=== PATIENT | male | born 1940 | race Caucasian/White ===

== ENCOUNTER → 2016-11-18 | Outpatient (CLI) | payer MEDICARE, BC ==
[2016-11-18 11:46] LABS: ALT 29 U/L (21-72); AST 25 U/L (17-59); Alkaline Phosphatase 108 U/L (38-126); Anion Gap 9 mmol/L; Blood Urea Nitrogen 23 mg/dL (9-20); Calcium 9.5 mg/dL (8.4-10.2); Carbon Dioxide 29 mmol/L (22-30); Chloride 101 mmol/L (98-107); Glucose 107 mg/dL (74-99); Magnesium 2.1 mg/dL (1.6-2.3); Non-African American GFR(MDRD) >60 (>60 ml/min/1.73 sqM); Potassium 4.2 mmol/L (3.5-5.1); Sodium 139 mmol/L (137-145); Total Bilirubin 1.1 mg/dL (0.2-1.3); Total Protein 7.1 g/dL (6.3-8.2)
== END | disposition home or self-care (01) ==
LOC: LABWHC1 11:00
PROVIDERS: ATTEND Internal Medicine Interventional Cardiology
DX: I48.0 Paroxysmal atrial fibrillation (principal)
CPT/HCPCS: 36415; 80053; 83735

== ENCOUNTER 2017-02-17 12:45 | Emergency (ER) | payer MEDICARE, BC ==
[2017-02-17 12:57] VITALS: RESP 18
[2017-02-17] MEDS ORDERED: MAGNESIUM CITRATE 296 ML BOTTLE PO ONE (13:28)
[2017-02-17] MEDS ORDERED: SENNOSIDES-DOCUSATE SODIUM 1 EACH TAB PO STA (13:30)
--- NOTE | 2017-02-17 14:08 | ED ---
General Adult HPI - General Chief complaint: Abdominal Pain Stated complaint: Bowel Problems Time Seen by Provider: 02/17/17 13:12 Source: family, RN notes reviewed, old records reviewed Mode of arrival: ambulatory Limitations: no limitations - History of Present Illness Initial comments: This is a 77-year-old mildly F Torres Toradol pain. History of constipation chronic constipation takes multiple medical complications at home for help with constipation bowel movements. Patient multiple medications that do injury to his constipation were unable to adjust unable to this time. Patient is taking MiraLAX with no help. - Related Data Allergies Allergy/AdvReac Type Severity Reaction Status Date / Time No Known Allergies Allergy Verified 02/17/17 12:57 Review of Systems ROS Statement: Those systems with pertinent positive or pertinent negative responses have been documented in the HPI. ROS Other: All systems not noted in ROS Statement are negative. Past Medical History Past Medical History: Atrial Fibrillation, CVA/TIA History of Any Multi-Drug Resistant Organisms: None Reported Past Surgical History: Ablation, Heart Catheterization, Hernia Repair, Pacemaker , Tonsillectomy Additional Past Surgical History / Comment(s): hydrocele Past Psychological History: Anxiety, Depression Smoking Status: Never smoker Past Alcohol Use History: None Reported Past Drug Use History: None Reported General Exam Limitations: no limitations General appearance: alert, in no apparent distress Head exam: Present: atraumatic, normocephalic, normal inspection Eye exam: Present: normal appearance, PERRL, EOMI. Absent: scleral icterus, conjunctival injection, periorbital swelling ENT exam: Present: normal exam, mucous membranes moist Neck exam: Present: normal inspection. Absent: tenderness, meningismus, lymphadenopathy Respiratory exam: Present: normal lung sounds bilaterally. Absent: respiratory distress, wheezes, rales, rhonchi, stridor Cardiovascular Exam: Present: regular rate, normal rhythm, normal heart sounds. Absent: systolic murmur, diastolic murmur, rubs, gallop, clicks GI/Abdominal exam: Present: soft, normal bowel sounds. Absent: distended, tenderness, guarding, rebound, rigid Extremities exam: Present: normal inspection, full ROM, normal capillary refill. Absent: tenderness, pedal edema, joint swelling, calf tenderness Back exam: Present: normal inspection Neurological exam: Present: alert, oriented X3, CN II-XII intact Psychiatric exam: Present: normal affect, normal mood Skin exam: Present: warm, dry, intact, normal color. Absent: rash Course Vital Signs 02/17/17 12:51 Temperature 96.9 F L Pulse Rate 103 H Respiratory 18 Rate Blood Pressure 130/85 O2 Sat by Pulse 98 Oximetry - Reevaluation(s) Reevaluation #1: 02/17/17 14:48 At this point patient has had a positive successful bowel output Procedures - Rectal Disimpaction Consent Obtained: verbal consent Indication: fecal impaction Procedural Sedation: Yes Sedation/Analgesia: none Technique: manual disimpaction with gloved finger Result: significant stool output Complications: none Patient Tolerated Procedure: well Medical Decision Making - Medical Decision Making 77 now the ER for constipation, patient with positive bowel movement, patient can be discharged home Disposition Clinical Impression: Abdominal pain, Constipation Disposition: HOME SELF-CARE Instructions: Constipation (ED) Referrals: Gaudencio Spangler MD [Primary Care Provider] - 1-2 days
[2017-02-17 16:02] VITALS: BP 138/69; PULSE 98; TEMP 98.3
== END 2017-02-17 16:02 | disposition home or self-care (01) ==
LOC: EC 12:45
DX: K59.00 Constipation, unspecified (principal); R10.9 Unspecified abdominal pain; Z86.73 Personal history of transient ischemic attack (TIA), and cerebral infarction without residual deficits
CPT/HCPCS: 99284

== ENCOUNTER → 2017-05-17 | Outpatient (CLI) | payer MEDICARE, BC ==
[2017-05-17 10:30] LABS: ALT 36 U/L (21-72); AST 34 U/L (17-59); Alkaline Phosphatase 99 U/L (38-126); Anion Gap 9 mmol/L; Blood Urea Nitrogen 19 mg/dL (9-20); Calcium 9.5 mg/dL (8.4-10.2); Carbon Dioxide 26 mmol/L (22-30); Chloride 103 mmol/L (98-107); Glucose 100 mg/dL (74-99); Magnesium 2.1 mg/dL (1.6-2.3); Non-African American GFR(MDRD) >60 (>60 ml/min/1.73 sqM); Potassium 4.6 mmol/L (3.5-5.1); Sodium 138 mmol/L (137-145); Total Bilirubin 1.1 mg/dL (0.2-1.3); Total Protein 7.2 g/dL (6.3-8.2)
== END | disposition home or self-care (01) ==
LOC: LABWHC1 09:18
PROVIDERS: ATTEND Internal Medicine Interventional Cardiology
DX: I48.0 Paroxysmal atrial fibrillation (principal)
CPT/HCPCS: 36415; 80053; 83735

== ENCOUNTER → 2017-11-08 | Outpatient (CLI) | payer MEDICARE, BC ==
[2017-11-08 09:38] LABS: ALT 33 U/L (21-72); AST 26 U/L (17-59); Alkaline Phosphatase 93 U/L (38-126); Anion Gap 10 mmol/L; Blood Urea Nitrogen 20 mg/dL (9-20); Calcium 9.5 mg/dL (8.4-10.2); Carbon Dioxide 30 mmol/L (22-30); Chloride 100 mmol/L (98-107); Glucose 102 mg/dL (74-99); Magnesium 2.1 mg/dL (1.6-2.3); Potassium 4.4 mmol/L (3.5-5.1); Sodium 140 mmol/L (137-145); Total Bilirubin 1.2 mg/dL (0.2-1.3); Total Protein 7.1 g/dL (6.3-8.2)
== END ==
LOC: LABWHC1 08:52
PROVIDERS: ATTEND Internal Medicine Interventional Cardiology
DX: D48.1 Neoplasm of uncertain behavior of connective and other soft tissue (principal)
CPT/HCPCS: 36415; 80053; 83735

== ENCOUNTER → 2018-06-09 | Outpatient (CLI) | payer MEDICARE, BC ==
[2018-06-09 11:15] LABS: HCT 44.9 % (39.0-53.0); HGB 15.3 gm/dL (13.0-17.5); MCH 33.5 pg (25.0-35.0); MCHC 34.2 g/dL (31.0-37.0); Mean Platelet Volume 7.2; Platelet Count 172 k/uL (150-450); RBC 4.58 m/uL (4.30-5.90); RDW 12.4 % (11.5-15.5); WBC 6.5 k/uL (3.8-10.6)
[2018-06-09 11:22] LABS: Anion Gap 9 mmol/L; Blood Urea Nitrogen 18 mg/dL (9-20); Carbon Dioxide 29 mmol/L (22-30); Chloride 103 mmol/L (98-107); Potassium 4.2 mmol/L (3.5-5.1); Sodium 141 mmol/L (137-145)
== END ==
LOC: LABPAT 10:02
PROVIDERS: ATTEND Internal Medicine Interventional Cardiology
DX: Z01.812 Encounter for preprocedural laboratory examination (principal); I10 Essential (primary) hypertension; I48.1 Persistent atrial fibrillation; R94.39 Abnormal result of other cardiovascular function study; R07.9 Chest pain, unspecified
CPT/HCPCS: 36415; 80051; 82565; 84520; 85027

== ENCOUNTER → 2018-06-13 | Day surgery (SDC) | payer MEDICARE, BC ==
[2018-06-09 14:32] VITALS: BMI 33.1
[~2018-06-13] MED LIST: ALPRAZolam 0.25 MG TAB PO PRN; ALPRAZolam 0.5 MG TAB PO PRN; ASPIRIN 325 MG TAB PO STA; ATORVASTATIN 80 MG TAB PO STA; FLUDROCORTISONE 0.1 MG TAB PO SCH; HEPARIN SODIUM 1,000 UN/ML (10ML VL) ONE; IOPAMIDOL-370 125ML BTL INJ ONE; IV FLUID CONTINUATION 950 ML IV ONE; LIDOCAINE 1% INJ 10MG/ML (20 ML MDV) ONE; LIDOCAINE 1% INJ 10MG/ML (20 ML MDV) SQ ONE; METHIMAZOLE 5 MG TAB PO SCH; METOPROLOL SUCCINATE (ER) 25 MG TAB.ER.24H PO SCH; MULTIVITAMINS, THERA 1 EACH TAB PO SCH; NITROGLYCERIN SL TABS 0.4 MG TAB SUBLINGUAL PRN; RX INFO: IV CONTRAST WAS GIVEN 1 EACH MISC MISCELLANE PRN; SODIUM CHLORIDE 0.9% 1,000 ML IV SCH; SODIUM CHLORIDE 0.9% 1,000 ML in EMPTY BAG 1 BAG IV ONE; TAMSULOSIN 0.4 MG CAP.ER.24H PO SCH; VERAPAMIL 2.5 MG/ML 2 ML AMP ONE; VERAPAMIL SYRINGE (5 MG/10 ML) INTRAARTER ONE; fentaNYL (PF) 50 MCG/ML 2 ML AMP IV ONE; fentaNYL (PF) 50 MCG/ML 2 ML AMP ONE
[2018-06-13 06:53] VITALS: PULSE 84; TEMP 98.1
--- NOTE | 2018-06-13 08:36 | CC ---
CARDIAC CATHETERIZATION REPORT Mr. Shree Jacobsen is a 78-year-old male with known history of hyperlipidemia, persistent atrial fibrillation, who has been complaining of progressive symptoms of fatigue and shortness of breath. He underwent myocardial perfusion imaging that was consistent with stress-induced ischemia. In view of that, recommendation was made regarding cardiac catheterization. The procedure as well as the risks and complications were discussed with the patient who is in full understanding and agreement. PROCEDURE: Patient was brought to the shop laborer in a fasting semi-sedated state after receiving fentanyl and Benadryl and achieving moderate conscious sedated state. Using Xylocaine anesthesia in the Seldinger technique a 6-Urdu sheath was introduced in the left radial artery. Selective right and left angiography performed using 5-Urdu 4 bend right and left Cherie catheter. Multiple views of the coronary artery including hemiaxial views obtained. Following that 5-Urdu tight pigtail catheter was introduced in the left ventricle and a 30-degree DELVALLE view of the left ventricle was obtained. Following that, the catheter and sheaths were removed. Hemostasis was obtained with deployment of a TR band. There was no immediate complication. Patient was returned to his room in stable condition. Of note, the patient received 5000 units of intravenous heparin as well as intra-arterial verapamil. FINDINGS: LEFT MAIN: This is a short large size vessel bifurcating left circumflex, left anterior descending artery. Left main coronary artery has no evidence of high-grade stenosis. LEFT ANTERIOR DESCENDING ARTERY: This is a large-sized vessel giving rise to 3 obtuse marginal branches. The first one is the largest in caliber. After the takeoff of the first obtuse marginal branch, there is a 20% plaque. The distal LAD tapers down at the apex. There was no evidence of high-grade stenosis. LEFT CIRCUMFLEX: This is a nondominant vessel small in caliber giving rise to one obtuse marginal branch. The left circumflex as well as branches have no evidence of obstructive coronary artery disease. RIGHT CORONARY ARTERY: This is a large dominant vessel bifurcating PDA and posterolateral segment and branches. The right coronary artery has mild intimal disease in the proximal and mid segment without any evidence of high-grade stenosis. LEFT VENTRICULOGRAM: Left ventriculogram was performed in 30-degree DELVALLE view and revealed normal left ventricular size and systolic function. The ejection fraction is 60% with no significant mitral regurgitation. HEMODYNAMICS: There was no gradient across the aortic valve. The left ventricular end- diastolic pressure was 8 to 10 mmHg. CONCLUSION: 1. 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 2. Normal left ventricular size and systolic function. RECOMMENDATION: In view of finding anatomy, I recommend continue medical therapy with aggressive coronary risk modifications that have been initiated. Those findings and recommendation were discussed with the patient and his family who are in full understanding and agreement. DURATION OF PROCEDURE: 24 minutes. MMODL / IJN: [id number] /
[2018-06-13 10:44] VITALS: RESP 18
[2018-06-13 13:08] VITALS: BP 141/81
== END | disposition home or self-care (01) ==
LOC: CATHCVL 06:28
PROVIDERS: ATTEND Internal Medicine Interventional Cardiology
DX: I25.10 Atherosclerotic heart disease of native coronary artery without angina pectoris (principal); I48.1 Persistent atrial fibrillation; I42.9 Cardiomyopathy, unspecified; Z87.891 Personal history of nicotine dependence; E78.00 Pure hypercholesterolemia, unspecified; E78.2 Mixed hyperlipidemia; Z95.0 Presence of cardiac pacemaker; Z79.01 Long term (current) use of anticoagulants; Z79.52 Long term (current) use of systemic steroids; Z79.899 Other long term (current) drug therapy
CPT/HCPCS: 93458; C1894; C1769; J2001; J3010; J1644; Q9967

== ENCOUNTER → 2020-07-10 | Outpatient (CLI) | payer MEDICARE, BC ==
--- NOTE | 2020-07-10 19:49 | CT ---
EXAMINATION TYPE: CT lumbar spine wo con DATE OF EXAM: 07/10/2020 6:46 PM COMPARISON: CT abdomen November 21, 2015 HISTORY: Lower back pain CT DLP: 2227.1 mGycm Automated exposure control for dose reduction was used. Unenhanced CT of the lumbar spine was performed. Bone and soft tissue window settings are submitted as well as coronal and sagittal reconstructions. There are 6 lumbar type vertebra redemonstrated. There is persistent dextroconvex scoliosis centered at the labeled L4 level. Spine shows straightening alignment on sagittal images similar to prior. Per sistent multilevel disc desiccation. Vertebral body heights are maintained. There is fairly moderate multilevel disc space narrowing and moderate multilevel anterior and lateral spurring. More severe sp urring left mid aspect noted. Slight grade 1 retrolisthesis L4 on L5 and L5 on L6 and anterolisthesis L2 on L3 all are redemonstrated. Axial images at the T12-L1 levels show mild/moderate facet arthropathy bilaterally. Spinal canal is p reserved. Similar findings at L1-L2 level. Axial images at L2-L3 level show mild/moderate facet arthropathy. There is mild broad disc bulge with vacuum disc phenomenon. There is moderate right and mild left-sided anterior inferior neural foramin al narrowing. Axial images at L3-L4 level shows moderate broad-based disc bulge effacing anterior thecal sac. There is mild to moderate facet arthropathy and ligament flavum hypertrophy causing posterior lateral thec al sac on axial image 47. There is mild/moderate bilateral anterior inferior neural foraminal narrowi ng. Axial images at the L4-L5 level shows mild facet arthropathy bilaterally. There is spondylolisthesis. There is mild broad disc bulge. There is mild effacement of the anterior and posterior lateral theca l sac. There is moderate to severe left and mild right-sided neural foraminal narrowing. Axial images at L5-L6 level show moderate facet arthropathy bilaterally. There is spondylolisthesis w ith broad-based right paracentral disc protrusion. There is effacement of the anterior and posterior lateral thecal sac. There is moderate right greater than left bilateral neural foraminal narrowing. Axial images at the L6-S1 levels and moderate to advanced facet arthropathy bilaterally. There is foc al central disc protrusion mildly facing anterior thecal sac. There is patent bilateral neural forami na. Mild calcified plaque of the aorta extends into branch vessels. There R suspected tiny nonobstructing left renal calculi, for reference 2 mm calculus mid to lower pole level left kidney axial image 47. IMPRESSION: Loss of normal lumbar lordosis. Scoliotic curvature. Multilevel degenerative changes as d etailed above..
== END | disposition home or self-care (01) ==
LOC: RADCTMAIN 18:24
PROVIDERS: ATTEND Physical Medicine & Rehabilitation
DX: M47.816 Spondylosis without myelopathy or radiculopathy, lumbar region (principal); M43.8X6 Other specified deforming dorsopathies, lumbar region; M41.86 Other forms of scoliosis, lumbar region
CPT/HCPCS: 72131

== ENCOUNTER → 2020-07-24 | Outpatient (CLI) | payer MEDICARE, BC ==
[2020-07-24 10:16] VITALS: BP 117/71; PULSE 79; RESP 18; TEMP 98.3
--- NOTE | 2020-07-24 17:11 | P.PAINCN ---
History of Present Illness - Reason for Consult Consult date: 07/24/20 - History of Present Illness This 80 years old male with a chronic history of severe low back pain, started several years ago he denies any initiating event, he was treated [facility] the [facility], he had lumbar epidural steroid injection, and also patient had diagnostic medial branch block done last year , patient had a positive result after the diagnostic medial branch block done on 2 different occasions, and he was scheduled to have RFA of the medial branch lumbar area, the radiofrequency was not done because patient had shingles in his chest , under radiofrequency was canceled, Dr. Payne, was planning to perform the radiofrequency for him, then the Dr. Payne left the practice, and patient referred to [facility] pain clinic to have radiofrequency of the medial branch lumbar area, according to the patient and his daughter patient had more than 70% improvement of his low back pain after each diagnostic block, the first procedure was done in the beginning of November 2018 and he had 70% improvement of his pain and the second diagnostic block done at 12/26/2018 and again patient did more than 70% improvement of his low back pain, patient reported that the pain in the low back area radiated to to the hip area bilaterally the posterior lateral aspect of his lower extremity, the intensity of the pain interfering with the quality of life, and interference with activities of daily livings, the pain is constant and severe aggravated with any movement, he denies any fever or night sweats, he feels some weakness in his lower extremity secondary to the pain Past Medical History Past Medical History: Atrial Fibrillation, Chest Pain / Angina, CVA/TIA, Hyperlipidemia, Hypertension, Osteoarthritis (OA), Prostate Disorder, Sleep Apnea/CPAP/BIPAP, Thyroid Disorder Additional Past Medical History / Comment(s): CVA-no residual effects, hx kidney stones History of Any Multi-Drug Resistant Organisms: None Reported Past Surgical History: Cardiac Ablation, Heart Catheterization, Hernia Repair, Pacemaker, Tonsillectomy Additional Past Surgical History / Comment(s): hydrocele, lithotripsy, paola cataracts, eye lid surgery, repair torn retina left eye, Past Anesthesia/Blood Transfusion Reactions: Motion Sickness Type of Cardiac Device: Permanent Pacemaker Device Placement Date:: 10/21/2011 Past Psychological History: Anxiety, Depression Past Alcohol Use History: None Reported Past Drug Use History: None Reported - Past Family History Mother Family Medical History: Cancer, Pulmonary Embolus Medications and Allergies Home Medications Medication Instructions Recorded Confirmed Type Fludrocortisone [Florinef] 0.1 mg PO QAM 02/17/17 07/24/20 History Multivitamins, Thera [Multivitamin 1 tab PO DAILY 02/17/17 07/24/20 History (formulary)] Rivaroxaban [Xarelto] 20 mg PO HS 02/17/17 07/24/20 History Simvastatin [Zocor] 20 mg PO HS 02/17/17 07/24/20 History Tamsulosin HCl [Flomax] 0.4 mg PO HS 02/17/17 07/24/20 History methIMAzole [Tapazole] 2.5 mg PO Q48H 02/17/17 07/24/20 History Metoprolol Succinate [Toprol XL] 25 mg PO BID 06/09/18 07/24/20 History Allergies Allergy/AdvReac Type Severity Reaction Status Date / Time No Known Allergies Allergy Verified 06/09/18 14:17 Physical Exam Vitals: Vital Signs Temp Pulse Resp BP Pulse Ox 07/24/20 10:04 98.3 F 79 18 117/71 97 Intake and Output 07/24/20 07/24/20 07/24/20 06:59 14:59 22:59 Other: Weight 111.13 kg Physical Examinations : -Constitutiona : Cooperative , not in acute distress . -HEENT : nech : supple , no Lymphadenopathy , normal thyroid size . : eyes : no ptosis , no icterus, no photophobia . - neurologic : Cranial nerve II to XII intact , no focal neurological deffecit . -psychatric : alert , oriented X 3 , appropriate affect , intact judgment and insight . -Lymphatic : no Lymphadenopathy . - musculoskeltal : Lumber spine moter stegnth lower extremities ,thigh and legs 4/5 Right side , 4/5 Left side deep tendon reflexes : normal Knee Jerk , normal ankle Jerk lumber facet Loading Test =positive Right , positive Left Range of motion of the lumbar spine Flexion 30 degrees, extension 10 degrees strait leg raising test = positive at 45 degree Fabere test= positive Right , and positive LT . Sever tenderness over the Sacroiliac joint on the Right , and Left sides . Results Comments: Computed tomography scan of the lumbar spine L2 3 L3 4 L4 5 L5-S1 lumbar degenerative disc disease and lumbar facet arthropathy Assessment and Plan Plan: Assessment and plan=1-lumbar spondylosis with lumbar facet arthropathy. 2-level degenerative disc disease. Patient had anoxic medial branch block lumbar area Bilaterally at L2 ,L3,L4 ,L5 done at [facility] he got more than 70% improvement of his pain for short-term, it would be good candidate to have RFA of the medial branch lumbar area, patient had to hold Xarelto before the procedure, and approval from the acid extractor was requested Time with Patient: Greater than 30 PQRS Measure Charge Sheet Measure #130: Documentation of Current Meds in Medical Chart: Patient's medications documented in chart Measure #226: Tobacco Use: Screen & Cessation Intervention: Pt not a tobacco user Measure #111: Pneumonia Vaccination: Pneumococcal vaccine administered or previously received Measure #47: Advance Care Plan: Advance care planning discussed & documented, pt chose/unable to give Measure #412: Opioid Treatment Agreement: No documentation of signed opioid treatment agreement Measure #408: Opioid Therapy Follow-up Evaluation: Patient had NO f/u eval minimum every 3 months during opioid therapy Measure #317: Preventitive Care & Scrn High Bld Press & F/U: Normal blood pressure, f/u not required Measure #128: Body Mass Index (BMI) Screening & Follow-up: BMI documented ABOVE normal parameters - f/u documented Measure #131: Pain Assessment & Follow-up: Follow-up scheduled Measure #431: Unhealthy Alcohol Use Preventative Care & Scrn: Patient not identified as an unhealthy alcohol user PQRS Narrative: Smoking Status Never smoker Blood Pressure 117/71 Pain Intensity [Lower Back] 3 Scale Used Numeric (1 - 10) Hx Alcohol Use (MH) No Home Medications: Ambulatory Orders Fludrocortisone [Florinef] 0.1 mg PO QAM 02/17/17 Multivitamins, Thera [Multivitamin (formulary)] 1 tab PO DAILY 02/17/17 Rivaroxaban [Xarelto] 20 mg PO HS 02/17/17 Simvastatin [Zocor] 20 mg PO HS 02/17/17 Tamsulosin HCl [Flomax] 0.4 mg PO HS 02/17/17 methIMAzole [Tapazole] 2.5 mg PO Q48H 02/17/17 Metoprolol Succinate [Toprol XL] 25 mg PO BID 06/09/18
== END | disposition home or self-care (01) ==
LOC: PNWHC3 09:50
PROVIDERS: ATTEND Specialist
DX: M47.816 Spondylosis without myelopathy or radiculopathy, lumbar region (principal); M51.36 Other intervertebral disc degeneration, lumbar region; Z79.891 Long term (current) use of opiate analgesic; Z79.899 Other long term (current) drug therapy
CPT/HCPCS: 99211

== ENCOUNTER 2020-08-16 11:16 | Day surgery (SDC) | payer MEDICARE, BC ==
[2020-08-14 11:38] VITALS: BMI 30.6
[~2020-08-16 11:16] MED LIST changes: -ALPRAZolam 0.25 MG TAB PO PRN; -ALPRAZolam 0.5 MG TAB PO PRN; -ASPIRIN 325 MG TAB PO STA; -ATORVASTATIN 80 MG TAB PO STA; -FLUDROCORTISONE 0.1 MG TAB PO SCH; -HEPARIN SODIUM 1,000 UN/ML (10ML VL) ONE; -IOPAMIDOL-370 125ML BTL INJ ONE; -IV FLUID CONTINUATION 950 ML IV ONE; +LACTATED RINGERS 1,000 ML IV SCH; -LIDOCAINE 1% INJ 10MG/ML (20 ML MDV) ONE; -LIDOCAINE 1% INJ 10MG/ML (20 ML MDV) SQ ONE; -METHIMAZOLE 5 MG TAB PO SCH; -METOPROLOL SUCCINATE (ER) 25 MG TAB.ER.24H PO SCH; -MULTIVITAMINS, THERA 1 EACH TAB PO SCH; -NITROGLYCERIN SL TABS 0.4 MG TAB SUBLINGUAL PRN; -RX INFO: IV CONTRAST WAS GIVEN 1 EACH MISC MISCELLANE PRN; -SODIUM CHLORIDE 0.9% 1,000 ML IV SCH; -SODIUM CHLORIDE 0.9% 1,000 ML in EMPTY BAG 1 BAG IV ONE; -TAMSULOSIN 0.4 MG CAP.ER.24H PO SCH; -VERAPAMIL 2.5 MG/ML 2 ML AMP ONE; -VERAPAMIL SYRINGE (5 MG/10 ML) INTRAARTER ONE; -fentaNYL (PF) 50 MCG/ML 2 ML AMP IV ONE; -fentaNYL (PF) 50 MCG/ML 2 ML AMP ONE
[2020-08-16 11:46] VITALS: RESP 16; TEMP 97.5
[2020-08-16] MEDS ORDERED: LIDOCAINE 1% (10MG/ML) FOR IV START INTRADERMA ONE (11:50)
[2020-08-16] MEDS ORDERED: LIDOCAINE 1% INJ 10MG/ML (20 ML MDV) ONE (11:54)
[2020-08-16] MEDS ORDERED: TRIAMCINOLONE ACETONIDE 40 MG/ML 1 ML VIAL ONE (11:54)
[2020-08-16] MEDS ORDERED: ROPIVACAINE 5MG/ML 20ML VIAL ONE (11:54)
[2020-08-16] MEDS ORDERED: PROPOFOL 10 MG/ML 20 ML VIAL IV ONE (11:55)
[2020-08-16] MEDS ORDERED: fentaNYL (PF) 50 MCG/ML 2 ML AMP ONE (11:55)
[2020-08-16] MEDS ORDERED: MIDAZOLAM 2 MG/2 ML VIAL ONE (11:55)
--- NOTE | 2020-08-16 12:32 | P.PCN ---
Date of Procedure: 08/16/20 Surgeon: Beth Linda Pathology: none sent Condition: stable Disposition: PACU Description of Procedure: PREOPERATIVE DIAGNOSIS: Lumbar spondylosis without myelopathy POSTOPERATIVE DIAGNOSIS: Lumbar spondylosis without myelopathy PROCEDURES : Bilateral Radiofrequency thermocoagulation L4-L5, and L5-S1 medial branch, with fluoroscopic guidance ANESTHESIA: IV moderate conscious sedation with versed and fentanyl and local infiltration with lidocaine 1% 5 ml Physician:Beth Linda MD EBL: Minimal PROCEDURE INDICATION: The patient with low back pain secondary to lumbar facet arthropathy who had more than 50% relief of her pain with previous diagnostic lumbar medial branch block with bupivacaine. The patient's symptoms today are more consistent with pathology at the L4 5 and L5-S1 facets and that's why I'm going to target these joints today with the RFA. PROCEDURE DESCRIPTION / TECHNIQUE: The patient was seen and identified in the preoperative area. Risks, benefits, complications, including but not limited to risk of infection ,bleeding , allergic reactions to the medications and no complete pain relief , and alternatives were discussed with the patient, the patient agreed to proceed with the procedure and signed the consent. IV was started. Vital signs remained stable throughout the procedure. Patient was taken to the OR and time out was completed. The patient was placed in the prone position on the procedure table. The lumber area was prepped and draped in the usual sterile fashion. . Vital signs were closely monitored during the procedure .IV sedation was used during the procedure to decrease patients anxiety. The target points were identified as follows: For the L5-S1 level which corresponds to the dorsal ramus of L5 the target point was at the superior med ial aspect of the sacral ala right of the spine on the AP view of fluoroscopy and for the L3, and L4 medial branches the target points were at the connection between the transverse process and the superior articular process of L4, and L5 vertebra respectively on the Rt oblique view of fluoroscopy. skin was marked, and localized with 1% lidocaineat these points. Subsequently, an 18 axouu383- mm radiofrequency needles with a 10-mm curved active tips were advanced guided by fluoroscopy to each of the target points mentioned above in a superior medial direction to get the active tips as parallel as possible to the medial branches tracks. AP, oblique, and lateral views of fluoroscopy were used to verify needl e tips position. Each level then underwent motor testing at 2.5 Hz and 0 to 3 volt with local stimulation, but no radicular symptoms down the legs. I then injected 1 mL of lidocaine 1% in each needle before starting radiofrequency thermocoagulation at 80 degrees celsius for 90 seconds. After that I injected 1 ml of PF Ropivacaine 0.5%(5 mls) with 20 mg of Kenalog, 1 mL of this mixture was given in each needle before taking the needles out intact. The procedure was repeated in the same manner on the left side with a total dose of Kenalog of 40 mg for the procedure. At the end of the procedure, the skin was cleansed and bandages were applied. A copy of needle placement fluoroscopy was saved on the C-arm machine. COMPLICATIONS: No acute complications. DISPOSITION / PLANS: The patient was placed in a supine position and transferred to the recovery area in a stable condition for observation and was discharged from the recovery room after meeting discharge criteria. Home discharge instructions given to the patient by the staff. The patient was reexamined prior to discharge. The patient will schedule a follow up in the clinic in 2-4 weeks.
[2020-08-16 12:56] VITALS: BP 169/90; PULSE 91
--- NOTE | 2020-08-16 12:56 | FL ---
EXAMINATION TYPE: FL guided pain mgmt statistic DATE OF EXAM: 08/16/2020 HISTORY: Fluoroscopy time 24 seconds of fluoroscopy provided. IMPRESSION: 1. Fluoroscopy time.
[2020-08-16] MEDS ORDERED: IV FLUID CONTINUATION 1,000 ML IV ONE (13:05)
== END 2020-08-16 13:21 | disposition home or self-care (01) ==
LOC: ORPAIN 11:16
PROVIDERS: ATTEND Anesthesiology
DX: M47.816 Spondylosis without myelopathy or radiculopathy, lumbar region (principal); I25.2 Old myocardial infarction; I25.10 Atherosclerotic heart disease of native coronary artery without angina pectoris; I10 Essential (primary) hypertension; E78.5 Hyperlipidemia, unspecified; E07.9 Disorder of thyroid, unspecified; M19.90 Unspecified osteoarthritis, unspecified site; N40.0 Benign prostatic hyperplasia without lower urinary tract symptoms; Z95.0 Presence of cardiac pacemaker; Z79.01 Long term (current) use of anticoagulants; Z79.899 Other long term (current) drug therapy
CPT/HCPCS: 64635; 64636; J2250; J3301; J2001; J3010; J2704; J2795

== ENCOUNTER → 2020-09-18 | Outpatient (CLI) | payer MEDICARE, BC ==
[2020-09-18 14:06] VITALS: BP 121/72; PULSE 95; RESP 18; TEMP 97.3
--- NOTE | 2020-09-18 14:45 | P.PN ---
Subjective Progress Note Date: 09/18/20 This is a follow-up visit for this 80 years old male with a chronic history of severe low back pain, patient diagnosed with lumbar degenerative disc disease lumbar spondylosis with lumbar facet arthropathy and lumbar foraminal stenosis, recently we have done RFA of the medial branch lumbar area patient currently complaining of low back pain with radiation to the left lower extremity, it is constant and increases with activity, interfere with the quality of life Objective - Vital Signs Vital signs: Vital Signs Temp 97.3 F L 09/18/20 14:03 Pulse 95 09/18/20 14:03 Resp 18 09/18/20 14:03 BP 121/72 09/18/20 14:03 Pulse Ox 99 09/18/20 14:03 - Exam Physical Examinations : -Constitutiona : Cooperative , not in acute distress . -HEENT : nech : supple , no Lymphadenopathy , normal thyroid size . : eyes : no ptosis , no icterus, no photophobia . - neurologic : Cranial nerve II to XII intact , no focal neurological deffecit . -psychatric : alert , oriented X 3 , appropriate affect , intact judgment and insight . -Lymphatic : no Lymphadenopathy . - musculoskeltal : Lumber spine moter stegnth lower extremities ,thigh and legs 5/5 Right side , 5/5 Left side deep tendon reflexes : normal Knee Jerk , normal ankle Jerk lumber facet Loading Test = negative bilaterally Range of motion of the lumbar spine Flexion 30 degrees, extension 10 degrees strait leg raising test = positive at 30 degree on the left side, and is negative on the right side Fabere test= negative right , and positive LT . Sever tenderness over the Sacroiliac joint on the Left sides . Gaenslen test= negative right ,and positive left . Seated flexion test= negative right ,and positive Left . Computed tomography scan of the lumbar spine= multilevel lumbar degenerative disc disease multilevel foraminal stenosis multilevel lumbar facet arthropathy Assessment and Plan Plan: Assessment and plan=1-lumbar radiculopathy. 2-lumbar degenerative disc disease 3-lumbar spondylosis with lumbar facet arthropathy. 4-left sacroiliitis. Status post RFA of the medial branch lumbar area. Patient could benefit from lumbar epidural steroid injection at L5-S1( left paramedian approach ) Patient has to hold Xarelto for 3 days before the procedure - PQRS measures = - Patient's medications are documented in the chart. -Tobacco use is negative and counseling.Given. -Patient's has not received pneumococcal vaccine. -Advanced care planning discussed, patient not eligible. -Opiate contract not signed. -Pain positive and follow-up visit/procedure is scheduled. -Patient's blood pressure measured [ 121/72 ] , and documented in the record ,and patient will follow up with the primary care. -Patient's weight was measured and body mass index [ ] above the normal limits and counseling was done. and patient instructed to follow-up with the primary care physician. -Patient was not identified as an unhealthy alcohol user Time with Patient: Less than 30
== END | disposition home or self-care (01) ==
LOC: PNWHC3 13:50
PROVIDERS: ATTEND Specialist
DX: M51.16 Intervertebral disc disorders with radiculopathy, lumbar region (principal); M47.26 Other spondylosis with radiculopathy, lumbar region; M46.1 Sacroiliitis, not elsewhere classified
CPT/HCPCS: 99211

== ENCOUNTER 2020-10-23 10:59 | Emergency (ER) | payer MEDICARE, BC ==
[2020-10-23 11:06] VITALS: RESP 18
[2020-10-23 12:09] LABS: Basophils % (A) 0 %; Eosinophils # (A) 0.1 k/uL (0-0.7); Eosinophils % (A) 1 %; HCT 45.9 % (39.0-53.0); HGB 15.8 gm/dL (13.0-17.5); Lymphocytes # (A) 0.4 k/uL (1.0-4.8); Lymphocytes % (A) 5 %; MCH 34.7 pg (25.0-35.0); MCHC 34.4 g/dL (31.0-37.0); MCV 100.7 fL (80.0-100.0); Mean Platelet Volume 7.6; Monocytes # (A) 0.4 k/uL (0-1.0); Monocytes % (A) 6 %; Neutrophils # (A) 6.6 k/uL (1.3-7.7); Neutrophils % (A) 87 %; Platelet Count 168 k/uL (150-450); RBC 4.56 m/uL (4.30-5.90); RDW 12.4 % (11.5-15.5); WBC 7.7 k/uL (3.8-10.6)
[2020-10-23 12:23] LABS: ALT 18 U/L (4-49); AST 25 U/L (17-59); African American GFR (CKD) >90 (>60 ml/min/1.73 sqM); Albumin 3.9 g/dL (3.5-5.0); Alkaline Phosphatase 87 U/L (38-126); Anion Gap 7 mmol/L; Blood Urea Nitrogen 21 mg/dL (9-20); Calcium 9.5 mg/dL (8.4-10.2); Carbon Dioxide 30 mmol/L (22-30); Chloride 102 mmol/L (98-107); Glucose 127 mg/dL (74-99); Non-African American GFR(CKD) 87 (>60 ml/min/1.73 sqM); Potassium 3.8 mmol/L (3.5-5.1); Sodium 139 mmol/L (137-145); Total Bilirubin 1.4 mg/dL (0.2-1.3); Total Protein 6.7 g/dL (6.3-8.2)
[2020-10-23 12:25] LABS: Appearance,Urine Clear (Clear); Bilirubin,Urine Negative (Negative); Blood,Urine Trace (Negative); Color,Urine Yellow; Glucose,Urine (UA) Negative (Negative); Ketones,Urine 1+ (Negative); Leukocyte Esterase,Urine Negative (Negative); Nitrite,Urine Negative (Negative); PH, Urine 6.5 (5.0-8.0); Protein,Urine Trace (Negative); RBC,Urine 21 /hpf (0-5); Specific Gravity,Urine 1.024 (1.001-1.035); WBC,Urine 1 /hpf (0-5)
[2020-10-23 12:26] LABS: Hyaline Casts,Urine 1 /lpf (0-2); Mucus,Urine Occasional /hpf
--- NOTE | 2020-10-23 12:35 | XR ---
KUB HISTORY: Constipation, urine retention Frontal KUB submitted on 2 images No comparisons There is a scoliotic curvature to the lumbar spine, there is degenerative disc changes. Multiple calc ifications in the pelvis are felt likely to represent phleboliths. Osteoarthritic changes are present in the hips. Bone mineralization is maintained. Some retained fecal debris is present throughout the distribution of the colon. Rectum shows mottled density consistent with retained stool. IMPRESSION: Correlate for fecal stasis, possible fecal impaction. Additional findings above.
[2020-10-23] MEDS ORDERED: SODIUM CHLORIDE 0.9% 500 ML 500 ML IV ONE (13:05)
--- NOTE | 2020-10-23 13:09 | ED ---
Male Urogenital HPI - General Chief complaint: Urogenital Stated complaint: Urinary retention Time Seen by Provider: 10/23/20 11:09 Source: patient, family Mode of arrival: ambulatory Limitations: no limitations - History of Present Illness Initial comments: 80-year-old male presented for urinary retention constipation. Patient states he struggles with constipation has to take a bowel regimen daily including MiraLAX. Patient states he has not had a bowel movement for 3-4 days. Patient states that since the past 2-3 days he has not been able to urinate. Patient states he has midline lower abdominal pressure/discomfort. Denies severe abdominal pain, nausea, vomiting, fevers. Denies additional complaints. Denies back pain, falls, leg weakness, sensation deficits, incontinence. Upon arrival patient appears well nontoxic in no acute distress. - Related Data Home Medications Medication Instructions Recorded Confirmed Fludrocortisone [Florinef] 0.1 mg PO QAM 02/17/17 10/21/20 Multivitamins, Thera [Multivitamin 1 tab PO DAILY 02/17/17 10/21/20 (formulary)] Rivaroxaban [Xarelto] 20 mg PO HS 02/17/17 10/21/20 Simvastatin [Zocor] 20 mg PO HS 02/17/17 10/21/20 Tamsulosin HCl [Flomax] 0.4 mg PO HS 02/17/17 10/21/20 methIMAzole [Tapazole] 2.5 mg PO Q48H 02/17/17 10/21/20 Metoprolol Succinate [Toprol XL] 25 mg PO BID 06/09/18 10/21/20 Acetaminophen [Tylenol] 1,000 mg PO HS 08/14/20 10/21/20 Miralax(Dose Unknown) 1 applicate PO DAILY 08/14/20 10/21/20 Allergies Allergy/AdvReac Type Severity Reaction Status Date / Time No Known Allergies Allergy Verified 10/21/20 12:51 Review of Systems ROS Statement: Those systems with pertinent positive or pertinent negative responses have been documented in the HPI. ROS Other: All systems not noted in ROS Statement are negative. Past Medical History Past Medical History: Atrial Fibrillation, Chest Pain / Angina, CVA/TIA, Hyperlipidemia, Hypertension, Osteoarthritis (OA), Prostate Disorder, Sleep A pnea/CPAP/BIPAP, Thyroid Disorder Additional Past Medical History / Comment(s): CVA-no residual effects, hx kidney stones, no cpap used, back pain History of Any Multi-Drug Resistant Organisms: None Reported Past Surgical History: Cardiac Ablation, Heart Catheterization, Hernia Repair, Pacemaker, Tonsillectomy Additional Past Surgical History / Comment(s): hydrocele, lithotripsy, paola cataracts, eye lid surgery, repair torn retina left eye, Past Anesthesia/Blood Transfusion Reactions: Motion Sickness Type of Cardiac Device: Permanent Pacemaker Device Placement Date:: 10/21/2011 Past Psychological History: Anxiety, Depression Smoking Status: Never smoker Past Alcohol Use History: None Reported Past Drug Use History: None Reported - Past Family History Mother Family Medical History: Cancer, Pulmonary Embolus General Exam - General Exam Comments Initial Comments: General: The patient is awake and alert, in no distress Eye: +3 mm pupils are equal, round and reactive to light, extra-ocular movements are intact. No nystagmus. There is normal conjunctiva bilaterally. No signs of icterus. Ears, nose, mouth and throat: There are moist mucous membranes and no oral lesions. Neck: The neck is supple, there is no tenderness or JVD. Cardiovascular: There is a regular rate and rhythm. No murmur, rub or gallop is appreciated. Respiratory: Lungs are clear to auscultation, respirations are non-labored, breath sounds are equal. No wheezes, stridor, rales, or rhonchi. Gastrointestinal: [Soft, non-distended, non-tender abdomen without masses or organomegaly noted. There is no rebound or guarding present. Musculoskeletal: Normal ROM, no tenderness. Strength 5/5. Sensation intact. Radial and DP pulses equal bilaterally 2+. Neurological: A&O x 3. CN II-XII intact grossly, There are no obvious motor or sensory deficits. Coordination appears grossly intact. Speech is normal. Skin: Skin is warm and dry and no rashes or lesions are noted. Psychiatric: Cooperative, appropriate mood & affect, normal judgment. Limitations: no limitations Course Vital Signs 10/23/20 10/23/20 10/23/20 11:03 12:27 14:14 Temperature 98.1 F 98.0 F Pulse Rate 106 H 94 100 Respiratory 18 18 18 Rate Blood Pressure 101/70 134/79 132/86 O2 Sat by Pulse 100 99 100 Oximetry Medical Decision Making - Medical Decision Making pt presenting for constipation, with known history and urinary retention. significant retnetion upon watts placement. patient UA blood, however no obvious signs of infection. Patient does not appear toxic nor distressed abdomen soft nontender no significant distention. There was evidence on KUB of possible fecal impaction. Rectal no large stool ball, soft stools. Patient had successful enema. Patient stated significant relief at this time feel is stable for discharge with outpatient urology follow-up as we will keep in the indwelling Watts catheter. patient agreeable to this care plan and discharge as is patient son in law who helps patient get to appointments/ect. - Lab Data Result diagrams: 10/23/20 11:58 10/23/20 11:58 Lab Results 10/23/20 10/23/20 10/23/20 Range/Units 11:58 11:58 11:58 WBC 7.7 (3.8-10.6) k/uL RBC 4.56 (4.30-5.90) m/uL Hgb 15.8 (13.0-17.5) gm/dL Hct 45.9 (39.0-53.0) % MCV 100.7 H (80.0-100.0) fL MCH 34.7 (25.0-35.0) pg MCHC 34.4 (31.0-37.0) g/dL RDW 12.4 (11.5-15.5) % Plt Count 168 (150-450) k/uL MPV 7.6 Neutrophils % 87 % Lymphocytes % 5 % Monocytes % 6 % Eosinophils % 1 % Basophils % 0 % Neutrophils # 6.6 (1.3-7.7) k/uL Lymphocytes # 0.4 L (1.0-4.8) k/uL Monocytes # 0.4 (0-1.0) k/uL Eosinophils # 0.1 (0-0.7) k/uL Basophils # 0.0 (0-0.2) k/uL Sodium 139 (137-145) mmol/L Potassium 3.8 (3.5-5.1) mmol/L Chloride 102 (98-107) mmol/L Carbon Dioxide 30 (22-30) mmol/L Anion Gap 7 mmol/L BUN 21 H (9-20) mg/dL Creatinine 0.76 (0.66-1.25) mg/dL Est GFR (CKD-EPI)AfAm >90 (>60 ml/min/1.73 sqM) Est GFR (CKD-EPI)NonAf 87 (>60 ml/min/1.73 sqM) Glucose 127 H (74-99) mg/dL Calcium 9.5 (8.4-10.2) mg/dL Total Bilirubin 1.4 H (0.2-1.3) mg/dL AST 25 (17-59) U/L ALT 18 (4-49) U/L Alkaline Phosphatase 87 (38-126) U/L Total Protein 6.7 (6.3-8.2) g/dL Albumin 3.9 (3.5-5.0) g/dL Urine Color Yellow Urine Appearance Clear (Clear) Urine pH 6.5 (5.0-8.0) Ur Specific [place] 1.024 (1.001-1.035) Urine Protein Trace H (Negative) Urine Glucose (UA) Negative (Negative) Urine Ketones 1+ H (Negative) Urine Blood Trace H (Negative) Urine Nitrite Negative (Negative) Urine Bilirubin Negative (Negative) Urine Urobilinogen 4.0 (<2.0) mg/dL Ur Leukocyte Esterase Negative (Negative) Urine RBC 21 H (0-5) /hpf Urine WBC 1 (0-5) /hpf Hyaline Casts 1 (0-2) /lpf Urine Mucus Occasional H (None) /hpf Disposition Clinical Impression: Urinary retention, Constipation Disposition: HOME SELF-CARE Condition: Good Instructions (If sedation given, give patient instructions): Constipation (ED), Urinary Retention in Men (ED) Additional Instructions: Please use medication as discussed. Please follow-up with urology in the next 1-2 day, call TODAY for your appointment, Please return to emergency room if the symptoms increase or worsen or for any other concerns. Is patient prescribed a controlled substance at d/c from ED?: No Referrals: Gaudencio Spangler MD [Primary Care Provider] - 1-2 days Ravinder Patel MD [STAFF PHYSICIAN] - 1-2 days Time of Disposition: 13:18
[2020-10-23] MEDS ORDERED: SODIUM CHLORIDE 0.9% 1,000 ML IV SCH (13:15)
[2020-10-23 14:15] VITALS: BP 132/86; PULSE 100; TEMP 98
== END 2020-10-23 14:40 | disposition home or self-care (01) ==
LOC: EC 10:59
DX: K59.00 Constipation, unspecified (principal); R33.9 Retention of urine, unspecified; I48.91 Unspecified atrial fibrillation; I10 Essential (primary) hypertension; E78.5 Hyperlipidemia, unspecified; G47.30 Sleep apnea, unspecified; Z79.01 Long term (current) use of anticoagulants; Z79.899 Other long term (current) drug therapy; Z95.0 Presence of cardiac pacemaker; Z86.73 Personal history of transient ischemic attack (TIA), and cerebral infarction without residual deficits
CPT/HCPCS: 36415; 74018; 80053; 81001; 85025; 96360; 99283

== ENCOUNTER 2020-11-02 11:15 | Inpatient (IN) | payer MEDICARE, BC ==
[2020-11-02] MEDS ORDERED: SODIUM CHLORIDE 0.9% 500 ML 500 ML IV STA (11:46)
--- NOTE | 2020-11-02 11:59 | ED ---
Weakness HPI - General Chief complaint: Weakness Stated complaint: sudden weakness Time Seen by Provider: 11/02/20 11:29 Source: patient, family Mode of arrival: wheelchair Limitations: physical limitation - History of Present Illness Initial comments: 80-year-old male with history of A. fib presents to emergency department with a chief complaint of A. fib. Patient is present with his daughter who states the patient was seen in the hospital on 10/22/20 for urinary retention and constipation. Patient was discharged with a Mustafa catheter and ever since the patient continues to decline. He has decreased oral intake. Patient has also been getting progressively weaker. Daughter states the patient has also been having increased fluid retention in his legs but he has been sleeping in a mostly. patient takes xeralto. Patient is also complaining of obstructive urinary symptoms and urgency but denies any dysuria. Patient denies any chest pain or shortness of breath. - Related Data Home Medications Medication Instructions Recorded Confirmed Fludrocortisone [Florinef] 0.1 mg PO QAM 02/17/17 10/21/20 Multivitamins, Thera [Multivitamin 1 tab PO DAILY 02/17/17 10/21/20 (formulary)] Rivaroxaban [Xarelto] 20 mg PO HS 02/17/17 10/21/20 Simvastatin [Zocor] 20 mg PO HS 02/17/17 10/21/20 Tamsulosin HCl [Flomax] 0.4 mg PO HS 02/17/17 10/21/20 methIMAzole [Tapazole] 2.5 mg PO Q48H 02/17/17 10/21/20 Metoprolol Succinate [Toprol XL] 25 mg PO BID 06/09/18 10/21/20 Acetaminophen [Tylenol] 1,000 mg PO HS 08/14/20 10/21/20 Miralax(Dose Unknown) 1 applicate PO DAILY 08/14/20 10/21/20 Allergies Allergy/AdvReac Type Severity Reaction Status Date / Time No Known Allergies Allergy Verified 11/02/20 11:21 Review of Systems ROS Statement: Those systems with pertinent positive or pertinent negative responses have been documented in the HPI. ROS Other: All systems not noted in ROS Statement are negative. Past Medical History Past Medical History: Atrial Fibrillation, Chest Pain / Angina, CVA/TIA, Hyperlipidemia, Hypertension, Osteoarthritis (OA), Prostate Disorder, Sleep Apnea/CPAP/BIPAP, Thyroid Disorder Additional Past Medical History / Comment(s): CVA-no residual effects, hx kidney stones, no cpap used, back pain, History of Any Multi-Drug Resistant Organisms: None Reported Past Surgical History: Cardiac Ablation, Heart Catheterization, Hernia Repair, Pacemaker, Tonsillectomy Additional Past Surgical History / Comment(s): hydrocele, lithotripsy, paola cataracts, eye lid surgery, repair torn retina left eye, Past Anesthesia/Blood Transfusion Reactions: Motion Sickness Type of Cardiac Device: Permanent Pacemaker Device Placement Date:: 10/21/2011 Past Psychological History: Anxiety, Depression Smoking Status: Never smoker Past Alcohol Use History: None Reported Past Drug Use History: None Reported - Past Family History Mother Family Medical History: Cancer, Pulmonary Embolus General Exam Limitations: physical limitation General appearance: alert, in no apparent distress, obese Head exam: Present: atraumatic, normocephalic, normal inspection Eye exam: Present: normal appearance, PERRL, EOMI Pupils: Present: normal accommodation ENT exam: Present: normal exam, normal oropharynx, mucous membranes dry, TM's normal bilaterally, normal external ear exam Neck exam: Present: normal inspection, full ROM. Absent: tenderness Respiratory exam: Present: normal lung sounds bilaterally. Absent: respiratory distress, wheezes, rales, rhonchi, stridor, chest wall tenderness, accessory muscle use Cardiovascular Exam: Present: regular rate, normal rhythm, normal heart sounds GI/Abdominal exam: Present: soft. Absent: distended, tenderness, guarding, rebound Extremities exam: Present: normal inspection, full ROM, normal capillary refill, pedal edema (+3 pitting edema bilaterally), other (Palpable DP and PT bilatera lly). Absent: tenderness, calf tenderness Back exam: Present: normal inspection, full ROM. Absent: tenderness, CVA tenderness (R), CVA tenderness (L) Neurological exam: Present: alert, oriented X3 Psychiatric exam: Present: normal affect, normal mood Skin exam: Present: warm, dry, intact, normal color Course Vital Signs 11/02/20 11/02/20 11/02/20 11:16 11:33 12:51 Temperature 99.4 F Pulse Rate 124 H 91 Respiratory 18 18 Rate Blood Pressure 131/72 128/85 O2 Sat by Pulse 99 Oximetry EKG Findings - EKG Comments: EKG Findings:: A. fib with RVR. Ventricular rate 122, QRS 90, QTc 427. Medical Decision Making - Medical Decision Making 80-year-old male presents to the emergency department with chief complaint of weakness. On physical examination, +3 pitting edema bilateral lower extremities. Patient does appear to be slightly dehydrated and the mucous members. Patient currently on Xarelto for A. fib. EKG showed A. fib with RVR but his heart rate seems to be arranging between the low 90s and 110. Patient will not be started on rate control medication. Leukocytosis of 13.6 K. Lactic acid within normal limits. Elevated coags. CMP reveals elevation of BUN at 29 lip secondary to decreased oral intake at home. UA reveals elevated leukocyte esterase, white blood cells and red blood cells. Patient will be treated for a urinary tract infection. Rocephin started. Urine cultures pending. Blood cultures pending. Chest x-ray showed no signs of effusion. Initial troponin negative. BNP 3020. Patient will be kept on 50cc per hour IV saline. Patient will be admitted for further medical management. Case discussed with Dr. Montgomery. Admitting physician is Dr. Stovall - Lab Data Result diagrams: 11/02/20 11:53 11/02/20 11:53 Lab Results 11/02/20 11/02/20 11/02/20 Range/Units 11:53 11:53 11:53 WBC 13.6 H (3.8-10.6) k/uL RBC 4.38 (4.30-5.90) m/uL Hgb 15.3 (13.0-17.5) gm/dL Hct 44.5 (39.0-53.0) % MCV 101.4 H (80.0-100.0) fL MCH 34.9 (25.0-35.0) pg MCHC 34.4 (31.0-37.0) g/dL RDW 12.4 (11.5-15.5) % Plt Count 180 (150-450) k/uL MPV 7.7 Neutrophils % 93 % Lymphocytes % 3 % Monocytes % 3 % Eosinophils % 1 % Basophils % 0 % Neutrophils # 12.6 H (1.3-7.7) k/uL Lymphocytes # 0.4 L (1.0-4.8) k/uL Monocytes # 0.4 (0-1.0) k/uL Eosinophils # 0.1 (0-0.7) k/uL Basophils # 0.0 (0-0.2) k/uL PT 15.4 H (9.0-12.0) sec INR 1.5 H (<1.2) APTT 35.0 H (22.0-30.0) sec Sodium 136 L (137-145) mmol/L Potassium 3.9 (3.5-5.1) mmol/L Chloride 97 L (98-107) mmol/L Carbon Dioxide 27 (22-30) mmol/L Anion Gap 12 mmol/L BUN 29 H (9-20) mg/dL Creatinine 0.78 (0.66-1.25) mg/dL Est GFR (CKD-EPI)AfAm >90 (>60 ml/min/1.73 sqM) Est GFR (CKD-EPI)NonAf 86 (>60 ml/min/1.73 sqM) Glucose 144 H (74-99) mg/dL Plasma Lactic Acid Tera (0.7-2.0) mmol/L Calcium 9.1 (8.4-10.2) mg/dL Magnesium 1.8 (1.6-2.3) mg/dL Total Bilirubin 1.5 H (0.2-1.3) mg/dL AST 26 (17-59) U/L ALT 19 (4-49) U/L Alkaline Phosphatase 85 (38-126) U/L Troponin I (0.000-0.034) ng/mL NT-Pro-B Natriuret Pep pg/mL Total Protein 6.7 (6.3-8.2) g/dL Albumin 3.7 (3.5-5.0) g/dL Urine Color Urine Appearance (Clear) Urine pH (5.0-8.0) Ur Specific [place] (1.001-1.035) Urine Protein (Negative) Urine Glucose (UA) (Negative) Urine Ketones (Negative) Urine Blood (Negative) Urine Nitrite (Negative) Urine Bilirubin (Negative) Urine Urobilinogen (<2.0) mg/dL Ur Leukocyte Esterase (Negative) Urine RBC (0-5) /hpf Urine WBC (0-5) /hpf Amorphous Sediment (None) /hpf Urine Bacteria (None) /hpf Hyaline Casts (0-2) /lpf Urine Mucus (None) /hpf 11/02/20 11/02/20 11/02/20 Range/Units 11:53 11:53 11:53 WBC (3.8-10.6) k/uL RBC (4.30-5.90) m/uL Hgb (13.0-17.5) gm/dL Hct (39.0-53.0) % MCV (80.0-100.0) fL MCH (25.0-35.0) pg MCHC (31.0-37.0) g/dL RDW (11.5-15.5) % Plt Count (150-450) k/uL MPV Neutrophils % % Lymphocytes % % Monocytes % % Eosinophils % % Basophils % % Neutrophils # (1.3-7.7) k/uL Lymphocytes # (1.0-4.8) k/uL Monocytes # (0-1.0) k/uL Eosinophils # (0-0.7) k/uL Basophils # (0-0.2) k/uL PT (9.0-12.0) sec INR (<1.2) APTT (22.0-30.0) sec Sodium (137-145) mmol/L Potassium (3.5-5.1) mmol/L Chloride (98-107) mmol/L Carbon Dioxide (22-30) mmol/L Anion Gap mmol/L BUN (9-20) mg/dL Creatinine (0.66-1.25) mg/dL Est GFR (CKD-EPI)AfAm (>60 ml/min/1.73 sqM) Est GFR (CKD-EPI)NonAf (>60 ml/min/1.73 sqM) Glucose (74-99) mg/dL Plasma Lactic Acid Tera 2.7 H* (0.7-2.0) mmol/L Calcium (8.4-10.2) mg/dL Magnesium (1.6-2.3) mg/dL Total Bilirubin (0.2-1.3) mg/dL AST (17-59) U/L ALT (4-49) U/L Alkaline Phosphatase (38-126) U/L Troponin I <0.012 (0.000-0.034) ng/mL NT-Pro-B Natriuret Pep 3030 pg/mL Total Protein (6.3-8.2) g/dL Albumin (3.5-5.0) g/dL Urine Color Urine Appearance (Clear) Urine pH (5.0-8.0) Ur Specific [place] (1.001-1.035) Urine Protein (Negative) Urine Glucose (UA) (Negative) Urine Ketones (Negative) Urine Blood (Negative) Urine Nitrite (Negative) Urine Bilirubin (Negative) Urine Urobilinogen (<2.0) mg/dL Ur Leukocyte Esterase (Negative) Urine RBC (0-5) /hpf Urine WBC (0-5) /hpf Amorphous Sediment (None) /hpf Urine Bacteria (None) /hpf Hyaline Casts (0-2) /lpf Urine Mucus (None) /hpf 11/02/20 Range/Units 12:25 WBC (3.8-10.6) k/uL RBC (4.30-5.90) m/uL Hgb (13.0-17.5) gm/dL Hct (39.0-53.0) % MCV (80.0-100.0) fL MCH (25.0-35.0) pg MCHC (31.0-37.0) g/dL RDW (11.5-15.5) % Plt Count (150-450) k/uL MPV Neutrophils % % Lymphocytes % % Monocytes % % Eosinophils % % Basophils % % Neutrophils # (1.3-7.7) k/uL Lymphocytes # (1.0-4.8) k/uL Monocytes # (0-1.0) k/uL Eosinophils # (0-0.7) k/uL Basophils # (0-0.2) k/uL PT (9.0-12.0) sec INR (<1.2) APTT (22.0-30.0) sec Sodium (137-145) mmol/L Potassium (3.5-5.1) mmol/L Chloride (98-107) mmol/L Carbon Dioxide (22-30) mmol/L Anion Gap mmol/L BUN (9-20) mg/dL Creatinine (0.66-1.25) mg/dL Est GFR (CKD-EPI)AfAm (>60 ml/min/1.73 sqM) Est GFR (CKD-EPI)NonAf (>60 ml/min/1.73 sqM) Glucose (74-99) mg/dL Plasma Lactic Acid Tera (0.7-2.0) mmol/L Calcium (8.4-10.2) mg/dL Magnesium (1.6-2.3) mg/dL Total Bilirubin (0.2-1.3) mg/dL AST (17-59) U/L ALT (4-49) U/L Alkaline Phosphatase (38-126) U/L Troponin I (0.000-0.034) ng/mL NT-Pro-B Natriuret Pep pg/mL Total Protein (6.3-8.2) g/dL Albumin (3.5-5.0) g/dL Urine Color Dark Yellow Urine Appearance Cloudy (Clear) Urine pH 6.0 (5.0-8.0) Ur Specific [place] 1.030 (1.001-1.035) Urine Protein 2+ H (Negative) Urine Glucose (UA) Negative (Negative) Urine Ketones Negative (Negative) Urine Blood Large H (Negative) Urine Nitrite Negative (Negative) Urine Bilirubin Negative (Negative) Urine Urobilinogen 6.0 (<2.0) mg/dL Ur Leukocyte Esterase Large H (Negative) Urine RBC >182 H (0-5) /hpf Urine WBC 123 H (0-5) /hpf Amorphous Sediment Few H (None) /hpf Urine Bacteria Few H (None) /hpf Hyaline Casts 8 H (0-2) /lpf Urine Mucus Many H (None) /hpf Disposition Clinical Impression: Urinary tract infection, Lower extremity edema, Weakness Disposition: ADMITTED IP TO THIS HOSP Condition: Fair Is patient prescribed a controlled substance at d/c from ED?: No Referrals: Gaudencio Spangler MD [Primary Care Provider] - 1-2 days Time of Disposition: 13:51
[2020-11-02 12:04] LABS: Basophils % (A) 0 %; Eosinophils # (A) 0.1 k/uL (0-0.7); Eosinophils % (A) 1 %; HCT 44.5 % (39.0-53.0); HGB 15.3 gm/dL (13.0-17.5); Lymphocytes # (A) 0.4 k/uL (1.0-4.8); Lymphocytes % (A) 3 %; MCH 34.9 pg (25.0-35.0); MCHC 34.4 g/dL (31.0-37.0); MCV 101.4 fL (80.0-100.0); Mean Platelet Volume 7.7; Monocytes # (A) 0.4 k/uL (0-1.0); Monocytes % (A) 3 %; Neutrophils # (A) 12.6 k/uL (1.3-7.7); Neutrophils % (A) 93 %; Platelet Count 180 k/uL (150-450); RBC 4.38 m/uL (4.30-5.90); RDW 12.4 % (11.5-15.5); WBC 13.6 k/uL (3.8-10.6)
[2020-11-02 12:09] LABS: INR 1.5 (<1.2); Prothrombin Time 15.4 sec (9.0-12.0)
--- NOTE | 2020-11-02 12:13 | XR ---
EXAMINATION TYPE: XR chest 2V DATE OF EXAM: 11/02/2020 COMPARISON: Chest x-ray 01/02/2010 HISTORY: Weakness, trauma yesterday TECHNIQUE: Frontal and lateral views of the chest are obtained. FINDINGS: There is a generator in left pectoral region, there are leads in the right atrium and vent ricle, leads in the atrium is upturned, it shows a transverse orientation. There is no evident pneumo thorax or pleural effusion. Heart is enlarged. Aorta is dense and ectatic. IMPRESSION: No acute cardiopulmonary process. Atrial lead of the pacemaker as described. Aortic ecta bobbi and cardiomegaly.
[2020-11-02 12:19] LABS: ALT 19 U/L (4-49); AST 26 U/L (17-59); African American GFR (CKD) >90 (>60 ml/min/1.73 sqM); Albumin 3.7 g/dL (3.5-5.0); Alkaline Phosphatase 85 U/L (38-126); Anion Gap 12 mmol/L; Blood Urea Nitrogen 29 mg/dL (9-20); Calcium 9.1 mg/dL (8.4-10.2); Carbon Dioxide 27 mmol/L (22-30); Chloride 97 mmol/L (98-107); Glucose 144 mg/dL (74-99); Magnesium 1.8 mg/dL (1.6-2.3); Non-African American GFR(CKD) 86 (>60 ml/min/1.73 sqM); Potassium 3.9 mmol/L (3.5-5.1); Sodium 136 mmol/L (137-145); Total Bilirubin 1.5 mg/dL (0.2-1.3); Total Protein 6.7 g/dL (6.3-8.2)
[2020-11-02 13:11] LABS: Amorphous Sediment,Urine Few /hpf; Appearance,Urine Cloudy (Clear); Bacteria,Urine Few /hpf; Bilirubin,Urine Negative (Negative); Blood,Urine Large (Negative); Color,Urine Dark Yellow; Glucose,Urine (UA) Negative (Negative); Hyaline Casts,Urine 8 /lpf (0-2); Ketones,Urine Negative (Negative); Leukocyte Esterase,Urine Large (Negative); Mucus,Urine Many /hpf; Nitrite,Urine Negative (Negative); Protein,Urine 2+ (Negative); RBC,Urine >182 /hpf (0-5); WBC,Urine 123 /hpf (0-5)
[2020-11-02] MEDS ORDERED: cefTRIAXone IN SWFI 1,000 MG/10 ML SYRINGE IVP STA (13:33)
[2020-11-02] MEDS ORDERED: SODIUM CHLORIDE 0.9% 1,000 ML IV SCH (13:45)
[2020-11-02] MEDS ORDERED: ONDANSETRON 4 MG/2 ML VIAL IVP PRN (13:45)
[2020-11-02] MEDS ORDERED: MORPHINE SULFATE 4 MG/ML SYRINGE IV PRN (13:45)
[2020-11-02] MEDS ORDERED: traMADol 50 MG TAB PO PRN (13:45)
[2020-11-02] MEDS ORDERED: HYDROcodone/APAP 5-325MG 1 EACH TAB PO PRN (13:45)
[2020-11-02] MEDS ORDERED: HYDROmorphone 0.5 MG/0.5 ML SYRINGE IVP PRN (13:45)
[2020-11-02] MEDS ORDERED: NALOXONE 0.4 MG/ML 1 ML VIAL IV PRN (13:45)
--- NOTE | 2020-11-02 21:07 | HP ---
HISTORY AND PHYSICAL DATE OF SERVICE: 11/02/2020 I am covering for Dr. Spangler. CHIEF COMPLAINTS: Weakness and UTI. HISTORY OF PRESENT ILLNESS: This 80-year-old gentleman with a past medical history of multiple medical problems including atrial fibrillation, CVA, TIA, hypertension, hyperlipidemia, history of DJD, sleep apnea, history of cardiac ablation, history of cardiac catheterization, being followed by Dr. Spangler in the outpatient setting, had urinary difficulties. The patient came to the ER on 10/23/2020, with features of urinary retention. The patient also had some constipation. The patient had a Mustafa catheter and urology followup is also being recommended, the Mustafa catheter was removed, but despite that, the patient has some difficulty in urination. The patient has significant weakness and the patient was taken to [facility] and admitted for further evaluation and treatment. The patient also had bilateral leg swelling also. The urine shows some hematuria as well. There is no history any fever, rigors or chills. No history of headache, loss of consciousness or seizures. The patient is extremely hard of hearing. PAST MEDICAL HISTORY: History of atrial fibrillation, CVA, TIA, hypertension, hyperlipidemia, history of DJD. HOME MEDICATIONS: Tapazole, Flomax, Zocor, Xarelto, MiraLAX, multivitamins, Toprol-XL, Florinef, Tylenol. Doses are reviewed. ALLERGIES: None. FAMILY HISTORY: Pulmonary embolism in the family. SOCIAL HISTORY: No history of smoking. No history of alcohol intake. REVIEW OF SYSTEMS: ENT diminished hearing. Diminished vision. CARDIOVASCULAR system as mentioned earlier. RESPIRATORY: As mentioned earlier. : As mentioned earlier. GI: Constipation. NERVOUS SYSTEM: No numbness, weakness. ALLERGY/IMMUNOLOGY: No asthma or hayfever. MUSCULOSKELETAL: As mentioned earlier. HEMATOLOGY/ONCOLOGY: No history of anemia. ENDOCRINE: No history of diabetes. Hypothyroidism present. CONSTITUTIONAL: As mentioned earlier. DERMATOLOGY: Negative. RHEUMATOLOGY negative. PSYCHIATRY as mentioned earlier. PHYSICAL EXAMINATION: Alert and oriented x3. Pulse 94, blood pressure 118/59, respiration 18, temperature 98.9, pulse ox 98% on 2 L. HEENT: Conjunctivae normal. Oral mucosa moist. NECK is no jugular venous distention. No carotid bruit. No lymph node enlargement. CARDIOVASCULAR system: S1, S2 muffled. No S3, no S4. RESPIRATORY: Breath sounds diminished in the bases. No rhonchi. No crackles. ABDOMEN: Soft, nontender. No mass palpable. LEGS: No edema. No swelling. NERVOUS SYSTEM: Higher functions as mentioned earlier. Moves all 4 limbs. No focal motor or sensory deficits. LYMPHATICS: No lymph nodes palpable in the neck, axillae or groin. SKIN: No ulcer, no rash and no bleeding. JOINTS: No active deforming arthropathy. LABS: WBC 13.7, hemoglobin 15.3, and INR is 1.5. Sodium 132, potassium 3.9 and lactic acid is 2.7. Total bilirubin is 1.5. UA noted. ASSESSMENT: 1. Acute urinary tract infection with sepsis with failure of outpatient treatment. 2. Generalized weakness and gait dysfunction. 3. Elevated plasma lactic acid. 4. Hyponatremia. 5. Bilateral leg edema, rule out congestive heart failure. 6. Increased WBC. 7. Increased MCV. 8. Possible benign prostatic hypertrophy. 9. History atrial fibrillation. 10.History of cerebrovascular accident, transient ischemic attack. 11.Hypertension. 12.Hyperlipidemia. 13.History of degenerative joint disease. 14.History of sleep apnea. 15.Gait dysfunction. 16.Bilateral leg swelling. 17.History of nephrolithiasis. 18.History of cardiac ablation. 19.Cardiac cath. 20.History of hydrocele. 21.History of lithotripsy. 22.History of anxiety. 23.History of depression. 24.Obesity with body mass index 30.7. 25.FULL CODE. RECOMMENDATIONS AND DISCUSSION: In this 80-year-old gentleman who presented with multiple complex medical issues, we will monitor the patient closely. Continue the current medications, management and symptomatic treatment. We will initiate broad-spectrum IV antibiotics. Obtain cultures. Otherwise, resume the home medications. NT proBNP is 3030. I would also recommend a 2D echo with Doppler. Empiric Lasix will be given and the chest x-ray which I reviewed personally showed no evidence of any CHF, but the EKG showed atrial fibrillation with rapid ventricular rate. I would also recommend Cardiology evaluation. The prognosis guarded because of multiple complex medical issues. Further recommendations to follow. A copy of dictation being forwarded to Dr. Spangler who is the primary physician. MMODL / IJN: [id number] /
[2020-11-02] MEDS: FUROSEMIDE 10 MG/ML 4 ML VIAL IV SCH (21:38)
[2020-11-02] MEDS: methIMAzole 5 MG TAB PO SCH (21:38)
[2020-11-02] MEDS: RIVAROXABAN 20 MG TAB PO SCH (21:39)
[2020-11-02] MEDS: METOPROLOL SUCCINATE (ER) 25 MG TAB.ER.24H PO SCH (21:39)
[2020-11-02] MEDS: ATORVASTATIN 10 MG TAB PO SCH (21:39)
[2020-11-02] MEDS: TAMSULOSIN 0.4 MG CAP.ER.24H PO SCH (21:39)
[2020-11-03] MEDS: PANTOPRAZOLE 40 MG/10 ML VIAL IV SCH (08:05)
[2020-11-03] MEDS: METOPROLOL SUCCINATE (ER) 25 MG TAB.ER.24H PO SCH ×2 (08:06→21:34)
[2020-11-03] MEDS: FLUDROCORTISONE 0.1 MG TAB PO SCH (08:06)
[2020-11-03] MEDS: MULTIVITAMINS, THERA 1 EACH TAB PO SCH (08:06)
[2020-11-03] MEDS: FUROSEMIDE 10 MG/ML 4 ML VIAL IV SCH ×2 (08:06→21:33)
[2020-11-03 09:06] LABS: Basophils # (A) 0.01 X 10*3/uL (0.00-0.10); Basophils % (A) 0.1 %; Eosinophils # (A) 0.02 X 10*3/uL (0.04-0.35); Eosinophils % (A) 0.2 %; HCT 36.7 % (39.6-50.0); HGB 12.7 g/dL (13.0-17.0); Lymphocytes # (A) 0.42 X 10*3/uL (0.90-5.00); Lymphocytes % (A) 4.5 %; MCH 34.6 pg (27.0-32.0); MCHC 34.6 g/dL (32.0-37.0); Monocytes # (A) 0.79 X 10*3/uL (0.20-1.00); Monocytes % (A) 8.5 %; Neutrophils # (A) 8.07 X 10*3/uL (1.80-7.70); Neutrophils % (A) 86.4 %; Platelet Count 156 X 10*3/uL (140-440); RBC 3.67 X 10*6/uL (4.40-5.60); RDW 12.8 % (11.5-14.5); WBC 9.34 X 10*3/uL (4.50-10.00)
[2020-11-03 10:20] LABS: Anion Gap 8.4 mmol/L (4.00-12.00); BUN/Creat Ratio 38.57 Ratio (12.00-20.00); Calcium 8.6 mg/dL (8.7-10.3); Carbon Dioxide 29.6 mmol/L (21.6-31.8); Non-African American GFR(CKD) 89.8 (60.0-200.0); Potassium 3.3 mmol/L (3.5-5.5)
[2020-11-03] MEDS ORDERED: VANCOMYCIN IV PER PHARMACY 1 EACH MISC MISCELLANE PRN (12:02)
[2020-11-03] MEDS ORDERED: VANCOMYCIN 2,000 MG in SODIUM CHLORIDE 0.9% 500 ML 500 ML IVPB ONE (13:00)
[2020-11-03] MEDS: AMPICILLIN-SULBACTAM 3 GM in SODIUM CHLORIDE 0.9% 100 ML IVPB SCH (16:33)
--- NOTE | 2020-11-03 16:59 | PN ---
PROGRESS NOTE DATE OF SERVICE: 11/03/2020 I am covering for Dr. Spangler. DATE OF SERVICE: This 80-year-old gentleman was admitted with acute UTI with sepsis is being closely monitored. Patient is still complaining of weakness. The patient has multiple lab abnormalities. Hemoglobin is 12.7 today. Lactic acid improved. Potassium 3.3. The cultures are showing group D Enterococcus. PAST MEDICAL HISTORY: Reviewed. REVIEW OF SYSTEMS: CARDIOVASCULAR: No angina. RESPIRATORY: As mentioned earlier. GI: As mentioned earlier. : No dysuria. NERVOUS SYSTEM: No numbness or weakness. CURRENT MEDICATIONS: Reviewed and include [place] 5 mg, Lipitor, Rocephin, Lasix, Tapazole, Toprol-XL. Doses reviewed. PHYSICAL EXAMINATION: GENERAL: Patient is alert and oriented times three. VITAL SIGNS: Pulse 90, blood pressure 103/64, respirations 18, temperature 98.4, pulse ox 98% on room air. HEENT: Conjunctivae normal. Oral mucosa moist. NECK: No jugular venous distention. No carotid bruits. No lymph node enlargement. RESPIRATORY: Breath sounds diminished at the bases. A few scattered rhonchi, no crackles. HEART: S1 and S2, muffled. ABDOMEN: Soft, no tenderness. EXTREMITIES: No edema. NERVOUS: Mild diffuse weakness. LAB STUDIES: WBC 9.3, hemoglobin 12.7, MCV 100, potassium 3.3. ASSESSMENT: 1. Acute urinary tract infection with sepsis with failure of outpatient treatment with group D enterococci. 2. Generalized weakness and gait dysfunction. 3. Anemia, probably of chronic disease. 4. Elevated plasma lactic acid secondary to sepsis. 5. Hyponatremia. 6. Bilateral leg edema, rule out congestive heart failure. 7. Increased WBC. 8. Increased MCV. 9. Possible benign prostatic hypertrophy. 10.History atrial fibrillation. 11.History of cerebrovascular accident and transient ischemic attack .. 12.Hypertension. 13.Hyperlipidemia. 14.History of degenerative joint disease. 15.History of sleep apnea. 16.Gait dysfunction. 17.Bilateral leg swelling. 18.History of nephrolithiasis. 19.History of cardiac ablation. 20.Cardiac cath. 21.History of hydrocele. 22.History of lithotripsy. 23.History of anxiety. 24.History of depression. 25.Obesity with body mass index of 30.7. 26.FULL CODE. RECOMMENDATIONS AND DISCUSSION: Recommend to continue with current management, continue symptomatic treatment. Change antibiotics to Unasyn. The patient does not have any allergies. Await final ID of the organism. Otherwise, repeat labs. Supplement potassium. PT, OT and possible ECF rehab. Guarded prognosis because of multiple complex medical issues. Further recommendations to follow. Repeat labs. MMODL / IJN: [id number] /
[2020-11-03] MEDS: POTASSIUM CHLORIDE ER 20 MEQ TAB.ER PO SCH ×2 (19:39→21:33)
--- NOTE | 2020-11-03 20:04 | P.CRDCN ---
History of Present Illness History of present illness: HISTORY OF PRESENTING ILLNESS This is a pleasant 80 year old male with history of persistent Afib, mild cardiomyopathy with EF 45%, mild CAD by heart catheterization, hyperthryoidism, SSS s/p PPM, HTN, HLD. He follows in the office with Dr Mauro. He was recently admitted for urinary retention with a Mustafa placed and then discharged home 2 weeks ago however apparently has been having decline with generalzied fatigue, SOB, decreased PO intake. Daughter believes patient has been having increased LE edema. Patient denies any chest pain or pressure. Cardiology was consulted for CHF. On presentation, EKG showed Afib with mild RVR, HR 122. Patient has been recieving Lasix 40mg IV bid. Has had borderline low BP's and was started on Florinef. Remains on Toprol 25mg bid, Xarelto, Lipitor. Also being treated with antibiotics. WBC 13.6 on presentation, Lactic acis 2.7, Troponin normal, proBNP 3030. UA Large leuk esterase, 123 WBC's. REVIEW OF SYSTEMS At the time of my exam: CONSTITUTIONAL: Denies fever or chills. +fatigue CARDIOVASCULAR: No chest pain, +shortness of breath, no orthopnea, PND or palpitations. RESPIRATORY: +No cough. GASTROINTESTINAL: Denies abdominal pain, diarrhea, constipation, nausea or vomiting. MUSCULOSKELETAL: Denies myalgias. NEUROLOGIC: Denies numbness, tingling or weakness. ENDOCRINE: Denies fatigue, weight change, polydipsia or polyurina. GENITOURINARY: + urinary retention with recent Mustafa HEMATOLOGIC: Denies history of anemia or bleeding. PHYSICAL EXAMINATION Vitals reviewed CONSTITUTIONAL: Patient in no acute distress. HEENT: Head is normocephalic. Pupils are equal, round. Sclerae anicteric. Mucous membranes of the mouth are moist. No JVD. No carotid bruit. CHEST EXAMINATION:CTAB no rales HEART EXAMINATION: Irregular rate and rhythm. S1, S2 heard. No murmurs, gallops or rub. ABDOMEN: Soft, nontender. Positive bowel sounds. EXTREMITIES: 2+ peripheral pulses, no lower extremity edema and no calf tenderness. NEUROLOGIC EXAMINATION: Patient is awake, alert and oriented x3. ASSESSMENT 1. Generalized fatigue, suspect related to sepsis, UTI 2. Persistent Afib, mild RVR on presentation, improved on home Toprol 3. Acute on chronic systolic heart failure, last echo 05/2020 with EF 45%, mild MR 4. SSS s/p PPM 5. HTN, borderline hypotensive, placed on Florinef 6. UTI 7. Urinary retention with recent Mustafa PLAN Patient with complex presentation mainly of weakness. It appears he has a UTI with recent Mustafa placement which may be responsible for some of his symptoms. Patient does have some mild volume overload, decompensated heart failure. Continue with diuresis and monitor I's and O's. Further recs to follow. Past Medical History Past Medical History: Atrial Fibrillation, Chest Pain / Angina, CVA/TIA, Hyperlipidemia, Hypertension, Osteoarthritis (OA), Prostate Disorder, Sleep Apnea/CPAP/BIPAP, Thyroid Disorder Additional Past Medical History / Comment(s): CVA-no residual effects, hx kidney stones, no cpap used, back pain, History of Any Multi-Drug Resistant Organisms: None Reported Past Surgical History: Cardiac Ablation, Heart Catheterization, Hernia Repair, Pacemaker, Tonsillectomy Additional Past Surgical History / Comment(s): hydrocele, lithotripsy, [place] cataracts, eye lid surgery, repair torn retina left eye, Past Anesthesia/Blood Transfusion Reactions: Motion Sickness Type of Cardiac Device: Permanent Pacemaker Device Placement Date:: 10/21/2011 Past Psychological History: Anxiety, Depression Smoking Status: Never smoker Past Alcohol Use History: None Reported Past Drug Use History: None Reported - Past Family History Mother Family Medical History: Cancer, Pulmonary Embolus Medications and Allergies Home Medications Medication Instructions Recorded Confirmed Type Fludrocortisone [Florinef] 0.1 mg PO DAILY 02/17/17 11/02/20 History Multivitamins, Thera [Multivitamin 1 tab PO DAILY 02/17/17 11/02/20 History (formulary)] Rivaroxaban [Xarelto] 20 mg PO HS 02/17/17 11/02/20 History Simvastatin [Zocor] 20 mg PO HS 02/17/17 11/02/20 History Tamsulosin HCl [Flomax] 0.8 mg PO HS 02/17/17 11/02/20 History methIMAzole [Tapazole] 2.5 mg PO Q48H 02/17/17 11/02/20 History Metoprolol Succinate [Toprol XL] 25 mg PO BID 06/09/18 11/02/20 History Acetaminophen [Tylenol] 1,000 mg PO HS 08/14/20 11/02/20 History Polyethylene Glycol 3350 [Miralax] 17 gm PO DAILY PRN 11/02/20 11/02/20 History Allergies Allergy/AdvReac Type Severity Reaction Status Date / Time No Known Allergies Allergy Verified 11/02/20 13:51 Physical Exam Vitals: Vital Signs Temp Pulse Resp BP Pulse Ox 11/03/20 11:00 98.2 F 90 18 103/62 95 11/03/20 05:15 98.8 F 92 18 109/70 97 11/02/20 22:00 16 Intake and Output 11/03/20 11/03/20 11/03/20 06:59 14:59 22:59 Intake Total 480 Output Total 1997 902 0505 Balance -520 118 -3001 Intake: Oral 480 Output: Urine 1000 1300 Post Void Residual 118 135 Results 11/03/20 05:26 11/03/20 05:26 CBC 11/03/20 Range/Units 05:26 WBC 9.34 (4.50-10.00) X 10*3/uL RBC 3.67 L (4.40-5.60) X 10*6/uL Hgb 12.7 L (13.0-17.0) g/dL Hct 36.7 L (39.6-50.0) % Plt Count 156 (140-440) X 10*3/uL Comprehensive Metabolic Panel 11/03/20 Range/Units 05:26 Sodium 139 (135-145) mmol/L Potassium 3.3 L (3.5-5.5) mmol/L Chloride 101 (96-109) mmol/L Carbon Dioxide 29.6 (21.6-31.8) mmol/L BUN 27.0 (9.0-27.0) mg/dL Creatinine 0.7 (0.6-1.5) mg/dL Glucose 111 H (70-110) mg/dL Calcium 8.6 L (8.7-10.3) mg/dL Current Medications Generic Name Dose Route Start Last Admin Trade Name Freq PRN Reason Stop Dose Admin Acetaminophen 650 mg 11/02/20 13:45 Acetaminophen Tab 325 Mg Tab PO Q6HR PRN Mild Pain or Fever > 100.5 Hydrocodone Bitart/Acetaminophen 1 each 11/02/20 13:45 Hydrocodone/Apap 5-325mg 1 Each Tab PO Q4HR PRN Moderate Pain Atorvastatin Calcium 10 mg 11/02/20 21:00 11/02/20 21:39 Atorvastatin 10 Mg Tab PO 10 mg HS [facility] Administration Fludrocortisone Acetate 0.1 mg 11/03/20 09:00 11/03/20 08:06 Fludrocortisone 0.1 Mg Tab PO 0.1 mg DAILY [facility] Administration Furosemide 40 mg 11/02/20 20:00 11/03/20 08:06 Furosemide 10 Mg/Ml 4 Ml Vial IV 40 mg Q12H [facility] Administration Hydromorphone HCl 0.5 mg 11/02/20 13:45 Hydromorphone 0.5 Mg/0.5 Ml Syringe IVP Q3HR PRN Moderate Pain Vancomycin HCl 2,000 mg/ 500 mls @ 167 mls/hr 11/04/20 01:00 Sodium Chloride IVPB Q12H [facility] Ampicillin Sodium/Sulbactam 100 mls @ 200 mls/hr 11/03/20 16:30 11/03/20 16:33 Sodium 3 gm/ Sodium Chloride IVPB 200 mls/hr Q8HR [facility]IA Administration Methimazole 2.5 mg 11/02/20 20:00 11/02/20 21:38 Methimazole 5 Mg Tab PO 2.5 mg Q48H [facility]IA Administration Metoprolol Succinate 25 mg 11/02/20 21:00 11/03/20 08:06 Metoprolol Succinate (Er) 25 Mg Tab.Er.24h PO 25 mg BID MILVIA Administration Morphine Sulfate 4 mg 11/02/20 13:45 Morphine Sulfate 4 Mg/Ml Syringe IV Q4HR PRN Severe Pain Multivitamins 1 each 11/03/20 09:00 11/03/20 08:06 Multivitamins, Thera 1 Each Tab PO 1 each DAILY [facility] Administration Naloxone HCl 0.2 mg 11/02/20 13:45 Naloxone 0.4 Mg/Ml 1 Ml Vial IV Q2M PRN Opioid Reversal Ondansetron HCl 4 mg 11/02/20 13:45 Ondansetron 4 Mg/2 Ml Vial IVP Q8HR PRN Nausea And Vomiting Pantoprazole Sodium 40 mg 11/03/20 09:00 11/03/20 08:05 Pantoprazole 40 Mg/10 Ml Vial IV 40 mg DAILY [facility] Administration Polyethylene Glycol 17 gm 11/02/20 19:25 Polyethylene Glycol 3350 17 Gm Powd.Pack PO DAILY PRN Constipation Potassium Chloride 40 meq 11/04/20 09:00 Potassium Chloride Er 20 Meq Tab.Er PO DAILY [facility] Potassium Chloride 20 meq 11/03/20 19:00 11/03/20 19:39 Potassium Chloride Er 20 Meq Tab.Er PO 11/03/20 20:01 20 meq Q1HR [facility]IA Administration Protocol Rivaroxaban 20 mg 11/02/20 21:00 11/02/20 21:39 Rivaroxaban 20 Mg Tab PO 20 mg HS [facility] Administration Tamsulosin HCl 0.8 mg 11/02/20 21:00 11/02/20 21:39 Tamsulosin 0.4 Mg Cap.Er.24h PO 0.8 mg HS [facility]IA Administration Tramadol HCl 50 mg 11/02/20 13:45 Tramadol 50 Mg Tab PO Q6H PRN Moderate Pain Intake and Output 11/03/20 11/03/20 11/03/20 06:59 14:59 22:59 Intake Total 480 Output Total [phone] [facility] [place] [phone] Intake: Oral 480 Output: Urine 1000 1300 Post Void Residual 118 135 11/03/20 05:26 11/03/20 05:26
[2020-11-03] MEDS: ATORVASTATIN 10 MG TAB PO SCH (21:34)
[2020-11-03] MEDS: RIVAROXABAN 20 MG TAB PO SCH (21:34)
[2020-11-03] MEDS: TAMSULOSIN 0.4 MG CAP.ER.24H PO SCH (21:34)
[2020-11-04] MEDS: AMPICILLIN-SULBACTAM 3 GM in SODIUM CHLORIDE 0.9% 100 ML IVPB SCH ×4 (00:54→23:49)
[2020-11-04] MEDS: VANCOMYCIN 2,000 MG in SODIUM CHLORIDE 0.9% 500 ML 500 ML IVPB SCH ×2 (01:31→12:36)
--- NOTE | 2020-11-04 08:20 | P.PN ---
Subjective Progress Note Date: 11/04/20 Principal diagnosis: This is a continue progress on a 80-year-old white male with admission of UTI with sepsis. Group D enterococcus was noted the patient is nonfocal vancomycin. No significant fever or chills. No nausea, vomiting or diarrhea she feels weak today. The patient states no overt diarrhea. However there is incontinence Objective - Vital Signs Vital signs: Vital Signs Temp 98.3 F 11/04/20 04:15 Pulse 87 11/04/20 04:15 Resp 16 11/04/20 04:15 BP 136/86 11/04/20 04:15 Pulse Ox 95 11/04/20 08:13 Intake & Output 11/03/20 11/04/20 11/04/20 18:59 06:59 18:59 Output Total 1553 200 Balance -1553 -200 Weight 105 kg Output: Urine 1300 200 Post Void Residual 253 Other: # Voids 2 - Constitutional General appearance: Present: no acute distress - EENT Eyes: Absent: abnormal pupil - Neck Neck: Absent: lymphadenopathy - Respiratory Respiratory: bilateral: CTA - Cardiovascular Rhythm: irregularly irregular Heart sounds: normal: S1, S2 Abnormal Heart Sounds: Absent: S3 Gallop, S4 Gallop - Gastrointestinal General gastrointestinal: Present: soft. Absent: tenderness - Integumentary Integumentary: Absent: cellulitis - Neurologic Neurologic: Present: CNII-XII intact - Labs CBC & Chem 7: 11/03/20 05:26 11/03/20 05:26 Labs: Abnormal Lab Results - Last 24 Hours (Table) 11/03/20 11/03/20 Range/Units 05:26 05:26 RBC 3.67 L (4.40-5.60) X 10*6/uL Hgb 12.7 L (13.0-17.0) g/dL Hct 36.7 L (39.6-50.0) % MCV 100.0 H (80.0-97.0) fL MCH 34.6 H (27.0-32.0) pg Neutrophils # 8.07 H (1.80-7.70) X 10*3/uL Lymphocytes # 0.42 L (0.90-5.00) X 10*3/uL Eosinophils # 0.02 L (0.04-0.35) X 10*3/uL Potassium 3.3 L (3.5-5.5) mmol/L BUN/Creatinine Ratio 38.57 H (12.00-20.00) Ratio Glucose 111 H (70-110) mg/dL Calcium 8.6 L (8.7-10.3) mg/dL Microbiology - Last 24 Hours (Table) 11/02/20 12:25 Urine Culture - Preliminary Urine,Clean Catch Group D Enterococcus 11/02/20 13:52 Blood Culture Gram Stain - Preliminary Blood 11/02/20 13:49 Blood Culture Gram Stain - Preliminary Blood Blood Culture - Preliminary Group D Enterococcus 11/02/20 13:52 Blood Culture - Final Blood 11/02/20 13:49 Blood Culture - Final Blood Assessment and Plan (1) Urinary tract infection Current Visit: Yes Status: Acute Code(s): N39.0 - URINARY TRACT INFECTION, SITE NOT SPECIFIED SNOMED Code(s): 95835501 (2) Weakness Current Visit: Yes Status: Acute Code(s): R53.1 - WEAKNESS SNOMED Code(s): 78245287 Plan: Continue IV antibiotic treatment pending culture. Check CBC and CMP in a.m. per Increase ambulation
[2020-11-04] MEDS: FLUDROCORTISONE 0.1 MG TAB PO SCH (08:24)
[2020-11-04] MEDS: MULTIVITAMINS, THERA 1 EACH TAB PO SCH (08:24)
[2020-11-04] MEDS: PANTOPRAZOLE 40 MG/10 ML VIAL IV SCH (08:24)
[2020-11-04] MEDS: POTASSIUM CHLORIDE ER 20 MEQ TAB.ER PO SCH (08:24)
[2020-11-04] MEDS: METOPROLOL SUCCINATE (ER) 25 MG TAB.ER.24H PO SCH ×2 (08:24→20:48)
[2020-11-04] MEDS: FUROSEMIDE 10 MG/ML 4 ML VIAL IV SCH (08:25)
[2020-11-04 09:07] LABS: Basophils # (A) 0.01 X 10*3/uL (0.00-0.10); Basophils % (A) 0.1 %; Eosinophils % (A) 1.5 %; HCT 37.2 % (39.6-50.0); HGB 12.8 g/dL (13.0-17.0); Lymphocytes % (A) 4.5 %; MCHC 34.4 g/dL (32.0-37.0); MCV 98.9 fL (80.0-97.0); Mean Platelet Volume 10.5 fL (9.5-12.2); Monocytes # (A) 0.75 X 10*3/uL (0.20-1.00); Monocytes % (A) 11.1 %; Neutrophils # (A) 5.56 X 10*3/uL (1.80-7.70); Neutrophils % (A) 82.5 %; Platelet Count 173 X 10*3/uL (140-440); RBC 3.76 X 10*6/uL (4.40-5.60); RDW 12.9 % (11.5-14.5); WBC 6.74 X 10*3/uL (4.50-10.00)
[2020-11-04 09:32] LABS: Anion Gap 7.2 mmol/L (4.00-12.00); BUN/Creat Ratio 35.71 Ratio (12.00-20.00); Calcium 8.3 mg/dL (8.7-10.3); Carbon Dioxide 30.8 mmol/L (21.6-31.8); Non-African American GFR(CKD) 89.8 (60.0-200.0); Potassium 3.3 mmol/L (3.5-5.5)
--- NOTE | 2020-11-04 10:44 | ECHOF ---
Referral Reason:chf MEASUREMENTS -------- HEIGHT: 185.4 cm WEIGHT: 104.8 kg BP: RVIDd: 3.2 cm (< 3.3) IVSd: 1.7 cm (0.6 - 1.1) LVIDd: 4.5 cm (3.9 - 5.3) LVPWd: 1.5 cm (0.6 - 1.1) IVSs: 2.0 cm LVIDs: 3.7 cm LVPWs: 1.8 cm LAESV Index (A-L): 46.52 ml/m Ao Diam: 2.8 cm (2.0 - 3.7) AV Cusp: 2.3 cm (1.5 - 2.6) LA Diam: 4.7 cm (2.7 - 3.8) MV EXCURSION: 17.354 mm (> 18.000) MV EF SLOPE: 100 mm/s (70 - 150) EPSS: 1.0 cm AR PHT: 516 ms RAP: 5.00 mmHg RVSP: 32.02 mmHg FINDINGS -------- Atrial fibrillation. This was a technically difficult study with suboptimal views. The left ventricular size is normal. There is moderate concentric left ventricular hypertrophy. O verall left ventricular systolic function is moderately impaired with, an EF between 35 - 40 %. The right ventricle is normal in size. LA is severely dilated >40 ml/m2 The right atrium is mildly enlarged. Electronic pacemaker lead seen in the right atrial cavity. Lumason used Interatrial and interventricular septum intact. The aortic valve is trileaflet and appears structurally normal. There is ujbz-pe-misnvvjc aortic re gurgitation. There is no evidence of aortic stenosis. The mitral valve is normal. Vagf-aj-cccraioq mitral regurgitation is present. Mild tricuspid regurgitation present. Right ventricular systolic pressure is normal at < 35 mmHg. The right ventricular systolic pressure, as measured by Doppler, is 32.02mmHg. There is no pulmonic regurgitation present. The aortic root size is normal. Normal inferior vena cava with normal inspiratory collapse consistent with estimated right atrial pre ssure of 5 mmHg. There is a small, generalized pericardial effusion present. CONCLUSIONS -------- 1. This was a technically difficult study with suboptimal views. 2. There is moderate concentric left ventricular hypertrophy. 3. Overall left ventricular systolic function is moderately impaired with, an EF between 35 - 40 %. 4. The right ventricle is normal in size. 5. LA is severely dilated >40 ml/m2 6. The right atrium is mildly enlarged. 7. There is xloz-kd-gcclqmrj aortic regurgitation. 8. Wdux-ls-fqpjjbnh mitral regurgitation is present. 9. Mild tricuspid regurgitation present. 10. There is a small, generalized pericardial effusion present. [employer]BLE CLE[employer]ER: Jovanna Arzola RDCS
[2020-11-04] MEDS: polyethylene glycoL 3350 17 GM POWD.PACK PO PRN (11:00)
--- NOTE | 2020-11-04 15:12 | P.PN ---
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 He follows in the office with Dr. Mauro. He is seen and examined sitting up in the chair in no acute distress. He states he was up all night going to the bathroom. He has no symptoms of worsening shortness of breath. His lower ex tremity edema has improved. He denies chest pain, dizziness or palpitations. Blood pressure 87/53 heart rate 74 afebrile maintaining oxygen saturation on room air. Laboratory data reviewed, WBC 6.7, hemoglobin 12.8, platelets 173, sodium 141, potassium 3.3, creatinine 0.7. Currently maintained on Lasix 40 mg IV twice a day, Florinef 0.1 mg daily, atorvastatin 10 mg daily, Toprol 25 mg twice a day and xarelto 20 mg daily. He is maintaining a negative fluid balance. Echocardiogram obtained reveals impaired LV systolic function with ejection fraction 35-40%, severely dilated left atrium, mild to moderate aortic regurgitation, mild to moderate mitral regurgitation and mild tricuspid regurg itation. GENERAL: Well-appearing, well-nourished and in no acute distress. NECK: Supple without JVD or thyromegaly. LUNGS: Breath sounds clear to auscultation bilaterally. Respiration equal and unlabored. No wheezes, rales or rhonchi. HEART: Irregular rate and rhythm with systolic ejection murmur at the left lower sternal border, no rubs or gallops. S1 and S2 heard. EXTREMITIES: Normal range of motion, 1+ bilateral lower extremity edema. No clubbing or cyanosis. Peripheral pulses intact. ASSESSMENT Acute on chronic heart failure with reduced ejection fraction UTI Bacteremia Sepsis SSS s/p permanent pacemaker implantation History of hypertension Chronic persistent atrial fibrillation on senior care anticoagulation. PLAN Transition to oral diuretics. Continue toprol as previously ordered. Ongoing medical management and treatment of UTI with sepsis. Nurse Practitioner note has been reviewed, I agree with a documented findings and plan of care. Patient was seen and examined. Objective - Vital Signs Vital signs: Vital Signs Temp 97.8 F 11/04/20 12:56 Pulse 74 11/04/20 12:56 Resp 16 11/04/20 04:15 BP 87/53 11/04/20 12:56 Pulse Ox 97 11/04/20 12:56 Intake & Output 11/03/20 11/04/20 11/04/20 18:59 06:59 18:59 Output Total 1553 200 Balance -1553 -200 Weight 105 kg Output: Urine 1300 200 Post Void Residual 253 Other: # Voids 2 - Labs CBC & Chem 7: 11/04/20 05:42 11/04/20 05:42 Labs: Abnormal Lab Results - Last 24 Hours (Table) 11/04/20 11/04/20 Range/Units 05:42 05:42 RBC 3.76 L (4.40-5.60) X 10*6/uL Hgb 12.8 L (13.0-17.0) g/dL Hct 37.2 L (39.6-50.0) % MCV 98.9 H (80.0-97.0) fL MCH 34.0 H (27.0-32.0) pg Lymphocytes # 0.30 L (0.90-5.00) X 10*3/uL Potassium 3.3 L (3.5-5.5) mmol/L BUN/Creatinine Ratio 35.71 H (12.00-20.00) Ratio Calcium 8.3 L (8.7-10.3) mg/dL Microbiology - Last 24 Hours (Table) 11/02/20 13:52 Blood Culture Gram Stain - Final Blood Blood Culture - Final Enterococcus avium 11/02/20 13:49 Blood Culture Gram Stain - Final Blood Blood Culture - Final Enterococcus avium 11/02/20 12:25 Urine Culture - Preliminary Urine,Clean Catch Group D Enterococcus 11/02/20 13:52 Blood Culture - Final Blood
[2020-11-04] MEDS: methIMAzole 5 MG TAB PO SCH (20:47)
[2020-11-04] MEDS: ATORVASTATIN 10 MG TAB PO SCH (20:48)
[2020-11-04] MEDS: RIVAROXABAN 20 MG TAB PO SCH (20:48)
[2020-11-04] MEDS: TAMSULOSIN 0.4 MG CAP.ER.24H PO SCH (20:48)
[2020-11-05] MEDS: VANCOMYCIN 2,000 MG in SODIUM CHLORIDE 0.9% 500 ML 500 ML IVPB SCH ×2 (01:40→12:47)
[2020-11-05 06:58] LABS: Basophils % (A) 1 %; Eosinophils # (A) 0.2 k/uL (0-0.7); Eosinophils % (A) 2 %; HCT 41.4 % (39.0-53.0); HGB 13.5 gm/dL (13.0-17.5); Lymphocytes # (A) 0.6 k/uL (1.0-4.8); Lymphocytes % (A) 8 %; MCH 33.5 pg (25.0-35.0); MCHC 32.7 g/dL (31.0-37.0); MCV 102.6 fL (80.0-100.0); Macrocytosis Slight; Mean Platelet Volume 7.5; Monocytes # (A) 0.5 k/uL (0-1.0); Monocytes % (A) 7 %; Neutrophils # (A) 6.4 k/uL (1.3-7.7); Neutrophils % (A) 80 %; Platelet Count 166 k/uL (150-450); RBC 4.04 m/uL (4.30-5.90); RDW 12.4 % (11.5-15.5)
[2020-11-05 07:11] LABS: ALT 56 U/L (4-49); African American GFR (CKD) >90 (>60 ml/min/1.73 sqM); Anion Gap 5 mmol/L; Blood Urea Nitrogen 29 mg/dL (9-20); Calcium 8.4 mg/dL (8.4-10.2); Carbon Dioxide 29 mmol/L (22-30); Chloride 104 mmol/L (98-107); Globulin 2.9 g/dL; Glucose 99 mg/dL (74-99); Non-African American GFR(CKD) >90 (>60 ml/min/1.73 sqM); Sodium 138 mmol/L (137-145); Total Bilirubin 1.3 mg/dL (0.2-1.3)
[2020-11-05 07:47] LABS: AST 74 U/L (17-59); Albumin 2.8 g/dL (3.5-5.0); Alkaline Phosphatase 66 U/L (38-126); Potassium 4.1 mmol/L (3.5-5.1); Total Protein 5.7 g/dL (6.3-8.2)
--- NOTE | 2020-11-05 08:39 | P.PN ---
Subjective Principal diagnosis: This is a continue progress on a 80-year-old white male with admission of UTI with sepsis. Group D enterococcus was noted the patient is nonfocal vancomycin. No significant fever or chills. No nausea, vomiting or diarrhea she feels weak today. The patient states no overt diarrhea. However there is incontinence Cultures do show enterococcus avium. Antibiotic treatment that he is currently on is sensitive. I suspect we can DC vancomycin and continue Unasyn for one more day. Objective - Vital Signs Vital signs: Vital Signs Temp 97.6 F 11/05/20 04:23 Pulse 109 H 11/05/20 04:23 Resp 18 11/05/20 04:23 BP 122/77 11/05/20 04:23 Pulse Ox 97 11/05/20 04:23 Intake & Output 11/04/20 11/05/20 11/05/20 18:59 06:59 18:59 Intake Total 700 600 Balance 700 600 Intake: Intake, IV Titration 700 Amount Ampicillin-Sulbactam 3 gm 200 In Sodium Chloride 0.9% 100 ml @ 200 mls/hr IVPB Q8HR [facility]IA Rx#:[id number] Vancomycin 2,000 mg In 500 Sodium Chloride 0.9% 500 ml 500 ml @ 167 mls/hr IVPB Q12H MILVIA Rx#: [id number] Oral 600 Other: Voiding Method Urinal # Voids 3 - Constitutional General appearance: Present: average body habitus - EENT Eyes: Absent: abnormal pupil - Neck Neck: Absent: lymphadenopathy - Respiratory Respiratory: bilateral: CTA - Cardiovascular Rhythm: irregularly irregular Heart sounds: normal: S1 Abnormal Heart Sounds: Absent: S3 Gallop - Gastrointestinal General gastrointestinal: Present: soft. Absent: tenderness - Labs CBC & Chem 7: 11/05/20 05:56 11/05/20 05:56 Labs: Abnormal Lab Results - Last 24 Hours (Table) 11/04/20 11/04/20 11/05/20 Range/Units 05:42 05:42 05:56 RBC 3.76 L 4.04 L (4.40-5.60) X 10*6/uL Hgb 12.8 L (13.0-17.0) g/dL Hct 37.2 L (39.6-50.0) % MCV 98.9 H 102.6 H (80.0-97.0) fL MCH 34.0 H (27.0-32.0) pg Lymphocytes # 0.30 L 0.6 L (0.90-5.00) X 10*3/uL Potassium 3.3 L (3.5-5.5) mmol/L BUN (9-20) mg/dL Creatinine (0.66-1.25) mg/dL BUN/Creatinine Ratio 35.71 H (12.00-20.00) Ratio Calcium 8.3 L (8.7-10.3) mg/dL AST (17-59) U/L ALT (4-49) U/L Total Protein (6.3-8.2) g/dL Albumin (3.5-5.0) g/dL 11/05/20 Range/Units 05:56 RBC (4.40-5.60) X 10*6/uL Hgb (13.0-17.0) g/dL Hct (39.6-50.0) % MCV (80.0-97.0) fL MCH (27.0-32.0) pg Lymphocytes # (0.90-5.00) X 10*3/uL Potassium (3.5-5.5) mmol/L BUN 29 H (9-20) mg/dL Creatinine 0.61 L (0.66-1.25) mg/dL BUN/Creatinine Ratio (12.00-20.00) Ratio Calcium (8.7-10.3) mg/dL AST 74 H (17-59) U/L ALT 56 H (4-49) U/L Total Protein 5.7 L (6.3-8.2) g/dL Albumin 2.8 L (3.5-5.0) g/dL Microbiology - Last 24 Hours (Table) 11/02/20 12:25 Urine Culture - Final Urine,Clean Catch Enterococcus avium 11/02/20 13:52 Blood Culture Gram Stain - Final Blood Blood Culture - Final Enterococcus avium 11/02/20 13:49 Blood Culture Gram Stain - Final Blood Blood Culture - Final Enterococcus avium Assessment and Plan (1) Urinary tract infection Current Visit: Yes Status: Acute Code(s): N39.0 - URINARY TRACT INFECTION, SITE NOT SPECIFIED SNOMED Code(s): 70560120 (2) Weakness Current Visit: Yes Status: Acute Code(s): R53.1 - WEAKNESS SNOMED Code(s): 60037853 Plan: Continue IV antibiotic treatment pending culture. Check CBC and CMP in a.m. per Increase ambulation Motor magnesia with Colace for constipation.
[2020-11-05] MEDS: FLUDROCORTISONE 0.1 MG TAB PO SCH (08:40)
[2020-11-05] MEDS: METOPROLOL SUCCINATE (ER) 25 MG TAB.ER.24H PO SCH ×2 (08:40→20:24)
[2020-11-05] MEDS: FUROSEMIDE 40 MG TAB PO SCH (08:40)
[2020-11-05] MEDS: polyethylene glycoL 3350 17 GM POWD.PACK PO PRN (08:41)
[2020-11-05] MEDS: POTASSIUM CHLORIDE ER 20 MEQ TAB.ER PO SCH (08:41)
[2020-11-05] MEDS: PANTOPRAZOLE 40 MG TABLET PO SCH (08:41)
[2020-11-05] MEDS: AMPICILLIN-SULBACTAM 3 GM in SODIUM CHLORIDE 0.9% 100 ML IVPB SCH ×3 (08:41→23:36)
[2020-11-05] MEDS: MULTIVITAMINS, THERA 1 EACH TAB PO SCH (08:41)
[2020-11-05] MEDS: DOCUSATE 100 MG CAP PO SCH (08:51)
--- NOTE | 2020-11-05 11:18 | P.PN ---
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 He follows in the office with Dr. Mauro. He is seen and examined sitting up in the chair in no acute distress. He states he was up all night going to the bathroom. He has no symptoms of worsening shortness of breath. His lower ex tremity edema has improved. He denies chest pain, dizziness or palpitations. Blood pressure 87/53 heart rate 74 afebrile maintaining oxygen saturation on room air. Laboratory data reviewed, WBC 6.7, hemoglobin 12.8, platelets 173, sodium 141, potassium 3.3, creatinine 0.7. Currently maintained on Lasix 40 mg IV twice a day, Florinef 0.1 mg daily, atorvastatin 10 mg daily, Toprol 25 mg twice a day and xarelto 20 mg daily. He is maintaining a negative fluid balance. Echocardiogram obtained reveals impaired LV systolic function with ejection fraction 35-40%, severely dilated left atrium, mild to moderate aortic regurgitation, mild to moderate mitral regurgitation and mild tricuspid regurg itation. 11/05/2020 Patient seen and examined sitting up in bed in no acute distress. He denies symptoms of chest pain, shortness of breath, dizziness or palpitations. He currently feels constipated. Laboratory data reviewed, EDC unremarkable, sodium 138, potassium 4.1 and creatinine 0.61. Blood pressure 122/77 heart rate 109 afebrile maintaining oxygen saturation on room air. GENERAL: Well-appearing, well-nourished and in no acute distress. NECK: Supple without JVD or thyromegaly. LUNGS: Breath sounds clear to auscultation bilaterally. Respiration equal and unlabored. No wheezes, rales or rhonchi. HEART: Irregular rate and rhythm with systolic ejection murmur at the left lower sternal border, no rubs or gallops. S1 and S2 heard. EXTREMITIES: Normal range of motion, 1+ bilateral lower extremity edema. No clubbing or cyanosis. Peripheral pulses intact. ASSESSMENT Acute on chronic heart failure with reduced ejection fraction UTI Bacteremia Sepsis SSS s/p permanent pacemaker implantation History of hypertension Chronic persistent atrial fibrillation on chcf anticoagulation. PLAN Stable from a cardiac perspective on current medical regimen. He is not on an OLEG/ARB due to hypotension. Follow up upon discharge with Dr. Mauro. Nurse Practitioner note has been reviewed, I agree with a documented findings and plan of care. Patient was seen and examined. Objective - Vital Signs Vital signs: Vital Signs Temp 97.6 F 11/05/20 04:23 Pulse 109 H 11/05/20 04:23 Resp 18 11/05/20 04:23 BP 122/77 11/05/20 04:23 Pulse Ox 97 11/05/20 08:42 Intake & Output 11/04/20 11/05/20 11/05/20 18:59 06:59 18:59 Intake Total 700 600 Balance 700 600 Intake: Intake, IV Titration 700 Amount Ampicillin-Sulbactam 3 gm 200 In Sodium Chloride 0.9% 100 ml @ 200 mls/hr IVPB Q8HR [facility] Rx#:[id number] Vancomycin 2,000 mg In 500 Sodium Chloride 0.9% 500 ml 500 ml @ 167 mls/hr IVPB Q12H [facility] Rx#: [id number] Oral 600 Other: Voiding Method Urinal Urinal # Voids 3 - Labs CBC & Chem 7: 11/05/20 05:56 11/05/20 05:56 Labs: Abnormal Lab Results - Last 24 Hours (Table) 11/05/20 11/05/20 Range/Units 05:56 05:56 RBC 4.04 L (4.30-5.90) m/uL MCV 102.6 H (80.0-100.0) fL Lymphocytes # 0.6 L (1.0-4.8) k/uL BUN 29 H (9-20) mg/dL Creatinine 0.61 L (0.66-1.25) mg/dL AST 74 H (17-59) U/L ALT 56 H (4-49) U/L Total Protein 5.7 L (6.3-8.2) g/dL Albumin 2.8 L (3.5-5.0) g/dL Microbiology - Last 24 Hours (Table) 11/02/20 12:25 Urine Culture - Final Urine,Clean Catch Enterococcus avium 11/02/20 13:52 Blood Culture Gram Stain - Final Blood Blood Culture - Final Enterococcus avium 11/02/20 13:49 Blood Culture Gram Stain - Final Blood Blood Culture - Final Enterococcus avium
[2020-11-05] MEDS ORDERED: VANCOMYCIN TROUGH DUE 1 EACH MISC MISCELLANE ONE (12:00)
[2020-11-05] MEDS ORDERED: NA PHOS,M-B/NA PHOS,DI-BA 133 ML ENEMA RECTAL PRN (18:52)
[2020-11-05] MEDS: bisacodyL 10 MG SUPP RECTAL STA (19:13)
[2020-11-05] MEDS: ATORVASTATIN 10 MG TAB PO SCH (20:24)
[2020-11-05] MEDS: RIVAROXABAN 20 MG TAB PO SCH (20:24)
[2020-11-05] MEDS: TAMSULOSIN 0.4 MG CAP.ER.24H PO SCH (20:24)
[2020-11-06] MEDS: VANCOMYCIN 2,000 MG in SODIUM CHLORIDE 0.9% 500 ML 500 ML IVPB SCH ×2 (00:57→13:42)
[2020-11-06] MEDS: bisacodyL 10 MG SUPP RECTAL STA (02:28)
[2020-11-06 07:49] LABS: Appearance,Urine Turbid (Clear); Bilirubin,Urine Negative (Negative); Blood,Urine Large (Negative); Color,Urine Dark Red; Glucose,Urine (UA) Negative (Negative); Ketones,Urine Negative (Negative); Leukocyte Esterase,Urine Moderate (Negative); Mucus,Urine Few /hpf; Nitrite,Urine Negative (Negative); PH, Urine 6.5 (5.0-8.0); Protein,Urine 2+ (Negative); RBC,Urine >182 /hpf (0-5); WBC,Urine 83 /hpf (0-5)
[2020-11-06 07:50] LABS: Specific Gravity,Urine 1.025 (1.001-1.035)
[2020-11-06] MEDS: AMPICILLIN-SULBACTAM 3 GM in SODIUM CHLORIDE 0.9% 100 ML IVPB SCH ×3 (08:24→23:55)
[2020-11-06] MEDS: POTASSIUM CHLORIDE ER 20 MEQ TAB.ER PO SCH (08:24)
[2020-11-06] MEDS: METOPROLOL SUCCINATE (ER) 25 MG TAB.ER.24H PO SCH ×2 (08:27→20:33)
[2020-11-06] MEDS: FUROSEMIDE 40 MG TAB PO SCH (08:27)
[2020-11-06] MEDS: MULTIVITAMINS, THERA 1 EACH TAB PO SCH (08:27)
[2020-11-06] MEDS: FLUDROCORTISONE 0.1 MG TAB PO SCH (08:27)
[2020-11-06] MEDS: DOCUSATE 100 MG CAP PO SCH (08:27)
[2020-11-06] MEDS: PANTOPRAZOLE 40 MG TABLET PO SCH (08:27)
[2020-11-06 10:22] LABS: HCT 36.8 % (39.6-50.0); HGB 11.9 g/dL (13.0-17.0); MCH 33.5 pg (27.0-32.0); MCHC 32.3 g/dL (32.0-37.0); MCV 103.7 fL (80.0-97.0); Mean Platelet Volume 10.4 fL (9.5-12.2); Platelet Count 191 X 10*3/uL (140-440); RBC 3.55 X 10*6/uL (4.40-5.60); RDW 12.6 % (11.5-14.5); WBC 8.93 X 10*3/uL (4.50-10.00)
[2020-11-06 11:07] LABS: African American GFR (CKD) 98.5 (60.0-200.0); Albumin 3.1 g/dL (3.80-4.90); Albumin/Globulin Ratio 1.72 (1.60-3.17); Anion Gap 5.3 mmol/L (4.00-12.00); BUN/Creat Ratio 32.5 Ratio (12.00-20.00); Calcium 8.5 mg/dL (8.7-10.3); Carbon Dioxide 31.7 mmol/L (21.6-31.8); Globulin 1.8 g/dL (1.6-3.3); Potassium 3.6 mmol/L (3.5-5.5); Total Bilirubin 0.9 mg/dL (0.3-1.2); Total Protein 4.9 g/dL (6.2-8.2)
--- NOTE | 2020-11-06 14:37 | P.PN ---
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 He follows in the office with Dr. Mauro. He is seen and examined sitting up in the chair in no acute distress. He states he was up all night going to the bathroom. He has no symptoms of worsening shortness of breath. His lower ex tremity edema has improved. He denies chest pain, dizziness or palpitations. Blood pressure 87/53 heart rate 74 afebrile maintaining oxygen saturation on room air. Laboratory data reviewed, WBC 6.7, hemoglobin 12.8, platelets 173, sodium 141, potassium 3.3, creatinine 0.7. Currently maintained on Lasix 40 mg IV twice a day, Florinef 0.1 mg daily, atorvastatin 10 mg daily, Toprol 25 mg twice a day and xarelto 20 mg daily. He is maintaining a negative fluid balance. Echocardiogram obtained reveals impaired LV systolic function with ejection fraction 35-40%, severely dilated left atrium, mild to moderate aortic regurgitation, mild to moderate mitral regurgitation and mild tricuspid regurg itation. 11/05/2020 Patient seen and examined sitting up in bed in no acute distress. He started having hematuria last night prompting his discharge to be held. He had already received his evening dose of xarelto. Laboratory data reviewed, hemoglobin 11.9 down from 13.5 yesterday, platelets 191, sodium 143, potassium 3.6 and creatinine 0.8. Blood pressure 128/78 heart rate 95 afebrile maintaining oxygen saturation on room air. Denies symptoms of chest pain, shortness of breath, dizziness or palpitations. GENERAL: Well-appearing, well-nourished and in no acute distress. NECK: Supple without JVD or thyromegaly. LUNGS: Breath sounds clear to auscultation bilaterally. Respiration equal and u nlabored. No wheezes, rales or rhonchi. HEART: Irregular rate and rhythm with systolic ejection murmur at the left lower sternal border, no rubs or gallops. S1 and S2 heard. EXTREMITIES: Normal range of motion, 1+ bilateral lower extremity edema. No clubbing or cyanosis. Peripheral pulses intact. ASSESSMENT Acute on chronic heart failure with reduced ejection fraction UTI Bacteremia Sepsis SSS s/p permanent pacemaker implantation History of hypertension Chronic persistent atrial fibrillation on watermaster anticoagulation. PLAN Hold Xarelto pending further urology evaluation. Follow hemoglobin in the morning. Further recommendations to follow based upon clinical course. Nurse Practitioner note has been reviewed, I agree with a documented findings and plan of care. Patient was seen and examined. Objective - Vital Signs Vital signs: Vital Signs Temp 97.8 F 11/06/20 13:00 Pulse 95 11/06/20 13:00 Resp 20 11/06/20 13:00 BP 128/78 11/06/20 13:00 Pulse Ox 98 11/06/20 13:00 Intake & Output 11/05/20 11/06/20 11/06/20 18:59 06:59 18:59 Output Total 50 400 Balance -50 -400 Weight 103.6 kg Output: Urine 50 400 Other: Voiding Method Urinal Urinal Urinal # Voids 4 1 # Bowel Movements 1 - Labs CBC & Chem 7: 11/06/20 05:18 11/06/20 05:18 Labs: Abnormal Lab Results - Last 24 Hours (Table) 11/06/20 11/06/20 11/06/20 Range/Units 05:18 05:18 05:35 RBC 3.55 L (4.40-5.60) X 10*6/uL Hgb 11.9 L (13.0-17.0) g/dL Hct 36.8 L (39.6-50.0) % MCV 103.7 H (80.0-97.0) fL MCH 33.5 H (27.0-32.0) pg BUN/Creatinine Ratio 32.50 H (12.00-20.00) Ratio Calcium 8.5 L (8.7-10.3) mg/dL AST 53 H (14-35) U/L ALT 56 H (10-49) U/L Total Protein 4.9 L (6.2-8.2) g/dL Albumin 3.10 L (3.80-4.90) g/dL Urine Protein 2+ H (Negative) Urine Blood Large H (Negative) Ur Leukocyte Esterase Moderate H (Negative) Urine RBC >182 H (0-5) /hpf Urine WBC 83 H (0-5) /hpf Urine Mucus Few H (None) /hpf
[2020-11-06] MEDS: SODIUM CHLORIDE 0.9% 1,000 ML IV SCH (17:51)
[2020-11-06] MEDS: ATORVASTATIN 10 MG TAB PO SCH (20:33)
[2020-11-06] MEDS: TAMSULOSIN 0.4 MG CAP.ER.24H PO SCH (20:33)
[2020-11-06] MEDS: methIMAzole 5 MG TAB PO SCH (20:33)
[2020-11-07] MEDS: VANCOMYCIN 2,000 MG in SODIUM CHLORIDE 0.9% 500 ML 500 ML IVPB SCH (01:17)
[2020-11-07] MEDS: SODIUM CHLORIDE 0.9% 1,000 ML IV SCH ×2 (06:00→15:38)
[2020-11-07 06:11] LABS: HCT 36.7 % (39.0-53.0); HGB 12.8 gm/dL (13.0-17.5); MCH 35.4 pg (25.0-35.0); MCHC 34.9 g/dL (31.0-37.0); MCV 101.3 fL (80.0-100.0); Mean Platelet Volume 7.5; Platelet Count 194 k/uL (150-450); RBC 3.63 m/uL (4.30-5.90); RDW 12.6 % (11.5-15.5); WBC 7.8 k/uL (3.8-10.6)
--- NOTE | 2020-11-07 08:07 | P.PN ---
Subjective Principal diagnosis: This is a continue progress on a 80-year-old white male with admission of UTI with sepsis. Group D enterococcus was noted the patient is nonfocal vancomycin. No significant fever or chills. No nausea, vomiting or diarrhea she feels weak today. The patient states no overt diarrhea. However there is incontinence Cultures do show enterococcus avium. Antibiotic treatment that he is currently on is sensitive. I suspect we can DC vancomycin and continue Unasyn for one more day. Objective - Vital Signs Vital signs: Vital Signs Temp 97.9 F 11/07/20 04:19 Pulse 97 11/07/20 04:19 Resp 18 11/07/20 04:19 BP 132/92 11/07/20 04:19 Pulse Ox 95 11/07/20 04:19 Intake & Output 11/06/20 11/07/20 11/07/20 18:59 06:59 18:59 Output Total 400 Balance -400 Weight 107.5 kg Output: Urine 400 Other: Voiding Method Urinal Urinal # Voids 1 # Bowel Movements 1 - Constitutional General appearance: Present: no acute distress - EENT Eyes: Absent: abnormal pupil - Neck Neck: Absent: lymphadenopathy - Respiratory Respiratory: bilateral: CTA - Cardiovascular Rhythm: irregularly irregular Heart sounds: normal: S1, S2 - Gastrointestinal General gastrointestinal: Present: soft. Absent: tenderness - Integumentary Integumentary: Absent: cellulitis - Labs CBC & Chem 7: 11/07/20 05:38 11/06/20 05:18 Labs: Abnormal Lab Results - Last 24 Hours (Table) 11/06/20 11/06/20 11/07/20 Range/Units 05:18 05:18 05:38 RBC 3.55 L 3.63 L (4.40-5.60) X 10*6/uL Hgb 11.9 L 12.8 L (13.0-17.0) g/dL Hct 36.8 L 36.7 L (39.6-50.0) % MCV 103.7 H 101.3 H (80.0-97.0) fL MCH 33.5 H 35.4 H (27.0-32.0) pg BUN/Creatinine Ratio 32.50 H (12.00-20.00) Ratio Calcium 8.5 L (8.7-10.3) mg/dL AST 53 H (14-35) U/L ALT 56 H (10-49) U/L Total Protein 4.9 L (6.2-8.2) g/dL Albumin 3.10 L (3.80-4.90) g/dL Assessment and Plan (1) Urinary tract infection Current Visit: Yes Status: Acute Code(s): N39.0 - URINARY TRACT INFECTION, SITE NOT SPECIFIED SNOMED Code(s): 38401351 (2) Weakness Current Visit: Yes Status: Acute Code(s): R53.1 - WEAKNESS SNOMED Code(s): 15147332 Plan: Continue IV antibiotic treatment pending culture. Check CBC and CMP in a.m. per Increase ambulation Transfer to rehab soon Time with Patient: Less than 30
--- NOTE | 2020-11-07 08:09 | P.PN ---
Subjective Principal diagnosis: This is a continue progress on a 80-year-old white male with admission of UTI with sepsis. Group D enterococcus was noted the patient is nonfocal vancomycin. No significant fever or chills. No nausea, vomiting or diarrhea she feels weak today. The patient states no overt diarrhea. However there is incontinence Cultures do show enterococcus avium. Antibiotic treatment that he is currently on is sensitive. I suspect we can DC vancomycin and continue Unasyn for one more day. Xarelto has been held. Appreciate cardiology input. Objective - Vital Signs Vital signs: Vital Signs Temp 97.9 F 11/07/20 04:19 Pulse 97 11/07/20 04:19 Resp 18 11/07/20 04:19 BP 132/92 11/07/20 04:19 Pulse Ox 95 11/07/20 04:19 Intake & Output 11/06/20 11/07/20 11/07/20 18:59 06:59 18:59 Output Total 400 Balance -400 Weight 107.5 kg Output: Urine 400 Other: Voiding Method Urinal Urinal # Voids 1 # Bowel Movements 1 - Constitutional General appearance: Present: no acute distress - EENT Eyes: Absent: abnormal pupil - Neck Neck: Absent: lymphadenopathy - Respiratory Respiratory: bilateral: CTA - Cardiovascular Rhythm: irregularly irregular Heart sounds: abnormal: S1, S2 Abnormal Heart Sounds: Absent: S3 Gallop - Gastrointestinal General gastrointestinal: Present: soft. Absent: tenderness - Integumentary Integumentary: Absent: cellulitis - Labs CBC & Chem 7: 11/07/20 05:38 11/06/20 05:18 Labs: Abnormal Lab Results - Last 24 Hours (Table) 11/06/20 11/06/20 11/07/20 Range/Units 05:18 05:18 05:38 RBC 3.55 L 3.63 L (4.40-5.60) X 10*6/uL Hgb 11.9 L 12.8 L (13.0-17.0) g/dL Hct 36.8 L 36.7 L (39.6-50.0) % MCV 103.7 H 101.3 H (80.0-97.0) fL MCH 33.5 H 35.4 H (27.0-32.0) pg BUN/Creatinine Ratio 32.50 H (12.00-20.00) Ratio Calcium 8.5 L (8.7-10.3) mg/dL AST 53 H (14-35) U/L ALT 56 H (10-49) U/L Total Protein 4.9 L (6.2-8.2) g/dL Albumin 3.10 L (3.80-4.90) g/dL Assessment and Plan (1) Urinary tract infection Current Visit: Yes Status: Acute Code(s): N39.0 - URINARY TRACT INFECTION, SITE NOT SPECIFIED SNOMED Code(s): 91763963 (2) Weakness Current Visit: Yes Status: Acute Code(s): R53.1 - WEAKNESS SNOMED Code(s): 52858907 (3) Chronic atrial fibrillation Current Visit: Yes Status: Acute Code(s): I48.20 - CHRONIC ATRIAL FIBRI LLATION, UNSPECIFIED SNOMED Code(s): 393005892 (4) Constipation Current Visit: No Status: Acute Code(s): K59.00 - CONSTIPATION, UNSPECIFIED SNOMED Code(s): 12522103 (5) Sepsis Current Visit: Yes Status: Acute Code(s): A41.9 - SEPSIS, UNSPECIFIED ORGANI SM SNOMED Code(s): 22608261 Plan: Restart his Xarelto per cardiology. cbc is nominal. Anticipate discharge in next 24 hours. He has been accepted to [facility]. Increase ambulation per PT.
[2020-11-07] MEDS: AMPICILLIN-SULBACTAM 3 GM in SODIUM CHLORIDE 0.9% 100 ML IVPB SCH ×2 (08:18→15:36)
[2020-11-07] MEDS: MULTIVITAMINS, THERA 1 EACH TAB PO SCH (08:19)
[2020-11-07] MEDS: POTASSIUM CHLORIDE ER 20 MEQ TAB.ER PO SCH (08:19)
[2020-11-07] MEDS: FLUDROCORTISONE 0.1 MG TAB PO SCH (08:19)
[2020-11-07] MEDS: PANTOPRAZOLE 40 MG TABLET PO SCH (08:19)
[2020-11-07] MEDS: DOCUSATE 100 MG CAP PO SCH (08:19)
[2020-11-07] MEDS: METOPROLOL SUCCINATE (ER) 25 MG TAB.ER.24H PO SCH ×2 (08:20→20:33)
[2020-11-07] MEDS: FUROSEMIDE 40 MG TAB PO SCH (08:20)
--- NOTE | 2020-11-07 09:45 | P.PN ---
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 He follows in the office with Dr. Mauro. He is seen and examined sitting up in the chair in no acute distress. He states he was up all night going to the bathroom. He has no symptoms of worsening shortness of breath. His lower ex tremity edema has improved. He denies chest pain, dizziness or palpitations. Blood pressure 87/53 heart rate 74 afebrile maintaining oxygen saturation on room air. Laboratory data reviewed, WBC 6.7, hemoglobin 12.8, platelets 173, sodium 141, potassium 3.3, creatinine 0.7. Currently maintained on Lasix 40 mg IV twice a day, Florinef 0.1 mg daily, atorvastatin 10 mg daily, Toprol 25 mg twice a day and xarelto 20 mg daily. He is maintaining a negative fluid balance. Echocardiogram obtained reveals impaired LV systolic function with ejection fraction 35-40%, severely dilated left atrium, mild to moderate aortic regurgitation, mild to moderate mitral regurgitation and mild tricuspid regurg itation. 11/05/2020 Patient seen and examined sitting up in bed eating breakfast. He denies chest pain, shortness of breath, dizziness or palpitations. According to the nurse he has had no further hematuria. Blood pressure 132/92 heart rate 97 afebrile and maintaining oxygen saturation on room air. Laboratory data reviewed, WBC 7.8, hgb 12.8, plt 194. Xarelto was held last night. GENERAL: Well-appearing, well-nourished and in no acute distress. NECK: Supple without JVD or thyromegaly. LUNGS: Breath sounds clear to auscultation bilaterally. Respiration equal and unlabored. No wheezes, rales or rhonchi. HEART: Irregular rate and rhythm with systolic ejection murmur at the left lower sternal border, no rubs or gallops. S1 and S2 heard. EXTREMITIES: Normal range of motion, 1+ bilateral lower extremity edema. No clubbing or cyanosis. Peripheral pulses intact. ASSESSMENT Acute on chronic heart failure with reduced ejection fraction UTI Bacteremia Sepsis SSS s/p permanent pacemaker implantation History of hypertension Chronic persistent atrial fibrillation on fpc anticoagulation. PLAN Resume xarelto. Stable for discharge to [facility]. Repeat CBC in 3 days. Nurse Practitioner note has been reviewed, I agree with a documented findings and plan of care. Patient was seen and examined. Objective - Vital Signs Vital signs: Vital Signs Temp 97.9 F 11/07/20 04:19 Pulse 97 11/07/20 04:19 Resp 18 11/07/20 04:19 BP 132/92 11/07/20 04:19 Pulse Ox 95 11/07/20 04:19 Intake & Output 11/06/20 11/07/20 11/07/20 18:59 06:59 18:59 Output Total 400 Balance -400 Weight 107.5 kg Output: Urine 400 Other: Voiding Method Urinal Urinal Urinal # Voids 1 # Bowel Movements 1 - Labs CBC & Chem 7: 11/07/20 05:38 11/06/20 05:18 Labs: Abnormal Lab Results - Last 24 Hours (Table) 11/06/20 11/06/20 11/07/20 Range/Units 05:18 05:18 05:38 RBC 3.55 L 3.63 L (4.40-5.60) X 10*6/uL Hgb 11.9 L 12.8 L (13.0-17.0) g/dL Hct 36.8 L 36.7 L (39.6-50.0) % MCV 103.7 H 101.3 H (80.0-97.0) fL MCH 33.5 H 35.4 H (27.0-32.0) pg BUN/Creatinine Ratio 32.50 H (12.00-20.00) Ratio Calcium 8.5 L (8.7-10.3) mg/dL AST 53 H (14-35) U/L ALT 56 H (10-49) U/L Total Protein 4.9 L (6.2-8.2) g/dL Albumin 3.10 L (3.80-4.90) g/dL
[2020-11-07] MEDS ORDERED: VANCOMYCIN TROUGH DUE 1 EACH MISC MISCELLANE ONE (12:00)
[2020-11-07 12:25] LABS: African American GFR (CKD) >90 (>60 ml/min/1.73 sqM); Non-African American GFR(CKD) >90 (>60 ml/min/1.73 sqM)
[2020-11-07 13:04] VITALS: BMI 31.2
[2020-11-07] MEDS: RIVAROXABAN 20 MG TAB PO SCH (17:42)
[2020-11-07] MEDS: TAMSULOSIN 0.4 MG CAP.ER.24H PO SCH (20:33)
[2020-11-07] MEDS: ATORVASTATIN 10 MG TAB PO SCH (20:33)
[2020-11-07] MEDS: VANCOMYCIN 1,750 MG in SODIUM CHLORIDE 0.9% 500 ML 500 ML IVPB SCH (20:35)
[2020-11-08] MEDS: AMPICILLIN-SULBACTAM 3 GM in SODIUM CHLORIDE 0.9% 100 ML IVPB SCH ×3 (00:10→14:59)
[2020-11-08] MEDS: SODIUM CHLORIDE 0.9% 1,000 ML IV SCH ×2 (03:23→18:03)
[2020-11-08 06:38] LABS: African American GFR (CKD) >90 (>60 ml/min/1.73 sqM); Non-African American GFR(CKD) 87 (>60 ml/min/1.73 sqM)
[2020-11-08] MEDS: MULTIVITAMINS, THERA 1 EACH TAB PO SCH (07:34)
[2020-11-08] MEDS: POTASSIUM CHLORIDE ER 20 MEQ TAB.ER PO SCH (07:34)
[2020-11-08] MEDS: DOCUSATE 100 MG CAP PO SCH (07:34)
[2020-11-08] MEDS: METOPROLOL SUCCINATE (ER) 25 MG TAB.ER.24H PO SCH ×2 (07:34→20:42)
[2020-11-08] MEDS: FUROSEMIDE 40 MG TAB PO SCH (07:34)
[2020-11-08] MEDS: PANTOPRAZOLE 40 MG TABLET PO SCH (07:34)
[2020-11-08] MEDS: FLUDROCORTISONE 0.1 MG TAB PO SCH (07:35)
[2020-11-08] MEDS: VANCOMYCIN 1,750 MG in SODIUM CHLORIDE 0.9% 500 ML 500 ML IVPB SCH ×2 (08:47→20:44)
[2020-11-08] MEDS: ACETAMINOPHEN TAB 325 MG TAB PO PRN (14:58)
[2020-11-08] MEDS: RIVAROXABAN 20 MG TAB PO SCH (16:49)
[2020-11-08] MEDS: methIMAzole 5 MG TAB PO SCH (20:41)
[2020-11-08] MEDS: TAMSULOSIN 0.4 MG CAP.ER.24H PO SCH (20:41)
[2020-11-08] MEDS: ATORVASTATIN 10 MG TAB PO SCH (20:42)
[2020-11-09] MEDS: AMPICILLIN-SULBACTAM 3 GM in SODIUM CHLORIDE 0.9% 100 ML IVPB SCH ×2 (00:26→08:53)
[2020-11-09 04:24] VITALS: PULSE 72
[2020-11-09] MEDS: SODIUM CHLORIDE 0.9% 1,000 ML IV SCH (06:11)
[2020-11-09 07:15] LABS: African American GFR (CKD) >90 (>60 ml/min/1.73 sqM); Anion Gap 5 mmol/L; Blood Urea Nitrogen 21 mg/dL (9-20); Calcium 8.7 mg/dL (8.4-10.2); Carbon Dioxide 27 mmol/L (22-30); Chloride 106 mmol/L (98-107); Glucose 100 mg/dL (74-99); Non-African American GFR(CKD) >90 (>60 ml/min/1.73 sqM); Potassium 3.8 mmol/L (3.5-5.1); Sodium 138 mmol/L (137-145)
[2020-11-09] MEDS: PANTOPRAZOLE 40 MG TABLET PO SCH (08:52)
[2020-11-09] MEDS: POTASSIUM CHLORIDE ER 20 MEQ TAB.ER PO SCH (08:52)
[2020-11-09] MEDS: FLUDROCORTISONE 0.1 MG TAB PO SCH (08:53)
[2020-11-09] MEDS: MULTIVITAMINS, THERA 1 EACH TAB PO SCH (08:53)
[2020-11-09] MEDS: FUROSEMIDE 40 MG TAB PO SCH (08:53)
[2020-11-09] MEDS: ACETAMINOPHEN TAB 325 MG TAB PO PRN (08:53)
[2020-11-09] MEDS: DOCUSATE 100 MG CAP PO SCH (08:53)
[2020-11-09] MEDS: METOPROLOL SUCCINATE (ER) 25 MG TAB.ER.24H PO SCH (08:53)
[2020-11-09 08:59] LABS: Basophils # (A) 0.04 X 10*3/uL (0.00-0.10); Basophils % (A) 0.6 %; Eosinophils % (A) 2.9 %; HCT 37.9 % (39.6-50.0); HGB 12.7 g/dL (13.0-17.0); Lymphocytes % (A) 10.3 %; MCHC 33.5 g/dL (32.0-37.0); MCV 101.6 fL (80.0-97.0); Mean Platelet Volume 9.8 fL (9.5-12.2); Monocytes # (A) 0.44 X 10*3/uL (0.20-1.00); Monocytes % (A) 6.5 %; Neutrophils # (A) 5.31 X 10*3/uL (1.80-7.70); Neutrophils % (A) 78.4 %; Platelet Count 261 X 10*3/uL (140-440); RBC 3.73 X 10*6/uL (4.40-5.60); RDW 12.9 % (11.5-14.5); WBC 6.78 X 10*3/uL (4.50-10.00)
--- NOTE | 2020-11-09 10:37 | P.PN ---
Subjective Progress Note Date: 11/08/20 Principal diagnosis: Enterococcus AVM urinary tract infection and bacteremia Patient is a 80-year-old white male with admission of UTI with sepsis. 11/08/2020 A mera is currently sitting in the chair awake alert but seems weak. Participating in physical therapy. Denied any complaints of nausea vomiting. No diarrhea. Patient does have incontinence otherwise. Urine culture is growing enterococcus avium and last blood culture was on 11/02/2020 showing enterococcus avium as well. Patient is being continued on Unasyn and vancomycin. Patient has been afebrile. Patient was started back on xarelto. Patient does have chronic persistent atrial fibrillation. Also being continued on Lasix due to acute CHF. Cardiology has seen the patient. Patient has been afebrile. No chest pain or shortness of breath. Anticipate discharged to rehab once repeat blood cultures are negative. Consider ID evaluation. Next and Current medications reviewed. Objective - Vital Signs Vital signs: Vital Signs Temp 97.7 F 11/08/20 04:23 Pulse 71 11/08/20 08:00 Resp 20 11/08/20 08:00 BP 123/70 11/08/20 04:23 Pulse Ox 94 L 11/08/20 04:23 Intake & Output 11/07/20 11/08/20 11/08/20 18:59 06:59 18:59 Intake Total 1520 1800 Output Total 300 Balance 1220 1800 Weight 107.5 kg 106.9 kg Intake: Intake, IV Titration 700 1200 Amount Ampicillin-Sulbactam 3 gm 100 100 In Sodium Chloride 0.9% 100 ml @ 200 mls/hr IVPB Q8HR [facility] Rx#:[id number] Sodium Chloride 0.9% 1, 600 600 000 ml @ 75 mls/hr IV . [id number] [facility] Rx#:[id number] Vancomycin 1,750 mg In 500 Sodium Chloride 0.9% 500 ml 500 ml @ 167 mls/hr IVPB Q12HR [facility] Rx#: [id number] Oral 820 600 Output: Urine 300 Other: Voiding Method Urinal Urinal # Voids 200 2 - Exam PHYSICAL EXAMINATION: Patient is lying in the bed comfortably, no acute distress, awake alert and oriented. Mild cognitive impairment. Generalized weakness.. HEENT: Normocephalic. Neck is supple. Pupils reactive. Nostrils clear. Oral cavity is moist. Ears reveal no drainage. Neck reveals no JVD, carotid bruits, or thyromegaly. CHEST EXAMINATION: Trachea is central. Symmetrical expansion. Lung rai clear to auscultation and percussion. CARDIAC: Normal S1, S2 with no gallops. No murmurs ABDOMEN: Soft. Bowel sounds normal. No organomegaly. No abdominal bruits. Extremities: reveal no edema. No clubbing or cyanosis Neurologically awake, alert, oriented x2-3 with well-coordinated movements. No focal deficits noted Skin: No rash or skin lesions. Psychiatric: Coperative. Nonsuicidal Musculoskeletal: No joint swelling or deformity. Normal range of motion. - Labs CBC & Chem 7: 11/09/20 06:43 11/09/20 06:43 Labs: Abnormal Lab Results - Last 24 Hours (Table) 11/07/20 Range/Units 11:51 Creatinine 0.61 L (0.66-1.25) mg/dL Assessment and Plan Assessment: Acute on chronic heart failure with reduced ejection fraction Enterococcus UTI enterococcus avium Bacteremia Sepsis secondary to above SSS s/p permanent pacemaker implantation History of hypertension Chronic persistent atrial fibrillation on usp anticoagulation. PLAN patient is being continued on Unasyn. Vancomycin will be discontinued. Patient was started back on xarelto. Monitor H&H. And with Lasix. Monitor renal function and anticipate discharged to rehab. Follow-up repeat blood cultures.continue with PTOT.further recommendations based on the clinical course. Time with Patient: Greater than 30
--- NOTE | 2020-11-09 12:07 | P.DS ---
Providers Date of admission: 11/02/20 13:46 Expected date of discharge: 11/09/20 Attending physician: Gaudencio Spangler Consults: 11/02/20 19:26 Consult Physician Routine Consulting Provider: Pako Hooper Consult Reason/Comments: chf Do you want consulting provider notified?: Yes Primary care physician: Gaudencio Spangler Hospital Course: Discharge diagnosis Acute on chronic heart failure with reduced ejection fraction Enterococcus UTI enterococcus avium Bacteremia Sepsis secondary to above SSS s/p permanent pacemaker implantation History of hypertension Chronic persistent atrial fibrillation on chcf anticoagulation. 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 admitted due to UTI with sepsis. 11/08/2020 Patient is currently sitting in the chair awake alert but seems weak. Participating in physical therapy. Denied any complaints of nausea vomiting. No diarrhea. Patient does have incontinence otherwise. Urine culture is growing enterococcus avium and last blood culture was on 11/02/2020 showing enterococcus avium as well. Patient is being continued on Unasyn and vancomycin. Patient has been afebrile. Patient was started back on xarelto. Patient does have chronic persistent atrial fibrillation. Also being continued on Lasix due to acute CHF. Cardiology has seen the patient. Patient has been afebrile. No chest pain or shortness of breath. Anticipate discharged to rehab once repeat blood cultures are negative. Consider ID evaluation. 11/09/2020 Patient is currently lying in the bed comfortably. Denied any complaints of chest pain or shortness of breath. No nausea vomiting or abdominal pain. Tolerating oral diet. Does have generalized weakness and able to participate in physical therapy. Repeat blood cultures were sent due to bacteremia. Patient will be continued on antibiotics for one more week due to enterococcus avium bacteremia and UTI. Patient will be continued on Lasix along with potassium supplementation due to acute on chronic CHF with mildly reduced ejection fraction 45%. Patient is already on anticoagulation with xarelto. Hemoglobin is stable. Patient is being discharged to rehab today. Patient was recommended to follow with primary care physician and cardiology as outpatient. PHYSICAL EXAMINATION: Patient is lying in the bed comfortably, no acute distress, awake alert and oriented. Mild cognitive impairment. Generalized weakness.. HEENT: Normocephalic. Neck is supple. Pupils reactive. Nostrils clear. Oral cavity is moist. Ears reveal no drainage. Neck reveals no JVD, carotid bruits, or thyromegaly. CHEST EXAMINATION: Trachea is central. Symmetrical expansion. Lung rai clear to auscultation and percussion. CARDIAC: Normal S1, S2 with no gallops. No murmurs ABDOMEN: Soft. Bowel sounds normal. No organomegaly. No abdominal bruits. Extremities: reveal no edema. No clubbing or cyanosis Neurologically awake, alert, oriented x2-3 with well-coordinated movements. No focal deficits noted Skin: No rash or skin lesions. Psychiatric: Coperative. Nonsuicidal Musculoskeletal: No joint swelling or deformity. Normal range of motion. Vital Signs 11/09/20 04:23 Temperature 97.5 F L Pulse Rate [ 72 Pulse Oximetery ] Respiratory 18 Rate Blood Pressure 147/92 [Left Arm Supine] O2 Sat by Pulse 97 Oximetry Total time taken greater than 35 minutes including 18 minutes for counseling and coordination of care. Patient Condition at Discharge: Fair Plan - Discharge Summary Discharge Rx Participant: No New Discharge Prescriptions: New Ampicillin Trihydrate 500 mg PO TID 7 Days #21 cap Docusate [Colace] 100 mg PO DAILY PRN #30 cap PRN Reason: Constipation Potassium Chloride ER [K-Dur 20] 40 meq PO DAILY #30 tab.er.prt Furosemide [Lasix] 40 mg PO DAILY #30 tab Continue Multivitamins, Thera [Multivitamin (formulary)] 1 tab PO DAILY Tamsulosin HCl [Flomax] 0.8 mg PO HS Simvastatin [Zocor] 20 mg PO HS Rivaroxaban [Xarelto] 20 mg PO HS methIMAzole [Tapazole] 2.5 mg PO Q48H Fludrocortisone [Florinef] 0.1 mg PO DAILY Metoprolol Succinate [Toprol XL] 25 mg PO BID Acetaminophen [Tylenol] 1,000 mg PO HS Polyethylene Glycol 3350 [Miralax] 17 gm PO DAILY PRN PRN Reason: Constipation Discharge Medication List Fludrocortisone [Florinef] 0.1 mg PO DAILY 02/17/17 [History] Multivitamins, Thera [Multivitamin (formulary)] 1 tab PO DAILY 02/17/17 [History] Rivaroxaban [Xarelto] 20 mg PO HS 02/17/17 [History] Simvastatin [Zocor] 20 mg PO HS 02/17/17 [History] Tamsulosin HCl [Flomax] 0.8 mg PO HS 02/17/17 [History] methIMAzole [Tapazole] 2.5 mg PO Q48H 02/17/17 [History] Metoprolol Succinate [Toprol XL] 25 mg PO BID 06/09/18 [History] Acetaminophen [Tylenol] 1,000 mg PO HS 08/14/20 [History] Polyethylene Glycol 3350 [Miralax] 17 gm PO DAILY PRN 11/02/20 [History] Ampicillin Trihydrate 500 mg PO TID 7 Days #21 cap 11/09/20 [Rx] Docusate [Colace] 100 mg PO DAILY PRN #30 cap 11/09/20 [Rx] Furosemide [Lasix] 40 mg PO DAILY #30 tab 11/09/20 [Rx] Potassium Chloride ER [K-Dur 20] 40 meq PO DAILY #30 tab.er.prt 11/09/20 [Rx] Follow up Appointment(s)/Referral(s): Sadia Mauro MD [STAFF PHYSICIAN] - 2 Weeks Gaudencio Spangler MD [Primary Care Provider] - 1-2 days Marylou Downs [NON-STAFF] - As Needed Discharge Disposition: TRANSFER TO SNF/ECF
[2020-11-09 12:43] VITALS: BP 137/80; RESP 16; TEMP 97.3
--- NOTE | 2020-11-11 13:14 | CDI ---
Documentation Clarification Form Date: 11/11/20 From: Norma Sidhu Phone: Admit Date: 11/02/2020 01:46:00 PM Patient Name: Shree Jacobsen Visit Number: [id number] Discharge Date: 11/09/2020 02:40:00 PM ATTENTION: The Clinical Documentation Specialists (CDI) and [facility] Coding Staff appreciate your assistance in clarifying documentation. Please respond to the clarification below the line at the bottom and electronically sign. The CDI & [facility] Coding staff will review the response and follow-up if needed. Please note: Queries are made part of the Legal Health Record. If you have any questions, please contact the author of this message via ITS. Dr. Chela Crespo, A diagnosis of UTI has been documented in the ED note, H&P and numerous PNs. History/Risk Factors: BPH w incontinence & retention, UTI, hematuria Per documentation in the patient was admitted with an indwelling Mustafa catheter. Patient is present with his daughter who states the patient was seen in the hospital on 10/22/20 for urinary retention and constipation. Patient was discharged with a Mustafa catheter and ever since the patient continues to decline. Clinical Indicators: Weakness, UTI & sepsis Urinalysis: Protein 2+, blood large, leukocyte esterase large, wbc 123, casts 8 H, Urine culture: Enterococcus avim >100, 000 CFU/ML Lab results: lactic acid 2.7, WBC 13.6, Neutrophils 12.6 Treatment: IV fluids, IV antibiotics In your professional opinion, can you please clarify the etiology of the UTI, if known? Mustafa catheter UTI not related to catheter Other condition, please specify Unable to determine Acute UTI related to Mustafa catheter. MTDD
== END 2020-11-09 14:40 | DRG 698 ==
LOC: EC 11:15 → 5NMEDONC 13:46
PROVIDERS: ADMIT Family Medicine; ATTEND Family Medicine
DX: T83.511A Infection and inflammatory reaction due to indwelling urethral catheter, initial encounter (principal); A41.81 Sepsis due to Enterococcus; I50.23 Acute on chronic systolic (congestive) heart failure; I48.19 Other persistent atrial fibrillation; E87.1 Hypo-osmolality and hyponatremia; I42.9 Cardiomyopathy, unspecified; N39.0 Urinary tract infection, site not specified; I49.5 Sick sinus syndrome; D63.8 Anemia in other chronic diseases classified elsewhere; I95.9 Hypotension, unspecified; I11.0 Hypertensive heart disease with heart failure; Z20.822 Contact with and (suspected) exposure to COVID-19; E86.0 Dehydration; E78.5 Hyperlipidemia, unspecified; I08.3 Combined rheumatic disorders of mitral, aortic and tricuspid valves; I25.10 Atherosclerotic heart disease of native coronary artery without angina pectoris; R31.9 Hematuria, unspecified; N40.1 Benign prostatic hyperplasia with lower urinary tract symptoms; N39.498 Other specified urinary incontinence; E66.9 Obesity, unspecified; M19.90 Unspecified osteoarthritis, unspecified site; K59.00 Constipation, unspecified; R26.9 Unspecified abnormalities of gait and mobility; G47.30 Sleep apnea, unspecified; Z68.31 Body mass index [BMI] 31.0-31.9, adult; H91.90 Unspecified hearing loss, unspecified ear; H54.7 Unspecified visual loss; Z79.01 Long term (current) use of anticoagulants; Z79.52 Long term (current) use of systemic steroids; Z79.899 Other long term (current) drug therapy; Z86.73 Personal history of transient ischemic attack (TIA), and cerebral infarction without residual deficits; Z87.448 Personal history of other diseases of urinary system; Z87.442 Personal history of urinary calculi; Z86.59 Personal history of other mental and behavioral disorders; Z95.0 Presence of cardiac pacemaker; Z90.89 Acquired absence of other organs; Z87.19 Personal history of other diseases of the digestive system; Z98.42 Cataract extraction status, left eye; Z98.41 Cataract extraction status, right eye; Z71.3 Dietary counseling and surveillance; Z86.69 Personal history of other diseases of the nervous system and sense organs; Z98.890 Other specified postprocedural states; Y84.6 Urinary catheterization as the cause of abnormal reaction of the patient, or of later complication, without mention of misadventure at the time of the procedure; Z83.2 Family history of diseases of the blood and blood-forming organs and certain disorders involving the immune mechanism
CPT/HCPCS: 36415; 71046; 80048; 80053; 80202; 81001; 82565; 83605; 83735; 83880; 84443; 84484; 85025; 85027; 85610; 85730; 87040; 87077; 87086; 87186; 87635; 93005; 93306; 94760; 96361; 96374; 99285

== ENCOUNTER 2021-05-21 11:40 | Emergency (ER) | payer MEDICARE, BC ==
[2021-05-21 11:55] VITALS: TEMP 97.6
--- NOTE | 2021-05-21 11:56 | ED ---
General Adult HPI - General Stated complaint: Fall Time Seen by Provider: 05/21/21 11:40 Source: patient, RN notes reviewed, old records reviewed - History of Present Illness Initial comments: This is an 81-year-old male who presents emergency Department with the complaint of altered mental status and they found on the ground. According to EMS he fell yesterday morning however there is some question about that and it is possible the fall occurred this morning. Patient is normally alert and oriented times threes only alert and oriented 2 today. Patient is not a very good historian but he does state that he fall. Patient denies any chest pain or back pain. Patient denies abdominal pain. Patient denies any extremity pain. Patient denies any fever chills according to EMS he was no report of any fever or chills. - Related Data Home Medications Medication Instructions Recorded Confirmed Fludrocortisone [Florinef] 0.1 mg PO DAILY 02/17/17 05/21/21 Multivitamins, Thera [Multivitamin 1 tab PO DAILY 02/17/17 05/21/21 (formulary)] Rivaroxaban [Xarelto] 20 mg PO DAILY@1200 02/17/17 05/21/21 Simvastatin [Zocor] 20 mg PO HS 02/17/17 05/21/21 Tamsulosin HCl [Flomax] 0.8 mg PO HS 02/17/17 05/21/21 methIMAzole [Tapazole] 2.5 mg PO Q48H 02/17/17 05/21/21 Metoprolol Succinate [Toprol XL] 25 mg PO BID 06/09/18 05/21/21 Acetaminophen [Tylenol] 1,000 mg PO BID PRN 08/14/20 05/21/21 Polyethylene Glycol 3350 [Miralax] 17 gm PO DAILY 11/02/20 05/21/21 Cholecalciferol [Vitamin D3 (25 50 mcg PO DAILY 05/21/21 05/21/21 Mcg = 1000 Iu)] Docusate [Colace] 100 mg PO Q3D PRN 05/21/21 05/21/21 Previous Rx's Medication Instructions Recorded Furosemide [Lasix] 40 mg PO DAILY #30 tab 11/09/20 Potassium Chloride ER [K-Dur 20] 40 meq PO DAILY #30 tab.er.prt 11/09/20 Meclizine [Antivert] 25 mg PO TID #20 tab 05/21/21 Allergies Allergy/AdvReac Type Severity Reaction Status Date / Time No Known Allergies Allergy Verified 05/21/21 12:33 Review of Systems ROS Statement: Those systems with pertinent positive or pertinent negative responses have been documented in the HPI. ROS Other: All systems not noted in ROS Statement are negative. Past Medical History Past Medical History: Atrial Fibrillation, Chest Pain / Angina, CVA/TIA, Hyperlipidemia, Hypertension, Osteoarthritis (OA), Prostate Disorder, Sleep Apnea/CPAP/BIPAP, Thyroid Disorder Additional Past Medical History / Comment(s): CVA-no residual effects, hx kidney stones, no cpap used, back pain, History of Any Multi-Drug Resistant Organisms: None Reported Past Surgical History: Cardiac Ablation, Heart Catheterization, Hernia Repair, Pacemaker, Tonsillectomy Additional Past Surgical History / Comment(s): hydrocele, lithotripsy, paola cataracts, eye lid surgery, repair torn retina left eye, Past Anesthesia/Blood Transfusion Reactions: Motion Sickness Type of Cardiac Device: Permanent Pacemaker Device Placement Date:: 10/21/2011 Past Psychological History: Anxiety, Depression Smoking Status: Never smoker Past Alcohol Use History: None Reported Past Drug Use History: None Reported - Past Family History Mother Family Medical History: Cancer, Pulmonary Embolus General Exam - General Exam Comments Initial Comments: GENERAL: Patient is well-developed and well-nourished. ENT: Neck is soft and supple. No significant lymphadenopathy is noted. Oropharynx is clear. Moist mucous membranes. Neck has full range of motion without eliciting any pain. Patient has a hematoma to the forehead EYES: The sclera were anicteric and conjunctiva were pink and moist. Extraocular movements were intact and pupils were equal round and reactive to light. Eyelids were unremarkable. PULMONARY: Unlabored respirations. Good breath sounds bilaterally. No audible rales rhonchi or wheezing was noted. CARDIOVASCULAR: There is a regular rate and rhythm without any murmurs gallops or rubs. ABDOMEN: Soft and nontender with normal bowel sounds. SKIN: Skin is clear with no lesions or rashes and otherwise unremarkable. NEUROLOGIC: Patient is alert and oriented 3. Cranial nerves II through XII are grossly intact. Motor and sensory are also intact. Normal speech, volume and content. Symmetrical smile. MUSCULOSKELETAL: Normal extremities with adequate strength and full range of motion. No lower extremity swelling or edema. No calf tenderness. LYMPHATICS: No significant lymphadenopathy is noted PSYCHIATRIC: Normal psychiatric evaluation. Course Vital Signs 05/21/21 05/21/21 11:49 12:18 Temperature 97.6 F Pulse Rate 104 H 111 H Respiratory 20 18 Rate Blood Pressure 149/79 152/95 O2 Sat by Pulse 98 100 Oximetry Medical Decision Making - Medical Decision Making EKG shows atrial fibrillation with rapid ventricular response at 108 bpm QRS is 96 QT interval 368 QTC is 493 per patient's EKG shows no ST segment elevation or depression. Patient daughter called and spoke with nursing and let them know that he has vertigo chronically. Patient states that's what happened this morning he woke up and the room was spinning and he made an attempt to go to the bathroom when he fell. Patient has been alert and oriented 3 while in the emergency department today and that is his baseline. CT of the brain and C-spine are negative - Lab Data Result diagrams: 05/21/21 12:41 05/21/21 11:55 Lab Results 05/21/21 05/21/21 05/21/21 Range/Units 11:55 11:55 11:55 WBC (3.8-10.6) k/uL RBC (4.30-5.90) m/uL Hgb (13.0-17.5) gm/dL Hct (39.0-53.0) % MCV (80.0-100.0) fL MCH (25.0-35.0) pg MCHC (31.0-37.0) g/dL RDW (11.5-15.5) % Plt Count (150-450) k/uL MPV Neutrophils % % Lymphocytes % % Monocytes % % Eosinophils % % Basophils % % Neutrophils # (1.3-7.7) k/uL Lymphocytes # (1.0-4.8) k/uL Monocytes # (0-1.0) k/uL Eosinophils # (0-0.7) k/uL Basophils # (0-0.2) k/uL Macrocytosis PT 14.3 H (9.0-12.0) sec INR 1.4 H (<1.2) APTT 27.6 (22.0-30.0) sec Sodium 138 (137-145) mmol/L Potassium 4.0 (3.5-5.1) mmol/L Chloride 103 (98-107) mmol/L Carbon Dioxide 25 (22-30) mmol/L Anion Gap 10 mmol/L BUN 23 H (9-20) mg/dL Creatinine 0.69 (0.66-1.25) mg/dL Est GFR (CKD-EPI)AfAm >90 (>60 ml/min/1.73 sqM) Est GFR (CKD-EPI)NonAf 90 (>60 ml/min/1.73 sqM) Glucose 143 H (74-99) mg/dL POC Glucose (mg/dL) (75-99) mg/dL POC Glu Pastry Assistant ID Calcium 9.4 (8.4-10.2) mg/dL Total Bilirubin 1.2 (0.2-1.3) mg/dL AST 32 (17-59) U/L ALT 23 (4-49) U/L Alkaline Phosphatase 89 (38-126) U/L Troponin I <0.012 (0.000-0.034) ng/mL Total Protein 6.7 (6.3-8.2) g/dL Albumin 3.8 (3.5-5.0) g/dL Urine Color Urine Appearance (Clear) Urine pH (5.0-8.0) Ur Specific [place] (1.001-1.035) Urine Protein (Negative) Urine Glucose (UA) (Negative) Urine Ketones (Negative) Urine Blood (Negative) Urine Nitrite (Negative) Urine Bilirubin (Negative) Urine Urobilinogen (<2.0) mg/dL Ur Leukocyte Esterase (Negative) Urine Opiates Screen (NotDetected) Ur Oxycodone Screen (NotDetected) Urine Methadone Screen (NotDetected) Ur Propoxyphene Screen (NotDetected) Ur Barbiturates Screen (NotDetected) U Tricyclic Antidepress (NotDetected) Ur Phencyclidine Scrn (NotDetected) Ur Amphetamines Screen (NotDetected) U Methamphetamines Scrn (NotDetected) U Benzodiazepines Scrn (NotDetected) Urine Cocaine Screen (NotDetected) U Marijuana (THC) Screen (NotDetected) 05/21/21 05/21/21 05/21/21 Range/Units 12:17 12:41 14:00 WBC 9.4 (3.8-10.6) k/uL RBC 4.12 L (4.30-5.90) m/uL Hgb 14.5 (13.0-17.5) gm/dL Hct 42.3 (39.0-53.0) % MCV 102.7 H (80.0-100.0) fL MCH 35.1 H (25.0-35.0) pg MCHC 34.2 (31.0-37.0) g/dL RDW 12.1 (11.5-15.5) % Plt Count 155 (150-450) k/uL MPV 7.9 Neutrophils % 91 % Lymphocytes % 5 % Monocytes % 3 % Eosinophils % 1 % Basophils % 0 % Neutrophils # 8.6 H (1.3-7.7) k/uL Lymphocytes # 0.4 L (1.0-4.8) k/uL Monocytes # 0.3 (0-1.0) k/uL Eosinophils # 0.1 (0-0.7) k/uL Basophils # 0.0 (0-0.2) k/uL Macrocytosis Slight PT (9.0-12.0) sec INR (<1.2) APTT (22.0-30.0) sec Sodium (137-145) mmol/L Potassium (3.5-5.1) mmol/L Chloride (98-107) mmol/L Carbon Dioxide (22-30) mmol/L Anion Gap mmol/L BUN (9-20) mg/dL Creatinine (0.66-1.25) mg/dL Est GFR (CKD-EPI)AfAm (>60 ml/min/1.73 sqM) Est GFR (CKD-EPI)NonAf (>60 ml/min/1.73 sqM) Glucose (74-99) mg/dL POC Glucose (mg/dL) 127 H (75-99) mg/dL POC Glu Pastry Assistant ID Karl Whelan A Calcium (8.4-10.2) mg/dL Total Bilirubin (0.2-1.3) mg/dL AST (17-59) U/L ALT (4-49) U/L Alkaline Phosphatase (38-126) U/L Troponin I (0.000-0.034) ng/mL Total Protein (6.3-8.2) g/dL Albumin (3.5-5.0) g/dL Urine Color Yellow Urine Appearance Clear (Clear) Urine pH 5.5 (5.0-8.0) Ur Specific [place] 1.021 (1.001-1.035) Urine Protein Trace H (Negative) Urine Glucose (UA) Negative (Negative) Urine Ketones 2+ H (Negative) Urine Blood Negative (Negative) Urine Nitrite Negative (Negative) Urine Bilirubin Negative (Negative) Urine Urobilinogen 2.0 (<2.0) mg/dL Ur Leukocyte Esterase Negative (Negative) Urine Opiates Screen Not Detected (NotDetected) Ur Oxycodone Screen Not Detected (NotDetected) Urine Methadone Screen Not Detected (NotDetected) Ur Propoxyphene Screen Not Detected (NotDetected) Ur Barbiturates Screen Not Detected (NotDetected) U Tricyclic Antidepress Not Detected (NotDetected) Ur Phencyclidine Scrn Not Detected (NotDetected) Ur Amphetamines Screen Not Detected (NotDetected) U Methamphetamines Scrn Not Detected (NotDetected) U Benzodiazepines Scrn Not Detected (NotDetected) Urine Cocaine Screen Not Detected (NotDetected) U Marijuana (THC) Screen Not Detected (NotDetected) Disposition Clinical Impression: Fall, Traumatic hematoma of forehead, Vertigo Disposition: HOME SELF-CARE Prescriptions: Meclizine [Antivert] 25 mg PO TID #20 tab Is patient prescribed a controlled substance at d/c from ED?: No Referrals: None,Stated [REFERRING] - 1-2 days Time of Disposition: 15:07
[2021-05-21 12:20] VITALS: RESP 18
[2021-05-21 12:21] LABS: Glucose,Whole Blood 127 mg/dL (75-99)
[2021-05-21] MEDS ORDERED: ONDANSETRON 4 MG/2 ML VIAL IVP STA (12:21)
[2021-05-21 12:26] LABS: ALT 23 U/L (4-49); AST 32 U/L (17-59); African American GFR (CKD) >90 (>60 ml/min/1.73 sqM); Albumin 3.8 g/dL (3.5-5.0); Alkaline Phosphatase 89 U/L (38-126); Anion Gap 10 mmol/L; Blood Urea Nitrogen 23 mg/dL (9-20); Calcium 9.4 mg/dL (8.4-10.2); Carbon Dioxide 25 mmol/L (22-30); Chloride 103 mmol/L (98-107); Glucose 143 mg/dL (74-99); Non-African American GFR(CKD) 90 (>60 ml/min/1.73 sqM); Sodium 138 mmol/L (137-145); Total Bilirubin 1.2 mg/dL (0.2-1.3); Total Protein 6.7 g/dL (6.3-8.2)
[2021-05-21 12:29] LABS: INR 1.4 (<1.2); Partial Thromboplastin Time 27.6 sec (22.0-30.0); Prothrombin Time 14.3 sec (9.0-12.0)
--- NOTE | 2021-05-21 12:30 | CT ---
EXAMINATION TYPE: CT brain cspine wo con DATE OF EXAM: 05/21/2021 COMPARISON: NONE HISTORY: Trauma injury with headache and neck pain. CT DLP: 1599.2 mGycm. Automated Exposure Control for Dose Reduction was Utilized. TECHNIQUE: CT scan of the head and cervical spine are performed without contrast. FINDINGS: There is no acute intracranial hemorrhage or midline shift identified. Mild to moderate v entricular and sulcal prominence. Focal area of low-attenuation posterior right frontal lobe axial i mage 30 favoring chronic encephalomalacia or old infarct. Small to moderate-sized acute right frontal scalp hematoma axial image 26. Mild low attenuation in the periventricular white matter. The calvari um is intact. Opacified left ethmoid sinus posteriorly axial image 11 favors tiny polyp. Remainder of the paranasal sinuses are clear. Globes are intact bilaterally. Cervical spine is visualized in its entirety from C1 through upper thoracic levels and demonstrates dextroconvex scoliosis centered upper thoracic spine without evidence of acute fracture or dislocatio n. Prevertebral soft tissue appears within normal limits. The C1-C2 articulation is within normal l imits on the coronal images. Vertebral body heights are maintained. Moderate disc space narrowing an d spurring C3-C4 and C4-C5 levels and C6-C7 levels. Posterior spur disc complexes efface the anterior thecal sac C3-C4 through C6-C7 levels on sagittal and axial images. Axial images show multilevel unc overtebral facet degenerative changes bilaterally contributing to multilevel bilateral neural foramin al narrowing. Mild calcified plaque bilateral carotid bulb level is present. Thyroid gland is within normal limits. Lung apices show no pneumothorax. Pacemaker-type device is partially imaged. IMPRESSION: 1. There is no acute fracture or dislocation evident in the cervical spine. 2. Small to moderate-sized acute right frontal scalp hematoma. No acute intracranial hemorrhage or mi dline shift.
--- NOTE | 2021-05-21 12:49 | XR ---
EXAMINATION TYPE: XR chest 2V DATE OF EXAM: 05/21/2021 COMPARISON: Chest x-ray November 02, 2020 HISTORY: Altered mental status and weakness. TECHNIQUE: Frontal and lateral views of the chest are obtained. FINDINGS: There is chronic emphysematous and parenchymal changes bilaterally without suspicious new focal air space opacity, pleural effusion, or pneumothorax seen. Stable mild cardiomegaly with dual l ead pacemaker and atherosclerotic aorta. The osseous structures are demineralized. Multilevel spurr ing in the spine is present. IMPRESSION: Mild cardiomegaly and chronic parenchymal changes without acute pulmonary process.
[2021-05-21 12:58] LABS: Basophils % (A) 0 %; Eosinophils # (A) 0.1 k/uL (0-0.7); Eosinophils % (A) 1 %; HCT 42.3 % (39.0-53.0); HGB 14.5 gm/dL (13.0-17.5); Lymphocytes # (A) 0.4 k/uL (1.0-4.8); Lymphocytes % (A) 5 %; MCH 35.1 pg (25.0-35.0); MCHC 34.2 g/dL (31.0-37.0); MCV 102.7 fL (80.0-100.0); Macrocytosis Slight; Mean Platelet Volume 7.9; Monocytes # (A) 0.3 k/uL (0-1.0); Monocytes % (A) 3 %; Neutrophils # (A) 8.6 k/uL (1.3-7.7); Neutrophils % (A) 91 %; Platelet Count 155 k/uL (150-450); RBC 4.12 m/uL (4.30-5.90); RDW 12.1 % (11.5-15.5); WBC 9.4 k/uL (3.8-10.6)
[2021-05-21 14:07] LABS: Appearance,Urine Clear (Clear); Bilirubin,Urine Negative (Negative); Blood,Urine Negative (Negative); Color,Urine Yellow; Glucose,Urine (UA) Negative (Negative); Ketones,Urine 2+ (Negative); Leukocyte Esterase,Urine Negative (Negative); Nitrite,Urine Negative (Negative); PH, Urine 5.5 (5.0-8.0); Protein,Urine Trace (Negative); Specific Gravity,Urine 1.021 (1.001-1.035)
[2021-05-21 14:54] LABS: Amphetamine Screen,Urine Not Detected (NotDetected); Barbiturate Screen,Urine Not Detected (NotDetected); Benzodiazepines Screen,Urine Not Detected (NotDetected); Cocaine Screen,Urine Not Detected (NotDetected); Methadone Screen, Urine Not Detected (NotDetected); Opiate Screen,Urine Not Detected (NotDetected); Oxycodone Screen, Urine Not Detected (NotDetected); Phencyclidine Screen,Urine Not Detected (NotDetected); Tricyclic Antidepressant,Urine Not Detected (NotDetected); Urn Cannabinoid Scrn Not Detected (NotDetected)
[2021-05-21 15:43] VITALS: BP 131/81; PULSE 112
[2021-05-21] MEDS ORDERED: ACETAMINOPHEN TAB 325 MG TAB PO STA (16:16)
== END 2021-05-21 16:44 | disposition home or self-care (01) ==
LOC: EC 11:40
DX: S00.83XA Contusion of other part of head, initial encounter (principal); R42 Dizziness and giddiness; I10 Essential (primary) hypertension; I48.91 Unspecified atrial fibrillation; M19.90 Unspecified osteoarthritis, unspecified site; E78.5 Hyperlipidemia, unspecified; Z79.899 Other long term (current) drug therapy; Z86.73 Personal history of transient ischemic attack (TIA), and cerebral infarction without residual deficits; Z95.0 Presence of cardiac pacemaker; W18.39XA Other fall on same level, initial encounter
CPT/HCPCS: 36415; 93005; 80053; 84484; 85025; 85610; 85730; 81003; 80306; 71046; 72125; 70450; 99285; 96374; J2405

== ENCOUNTER 2023-02-12 10:02 | Inpatient (IN) | payer MEDICARE, BC ==
[2023-02-12] MEDS ORDERED: SODIUM CHLORIDE 0.9% 500 ML 500 ML IV STA (10:07)
[2023-02-12] MEDS ORDERED: DIPH,PERTUS(ACELL)TETVAC-LF 0.5 ML VIAL IM ONE (10:07)
[2023-02-12 10:15] LABS: Glucose,Whole Blood 138 mg/dL (70-110)
[2023-02-12 10:35] LABS: Basophils % (A) 0 %; Eosinophils # (A) 0.2 k/uL (0-0.7); Eosinophils % (A) 1 %; HCT 44.1 % (39.0-53.0); HGB 14.9 gm/dL (13.0-17.5); Lymphocytes # (A) 0.4 k/uL (1.0-4.8); Lymphocytes % (A) 2 %; MCH 34.3 pg (25.0-35.0); MCHC 33.9 g/dL (31.0-37.0); MCV 101.3 fL (80.0-100.0); Monocytes # (A) 0.6 k/uL (0-1.0); Monocytes % (A) 4 %; Neutrophils # (A) 15.2 k/uL (1.3-7.7); Neutrophils % (A) 92 %; Platelet Count 209 k/uL (150-450); RBC 4.35 m/uL (4.30-5.90); RDW 12.4 % (11.5-15.5); WBC 16.5 k/uL (3.8-10.6)
--- NOTE | 2023-02-12 10:43 | XR ---
EXAMINATION TYPE: XR chest 1V portable DATE OF EXAM: 02/12/2023 Comparison: 05/21/2021 Clinical History: 83-year-old male fall, trauma, pain Findings: Patient is rotated towards the left ultrasound and normal cardiac mediastinal contours. Left anterior chest wall pacemaker generator with right atrial and right ventricular leads. Heart upper limits of normal in size. No consolidation or pleural effusion. Bony vasculature are within normal limits. Impression: Rotated exam. No definite acute process.
--- NOTE | 2023-02-12 10:44 | XR ---
EXAMINATION TYPE: XR pelvis AP view DATE OF EXAM: 02/12/2023 Comparison: None Clinical History: 83-year-old male pain after Trauma Findings: Osteopenia. Moderate degenerative change of both hips. Limited assessment of the left femoral neck du e to external rotation of the hip. Multiple pelvic phleboliths. Bowel content moderately obscures the sacrum. No displaced fracture seen. Cortical step-off along the inferior femoral head neck junction on the left probably projectional. Impression: 1. Assessment of the left femoral neck is suboptimal due to external rotation of the hip during imagi ng. A cortical step-off along the inferior femoral head neck junction may be projectional. Recommend follow-up dedicated high quality 2 views of the left hip with appropriate positioning. 2. Moderate bilateral hip OA.
[2023-02-12 10:45] LABS: ALT 44 U/L (4-49); African American GFR (CKD) >90 (>60 ml/min/1.73 sqM); Alcohol <10 mg/dL; Anion Gap 11 mmol/L; Blood Urea Nitrogen 39 mg/dL (9-20); Calcium 9.4 mg/dL (8.4-10.2); Carbon Dioxide 23 mmol/L (22-30); Chloride 103 mmol/L (98-107); Glucose 144 mg/dL (74-99); Non-African American GFR(CKD) >90 (>60 ml/min/1.73 sqM); Sodium 137 mmol/L (137-145); Total Bilirubin 1.2 mg/dL (0.2-1.3)
[2023-02-12 10:47] LABS: Amphetamine Screen,Urine Not Detected (NotDetected); Barbiturate Screen,Urine Not Detected (NotDetected); Benzodiazepines Screen,Urine Not Detected (NotDetected); Cocaine Screen,Urine Not Detected (NotDetected); INR 1.2 (<1.2); Methadone Screen, Urine Not Detected (NotDetected); Opiate Screen,Urine Not Detected (NotDetected); Oxycodone Screen, Urine Not Detected (NotDetected); Partial Thromboplastin Time 22.3 sec (22.0-30.0); Phencyclidine Screen,Urine Not Detected (NotDetected); Prothrombin Time 11.9 sec (9.0-12.0); Tricyclic Antidepressant,Urine Not Detected (NotDetected); Urn Cannabinoid Scrn Not Detected (NotDetected)
[2023-02-12 10:57] LABS: AST 78 U/L (17-59); Albumin 4.5 g/dL (3.5-5.0); Alkaline Phosphatase 80 U/L (38-126); Creatine Kinase 3022 U/L (55-170); Potassium 5.2 mmol/L (3.5-5.1); Total Protein 7.8 g/dL (6.3-8.2)
--- NOTE | 2023-02-12 11:07 | CT ---
EXAMINATION TYPE: CT brain cspine wo con DATE OF EXAM: 02/12/2023 COMPARISON: 05/21/2021 HISTORY: 83-year-old male trauma, fall, right side facial swelling CT DLP: 1304.7 mGycm Automated exposure control for dose reduction was used. Technique: Examination of the head was done in axial plane without intravenous contrast. Coronal and sagittal reconstructions performed. CT of the cervical spine was obtained in axial plane without intravenous injection of contrast mater ial. Coronal and sagittal reformatted images were obtained from the axial views for evaluation of f ractures, spinal alignment and canal. FINDINGS: Head: There is no evidence of acute intracranial hemorrhage, acute ischemic changes, mass, mass-effect, or extra-axial fluid collection. There is no effacement of cerebral sulci or basal subarachnoid cister ns. There is no hydrocephalus. There is no midline shift. Yanez-white matter distinction is preserv ed. Mild mild scalp contusion overlying the right frontal region. No underlying calvarial fracture. Facial bones reported separately. Mastoid air cells well pneumatized. Unchanged encephalomalacia lateral posterior right frontal lobe. Cervical spine: No craniocervical junction abnormality or predental space widening. However, there is generalized anasarca change including prevertebral soft tissue swelling and fluid. Moderate distention plate degenerative change C3-C7 levels. Scattered facet and uncovertebral joint a rthropathy is also present. No acute fracture seen of the cervical spine. Disc osteophyte complexes likely related to multilevel mild spinal canal narrowing. Variable moderate to severe neuroforaminal stenoses. Preserved alignment in the cervical spine. No acute fracture is identified Sagittal and coronal reformatted images confirm above findings. COMBINED IMPRESSION: 1. Right frontal scalp contusion. No underlying calvarial fracture or acute intracranial abnormality seen. Old infarct lateral posterior right frontal lobe. 2. There is prevertebral soft tissue edema. In addition, we note the presence of some generalized sof t tissue swelling throughout the neck more so on the right. While there is degenerative disc space na rrowing throughout, there is either maintained versus widened disc space at C5-C6. Given the soft tis minor swelling and prevertebral edema, correlate for the possibility of a distraction injury of the nec k. There is no malalignment or acute fracture seen of the cervical spine. Correlate as to if MRI is n eeded.
--- NOTE | 2023-02-12 11:11 | CT ---
EXAMINATION TYPE: CT facial bones wo con DATE OF EXAM: 02/12/2023 COMPARISON: None HISTORY: 83-year-old male fall, right side facial swelling TECHNIQUE: Contiguous axial scanning of the facial bones without IV contrast. Coronal and sagittal re constructions performed. CT DLP: 1304.7 mGycm Automated exposure control for dose reduction was used. FINDINGS: The mandible, TMJs, pterygoid plates, zygomatic arches, facial bones, and nasal bones appear intact. Slight leftward nasal septal deviation. Air-fluid level right maxillary sinus. Scattered mild mucosal thickening ethmoid air cells. Soft tissue swelling overlying the bridge of the nose and marked preseptal and periorbital right-side d soft tissue swelling. Orbits and globes appear intact. Extensive dental amalgam. Dental caries involving the right maxillary canine. IMPRESSION: 1. MARKED RIGHT-SIDED PRESEPTAL AND PERIORBITAL SOFT TISSUE CONTUSION. ADDITIONAL SWELLING OVERLYING THE BRIDGE OF THE NOSE. NO UNDERLYING ACUTE ORBITAL, NASAL BONE, OR FACIAL BONE FRACTURE SEEN. 2. SMALL AIR-FLUID LEVEL RIGHT MAXILLARY SINUS.
--- NOTE | 2023-02-12 11:19 | ED ---
General Adult HPI <MarcosWilliam corderosey - Last Filed: 02/12/23 13:44> - General Source: patient, EMS, RN notes reviewed, old records reviewed Mode of arrival: EMS Limitations: no limitations <Harjinder Tran - Last Filed: 02/12/23 14:10> - General Chief complaint: Fall Stated complaint: fall Time Seen by Provider: 02/12/23 10:02 - History of Present Illness Initial comments: This is an 83-year-old male who presents emergency Department after he had fallen last night about 5:30 PM. Patient states she bent over to pick something up and fell and hit his head and he has been on the floor ever since. Caregiver last saw him at 5:00 patient states this occurred about 5:30 and someone came to see him this morning and found him on the floor with a little blood around it. Patient does have blood thinners secondary to atrial fibrillation. Patient complains of some pain in the head but other than that he's not making any complaints. EMS noted that the left arm swollen and there was areas of blistering on the arm elbow and right hip as well as both knees (Harjinder Tran) - Related Data Home Medications Medication Instructions Recorded Confirmed Rivaroxaban [Xarelto] 20 mg PO DAILY@1200 02/17/17 02/12/23 Simvastatin [Zocor] 20 mg PO HS 02/17/17 02/12/23 Tamsulosin HCl [Flomax] 0.8 mg PO HS 02/17/17 02/12/23 methIMAzole [Tapazole] 2.5 mg PO Q48H 02/17/17 02/12/23 Metoprolol Succinate [Toprol XL] 25 mg PO BID 06/09/18 02/12/23 Acetaminophen [Tylenol] 1,000 mg PO BID PRN 08/14/20 02/12/23 polyethylene glycoL 3350 [Miralax] 17 gm PO DAILY 11/02/20 02/12/23 Cholecalciferol [Vitamin D3 (25 50 mcg PO DAILY@1200 05/21/21 02/12/23 Mcg = 1000 Iu)] Docusate [Colace] 100 mg PO Q3D PRN 05/21/21 02/12/23 Furosemide [Lasix] 20 mg PO Q48H 02/12/23 02/12/23 Multivit-Min/FA/Lycopen/Lutein 1 tab PO DAILY 02/12/23 02/12/23 [Centrum Silver Men Tablet] Potassium Chloride ER [K-Dur 10] 20 meq PO Q48H 02/12/23 02/12/23 lisinopriL [Zestril] 2.5 mg PO DAILY 02/12/23 02/12/23 Allergies Allergy/AdvReac Type Severity Reaction Status Date / Time No Known Allergies Allergy Verified 02/12/23 12:14 Review of Systems ROS Other: All systems not noted in ROS Statement are negative. <Brenda Kidd - Last Filed: 02/12/23 13:44> ROS Other: All systems not noted in ROS Statement are negative. <Harjinder Tran - Last Filed: 02/12/23 14:10> ROS Statement: Those systems with pertinent positive or pertinent negative responses have been documented in the HPI. Past Medical History Past Medical History: Atrial Fibrillation, Chest Pain / Angina, CVA/TIA, Hyperlipidemia, Hypertension, Osteoarthritis (OA), Prostate Disorder, Sleep Apnea/CPAP/BIPAP, Thyroid Disorder Additional Past Medical History / Comment(s): CVA-no residual effects, hx kidney stones, no cpap used, back pain, History of Any Multi-Drug Resistant Organisms: None Reported Past Surgical History: Cardiac Ablation, Heart Catheterization, Hernia Repair, Pacemaker, Tonsillectomy Additional Past Surgical History / Comment(s): hydrocele, lithotripsy, paola cataracts, eye lid surgery, repair torn retina left eye, Past Anesthesia/Blood Transfusion Reactions: Motion Sickness Type of Cardiac Device: Permanent Pacemaker Device Placement Date:: 10/21/2011 Past Psychological History: Anxiety, Depression Smoking Status: Never smoker Past Alcohol Use History: None Reported Past Drug Use History: None Reported - Past Family History Mother Family Medical History: Cancer, Pulmonary Embolus <Harjinder Tran - Last Filed: 02/12/23 14:10> General Exam Limitations: no limitations <Harjinder Tran - Last Filed: 02/12/23 14:10> - General Exam Comments Initial Comments: GENERAL: Patient is well-developed and well-nourished. Patient is nontoxic and well- hydrated and is in mild distress. ENT: Neck is soft and supple. No significant lymphadenopathy is noted. Oropharynx is clear. Moist mucous membranes. Neck has full range of motion without eliciting any pain. EYES: The sclera were anicteric and conjunctiva were pink and moist. Extraocular movements were intact and pupils were equal round and reactive to light. Eyelids were unremarkable. PULMONARY: Unlabored respirations. Good breath sounds bilaterally. No audible rales rhonchi or wheezing was noted. CARDIOVASCULAR: There is a regular rate and rhythm without any murmurs gallops or rubs. ABDOMEN: Soft and nontender with normal bowel sounds. SKIN: Patient has excoriations of the right shoulder there is a hematoma on the right elbow there is also excoriations and blisters on the knees more on the right than the left and the right upper leg. Patient has ecchymosis of the right eye and a laceration of the eyebrow NEUROLOGIC: Patient is alert and oriented x3. Cranial nerves II through XII are grossly intact. Motor and sensory are also intact. Normal speech, volume and content. Symmetrical smile. MUSCULOSKELETAL: Patient has excoriations on the right shoulder arm is swollen he is able to move the hand and elbow but is having difficulty moving at the shoulder. Patient can feel touch at the fingertips does have good cap refill. Patient is able to move both legs without eliciting any pain LYMPHATICS: No significant lymphadenopathy is noted PSYCHIATRIC: Normal psychiatric evaluation. (Harjinder Tran) Course Vital Signs 02/12/23 10:07 Temperature 96.7 F L Pulse Rate 93 Respiratory 18 Rate Blood Pressure 120/77 O2 Sat by Pulse 96 Oximetry Procedures - Laceration Laceration #1 Consent Obtained: verbal consent Indication: laceration Site: face Size (cm): 2 Description: linear Depth: simple, single layer Anesthetic Used: lidocaine 1% Anesthesia Technique: local infiltration Pre-repair: wound explored, irrigated extensively Type of Sutures: other (monofilament) Size of Sutures: 5-0 Number of Sutures: 6 Technique: simple, interrupted, other (1 figure 8) Patient Tolerated Procedure: well <Brenda Kidd - Last Filed: 02/12/23 13:44> Medical Decision Making - Lab Data Result diagrams: 02/12/23 10:24 02/12/23 10:24 <Brenda Kidd - Last Filed: 02/12/23 13:44> - Lab Data Result diagrams: 02/12/23 10:24 02/12/23 10:24 <Harjinder Tran - Last Filed: 02/12/23 14:10> - Medical Decision Making EKG was interpreted by myself shows atrial fibrillation with rapid ventricular response at 100 bpm QRS is under 1 QT interval 365 QTC is 422. Patient's EKG shows no ST segment elevation or depression. Was pt. sent in by a medical professional or institution (, PA, SENIOR PRINCIPAL, urgent care, hospital, or shelter...) When possible be specific @ -No Did you speak to anyone other than the patient for history (EMS, parent, family, police, friend...)? What history was obtained from this source @ -EMS gave all of the history since patient was showing a hard of hearing and difficult understanding Did you review nursing and triage notes (agree or disagree)? Why? @ -I reviewed and agree with nursing and triage notes Were old charts reviewed (outside hosp., previous admission, EMS record, old EKG, old radiological studies, urgent care reports/EKG's, shelter records)? Report findings @ -No old charts were reviewed Differential Diagnosis (chest pain, altered mental status, abdominal pain women, abdominal pain men, vaginal bleeding, weakness, fever, dyspnea, syncope, headache, dizziness, GI bleed, back pain, seizure, CVA, palpatations, mental health, musculoskeletal)? @ -Intercranial hemorrhage, subdural, subarachnoid, cervical spine injury, rhabdomyolysis, this is not an all inclusive list EKG interpreted by me (3pts min.). @ -As above X-rays interpreted by me (1pt min.). @ -Chest x-ray showed no acute abnormality. X-ray of the pelvis showed no acute normalities. X-ray of the right shoulder showed no acute abnormality. X- ray of the left hip showed no acute abnormality. CT interpreted by me (1pt min.). @ -CT of the brain and C-spine showed no acute abnormality. CT of the facial bones showed no acute abnormality other than soft tissue swelling. U/S interpreted by me (1pt. min.). @ -None done What testing was considered but not performed or refused? (CT, X-rays, U/S, labs)? Why? @ -None What meds were considered but not given or refused? Why? @ -None Did you discuss the management of the patient with other professionals (perfecto marques i.e. , PA, SENIOR PRINCIPAL, lab, RT, psych nurse, social insurance specialist, manager quality compliance, teacher, chief resource officer, shoe caser)? Give summary @ -I spoke with Dr. Victoria he agreed to admit the patient admitted the patient I consult nephrology whom I also spoke with and the hospitalist Was smoking cessation discussed for >3mins.? @ -No Was critical care preformed (if so, how long)? @ -35 minutes Were there social determinants of health that impacted care today? How? (Homelessness, low income, unemployed, alcoholism, drug addiction, transportation, low edu. Level, literacy, decrease access to med. care, fdc, rehab)? @ -No Was there de-escalation of care discussed even if they declined (Discuss DNR or withdrawal of care, Hospice)? DNR status @ -No What co-morbidities impacted this encounter? (DM, HTN, Smoking, COPD, CAD, Cancer, CVA, ARF, Chemo, Hep., AIDS, mental health diagnosis, sleep apnea, morbid obesity)? @ -None Was patient admitted / discharged? Hospital course, mention meds given and route, prescriptions, significant lab abnormalities, going to OR and other pertinent info. @ -Patient came in as a priority 2 trauma . Patient had obvious facial contusions and hematomas. Patient also had some breakdown of the shoulder hip and both knees secondary to lying in those areas for greater than 12 hours. Patient had CAT scan studies brain and C-spine and x-rays of the chest shoulder pelvis and hip all of which were negative except for soft tissue injuries. Patient laceration above the right eyebrow which was sutured up. Patient was also given a tetanus and Ancef and started on a bicarbonate drip and admitted to Dr. Victoria Undiagnosed new problem with uncertain prognosis? @ -No Drug Therapy requiring intensive monitoring for toxicity (Heparin, Nitro, Insulin, Cardizem)? @ -No Were any procedures done? @ -No Diagnosis/symptom? @ -Forehead laceration Acute, or Chronic, or Acute on Chronic? @ -Acute Uncomplicated (without systemic symptoms) or Complicated (systemic symptoms)? @ -Uncomplicated Side effects of treatment? @ -No Exacerbation, Progression, or Severe Exacerbation? @ -No Poses a threat to life or bodily function? How? (Chest pain, [place], [place], pneumonia, PE, COPD, DKA, ARF, appy, cholecystitis, CVA, Diverticulitis, Homicidal, Suicidal, threat to staff... and all critical care pts) @ -No Diagnosis/symptom? @ -Concussion Acute, or Chronic, or Acute on Chronic? @ -Acute Uncomplicated (without systemic symptoms) or Complicated (systemic symptoms)? @ -Complicated Side effects of treatment? @ -none Exacerbation, Progression, or Severe Exacerbation] @ -no Poses a threat to life or bodily function? @ -no Diagnosis/symptom? @ -Rhabdomyolysis Acute, or Chronic, or Acute on Chronic? @ -Acute Uncomplicated (without systemic symptoms) or Complicated (systemic symptoms)? @ -Complicated Side effects of treatment? @ -none Exacerbation, Progression, or Severe Exacerbation] @ -no Poses a threat to life or bodily function? @ -Yes this could lead to renal failure and end organ dysfunction Diagnosis/symptom? @ -Fall Acute, or Chronic, or Acute on Chronic? @ -Acute Uncomplicated (without systemic symptoms) or Complicated (systemic symptoms)? @ -default Side effects of treatment? @ -none Exacerbation, Progression, or Severe Exacerbation] @ -no Poses a threat to life or bodily function? @ -no (Harjinder Tran) - Lab Data Lab Results 02/12/23 02/12/23 02/12/23 Range/Units 10:13 10:24 10:24 WBC 16.5 H (3.8-10.6) k/uL RBC 4.35 (4.30-5.90) m/uL Hgb 14.9 (13.0-17.5) gm/dL Hct 44.1 (39.0-53.0) % MCV 101.3 H (80.0-100.0) fL MCH 34.3 (25.0-35.0) pg MCHC 33.9 (31.0-37.0) g/dL RDW 12.4 (11.5-15.5) % Plt Count 209 (150-450) k/uL MPV 8.0 Neutrophils % 92 % Lymphocytes % 2 % Monocytes % 4 % Eosinophils % 1 % Basophils % 0 % Neutrophils # 15.2 H (1.3-7.7) k/uL Lymphocytes # 0.4 L (1.0-4.8) k/uL Monocytes # 0.6 (0-1.0) k/uL Eosinophils # 0.2 (0-0.7) k/uL Basophils # 0.0 (0-0.2) k/uL PT 11.9 (9.0-12.0) sec INR 1.2 H (<1.2) APTT 22.3 (22.0-30.0) sec Sodium (137-145) mmol/L Potassium (3.5-5.1) mmol/L Chloride (98-107) mmol/L Carbon Dioxide (22-30) mmol/L Anion Gap mmol/L BUN (9-20) mg/dL Creatinine (0.66-1.25) mg/dL Est GFR (CKD-EPI)AfAm (>60 ml/min/1.73 sqM) Est GFR (CKD-EPI)NonAf (>60 ml/min/1.73 sqM) Glucose (74-99) mg/dL POC Glucose (mg/dL) 138 H (70-110) mg/dL POC Glu [employer]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 Production Worker Lizzie Velasquez Lactic Ac Sepsis Rflx Plasma Lactic Acid Tera (0.7-2.0) mmol/L Calcium (8.4-10.2) mg/dL Total Bilirubin (0.2-1.3) mg/dL AST (17-59) U/L ALT (4-49) U/L Alkaline Phosphatase (38-126) U/L Creatine Kinase (55-170) U/L Troponin I (0.000-0.034) ng/mL Total Protein (6.3-8.2) g/dL Albumin (3.5-5.0) g/dL Urine Opiates Screen (NotDetected) Ur Oxycodone Screen (NotDetected) Urine Methadone Screen (NotDetected) Ur Propoxyphene Screen (NotDetected) Ur Barbiturates Screen (NotDetected) U Tricyclic Antidepress (NotDetected) Ur Phencyclidine Scrn (NotDetected) Ur Amphetamines Screen (NotDetected) U Methamphetamines Scrn (NotDetected) U Benzodiazepines Scrn (NotDetected) Urine Cocaine Screen (NotDetected) U Marijuana (THC) Screen (NotDetected) Serum Alcohol mg/dL Blood Type Blood Type Confirm Blood Type Recheck Bld Type Recheck Status Antibody Screen Spec Expiration Date 02/12/23 02/12/23 02/12/23 Range/Units 10:24 10:24 10:24 WBC (3.8-10.6) k/uL RBC (4.30-5.90) m/uL Hgb (13.0-17.5) gm/dL Hct (39.0-53.0) % MCV (80.0-100.0) fL MCH (25.0-35.0) pg MCHC (31.0-37.0) g/dL RDW (11.5-15.5) % Plt Count (150-450) k/uL MPV Neutrophils % % Lymphocytes % % Monocytes % % Eosinophils % % Basophils % % Neutrophils # (1.3-7.7) k/uL Lymphocytes # (1.0-4.8) k/uL Monocytes # (0-1.0) k/uL Eosinophils # (0-0.7) k/uL Basophils # (0-0.2) k/uL PT (9.0-12.0) sec INR (<1.2) APTT (22.0-30.0) sec Sodium 137 (137-145) mmol/L Potassium 5.2 H (3.5-5.1) mmol/L Chloride 103 (98-107) mmol/L Carbon Dioxide 23 (22-30) mmol/L Anion Gap 11 mmol/L BUN 39 H (9-20) mg/dL Creatinine 0.60 L (0.66-1.25) mg/dL Est GFR (CKD-EPI)AfAm >90 (>60 ml/min/1.73 sqM) Est GFR (CKD-EPI)NonAf >90 (>60 ml/min/1.73 sqM) Glucose 144 H (74-99) mg/dL POC Glucose (mg/dL) (70-110) mg/dL POC Glu [employer]house Production Worker ID Lactic Ac Sepsis Rflx Plasma Lactic Acid Tera (0.7-2.0) mmol/L Calcium 9.4 (8.4-10.2) mg/dL Total Bilirubin 1.2 (0.2-1.3) mg/dL AST 78 H (17-59) U/L ALT 44 (4-49) U/L Alkaline Phosphatase 80 (38-126) U/L Creatine Kinase 3022 H* (55-170) U/L Troponin I 0.031 (0.000-0.034) ng/mL Total Protein 7.8 (6.3-8.2) g/dL Albumin 4.5 (3.5-5.0) g/dL Urine Opiates Screen Not Detected (NotDetected) Ur Oxycodone Screen Not Detected (NotDetected) Urine Methadone Screen Not Detected (NotDetected) Ur Propoxyphene Screen Not Detected (NotDetected) Ur Barbiturates Screen Not Detected (NotDetected) U Tricyclic Antidepress Not Detected (NotDetected) Ur Phencyclidine Scrn Not Detected (NotDetected) Ur Amphetamines Screen Not Detected (NotDetected) U Methamphetamines Scrn Not Detected (NotDetected) U Benzodiazepines Scrn Not Detected (NotDetected) Urine Cocaine Screen Not Detected (NotDetected) U Marijuana (THC) Screen Not Detected (NotDetected) Serum Alcohol <10 mg/dL Blood Type Blood Type Confirm Blood Type Recheck Bld Type Recheck Status Antibody Screen Spec Expiration Date 02/12/23 02/12/23 02/12/23 Range/Units 10:25 10:55 10:55 WBC (3.8-10.6) k/uL RBC (4.30-5.90) m/uL Hgb (13.0-17.5) gm/dL Hct (39.0-53.0) % MCV (80.0-100.0) fL MCH (25.0-35.0) pg MCHC (31.0-37.0) g/dL RDW (11.5-15.5) % Plt Count (150-450) k/uL MPV Neutrophils % % Lymphocytes % % Monocytes % % Eosinophils % % Basophils % % Neutrophils # (1.3-7.7) k/uL Lymphocytes # (1.0-4.8) k/uL Monocytes # (0-1.0) k/uL Eosinophils # (0-0.7) k/uL Basophils # (0-0.2) k/uL PT (9.0-12.0) sec INR (<1.2) APTT (22.0-30.0) sec Sodium (137-145) mmol/L Potassium (3.5-5.1) mmol/L Chloride (98-107) mmol/L Carbon Dioxide (22-30) mmol/L Anion Gap mmol/L BUN (9-20) mg/dL Creatinine (0.66-1.25) mg/dL Est GFR (CKD-EPI)AfAm (>60 ml/min/1.73 sqM) Est GFR (CKD-EPI)NonAf (>60 ml/min/1.73 sqM) Glucose (74-99) mg/dL POC Glucose (mg/dL) (70-110) mg/dL POC Glu Warehouse Production Worker ID Lactic Ac Sepsis Rflx Plasma Lactic Acid Tera 2.9 H* (0.7-2.0) mmol/L Calcium (8.4-10.2) mg/dL Total Bilirubin (0.2-1.3) mg/dL AST (17-59) U/L ALT (4-49) U/L Alkaline Phosphatase (38-126) U/L Creatine Kinase (55-170) U/L Troponin I (0.000-0.034) ng/mL Total Protein (6.3-8.2) g/dL Albumin (3.5-5.0) g/dL Urine Opiates Screen (NotDetected) Ur Oxycodone Screen (NotDetected) Urine Methadone Screen (NotDetected) Ur Propoxyphene Screen (NotDetected) Ur Barbiturates Screen (NotDetected) U Tricyclic Antidepress (NotDetected) Ur Phencyclidine Scrn (NotDetected) Ur Amphetamines Screen (NotDetected) U Methamphetamines Scrn (NotDetected) U Benzodiazepines Scrn (NotDetected) Urine Cocaine Screen (NotDetected) U Marijuana (THC) Screen (NotDetected) Serum Alcohol mg/dL Blood Type Not Reportable Blood Type Confirm Blood Type Recheck No Previous Record Bld Type Recheck Status CABO Indicated Antibody Screen Not Reportable Spec Expiration Date 02/15/2023232302/12/23 02/12/23 02/12/23 Range/Units 10:55 11:00 11:29 WBC (3.8-10.6) k/uL RBC (4.30-5.90) m/uL Hgb (13.0-17.5) gm/dL Hct (39.0-53.0) % MCV (80.0-100.0) fL MCH (25.0-35.0) pg MCHC (31.0-37.0) g/dL RDW (11.5-15.5) % Plt Count (150-450) k/uL MPV Neutrophils % % Lymphocytes % % Monocytes % % Eosinophils % % Basophils % % Neutrophils # (1.3-7.7) k/uL Lymphocytes # (1.0-4.8) k/uL Monocytes # (0-1.0) k/uL Eosinophils # (0-0.7) k/uL Basophils # (0-0.2) k/uL PT (9.0-12.0) sec INR (<1.2) APTT (22.0-30.0) sec Sodium (137-145) mmol/L Potassium (3.5-5.1) mmol/L Chloride (98-107) mmol/L Carbon Dioxide (22-30) mmol/L Anion Gap mmol/L BUN (9-20) mg/dL Creatinine (0.66-1.25) mg/dL Est GFR (CKD-EPI)AfAm (>60 ml/min/1.73 sqM) Est GFR (CKD-EPI)NonAf (>60 ml/min/1.73 sqM) Glucose (74-99) mg/dL POC Glucose (mg/dL) (70-110) mg/dL POC Glu Warehouse Production Worker ID Lactic Ac Sepsis Rflx Y Plasma Lactic Acid Tera (0.7-2.0) mmol/L Calcium (8.4-10.2) mg/dL Total Bilirubin (0.2-1.3) mg/dL AST (17-59) U/L ALT (4-49) U/L Alkaline Phosphatase (38-126) U/L Creatine Kinase (55-170) U/L Troponin I (0.000-0.034) ng/mL Total Protein (6.3-8.2) g/dL Albumin (3.5-5.0) g/dL Urine Opiates Screen (NotDetected) Ur Oxycodone Screen (NotDetected) Urine Methadone Screen (NotDetected) Ur Propoxyphene Screen (NotDetected) Ur Barbiturates Screen (NotDetected) U Tricyclic Antidepress (NotDetected) Ur Phencyclidine Scrn (NotDetected) Ur Amphetamines Screen (NotDetected) U Methamphetamines Scrn (NotDetected) U Benzodiazepines Scrn (NotDetected) Urine Cocaine Screen (NotDetected) U Marijuana (THC) Screen (NotDetected) Serum Alcohol mg/dL Blood Type O Negative Blood Type Confirm O Negative Blood Type Recheck No Previous Record Bld Type Recheck Status CABO Indicated Antibody Screen NEGATIVE Spec Expiration Date 02/15/2023 - 2354 Critical Care Time Critical Care Time: Yes Total Critical Care Time: 35 <Harjinder Tran - Last Filed: 02/12/23 14:10> Disposition <Brenda Kidd - Last Filed: 02/12/23 13:44> Time of Disposition: 14:09 <Harjinder Tran - Last Filed: 02/12/23 14:10> Clinical Impression: Fall, Rhabdomyolysis, Forehead laceration, Concussion, Abrasions of multiple sites Disposition: ADMITTED IP TO THIS HOSP Referrals: Gaudencio Spangler MD [Primary Care Provider] - 1-2 days
[2023-02-12] MEDS ORDERED: HYDROmorphone 0.5 MG/0.5 ML SYRINGE IVP STA (11:36)
[2023-02-12] MEDS ORDERED: ONDANSETRON 4 MG/2 ML VIAL IVP STA (11:37)
[2023-02-12] MEDS ORDERED: SODIUM CHLORIDE 0.9% 1,000 ML IV ONE (12:21)
[2023-02-12] MEDS ORDERED: LIDOCAINE 1% INJ 10MG/ML (30 ML VIAL-PF) SQ ONE (12:26)
[2023-02-12] MEDS ORDERED: LIDOCAINE/EPINEPHR/TETRACAINE 5 ML BOTTLE TOPICAL ONE (12:26)
--- NOTE | 2023-02-12 13:03 | XR ---
EXAMINATION TYPE: XR Hip Complete LT DATE OF EXAM: 02/12/2023 COMPARISON: NONE HISTORY: Pain TECHNIQUE: 2 views submitted FINDINGS: There is no evidence of erosive change or acute fracture. Hypertrophic and degenerative change lower lumbar spine. There are vascular calcifications and there is severe arthropathy of the left hip with spur formation. IMPRESSION: 1. No evidence of acute fracture or dislocation. 2. 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
--- NOTE | 2023-02-12 13:07 | XR ---
EXAMINATION TYPE: XR shoulder complete RT DATE OF EXAM: 02/12/2023 COMPARISON: NONE HISTORY: Pain TECHNIQUE: Three views are submitted. FINDINGS: The osseous structures are intact. There is no acute fracture or dislocation. Diffuse osteopenia wit h moderate AC joint arthropathy. Any ranula in the right upper lobe. This fairly diffuse soft tissue edema. IMPRESSION: 1. AC joint arthropathy correlate for rotator cuff disease. 2. Soft tissue edema.
[2023-02-12] MEDS: DEXTROSE 5% IN WATER 1,000 ML with SODIUM BICARB (1 MEQ/ML) 150 ML IV SCH (15:37)
[2023-02-12] MEDS ORDERED: DOCUSATE 100 MG CAP PO PRN (18:58)
[2023-02-12] MEDS ORDERED: HYDROcodone/APAP 5-325MG 1 EACH TAB PO PRN (19:05)
[2023-02-12] MEDS ORDERED: ONDANSETRON 4 MG/2 ML VIAL IVP PRN (19:06)
[2023-02-12] MEDS: ACETAMINOPHEN TAB 325 MG TAB PO PRN (20:45)
[2023-02-12] MEDS: TAMSULOSIN 0.4 MG CAP.ER.24H PO SCH (20:46)
[2023-02-12] MEDS: METOPROLOL SUCCINATE (ER) 25 MG TAB.ER.24H PO SCH (20:46)
[2023-02-13] MEDS: LACTATED RINGERS 1,000 ML IV SCH ×5 (06:45→12:24)
[2023-02-13 08:04] LABS: Basophils % (A) 0 %; Eosinophils % (A) 0 %; HCT 38.7 % (39.0-53.0); HGB 12.8 gm/dL (13.0-17.5); Lymphocytes # (A) 0.4 k/uL (1.0-4.8); Lymphocytes % (A) 4 %; MCH 33.4 pg (25.0-35.0); MCV 101.1 fL (80.0-100.0); Mean Platelet Volume 8.3; Monocytes # (A) 0.7 k/uL (0-1.0); Monocytes % (A) 7 %; Neutrophils # (A) 9.5 k/uL (1.3-7.7); Neutrophils % (A) 88 %; Platelet Count 163 k/uL (150-450); RBC 3.83 m/uL (4.30-5.90); RDW 12.9 % (11.5-15.5); WBC 10.8 k/uL (3.8-10.6)
[2023-02-13 08:38] LABS: ALT 47 U/L (4-49); AST 123 U/L (17-59); African American GFR (CKD) >90 (>60 ml/min/1.73 sqM); Albumin 2.9 g/dL (3.5-5.0); Alkaline Phosphatase 69 U/L (38-126); Anion Gap 1 mmol/L; Blood Urea Nitrogen 33 mg/dL (9-20); Calcium 8.3 mg/dL (8.4-10.2); Carbon Dioxide 31 mmol/L (22-30); Chloride 102 mmol/L (98-107); Glucose 119 mg/dL (74-99); Non-African American GFR(CKD) >90 (>60 ml/min/1.73 sqM); Sodium 134 mmol/L (137-145); Total Bilirubin 0.8 mg/dL (0.2-1.3); Total Protein 5.3 g/dL (6.3-8.2)
[2023-02-13] MEDS: PANTOPRAZOLE 40 MG/10 ML VIAL IVP SCH (08:40)
[2023-02-13] MEDS: methIMAzole 5 MG TAB PO SCH (08:40)
[2023-02-13] MEDS: METOPROLOL SUCCINATE (ER) 25 MG TAB.ER.24H PO SCH ×2 (08:40→21:04)
[2023-02-13] MEDS: MULTIVITAMINS, THERA 1 EACH TAB PO SCH (08:41)
[2023-02-13] MEDS: polyethylene glycoL 3350 17 GM POWD.PACK PO SCH (08:41)
[2023-02-13 08:55] LABS: Creatine Kinase 3171 U/L (55-170)
[2023-02-13] MEDS ORDERED: SODIUM CHLORIDE 0.9% 1,000 ML IV SCH (10:15)
[2023-02-13] MEDS ORDERED: LACTATED RINGERS 1,000 ML IV ONE (12:00)
[2023-02-13] MEDS ORDERED: LACTATED RINGERS 1,000 ML IV SCH (12:00)
--- NOTE | 2023-02-13 12:00 | P.NPCON ---
History of Present Illness - History of Present Illness Patient is an 83-year-old male with history of chronic A. fib, CVA/TIA, hyper tension admitted to the hospital with history of fall. It appears that patient had been on the floor for about 12-15 hours. Patient is maintained on xarelto and he is noted to have significant bruising on his face and right eye. CK was elevated at 3022. Serum creatinine is 0.6 and potassium was 5.2. CO2 was 23. Patient was started on IV bicarb in the ER. Blood pressure has been around 110-120 systolic. Review of Systems As per HPI Past Medical History Past Medical History: Atrial Fibrillation, Chest Pain / Angina, CVA/TIA, Hyperlipidemia, Hypertension, Osteoarthritis (OA), Prostate Disorder, Sleep Apnea/CPAP/BIPAP, Thyroid Disorder Additional Past Medical History / Comment(s): CVA-no residual effects, hx kidney stones, no cpap used, back pain, History of Any Multi-Drug Resistant Organisms: None Reported Past Surgical History: Cardiac Ablation, Heart Catheterization, Hernia Repair, Pacemaker, Tonsillectomy Additional Past Surgical History / Comment(s): hydrocele, lithotripsy, paola cataracts, eye lid surgery, repair torn retina left eye, Past Anesthesia/Blood Transfusion Reactions: Motion Sickness Type of Cardiac Device: Permanent Pacemaker Device Placement Date:: 10/21/2011 Past Psychological History: Anxiety, Depression Smoking Status: Never smoker Past Alcohol Use History: None Reported Past Drug Use History: None Reported - Past Family History Mother Family Medical History: Cancer, Pulmonary Embolus Medications and Allergies Home Medications Medication Instructions Recorded Confirmed Type Rivaroxaban [Xarelto] 20 mg PO DAILY@1200 02/17/17 02/12/23 History Simvastatin [Zocor] 20 mg PO HS 02/17/17 02/12/23 History Tamsulosin HCl [Flomax] 0.8 mg PO HS 02/17/17 02/12/23 History methIMAzole [Tapazole] 2.5 mg PO Q48H 02/17/17 02/12/23 History Metoprolol Succinate [Toprol XL] 25 mg PO BID 06/09/18 02/12/23 History Acetaminophen [Tylenol] 1,000 mg PO BID PRN 08/14/20 02/12/23 History polyethylene glycoL 3350 [Miralax] 17 gm PO DAILY 11/02/20 02/12/23 History Cholecalciferol [Vitamin D3 (25 50 mcg PO DAILY@1200 05/21/21 02/12/23 History Mcg = 1000 Iu)] Docusate [Colace] 100 mg PO Q3D PRN 05/21/21 02/12/23 History Furosemide [Lasix] 20 mg PO Q48H 02/12/23 02/12/23 History Multivit-Min/FA/Lycopen/Lutein 1 tab PO DAILY 02/12/23 02/12/23 History [Centrum Silver Men Tablet] Potassium Chloride ER [K-Dur 10] 20 meq PO Q48H 02/12/23 02/12/23 History lisinopriL [Zestril] 2.5 mg PO DAILY 02/12/23 02/12/23 History Allergies Allergy/AdvReac Type Severity Reaction Status Date / Time No Known Allergies Allergy Verified 02/12/23 12:14 Physical Exam Vitals: Vital Signs Temp Pulse Pulse Resp BP BP Pulse Ox 02/13/23 08:54 96 02/13/23 08:00 98.6 F 83 18 125/69 97 02/13/23 04:00 98.3 F 93 18 111/71 97 02/13/23 02:00 63 16 02/12/23 23:37 97.8 F 63 16 124/67 97 02/12/23 20:00 97.4 F L 74 16 110/70 97 02/12/23 17:40 97.8 F 87 120/72 100 02/12/23 16:04 97 16 130/96 98 02/12/23 15:45 97.7 F 80 18 130/76 97 02/12/23 15:00 78 10 L 132/84 98 02/12/23 14:00 84 12 133/93 95 02/12/23 13:00 77 11 L 140/72 98 Intake and Output 02/12/23 02/13/23 02/13/23 22:59 06:59 14:59 Intake Total 540 Output Total 350 150 Balance 190 -150 Intake: Oral 540 Output: Urine 350 150 Other: Voiding Method Indwelling Catheter Indwelling Catheter Indwelling Catheter Weight 92.986 kg Patient is awake, comfortable, no acute distress Significant bruising noted on the face on the right eye and forehead. Scraping of the skin noted on the right shoulder Examination of the heart S1 and S2 Examination of the lungs bilateral breath sounds are heard Abdomen is soft nontender Examination of lower extremity shows no significant edema FINANCIAL RECRUITER exam grossly intact Results - Lab Results Most recent lab results Calcium 8.3 mg/dL (8.4-10.2) L 02/13/23 07:18 02/13/23 07:18 02/13/23 07:18 Assessment and Plan Assessment: 1. Rhabdomyolysis status post fall. Maintained on statins at home. Continue with IV hydration 2. Status post fall 3. Bruising/ecchymosis associated with anticoagulation 4. Chronic A. fib maintained on metoprolol and xarelto Plan: DC IV bicarb Switch to normal saline Repeat CK in a.m. Continue off of statins
--- NOTE | 2023-02-13 12:06 | P.GSHP ---
History of Present Illness H&P Date: 02/13/23 Chief Complaint: Fall on Xarelto Patient is an 83-year-old gentleman brought to [facility] emergency department on 02/12/2023 after being found down in his kitchen that afternoon. He tells me the previous evening around 7 PM he was putting some things away in the refrigerator, dropped a carton of milk on the floor, lean forward to PICC and output and briefly lost consciousness. When he awoke he was on the floor in the kitchen, unable to get up. His daughter tells me that that's where the patient stayed for some 17 hours until he was discovered the next day. She tells me there was a decent amount of alcohol blood on the floor. He is maintained on Zarrella to for history of atrial fibrillation, patient tells me he suffered with a stroke many years ago without any long-term differences. He is unaware of a history of heart attack. Patient's daughter tells me the patient has a pacemaker that's approaching end of life. Follows with a local cardiology group. Initial laboratory studies showed a mild leukocytosis, elevation of creatinine kinase just above 3000. Presenting EKG showed atrial fibrillation with rapid ventricular response with a rate of 100, no ST segment changes. Hip x-ray, shoulder x-ray, maxillofacial CT, CT head and neck, pelvis x-ray and chest x-ray all reflect chronic degenerative changes, no acute fracture or dislocation. No intracranial bleed. There is some incidental note of prevertebral edema described on the CT neck. He's had a hemodynamically stable and afebrile appearance overnight. With some overnight hydration his creatinine kinase is more or less unchanged compared to initial presentation, initial mild venous lactic acidosis has resolved. His mild presenting leukocytosis is trending down to 10.6, hemoglobin is 12.8 today. By the count acceptable. Sodium slightly low 134, CO2 slightly high at 31. Creatinine acceptable at 0.52. Urine drug screen and serum alcohol were negative on presentation. His primary complaint today is that of some soreness at the right upper arm and shoulder, generalized weakness and some issues with depth perception. Patient is been admitted to the trauma surgery service as he suffered with a fall on Xarelto in spite of no traumatic injuries of significance. - Review of Systems All systems: negative Past Medical History Past Medical History: Atrial Fibrillation, Chest Pain / Angina, CVA/TIA, Hyperlipidemia, Hypertension, Osteoarthritis (OA), Prostate Disorder, Sleep Apnea/CPAP/BIPAP, Thyroid Disorder Additional Past Medical History / Comment(s): CVA-no residual effects, hx kidney stones, no cpap used, back pain, History of Any Multi-Drug Resistant Organisms: None Reported Past Surgical History: Cardiac Ablation, Heart Catheterization, Hernia Repair, Pacemaker, Tonsillectomy Additional Past Surgical History / Comment(s): hydrocele, lithotripsy, paola cataracts, eye lid surgery, repair torn retina left eye, Past Anesthesia/Blood Transfusion Reactions: Motion Sickness Type of Cardiac Device: Permanent Pacemaker Device Placement Date:: 10/21/2011 Past Psychological History: Anxiety, Depression Smoking Status: Never smoker Past Alcohol Use History: None Reported Past Drug Use History: None Reported - Past Family History Mother Family Medical History: Cancer, Pulmonary Embolus Medications and Allergies Home Medications Medication Instructions Recorded Confirmed Type Rivaroxaban [Xarelto] 20 mg PO DAILY@1200 02/17/17 02/12/23 History Simvastatin [Zocor] 20 mg PO HS 02/17/17 02/12/23 History Tamsulosin HCl [Flomax] 0.8 mg PO HS 02/17/17 02/12/23 History methIMAzole [Tapazole] 2.5 mg PO Q48H 02/17/17 02/12/23 History Metoprolol Succinate [Toprol XL] 25 mg PO BID 06/09/18 02/12/23 History Acetaminophen [Tylenol] 1,000 mg PO BID PRN 08/14/20 02/12/23 History polyethylene glycoL 3350 [Miralax] 17 gm PO DAILY 11/02/20 02/12/23 History Cholecalciferol [Vitamin D3 (25 50 mcg PO DAILY@1200 05/21/21 02/12/23 History Mcg = 1000 Iu)] Docusate [Colace] 100 mg PO Q3D PRN 05/21/21 02/12/23 History Furosemide [Lasix] 20 mg PO Q48H 02/12/23 02/12/23 History Multivit-Min/FA/Lycopen/Lutein 1 tab PO DAILY 02/12/23 02/12/23 History [Centrum Silver Men Tablet] Potassium Chloride ER [K-Dur 10] 20 meq PO Q48H 02/12/23 02/12/23 History lisinopriL [Zestril] 2.5 mg PO DAILY 02/12/23 02/12/23 History Allergies Allergy/AdvReac Type Severity Reaction Status Date / Time No Known Allergies Allergy Verified 02/12/23 12:14 Surgical - Exam Osteopathic Statement: *. No significant issues noted on an osteopathic structural exam other than those noted in the History and Physical/Consult. Vital Signs Temp Pulse Resp BP Pulse Ox 96.7 F L 93 18 120/77 96 02/12/23 10:07 02/12/23 10:07 02/12/23 10:07 02/12/23 10:07 02/12/23 10:07 - General well developed, well nourished, no distress - Eyes There is a right periorbital edema and some conjunctival hemorrhage about the right eye. Extraocular motions are intact. Laceration of the right eyebrow. Still been repaired in the ER, no evidence of ongoing bleeding. - ENT normal pinna, normal nares, decreased hearing - Neck Patient is a slightly restrictive active range of cervical motion. Cervical spine was cleared in the emergency department. No midline or paraspinal tenderness to palpation. No radiation of pain to the upper extremities with range of motion testing. trachea midline - Respiratory normal expansion, normal respiratory effort, clear to auscultation - Cardiovascular Heart sounds distant Rhythm: irregularly irregular - Abdomen Abdomen is soft, nontender palpation, no guarding rebound or distention. No abdominal or flank ecchymoses or abrasions. Abdomen: soft, non tender - Genitourinary Mustafa is in place with concentrated urine output - Integumentary There is superficial excoriations and mild patches of discriminate position and edema of the right shoulder, right upper arm and knees bilaterally. No pain out of proportion to exam. - Neurologic Patient's unable to keep his right arm raised against gravity but there are no motor sensory deficits noted at the level of the hand. GCS 15. Cranial nerves II through XII grossly intact bilaterally. - Musculoskeletal There is soft tissue edema about the right deltoid and brachium, mild tenderness to palpation, some patches of overlying discriminate position consistent with underlying soft tissue injury. Similar patches of discriminate position seen at the knees bilaterally, some tenderness with range of motion testing. - Psychiatric oriented to time, oriented to person, oriented to place, speech is normal, memory intact Results - Labs 02/13/23 07:18 02/13/23 07:18 Abnormal Lab Results - Last 24 Hours (Table) 02/13/23 02/13/23 Range/Units 07:18 07:18 WBC 10.8 H (3.8-10.6) k/uL RBC 3.83 L (4.30-5.90) m/uL Hgb 12.8 L (13.0-17.5) gm/dL Hct 38.7 L (39.0-53.0) % MCV 101.1 H (80.0-100.0) fL Neutrophils # 9.5 H (1.3-7.7) k/uL Lymphocytes # 0.4 L (1.0-4.8) k/uL Sodium 134 L (137-145) mmol/L Carbon Dioxide 31 H (22-30) mmol/L BUN 33 H (9-20) mg/dL Creatinine 0.52 L (0.66-1.25) mg/dL Glucose 119 H (74-99) mg/dL Calcium 8.3 L (8.4-10.2) mg/dL AST 123 H (17-59) U/L Creatine Kinase 3171 H* (55-170) U/L Total Protein 5.3 L (6.3-8.2) g/dL Albumin 2.9 L (3.5-5.0) g/dL Diabetes panel 02/13/23 Range/Units 07:18 Sodium 134 L (137-145) mmol/L Potassium 4.0 (3.5-5.1) mmol/L Chloride 102 (98-107) mmol/L Carbon Dioxide 31 H (22-30) mmol/L BUN 33 H (9-20) mg/dL Creatinine 0.52 L (0.66-1.25) mg/dL Glucose 119 H (74-99) mg/dL Calcium 8.3 L (8.4-10.2) mg/dL AST 123 H (17-59) U/L ALT 47 (4-49) U/L Alkaline Phosphatase 69 (38-126) U/L Total Protein 5.3 L (6.3-8.2) g/dL Albumin 2.9 L (3.5-5.0) g/dL Calcium panel 02/13/23 Range/Units 07:18 Calcium 8.3 L (8.4-10.2) mg/dL Albumin 2.9 L (3.5-5.0) g/dL Pituitary panel 02/13/23 Range/Units 07:18 Sodium 134 L (137-145) mmol/L Potassium 4.0 (3.5-5.1) mmol/L Chloride 102 (98-107) mmol/L Carbon Dioxide 31 H (22-30) mmol/L BUN 33 H (9-20) mg/dL Creatinine 0.52 L (0.66-1.25) mg/dL Glucose 119 H (74-99) mg/dL Calcium 8.3 L (8.4-10.2) mg/dL Adrenal panel 02/13/23 Range/Units 07:18 Sodium 134 L (137-145) mmol/L Potassium 4.0 (3.5-5.1) mmol/L Chloride 102 (98-107) mmol/L Carbon Dioxide 31 H (22-30) mmol/L BUN 33 H (9-20) mg/dL Creatinine 0.52 L (0.66-1.25) mg/dL Glucose 119 H (74-99) mg/dL Calcium 8.3 L (8.4-10.2) mg/dL Total Bilirubin 0.8 (0.2-1.3) mg/dL AST 123 H (17-59) U/L ALT 47 (4-49) U/L Alkaline Phosphatase 69 (38-126) U/L Total Protein 5.3 L (6.3-8.2) g/dL Albumin 2.9 L (3.5-5.0) g/dL - Imaging Chest x-ray: report reviewed, image reviewed Abdominal x-ray: report reviewed, image reviewed Assessment and Plan Assessment: 83-year-old gentleman with what would appear to be a syncopal fall in the setting of atrial fibrillation, maintained on Xarelto. Down for some 17 hours with presenting rhabdomyolysis, creatinine acceptable. Soft tissue injury/contu hanh of the right deltoid, brachium, 2 cm laceration of the right eyebrow with periorbital ecchymoses and some conjunctival hemorrhage. No traumatic injuries of significance with respect to fracture found on extensive imaging. History of pacer placement. Remote history of stroke. Mild venous lactic acidosis on presentation resolved with IV fluids. Plan: Patient will receive an additional 1 L LR bolus today, increase basal IV fluid rate to 125 until his creatinine kinase there is trending down a bit more aggressively. Maintain Mustafa catheter for accurate intake and output monitoring in the meantime. Continue with telemetry monitoring. Will order a carotid dup ynes to screen for cerebrovascular disease and vertebral insufficiency, will order an echocardiogram to screen for valvular disease. Hold Xarelto for now. Regular diet. Consult cardiology, pacer interrogation pending. Medical and nephrology evaluations pending. Will anticipate transition to medical admission in 24 hours post initial presentation. No surgical indications seen. Time with Patient: Greater than 30
[2023-02-13] MEDS ORDERED: NALOXONE 0.4 MG/ML 1 ML VIAL IV PRN (12:07)
[2023-02-13] MEDS: DEXTROSE 5% IN WATER 1,000 ML with SODIUM BICARB (1 MEQ/ML) 150 ML IV SCH (12:19)
--- NOTE | 2023-02-13 12:26 | P.CONS ---
History of Present Illness - Reason for Consult Consult date: 02/13/23 Medical management - History of Present Illness History of present illness; patient is 83-year-old gentleman with past medical history significant for A. fib on Xarelto, CVA, hyperlipidemia, hypertension, who presented to the ER because of a fall. Patient lives alone. Patient stated that he fell yesterday around 5:30 PM. 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 Patient was found by his caregiver laying on the floor. Patient apparently was laying on the floor for about 15 hours. Patient is on Xarelto for atrial fibrillation. Initial lab work done in the ER showed WBC 16.5, hemoglobin 14.9, platelet count 209, sodium 137, potassium 5.2, BUN 39, creatinine 0.6, AST 78, ALT 44, CK 3022 CT head and cervical spine was negative for any acute intracranial hemorrhage, no cervical fracture. CT face was negative for any facial bone fractures Patient was admitted to trauma and medicine team were consulted REVIEW OF SYSTEMS: CONSTITUTIONAL: No fever, no malaise, no fatigue. HEENT: No recent visual problems or hearing problems. Denied any sore throat. Complaining of headache CARDIOVASCULAR: No chest pain, orthopnea, PND, no palpitations, no syncope. PULMONARY: No shortness of breath, no cough, no hemoptysis. GASTROINTESTINAL: No diarrhea, no nausea, no vomiting, no abdominal pain. NEUROLOGICAL: No headaches, no weakness, no numbness. HEMATOLOGICAL: Denies any bleeding or petechiae. GENITOURINARY: Denies any burning micturition, frequency, or urgency. MUSCULOSKELETAL/RHEUMATOLOGICAL: Denies any joint pain, swelling, or any muscle pain. ENDOCRINE: Denies any polyuria or polydipsia. The rest of the 14-point review of systems is negative. PHYSICAL EXAMINATION: GENERAL: The patient is alert and oriented x3, not in any acute distress. Well developed, well nourished. HEENT: Pupils are round and equally reacting to light. EOMI. No scleral icterus. No conjunctival pallor. Normocephalic, atraumatic. No pharyngeal erythema. No thyromegaly. Significant bruising around the right eye, laceration above the right eyelid CARDIOVASCULAR: S1 and S2 present. No murmurs, rubs, or gallops. PULMONARY: Chest is clear to auscultation, no wheezing or crackles. ABDOMEN: Soft, nontender, nondistended, normoactive bowel sounds. No palpable organomegaly. MUSCULOSKELETAL: No joint swelling or deformity. EXTREMITIES: No cyanosis, clubbing, or pedal edema. NEUROLOGICAL: Gross neurological examination did not reveal any focal deficits. SKIN: No rashes. Assessment fall Rhabdomyolysis Hyperlipidemia ssessment and plan Chronic atrial fibrillation Plan; Continue telemetry monitoring Monitor CBC Monitor CMP fall precautions Delirium precautions Continue IV fluids 2 D echo ordered Ultrasound of carotids ordered consult cardiology Follow-up in nephrology recommendations Past Medical History Past Medical History: Atrial Fibrillation, Chest Pain / Angina, CVA/TIA, Hyperlipidemia, Hypertension, Osteoarthritis (OA), Prostate Disorder, Sleep Apnea/CPAP/BIPAP, Thyroid Disorder Additional Past Medical History / Comment(s): CVA-no residual effects, hx kidney stones, no cpap used, back pain, History of Any Multi-Drug Resistant Organisms: None Reported Past Surgical History: Cardiac Ablation, Heart Catheterization, Hernia Repair, Pacemaker, Tonsillectomy Additional Past Surgical History / Comment(s): hydrocele, lithotripsy, paola cataracts, eye lid surgery, repair torn retina left eye, Past Anesthesia/Blood Transfusion Reactions: Motion Sickness Type of Cardiac Device: Permanent Pacemaker Device Placement Date:: 10/21/2011 Past Psychological History: Anxiety, Depression Smoking Status: Never smoker Past Alcohol Use History: None Reported Past Drug Use History: None Reported - Past Family History Mother Family Medical History: Cancer, Pulmonary Embolus Medications and Allergies Home Medications Medication Instructions Recorded Confirmed Type Rivaroxaban [Xarelto] 20 mg PO DAILY@1200 02/17/17 02/12/23 History Simvastatin [Zocor] 20 mg PO HS 02/17/17 02/12/23 History Tamsulosin HCl [Flomax] 0.8 mg PO HS 02/17/17 02/12/23 History methIMAzole [Tapazole] 2.5 mg PO Q48H 02/17/17 02/12/23 History Metoprolol Succinate [Toprol XL] 25 mg PO BID 06/09/18 02/12/23 History Acetaminophen [Tylenol] 1,000 mg PO BID PRN 08/14/20 02/12/23 History polyethylene glycoL 3350 [Miralax] 17 gm PO DAILY 11/02/20 02/12/23 History Cholecalciferol [Vitamin D3 (25 50 mcg PO DAILY@1200 05/21/21 02/12/23 History Mcg = 1000 Iu)] Docusate [Colace] 100 mg PO Q3D PRN 05/21/21 02/12/23 History Furosemide [Lasix] 20 mg PO Q48H 02/12/23 02/12/23 History Multivit-Min/FA/Lycopen/Lutein 1 tab PO DAILY 02/12/23 02/12/23 History [Centrum Silver Men Tablet] Potassium Chloride ER [K-Dur 10] 20 meq PO Q48H 02/12/23 02/12/23 History lisinopriL [Zestril] 2.5 mg PO DAILY 02/12/23 02/12/23 History Allergies Allergy/AdvReac Type Severity Reaction Status Date / Time No Known Allergies Allergy Verified 02/12/23 12:14 Physical Exam Vitals: Vital Signs Temp Pulse Pulse Resp BP BP Pulse Ox 02/13/23 08:54 96 02/13/23 08:00 98.6 F 83 18 125/69 97 02/13/23 04:00 98.3 F 93 18 111/71 97 02/13/23 02:00 63 16 02/12/23 23:37 97.8 F 63 16 124/67 97 02/12/23 20:00 97.4 F L 74 16 110/70 97 02/12/23 17:40 97.8 F 87 120/72 100 02/12/23 16:04 97 16 130/96 98 02/12/23 15:45 97.7 F 80 18 130/76 97 02/12/23 15:00 78 10 L 132/84 98 02/12/23 14:00 84 12 133/93 95 02/12/23 13:00 77 11 L 140/72 98 Intake and Output 02/12/23 02/13/23 02/13/23 22:59 06:59 14:59 Intake Total 540 Output Total 350 150 Balance 190 -150 Intake: Oral 540 Output: Urine 350 150 Other: Voiding Method Indwelling Catheter Indwelling Catheter Indwelling Catheter Weight 92.986 kg Results CBC & Chem 7: 02/13/23 07:18 02/13/23 07:18 Labs: Abnormal Lab Results - Last 24 Hours (Table) 02/13/23 02/13/23 Range/Units 07:18 07:18 WBC 10.8 H (3.8-10.6) k/uL RBC 3.83 L (4.30-5.90) m/uL Hgb 12.8 L (13.0-17.5) gm/dL Hct 38.7 L (39.0-53.0) % MCV 101.1 H (80.0-100.0) fL Neutrophils # 9.5 H (1.3-7.7) k/uL Lymphocytes # 0.4 L (1.0-4.8) k/uL Sodium 134 L (137-145) mmol/L Carbon Dioxide 31 H (22-30) mmol/L BUN 33 H (9-20) mg/dL Creatinine 0.52 L (0.66-1.25) mg/dL Glucose 119 H (74-99) mg/dL Calcium 8.3 L (8.4-10.2) mg/dL AST 123 H (17-59) U/L Creatine Kinase 3171 H* (55-170) U/L Total Protein 5.3 L (6.3-8.2) g/dL Albumin 2.9 L (3.5-5.0) g/dL
[2023-02-13] MEDS: CHOLECALCIFEROL 25 MCG (1000 IU) TABLET PO SCH (12:54)
[2023-02-13] MEDS: ACETAMINOPHEN TAB 325 MG TAB PO PRN (12:54)
[2023-02-13] MEDS: SODIUM CHLORIDE 0.9% 1,000 ML IV SCH (15:09)
--- NOTE | 2023-02-13 15:20 | US ---
EXAMINATION TYPE: US carotid duplex BILAT DATE OF EXAM: 02/13/2023 COMPARISON: NONE CLINICAL INDICATION: Male, 83 years old with history of Syncopal fall, history of stroke; hit head in fall, h/o stroke, scanned in recliner TECHNIQUE: Carotid duplex ultrasound examination. Indirect Doppler criteria was utilized. FINDINGS: EXAM MEASUREMENTS: RIGHT: Peak Systolic Velocity (PSV) cm/sec ----- Right CCA: 107.0 ----- Right ICA: 64.5 ----- Right ECA: 103 ICA/CCA ratio: 0.6 RIGHT: End Diastole cm/sec ----- Right CCA: 0.0 ----- Right ICA: 11.4 ----- Right ECA: 0.0 LEFT: Peak Systolic Velocity (PSV) cm/sec ----- Left CCA: 89.6 ----- Left ICA: 78.6 ----- Left ECA: 75.0 ICA/CCA ratio: 0.9 LEFT: End Diastole cm/sec ----- Left CCA: 0.0 ----- Left ICA: 13.9 ----- Left ECA: 0.0 VERTEBRALS (direction of flow): Right Vertebral: Antegrade Left Vertebral: Antegrade Rhythm: Arrhythmia SHIRT LINE OPERATOR NOTES: Heterogeneous plaque on right bulb/ICA, no significant stenosis seen IMPRESSION: Less than 50% stenosis of the bilateral carotid bifurcations. Criteria for Assigning % of Stenosis / Diameter reduction (Estimation based on the indirect measurements of the internal carotid artery velocities (ICA PSV). 1. Normal (no stenosis)=ICA PSV < 125 cm/s: ratio < 2.0: ICA EDV<40 cm/s. 2. Less than 50% stenosis=ICA PSV < 125 cm/s: ratio < 2.0: ICA EDV<40 cm/s. 3. 50 to 69% stenosis=ICA PSV of 125 to 230 cm/s: ration 2.0 ? 4.0: ICA EDV 40-100 cm/s. 4. Greater than 70% stenosis to near occlusion= ICA PSV > 230 cm/s: ratio > 4.0: ICA EDV > 100 cm/s. 5. Near occlusion= ICA PSV velocities may be low or undetectable: variable ratio and ICA EDV. 6. Total occlusion=unable to detect flow.
[2023-02-13] MEDS: HEPARIN SODIUM,PORCINE/PF 5,000 UNIT/0.5 ML SYRINGE SQ SCH (17:25)
[2023-02-13] MEDS: TAMSULOSIN 0.4 MG CAP.ER.24H PO SCH (21:04)
[2023-02-14] MEDS: HEPARIN SODIUM,PORCINE/PF 5,000 UNIT/0.5 ML SYRINGE SQ SCH ×4 (00:30→23:57)
[2023-02-14 08:13] LABS: Basophils % (A) 0 %; Eosinophils # (A) 0.1 k/uL (0-0.7); Eosinophils % (A) 1 %; HCT 34.7 % (39.0-53.0); HGB 11.6 gm/dL (13.0-17.5); Lymphocytes # (A) 0.6 k/uL (1.0-4.8); Lymphocytes % (A) 8 %; MCH 34.5 pg (25.0-35.0); MCHC 33.4 g/dL (31.0-37.0); MCV 103.3 fL (80.0-100.0); Macrocytosis Slight; Mean Platelet Volume 9.1; Monocytes # (A) 0.5 k/uL (0-1.0); Monocytes % (A) 8 %; Neutrophils # (A) 5.9 k/uL (1.3-7.7); Neutrophils % (A) 82 %; Platelet Count 137 k/uL (150-450); RBC 3.36 m/uL (4.30-5.90); RDW 12.4 % (11.5-15.5); WBC 7.1 k/uL (3.8-10.6)
--- NOTE | 2023-02-14 08:13 | P.CRDCN ---
History of Present Illness Consult date: 02/14/23 Chief complaint: Atrial fibrillation History of present illness: The patient is an 83-year-old gentleman with a past medical history significant for permanent atrial fibrillation was maintained on oral anticoagulation as well as permanent pacemaker and known coronary artery disease was mild on heart catheterization in 2017 as well as cardiomyopathy based on echo in 2020 showing an EF around 35% with [id number] mitral regurgitation. He was brought to the emergency department after he fell at home. The patient lives by himself and he does have a person checking on him every morning and preparing his breakfast. He does have limited functional capacity and he has been walking using a walker at home. He was in his usual state of health until yesterday when he dropped something on the floor and he did bend down to pick it up and subtotally he lost his consciousness. He stated on the floor for about 24 hours still the person who was checking on him on daily basis came in the following day and found him. He stated that he felt that something is coming and he felt some warm feeling before he lost his consciousness. No pain in the chest and no heart racing or fluttering. He has been falling recently quite often but I'm no t quite sure if that was associated with loss of consciousness as this time or no. When he was brought to the emergency department he was found to have extensive bruises around the right eye. Further investigation was performed including extensive x-ray and he was found to have no fractures and also he underwent an EKG and that showed atrial fibrillation with diffuse nonspecific ST and T wave abnormalities. Oral anticoagulation currently on hold at this point. He was also diagnosed with rhabdomyolysis. The troponin is within normal limits and the patient did not have any chest pain or chest discomfort. Also he underwent further investigation including carotid duplex study and that showed no evidence of high-grade stenosis On examination he does have extensive on the right eye with irregular rhythm and systolic murmur at the apical area. No bilateral lower extremity edema. Assessment Syncopal episode with differential diagnosis of reflex syncope versus cardiac syncope giving the structural heart disease with cardiomyopathy Face injury related to the syncope Recurrent falls Permanent pacemaker Permanent atrial fibrillation Mild CAD Cardiomyopathy, nonischemic Rhabdomyolysis Plan Agree about holding anticoagulation at this point Continue the current dose of beta ludy and lisinopril Obtain an echo to assess the current ejection fraction Rule out cardiac syncope. Follow up on the pacemaker interrogation. Obtain an orthostatic blood pressure Follow-up with the patient Past Medical History Past Medical History: Atrial Fibrillation, Chest Pain / Angina, CVA/TIA, Hyperlipidemia, Hypertension, Osteoarthritis (OA), Prostate Disorder, Sleep Apnea/CPAP/BIPAP, Thyroid Disorder Additional Past Medical History / Comment(s): CVA-no residual effects, hx kidney stones, no cpap used, back pain, History of Any Multi-Drug Resistant Organisms: None Reported Past Surgical History: Cardiac Ablation, Heart Catheterization, Hernia Repair, Pacemaker, Tonsillectomy Additional Past Surgical History / Comment(s): hydrocele, lithotripsy, paola cataracts, eye lid surgery, repair torn retina left eye, Past Anesthesia/Blood Transfusion Reactions: Motion Sickness Type of Cardiac Device: Permanent Pacemaker Device Placement Date:: 10/21/2011 Past Psychological History: Anxiety, Depression Smoking Status: Never smoker Past Alcohol Use History: None Reported Past Drug Use History: None Reported - Past Family History Mother Family Medical History: Cancer, Pulmonary Embolus Medications and Allergies Home Medications Medication Instructions Recorded Confirmed Type Rivaroxaban [Xarelto] 20 mg PO DAILY@1200 02/17/17 02/12/23 History Simvastatin [Zocor] 20 mg PO HS 02/17/17 02/12/23 History Tamsulosin HCl [Flomax] 0.8 mg PO HS 02/17/17 02/12/23 History methIMAzole [Tapazole] 2.5 mg PO Q48H 02/17/17 02/12/23 History Metoprolol Succinate [Toprol XL] 25 mg PO BID 06/09/18 02/12/23 History Acetaminophen [Tylenol] 1,000 mg PO BID PRN 08/14/20 02/12/23 History polyethylene glycoL 3350 [Miralax] 17 gm PO DAILY 11/02/20 02/12/23 History Cholecalciferol [Vitamin D3 (25 50 mcg PO DAILY@1200 05/21/21 02/12/23 History Mcg = 1000 Iu)] Docusate [Colace] 100 mg PO Q3D PRN 05/21/21 02/12/23 History Furosemide [Lasix] 20 mg PO Q48H 02/12/23 02/12/23 History Multivit-Min/FA/Lycopen/Lutein 1 tab PO DAILY 02/12/23 02/12/23 History [Centrum Silver Men Tablet] Potassium Chloride ER [K-Dur 10] 20 meq PO Q48H 02/12/23 02/12/23 History lisinopriL [Zestril] 2.5 mg PO DAILY 02/12/23 02/12/23 History Allergies Allergy/AdvReac Type Severity Reaction Status Date / Time No Known Allergies Allergy Verified 02/12/23 12:14 Physical Exam Vitals: Vital Signs Temp Pulse Resp BP Pulse Ox 02/14/23 04:00 97.9 F 65 18 122/65 97 02/14/23 02:00 65 18 02/14/23 00:00 97.9 F 65 18 122/65 97 02/13/23 20:00 97.9 F 89 18 112/66 99 02/13/23 16:00 99 18 92/57 95 02/13/23 12:00 60 18 89/55 98 02/13/23 08:54 96 Intake and Output 02/13/23 02/14/23 02/14/23 22:59 06:59 14:59 Intake Total 118 Output Total 300 300 Balance -182 -300 Intake: Oral 118 Output: Urine 300 300 Other: Voiding Method Indwelling Catheter Indwelling Catheter Results 02/13/23 07:18 02/13/23 07:18 Cardiac Enzymes 02/13/23 Range/Units 07:18 AST 123 H (17-59) U/L Comprehensive Metabolic Panel 02/13/23 Range/Units 07:18 Sodium 134 L (137-145) mmol/L Potassium 4.0 (3.5-5.1) mmol/L Chloride 102 (98-107) mmol/L Carbon Dioxide 31 H (22-30) mmol/L BUN 33 H (9-20) mg/dL Creatinine 0.52 L (0.66-1.25) mg/dL Glucose 119 H (74-99) mg/dL Calcium 8.3 L (8.4-10.2) mg/dL AST 123 H (17-59) U/L ALT 47 (4-49) U/L Alkaline Phosphatase 69 (38-126) U/L Total Protein 5.3 L (6.3-8.2) g/dL Albumin 2.9 L (3.5-5.0) g/dL Current Medications Generic Name Dose Route Start Last Admin Trade Name Freq PRN Reason Stop Dose Admin Acetaminophen 650 mg 02/12/23 19:06 02/13/23 12:54 Acetaminophen Tab 325 Mg Tab PO 650 mg Q6HR PRN Administration Fever and/ or Pain Cholecalciferol 50 mcg 02/13/23 12:00 02/13/23 12:54 Cholecalciferol 25 Mcg (1000 Iu) Tablet PO 50 mcg DAILY@1200 MILVIA Administration Docusate Sodium 100 mg 02/12/23 18:58 Docusate 100 Mg Cap PO Q3D PRN Constipation Heparin Sodium (Porcine) 5,000 unit 02/13/23 16:00 02/14/23 00:30 Heparin Sodium,Porcine/Pf 5,000 Unit/0.5 Ml Syringe SQ Not Given Q8HR MILVIA Sodium Chloride 1,000 mls @ 75 mls/hr 02/13/23 12:00 02/13/23 15:09 Saline 0.9% IV Not Given .[id number] MILVIA Lisinopril 2.5 mg 02/13/23 09:00 02/13/23 08:40 Lisinopril 2.5 Mg Tab PO 2.5 mg DAILY MILVIA Administration Methimazole 2.5 mg 02/13/23 09:00 02/13/23 08:40 Methimazole 5 Mg Tab PO 2.5 mg Q48H MILVIA Administration Metoprolol Succinate 25 mg 02/12/23 21:00 02/13/23 21:04 Metoprolol Succinate (Er) 25 Mg Tab.Er.24h PO 25 mg BID MILVIA Administration Multivitamins 1 each 02/13/23 09:00 02/13/23 08:41 Multivitamins, Thera 1 Each Tab PO 1 each DAILY MILVIA Administration Naloxone HCl 0.2 mg 02/13/23 12:07 Naloxone 0.4 Mg/Ml 1 Ml Vial IV Q2M PRN Opioid Reversal Ondansetron HCl 4 mg 02/12/23 19:06 Ondansetron 4 Mg/2 Ml Vial IVP Q6HR PRN Nausea And Vomiting Pantoprazole Sodium 40 mg 02/13/23 09:00 02/13/23 08:40 Pantoprazole 40 Mg/10 Ml Vial IVP 40 mg DAILY MILVIA Administration Polyethylene Glycol 17 gm 02/13/23 09:00 02/13/23 08:41 Polyethylene Glycol 3350 17 Gm Powd.Pack PO 17 gm DAILY MILVIA Administration Tamsulosin HCl 0.8 mg 02/12/23 21:00 02/13/23 21:04 Tamsulosin 0.4 Mg Cap.Er.24h PO 0.8 mg HS MILVIA Administration Intake and Output 02/13/23 02/14/23 02/14/23 22:59 06:59 14:59 Intake Total 118 Output Total 300 300 Balance -182 -300 Intake: Oral 118 Output: Urine 300 300 Other: Voiding Method Indwelling Catheter Indwelling Catheter 02/13/23 07:18 02/13/23 07:18
[2023-02-14 08:36] LABS: ALT 48 U/L (4-49); AST 99 U/L (17-59); African American GFR (CKD) >90 (>60 ml/min/1.73 sqM); Albumin 2.6 g/dL (3.5-5.0); Alkaline Phosphatase 48 U/L (38-126); Anion Gap 0 mmol/L; Blood Urea Nitrogen 29 mg/dL (9-20); Calcium 7.9 mg/dL (8.4-10.2); Carbon Dioxide 30 mmol/L (22-30); Chloride 103 mmol/L (98-107); Glucose 100 mg/dL (74-99); Non-African American GFR(CKD) >90 (>60 ml/min/1.73 sqM); Sodium 133 mmol/L (137-145); Total Protein 5.2 g/dL (6.3-8.2)
[2023-02-14 08:38] LABS: Creatine Kinase 1313 U/L (55-170); Potassium 4.5 mmol/L (3.5-5.1)
[2023-02-14] MEDS: polyethylene glycoL 3350 17 GM POWD.PACK PO SCH (09:00)
[2023-02-14] MEDS: PANTOPRAZOLE 40 MG/10 ML VIAL IVP SCH (09:06)
[2023-02-14] MEDS: MULTIVITAMINS, THERA 1 EACH TAB PO SCH (09:06)
[2023-02-14] MEDS: SODIUM CHLORIDE 0.9% 1,000 ML IV SCH ×2 (09:06→17:39)
[2023-02-14] MEDS: METOPROLOL SUCCINATE (ER) 25 MG TAB.ER.24H PO SCH ×2 (09:06→20:19)
--- NOTE | 2023-02-14 11:17 | P.PN ---
Subjective Progress Note Date: 02/14/23 Principal diagnosis: Syncopal fall from standing, rhabdomyolysis, oral anticoagulation on Xarelto, atrial fibrillation Patient seen and examined at bedside, no acute events overnight. Feeling about the same today as yesterday but he does have some more range of motion and strength with respect to the hand and forearm. Still not able to hold his right arm up against gravity. Mustafa catheters in place with clear urine output. Creatinine kinase trending down but still elevated. Sodium slightly low, IV fluids titrated down to normal saline at 75 mL/h per consultants. Carotid duplex obtained showing less than 50% bilateral internal carotid stenoses, antegrade bilateral vertebral flow. Pacer interrogation completed showing the battery approaching end of life. Echocardiogram completed earlier today and awaiting interpretation. Objective - Vital Signs Vital signs: Vital Signs Temp 97.9 F 02/14/23 04:00 Pulse 65 02/14/23 04:00 Resp 18 02/14/23 04:00 BP 122/65 02/14/23 04:00 Pulse Ox 95 02/14/23 08:47 FiO2 Intake & Output 02/13/23 02/14/23 02/14/23 18:59 06:59 18:59 Intake Total 354 118 Output Total 600 Balance 354 -600 118 Intake: Oral 354 118 Output: Urine 600 Other: Voiding Method Indwelling Catheter Indwelling Catheter # Bowel Movements 1 - Constitutional General appearance: Present: cooperative, no acute distress - EENT EENT Comment(s): Right periorbital ecchymoses slightly improved, persistent conjunctival hemorrh age noted on the right. Eyes: Present: EOMI ENT: Present: hard of hearing - Neck Neck: Present: normal ROM - Respiratory Respiratory: bilateral: CTA - Cardiovascular Rhythm: irregularly irregular - Gastrointestinal Gastrointestinal Comment(s): Abdomen is soft, nontender palpation, no guarding rebound or distention. - Genitourinary Genitourinary Comment(s): Mustafa in place with clear urine output, looks less concentrated than yesterday. - Integumentary Integumentary Comment(s): Persistent edema at the right deltoid and brachium, mildly tender, no tenderness out of proportion to exam. Superficial skin excoriations noted, no active bleeding. - Neurologic Neurologic: Present: CNII-XII intact - Musculoskeletal Musculoskeletal Comment(s): Coordination and strength of the right hand and forearm improve, still unable to keep his right arm elevated against gravity. - Psychiatric Psychiatric: Present: A&O x's 3, appropriate affect, intact judgment & insight - Labs CBC & Chem 7: 02/14/23 07:48 02/14/23 07:48 Labs: Abnormal Lab Results - Last 24 Hours (Table) 02/14/23 02/14/23 Range/Units 07:48 07:48 RBC 3.36 L (4.30-5.90) m/uL Hgb 11.6 L (13.0-17.5) gm/dL Hct 34.7 L (39.0-53.0) % MCV 103.3 H (80.0-100.0) fL Plt Count 137 L (150-450) k/uL Lymphocytes # 0.6 L (1.0-4.8) k/uL Sodium 133 L (137-145) mmol/L BUN 29 H (9-20) mg/dL Creatinine 0.48 L (0.66-1.25) mg/dL Glucose 100 H (74-99) mg/dL Calcium 7.9 L (8.4-10.2) mg/dL AST 99 H (17-59) U/L Creatine Kinase 1313 H* (55-170) U/L Total Protein 5.2 L (6.3-8.2) g/dL Albumin 2.6 L (3.5-5.0) g/dL Assessment and Plan Assessment: 83-year-old gentleman with what would appear to be a syncopal fall in the setting of atrial fibrillation, maintained on Xarelto. Down for some 17 hours with presenting rhabdomyolysis, creatinine acceptable, CK trending down. Soft tissue injury/contusion of the right deltoid, brachium, 2 cm laceration of the right eyebrow with periorbital ecchymoses and subconjunctival hemorrhage. No traumatic injuries of significance with respect to fracture found on extensive imaging. Mild venous lactic acidosis on presentation resolved with IV fluids. History of pacer placement. Battery approaching end of life. Remote history of stroke. Carotid duplex shows less than 50% bilateral internal carotid stenosis, antegrade vertebral flow. Plan: Medical, nephrology, and cardiac notes reviewed and appreciated. Awaiting interpretation of echocardiogram. Continue to trend CK and maintain Mustafa catheter for strict intake and output monitoring until normalized. Will order PT and OT consultation for range of motion preservation, discharge needs, and evaluation for rehab potential. Long-term discontinuation of Xarelto would be reasonable given fall risk. Anticipate transition to medical admission for tomorrow morning, no surgical indications seen at present. Will need outpatient follow-up with ophthalmology. Time with Patient: Greater than 30
--- NOTE | 2023-02-14 12:27 | P.PN ---
Subjective Patient is seen for follow-up for rhabdo my lysis. He was admitted post fall. CK level is decreasing. It is 1313 today. Patient is maintained on normal saline. No significant complaints today. Objective - Vital Signs Vital signs: Vital Signs Temp 98.3 F 02/14/23 08:00 Pulse 84 02/14/23 08:00 Resp 18 02/14/23 08:00 BP 99/57 02/14/23 08:00 Pulse Ox 95 02/14/23 08:47 FiO2 Intake & Output 02/13/23 02/14/23 02/14/23 18:59 06:59 18:59 Intake Total 354 118 Output Total 600 Balance 354 -600 118 Intake: Oral 354 118 Output: Urine 600 Other: Voiding Method Indwelling Catheter Indwelling Catheter Indwelling Catheter # Bowel Movements 1 - Exam Awake, comfortable, no acute distress Ecchymosis and bruising noted on the right I and face Examination of the heart S1 and S2 Examination the lungs bilateral breath sounds are heard Abdomen is soft nontender Examination of lower extremities shows no significant edema - Labs CBC & Chem 7: 02/14/23 07:48 02/14/23 07:48 Labs: Abnormal Lab Results - Last 24 Hours (Table) 02/14/23 02/14/23 Range/Units 07:48 07:48 RBC 3.36 L (4.30-5.90) m/uL Hgb 11.6 L (13.0-17.5) gm/dL Hct 34.7 L (39.0-53.0) % MCV 103.3 H (80.0-100.0) fL Plt Count 137 L (150-450) k/uL Lymphocytes # 0.6 L (1.0-4.8) k/uL Sodium 133 L (137-145) mmol/L BUN 29 H (9-20) mg/dL Creatinine 0.48 L (0.66-1.25) mg/dL Glucose 100 H (74-99) mg/dL Calcium 7.9 L (8.4-10.2) mg/dL AST 99 H (17-59) U/L Creatine Kinase 1313 H* (55-170) U/L Total Protein 5.2 L (6.3-8.2) g/dL Albumin 2.6 L (3.5-5.0) g/dL Assessment and Plan Assessment: 1. Rhabdomyolysis status post fall. Maintained on statins at home. Continue with IV hydration 2. Status post fall 3. Bruising/ecchymosis associated with anticoagulation 4. Chronic A. fib maintained on metoprolol and xarelto Plan: Continue with normal saline. Continue to encourage increased oral intake Repeat CK in 1-2 days Continue off of statins
[2023-02-14] MEDS: CHOLECALCIFEROL 25 MCG (1000 IU) TABLET PO SCH (12:38)
--- NOTE | 2023-02-14 13:52 | P.PN ---
Subjective Progress Note Date: 02/14/23 patient is 83-year-old gentleman with past medical history significant for A. fib on Xarelto, CVA, hyperlipidemia, hypertension, who presented to the ER because of a fall. Patient lives alone. Patient stated that he fell yesterday around 5:30 PM. Patient was bending to slat pickler something From the floor when he lost balance and hit his head and was laying on the floor ever since. Patient was found by his caregiver laying on the floor. Patient apparently was laying on the floor for about 15 hours. Patient is on Xarelto for atrial fibrillation. Initial lab work done in the ER showed WBC 16.5, hemoglobin 14.9, platelet count 209, sodium 137, potassium 5.2, BUN 39, creatinine 0.6, AST 78, ALT 44, CK 3022 CT head and cervical spine was negative for any acute intracranial hemorrhage, no cervical fracture. CT face was negative for any facial bone fractures Patient was admitted to trauma and medicine team were consulted 02/14. Patient seen and examined. Denies any acute distress. Laying comfortably in the bed. REVIEW OF SYSTEMS: CONSTITUTIONAL: No fever, no malaise,. CARDIOVASCULAR: No chest pain, no palpitations, no syncope. PULMONARY: No shortness of breath, no cough, GASTROINTESTINAL: No diarrhea, no nausea, no vomiting, no abdominal pain. NEUROLOGICAL: No headaches, no weakness, PHYSICAL EXAMINATION: GENERAL: The patient is alert and oriented x3, not in any acute distress. Well developed, well nourished. Bruising over right eye and right side of face HEENT: Pupils are round and equally reacting to light. EOMI. No scleral icterus.No thyromegaly. CARDIOVASCULAR: S1 and S2 present. No murmurs, rubs, or gallops. PULMONARY: Chest is clear to auscultation, no wheezing or crackles. ABDOMEN: Soft, nontender, nondistended, normoactive bowel sounds. No palpable organomegaly. MUSCULOSKELETAL: No joint swelling or deformity. EXTREMITIES: No cyanosis, clubbing, or pedal edema. NEUROLOGICAL: Gross neurological examination did not reveal any focal deficits. SKIN: No rashes. Assessment and plan fall Rhabdomyolysis Hyperlipidemia ssessment and plan Chronic atrial fibrillation Monitor vital signs Monitor CBC Monitor CMP Continue telemetry monitoring fall precautions Delirium precautions Continue IV fluids 2 D echo ordered Pacemaker interrogation ordered Ultrasound of carotids ordered consult cardiology Follow-up in nephrology recommendations Objective - Vital Signs Vital signs: Vital Signs Temp 98.3 F 02/14/23 08:00 Pulse 74 02/14/23 12:00 Resp 18 02/14/23 12:00 BP 110/72 02/14/23 12:00 Pulse Ox 95 02/14/23 12:00 FiO2 Intake & Output 02/13/23 02/14/23 02/14/23 18:59 06:59 18:59 Intake Total 354 118 Output Total 600 Balance 354 -600 118 Intake: Oral 354 118 Output: Urine 600 Other: Voiding Method Indwelling Catheter Indwelling Catheter Indwelling Catheter # Bowel Movements 1 - Labs CBC & Chem 7: 02/14/23 07:48 02/14/23 07:48 Labs: Abnormal Lab Results - Last 24 Hours (Table) 02/14/23 02/14/23 Range/Units 07:48 07:48 RBC 3.36 L (4.30-5.90) m/uL Hgb 11.6 L (13.0-17.5) gm/dL Hct 34.7 L (39.0-53.0) % MCV 103.3 H (80.0-100.0) fL Plt Count 137 L (150-450) k/uL Lymphocytes # 0.6 L (1.0-4.8) k/uL Sodium 133 L (137-145) mmol/L BUN 29 H (9-20) mg/dL Creatinine 0.48 L (0.66-1.25) mg/dL Glucose 100 H (74-99) mg/dL Calcium 7.9 L (8.4-10.2) mg/dL AST 99 H (17-59) U/L Creatine Kinase 1313 H* (55-170) U/L Total Protein 5.2 L (6.3-8.2) g/dL Albumin 2.6 L (3.5-5.0) g/dL
--- NOTE | 2023-02-14 15:24 | CA ---
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?? 67 - 155 / 56 - 104 cm??? LV Systolic Volume MOD BP 27.2 cm??? 22 - 58 / 19 - 49 cm??? LV Ejection Fraction MOD BP 65.6 % >= 55 % LV Diastolic Volume MOD 4C 79.9 cm??? LV Systolic Volume MOD 4C 36.6 cm??? LV Ejection Fraction MOD 4C 54.2 % LV Diastolic Length 4C 6.9 cm LV Systolic Length 4C 7.2 cm LV Diastolic Volume MOD 2C 64.8 cm??? LV Systolic Volume MOD 2C 21.2 cm??? LV Ejection Fraction MOD 2C 67.3 % LV Diastolic Length 2C 8.6 cm LV Systolic Length 2C 6.9 cm M-MODE Aortic Root Diameter MM 3.6 cm MV E Point Septal Separation 0.7 cm AV Cusp Separation MM 2.2 cm DOPPLER AV Peak Velocity 105.7 cm/s AV Peak Gradient 4.5 mmHg AI Peak Velocity 289.7 cm/s AI Peak Gradient 33.6 mmHg AI Pressure Half Time 1551.2 ms MV Area PHT 3.3 cm??? MV Deceleration Time 223.4 ms TR Peak Velocity 211.7 cm/s TR Peak Gradient 17.9 mmHg Right Ventricular Systolic Press 22.4 mmHg FINDINGS Left Ventricle Left ventricular ejection fraction is estimated at 40-45 %. Left ventricular cavity size normal. Mildly increased septal wall thickness. Right Ventricle Normal right ventricular size. Right ventricular systolic pressure within normal limits. Right Atrium Normal right atrial size. Left Atrium Mildly increased left atrial diameter. Mitral Valve Structurally normal mitral valve. No mitral stenosis, regurgitation or prolapse. Aortic Valve Trileaflet aortic valve. Mild aortic regurgitation. Tricuspid Valve Structurally normal tricuspid valve. Mild tricuspid regurgitation. Pulmonic Valve Structurally normal pulmonic valve. Mild pulmonic regurgitation. Pericardium Small pericardial effusion by LV Aorta Normal size aortic root and proximal ascending aorta. CONCLUSIONS Mildly impaired LV function with an EF between 40-45% Small pericardial effusion Previewed by: Dr. Seth Sandoval MD (Electronically Signed) Final Date: 14 February 2023 15:23
[2023-02-14] MEDS: TAMSULOSIN 0.4 MG CAP.ER.24H PO SCH (20:19)
[2023-02-15] MEDS: SODIUM CHLORIDE 0.9% 1,000 ML IV SCH ×2 (04:33→20:14)
[2023-02-15 08:17] LABS: Basophils % (A) 0 %; Eosinophils # (A) 0.1 k/uL (0-0.7); Eosinophils % (A) 2 %; HCT 33.6 % (39.0-53.0); HGB 11.1 gm/dL (13.0-17.5); Lymphocytes # (A) 0.5 k/uL (1.0-4.8); Lymphocytes % (A) 8 %; MCH 34.4 pg (25.0-35.0); MCV 104.2 fL (80.0-100.0); Macrocytosis Slight; Mean Platelet Volume 8.8; Monocytes # (A) 0.4 k/uL (0-1.0); Monocytes % (A) 7 %; Neutrophils % (A) 82 %; Platelet Count 138 k/uL (150-450); RBC 3.22 m/uL (4.30-5.90); RDW 12.3 % (11.5-15.5); WBC 6.1 k/uL (3.8-10.6)
[2023-02-15 08:41] LABS: ALT 60 U/L (4-49); AST 79 U/L (17-59); African American GFR (CKD) >90 (>60 ml/min/1.73 sqM); Albumin 2.6 g/dL (3.5-5.0); Alkaline Phosphatase 64 U/L (38-126); Anion Gap 3 mmol/L; Blood Urea Nitrogen 25 mg/dL (9-20); Calcium 7.8 mg/dL (8.4-10.2); Carbon Dioxide 28 mmol/L (22-30); Chloride 104 mmol/L (98-107); Creatine Kinase 763 U/L (55-170); Glucose 100 mg/dL (74-99); Non-African American GFR(CKD) >90 (>60 ml/min/1.73 sqM); Sodium 135 mmol/L (137-145); Total Bilirubin 0.8 mg/dL (0.2-1.3)
--- NOTE | 2023-02-15 08:44 | P.PN ---
Subjective Progress Note Date: 02/15/23 Principal diagnosis: Fall This is an 83-year-old male who was admitted after a fall at home. Patient was found laying on the floor by caregiver, and had been laying on the floor for around 15 hours. Patient has a history of A. fib, hyperlipidemia, and hypertension. He's maintained on normal saline. CK level has been decreasing, yesterday it was 1313. He is seen laying in bed this morning, complains of some mild pain, but overall is feeling well. Objective - Vital Signs Vital signs: Vital Signs Temp 97.5 F L 02/15/23 04:23 Pulse 72 02/15/23 04:23 Resp 16 02/15/23 04:23 BP 108/66 02/15/23 04:23 Pulse Ox 96 02/15/23 04:23 FiO2 Intake & Output 02/14/23 02/15/23 02/15/23 18:59 06:59 18:59 Intake Total 354 Output Total 350 500 Balance 4 -500 Intake: Oral 354 Output: Urine 350 500 Other: Voiding Method Indwelling Catheter Indwelling Catheter - Constitutional General appearance: Present: cooperative, no acute distress - EENT Eyes: Present: PERRLA - Neck Neck: Present: normal ROM. Absent: lymphadenopathy, rigidity - Respiratory Respiratory: bilateral: CTA - Cardiovascular Rhythm: irregularly irregular - Gastrointestinal General gastrointestinal: Present: soft. Absent: tenderness - Integumentary Integumentary Comment(s): Ecchymosis to right eye - Musculoskeletal Musculoskeletal: Present: generalized weakness - Psychiatric Psychiatric: Present: A&O x's 3, appropriate affect, intact judgment & insight - Labs CBC & Chem 7: 02/15/23 07:46 02/14/23 07:48 Labs: Abnormal Lab Results - Last 24 Hours (Table) 02/14/23 02/15/23 Range/Units 07:48 07:46 RBC 3.22 L (4.30-5.90) m/uL Hgb 11.1 L (13.0-17.5) gm/dL Hct 33.6 L (39.0-53.0) % MCV 104.2 H (80.0-100.0) fL Plt Count 138 L (150-450) k/uL Lymphocytes # 0.5 L (1.0-4.8) k/uL Sodium 133 L (137-145) mmol/L BUN 29 H (9-20) mg/dL Creatinine 0.48 L (0.66-1.25) mg/dL Glucose 100 H (74-99) mg/dL Calcium 7.9 L (8.4-10.2) mg/dL AST 99 H (17-59) U/L Creatine Kinase 1313 H* (55-170) U/L Total Protein 5.2 L (6.3-8.2) g/dL Albumin 2.6 L (3.5-5.0) g/dL Assessment and Plan (1) Rhabdomyolysis Current Visit: Yes Status: Acute Code(s): M62.82 - RHABDOMYOLYSIS SNOMED Code(s): 598714964 (2) Fall Current Visit: Yes Status: Acute Code(s): W19.XXXA - UNSPECIFIED FALL, INITIAL ENCOUNTER SNOMED Code(s): 7532059 (3) Chronic atrial fibrillation Current Visit: No Status: Acute Code(s): I48.20 - CHRONIC ATRIAL FIBRILLATION, UNSPECIFIED SNOMED Code(s): 746282023 (4) Weakness Current Visit: No Status: Acute Code(s): R53.1 - WEAKNESS SNOMED Code(s): 54940163 Plan: Check labs in the morning. Consult discharge planning for possible placement. Patient seen and evaluated by nurse practitioner, physician in agreement with plan
[2023-02-15] MEDS: HEPARIN SODIUM,PORCINE/PF 5,000 UNIT/0.5 ML SYRINGE SQ SCH ×3 (09:19→23:42)
[2023-02-15] MEDS: PANTOPRAZOLE 40 MG/10 ML VIAL IVP SCH (09:19)
[2023-02-15] MEDS: polyethylene glycoL 3350 17 GM POWD.PACK PO SCH (09:19)
[2023-02-15] MEDS: METOPROLOL SUCCINATE (ER) 25 MG TAB.ER.24H PO SCH ×2 (09:19→20:29)
[2023-02-15] MEDS: MULTIVITAMINS, THERA 1 EACH TAB PO SCH (09:19)
[2023-02-15] MEDS: methIMAzole 5 MG TAB PO SCH (09:19)
[2023-02-15] MEDS: CHOLECALCIFEROL 25 MCG (1000 IU) TABLET PO SCH (11:54)
--- NOTE | 2023-02-15 12:10 | P.PN ---
Subjective Patient is seen for follow-up for rhabdo myolysis. He was admitted post fall. CK level is decreasing. It is 763 today. Patient is maintained on normal saline. No significant complaints today. Sitting out of bed today Objective - Vital Signs Vital signs: Vital Signs Temp 98.1 F 02/15/23 08:00 Pulse 82 02/15/23 08:00 Resp 18 02/15/23 08:00 BP 121/61 02/15/23 08:00 Pulse Ox 97 02/15/23 08:00 FiO2 Intake & Output 02/14/23 02/15/23 02/15/23 18:59 06:59 18:59 Intake Total 354 Output Total 350 500 Balance 4 -500 Intake: Oral 354 Output: Urine 350 500 Other: Voiding Method Indwelling Catheter Indwelling Catheter Indwelling Catheter - Exam Awake, comfortable, no acute distress Ecchymosis and bruising noted on the right eye and face Examination of the heart S1 and S2 Examination the lungs bilateral breath sounds are heard Abdomen is soft nontender Examination of lower extremities shows no significant edema - Labs CBC & Chem 7: 02/15/23 07:46 02/15/23 07:46 Labs: Abnormal Lab Results - Last 24 Hours (Table) 02/15/23 02/15/23 Range/Units 07:46 07:46 RBC 3.22 L (4.30-5.90) m/uL Hgb 11.1 L (13.0-17.5) gm/dL Hct 33.6 L (39.0-53.0) % MCV 104.2 H (80.0-100.0) fL Plt Count 138 L (150-450) k/uL Lymphocytes # 0.5 L (1.0-4.8) k/uL Sodium 135 L (137-145) mmol/L BUN 25 H (9-20) mg/dL Creatinine 0.54 L (0.66-1.25) mg/dL Glucose 100 H (74-99) mg/dL Calcium 7.8 L (8.4-10.2) mg/dL AST 79 H (17-59) U/L ALT 60 H (4-49) U/L Creatine Kinase 763 H (55-170) U/L Total Protein 5.0 L (6.3-8.2) g/dL Albumin 2.6 L (3.5-5.0) g/dL Assessment and Plan Assessment: 1. Rhabdomyolysis status post fall. Maintained on statins at home. Maintained on IV hydration. 2. Status post fall 3. Bruising/ecchymosis associated with anticoagulation 4. Chronic A. fib maintained on metoprolol and xarelto Plan: Decrease saline Continue to encourage increased oral intake Continue off of statins
--- NOTE | 2023-02-15 12:38 | P.PN ---
Subjective Progress Note Date: 02/15/23 The patient is an 83-year-old gentleman with a past medical history significant for permanent atrial fibrillation was maintained on oral anticoagulation as well as permanent pacemaker and known coronary artery disease was mild on heart catheterization in 2017 as well as cardiomyopathy based on echo in 2020 showing an EF around 35% with [id number] mitral regurgitation. He was brought to the emergency department after he fell at home. The patient lives by himself and he does have a person checking on him every morning and preparing his breakfast. He does have limited functional capacity and he has been walking using a walker at home. He was in his usual state of health until yesterday when he dropped something on the floor and he did bend down to pick it up and subtotally he lost his consciousness. He stated on the floor for about 24 hours still the person who was checking on him on daily basis came in the following day and found him. He stated that he felt that something is coming and he felt some warm feeling before he lost his consciousness. No pain in the chest and no heart racing or fluttering. He has been falling recently quite often but I'm not quite sure if that was associated with loss of consciousness as this time or no. When he was brought to the emergency department he was found to have extensive bruises around the right eye. Further investigation was performed including extensive x-ray and he was found to have no fractures and also he underwent an EKG and that showed atrial fibrillation with diffuse nonspecific ST and T wave abnormalities. Oral anticoagulation currently on hold at this point. He was also diagnosed with rhabdomyolysis. The troponin is within normal limits and the patient did not have any chest pain or chest discomfort. Also he underwent further investigation including carotid duplex study and that showed no evidence of high-grade stenosis 02/15 Patient is seen today in follow-up. CK is now down to 763. Creatinine 0.54. There is interrogation report in the chart but it does not have electro grams. Nursing to contact [facility] [facility] [employer] to get an in-house interrogation done on his pacemaker including electrograms. However after nursing contacted [facility] [facility] [employer], because patient's pacemaker is on conservation mode to conserve the battery life, electrograms are not able to be obtained. Echocardiogram reveals EF 40-45%, small pericardial effusion. On examination he does have extensive ecchymosis on the right eye with irregular rhythm and systolic murmur at the apical area. No bilateral lower extremity edema. Assessment Syncopal episode with differential diagnosis of reflex syncope versus cardiac syncope giving the structural heart disease with cardiomyopathy Face injury related to the syncope Recurrent falls Permanent pacemaker Permanent atrial fibrillation Mild CAD Cardiomyopathy, nonischemic Rhabdomyolysis Plan Agree about holding anticoagulation at this point Continue the current dose of beta ludy and lisinopril Rule out cardiac syncope. Obtain an orthostatic blood pressure Follow-up with the patient Nurse practitioner note has been reviewed, I agree with the documented findings and plan of care. Patient was seen and examined. Objective - Vital Signs Vital signs: Vital Signs Temp 97.5 F L 02/15/23 04:23 Pulse 72 02/15/23 04:23 Resp 16 02/15/23 04:23 BP 108/66 02/15/23 04:23 Pulse Ox 96 02/15/23 04:23 FiO2 Intake & Output 02/14/23 02/15/23 02/15/23 18:59 06:59 18:59 Intake Total 354 Output Total 350 500 Balance 4 -500 Intake: Oral 354 Output: Urine 350 500 Other: Voiding Method Indwelling Catheter Indwelling Catheter - Labs CBC & Chem 7: 02/15/23 07:46 02/15/23 07:46 Labs: Abnormal Lab Results - Last 24 Hours (Table) 02/15/23 02/15/23 Range/Units 07:46 07:46 RBC 3.22 L (4.30-5.90) m/uL Hgb 11.1 L (13.0-17.5) gm/dL Hct 33.6 L (39.0-53.0) % MCV 104.2 H (80.0-100.0) fL Plt Count 138 L (150-450) k/uL Lymphocytes # 0.5 L (1.0-4.8) k/uL Sodium 135 L (137-145) mmol/L BUN 25 H (9-20) mg/dL Creatinine 0.54 L (0.66-1.25) mg/dL Glucose 100 H (74-99) mg/dL Calcium 7.8 L (8.4-10.2) mg/dL AST 79 H (17-59) U/L ALT 60 H (4-49) U/L Creatine Kinase 763 H (55-170) U/L Total Protein 5.0 L (6.3-8.2) g/dL Albumin 2.6 L (3.5-5.0) g/dL
[2023-02-15] MEDS: TAMSULOSIN 0.4 MG CAP.ER.24H PO SCH (20:28)
[2023-02-16] MEDS: MULTIVITAMINS, THERA 1 EACH TAB PO SCH (08:27)
[2023-02-16] MEDS: PANTOPRAZOLE 40 MG/10 ML VIAL IVP SCH (08:27)
[2023-02-16] MEDS: CHOLECALCIFEROL 25 MCG (1000 IU) TABLET PO SCH (08:27)
[2023-02-16] MEDS: HEPARIN SODIUM,PORCINE/PF 5,000 UNIT/0.5 ML SYRINGE SQ SCH ×3 (08:27→22:55)
[2023-02-16] MEDS: METOPROLOL SUCCINATE (ER) 25 MG TAB.ER.24H PO SCH ×2 (08:28→20:01)
[2023-02-16] MEDS: SODIUM CHLORIDE 0.9% 1,000 ML IV SCH (08:28)
[2023-02-16] MEDS: polyethylene glycoL 3350 17 GM POWD.PACK PO SCH (08:28)
[2023-02-16] MEDS: ACETAMINOPHEN TAB 325 MG TAB PO PRN ×2 (08:34→20:01)
[2023-02-16 08:45] LABS: HGB 11.5 gm/dL (13.0-17.5); MCH 35.9 pg (25.0-35.0); MCHC 34.9 g/dL (31.0-37.0); MCV 102.9 fL (80.0-100.0); Macrocytosis Slight; Platelet Count 158 k/uL (150-450); RBC 3.21 m/uL (4.30-5.90); RDW 12.4 % (11.5-15.5); WBC 5.9 k/uL (3.8-10.6)
[2023-02-16 09:01] LABS: ALT 60 U/L (4-49); AST 69 U/L (17-59); African American GFR (CKD) >90 (>60 ml/min/1.73 sqM); Albumin 2.5 g/dL (3.5-5.0); Alkaline Phosphatase 68 U/L (38-126); Anion Gap 1 mmol/L; Blood Urea Nitrogen 24 mg/dL (9-20); Calcium 7.8 mg/dL (8.4-10.2); Carbon Dioxide 29 mmol/L (22-30); Chloride 106 mmol/L (98-107); Glucose 101 mg/dL (74-99); Non-African American GFR(CKD) >90 (>60 ml/min/1.73 sqM); Sodium 136 mmol/L (137-145); Total Bilirubin 0.9 mg/dL (0.2-1.3)
--- NOTE | 2023-02-16 09:12 | P.PN ---
Subjective Progress Note Date: 02/16/23 Principal diagnosis: Fall This is an 83-year-old male who was admitted after a fall at home. Patient was found laying on the floor by caregiver, and had been laying on the floor for around 15 hours. Patient has a history of A. fib, hyperlipidemia, and hypertension. He's maintained on normal saline. CK level has been decreasing, yesterday it was 1313. He is seen laying in bed this morning, complains of some mild pain, but overall is feeling well. 02/16/23 Patient is seen laying in bed this morning, reports he is feeling better. CK continues to trend down. Care management discussing placement for patient when he is ready for discharge. Objective - Vital Signs Vital signs: Vital Signs Temp 98.3 F 02/16/23 08:00 Pulse 71 02/16/23 08:00 Resp 18 02/16/23 08:00 BP 134/60 02/16/23 08:00 Pulse Ox 94 L 02/16/23 08:00 FiO2 Intake & Output 02/15/23 02/16/23 02/16/23 18:59 06:59 18:59 Intake Total 118 240 Output Total 450 425 Balance -332 -425 240 Intake: Oral 118 240 Output: Urine 450 425 Other: Voiding Method Indwelling Catheter Indwelling Catheter Indwelling Catheter - Constitutional General appearance: Present: cooperative, no acute distress - EENT Eyes: Present: PERRLA - Neck Neck: Present: normal ROM. Absent: lymphadenopathy, rigidity - Respiratory Respiratory: bilateral: CTA - Cardiovascular Rhythm: irregularly irregular - Gastrointestinal General gastrointestinal: Present: soft. Absent: tenderness - Integumentary Integumentary Comment(s): ecchymosis right eye - Musculoskeletal Musculoskeletal: Present: generalized weakness - Psychiatric Psychiatric: Present: A&O x's 3, appropriate affect, intact judgment & insight - Labs CBC & Chem 7: 02/16/23 08:29 02/16/23 08:29 Labs: Abnormal Lab Results - Last 24 Hours (Table) 02/16/23 02/16/23 Range/Units 08:29 08:29 RBC 3.21 L (4.30-5.90) m/uL Hgb 11.5 L (13.0-17.5) gm/dL Hct 33.0 L (39.0-53.0) % MCV 102.9 H (80.0-100.0) fL MCH 35.9 H (25.0-35.0) pg Sodium 136 L (137-145) mmol/L BUN 24 H (9-20) mg/dL Creatinine 0.53 L (0.66-1.25) mg/dL Glucose 101 H (74-99) mg/dL Calcium 7.8 L (8.4-10.2) mg/dL AST 69 H (17-59) U/L ALT 60 H (4-49) U/L Total Protein 5.0 L (6.3-8.2) g/dL Albumin 2.5 L (3.5-5.0) g/dL Assessment and Plan (1) Rhabdomyolysis Current Visit: Yes Status: Acute Code(s): M62.82 - RHABDOMYOLYSIS SNOMED Code(s): 762875729 (2) Fall Current Visit: Yes Status: Acute Code(s): W19.XXXA - UNSPECIFIED FALL, INITIAL ENCOUNTER SNOMED Code(s): 9774338 (3) Chronic atrial fibrillation Current Visit: No Status: Acute Code(s): I48.20 - CHRONIC ATRIAL FIBRILLATION, UNSPECIFIED SNOMED Code(s): 284101110 (4) Weakness Current Visit: No Status: Acute Code(s): R53.1 - WEAKNESS SNOMED Code(s): 29690546 Plan: Check labs in the morning. Appreciate consultants recommendations. Patient seen and evaluated by nurse practitioner, physician in agreement with plan
[2023-02-16] MEDS: AMIODARONE 200 MG TAB PO SCH ×2 (11:29→19:59)
--- NOTE | 2023-02-16 12:43 | P.PN ---
Subjective Patient is seen for follow-up for rhabdomyolysis. He was admitted post fall. CK level is decreasing. It is 763 yesterday. Patient is maintained on normal saline. No significant complaints today. Sitting out of bed today Objective - Vital Signs Vital signs: Vital Signs Temp 98.3 F 02/16/23 08:00 Pulse 71 02/16/23 08:00 Resp 18 02/16/23 08:00 BP 134/60 02/16/23 08:00 Pulse Ox 94 L 02/16/23 08:00 FiO2 Intake & Output 02/15/23 02/16/23 02/16/23 18:59 06:59 18:59 Intake Total 118 240 Output Total 450 425 Balance -332 -425 240 Intake: Oral 118 240 Output: Urine 450 425 Other: Voiding Method Indwelling Catheter Indwelling Catheter Indwelling Catheter - Exam Awake, comfortable, no acute distress Ecchymosis and bruising noted on the right eye and face Examination of the heart S1 and S2 Examination the lungs bilateral breath sounds are heard Abdomen is soft nontender Examination of lower extremities shows no significant edema - Labs CBC & Chem 7: 02/16/23 08:29 02/16/23 08:29 Labs: Abnormal Lab Results - Last 24 Hours (Table) 02/16/23 02/16/23 Range/Units 08:29 08:29 RBC 3.21 L (4.30-5.90) m/uL Hgb 11.5 L (13.0-17.5) gm/dL Hct 33.0 L (39.0-53.0) % MCV 102.9 H (80.0-100.0) fL MCH 35.9 H (25.0-35.0) pg Sodium 136 L (137-145) mmol/L BUN 24 H (9-20) mg/dL Creatinine 0.53 L (0.66-1.25) mg/dL Glucose 101 H (74-99) mg/dL Calcium 7.8 L (8.4-10.2) mg/dL AST 69 H (17-59) U/L ALT 60 H (4-49) U/L Total Protein 5.0 L (6.3-8.2) g/dL Albumin 2.5 L (3.5-5.0) g/dL Assessment and Plan Assessment: 1. Rhabdomyolysis status post fall. Maintained on statins at home. Maintained on IV hydration. 2. Status post fall 3. Bruising/ecchymosis associated with anticoagulation 4. Chronic A. fib maintained on metoprolol and xarelto Plan: Discontinue saline Repeat CK in a.m. Continue to encourage increased oral intake Continue off of statins
--- NOTE | 2023-02-16 13:26 | P.PN ---
Subjective Progress Note Date: 02/16/23 The patient is an 83-year-old gentleman with a past medical history significant for permanent atrial fibrillation was maintained on oral anticoagulation as well as permanent pacemaker and known coronary artery disease was mild on heart catheterization in 2017 as well as cardiomyopathy based on echo in 2020 showing an EF around 35% with [id number] mitral regurgitation. He was brought to the emergency department after he fell at home. The patient lives by himself and he does have a person checking on him every morning and preparing his breakfast. He does have limited functional capacity and he has been walking using a walker at home. He was in his usual state of health until yesterday when he dropped something on the floor and he did bend down to pick it up and subtotally he lost his consciousness. He stated on the floor for about 24 hours still the person who was checking on him on daily basis came in the following day and found him. He stated that he felt that something is coming and he felt some warm feeling before he lost his consciousness. No pain in the chest and no heart racing or fluttering. He has been falling recently quite often but I'm not quite sure if that was associated with loss of consciousness as this time or no. When he was brought to the emergency department he was found to have extensive bruises around the right eye. Further investigation was performed including extensive x-ray and he was found to have no fractures and also he underwent an EKG and that showed atrial fibrillation with diffuse nonspecific ST and T wave abnormalities. Oral anticoagulation currently on hold at this point. He was also diagnosed with rhabdomyolysis. The troponin is within normal limits and the patient did not have any chest pain or chest discomfort. Also he underwent further investigation including carotid duplex study and that showed no evidence of high-grade stenosis 02/15 Patient is seen today in follow-up. CK is now down to 763. Creatinine 0.54. There is interrogation report in the chart but it does not have electro grams. Nursing to contact [employer] to get an in-house interrogation done on his pacemaker including electrograms. However after nursing contacted [employer], because patient's pacemaker is on conservation mode to conserve the battery life, electrograms are not able to be obtained. Echocardiogram reveals EF 40-45%, small pericardial effusion. 02/16 Reviewed pacemaker interrogation. It appears patient had a run of V. tach and there is no documentation of bradycardia. Patient had a syncopal episode most likely due to V. tach. Unfortunately no electrograms were included in the interrogation is device is at end-of-life. Patient has had no runs of V. tach on telemetry. Patient has no new concerns today. Heart rate has been in the 70s, blood pressure 114/57, pulse ox 97% on room air. Repeat blood work reveals hemoglobin 11.5. BUN 24 creatinine 0.53. AST and ALT mildly elevated. On examination he does have extensive ecchymosis on the right eye with irregular rhythm and systolic murmur at the apical area. No bilateral lower extremity edema. Assessment Syncopal episode most likely due to V. tach Face injury related to the syncope Recurrent falls Permanent pacemaker Permanent atrial fibrillation Mild CAD Cardiomyopathy, nonischemic Rhabdomyolysis Plan Agree about holding anticoagulation at this point Continue the current dose of beta ludy and lisinopril Add amiodarone 200 mg twice daily Continue to monitor patient closely. Patient will require battery upgrade most likely at a later time. Follow-up with the patient Nurse practitioner note has been reviewed, I agree with the documented findings and plan of care. Patient was seen and examined. Objective - Vital Signs Vital signs: Vital Signs Temp 98.3 F 02/16/23 08:00 Pulse 74 02/16/23 13:18 Resp 18 02/16/23 13:18 BP 114/57 02/16/23 13:18 Pulse Ox 97 02/16/23 13:18 FiO2 Intake & Output 02/15/23 02/16/23 02/16/23 18:59 06:59 18:59 Intake Total 118 513 Output Total 450 425 Balance -332 -425 513 Intake: Oral 118 513 Output: Urine 450 425 Other: Voiding Method Indwelling Catheter Indwelling Catheter Indwelling Catheter - Labs CBC & Chem 7: 02/16/23 08:29 02/16/23 08:29 Labs: Abnormal Lab Results - Last 24 Hours (Table) 02/16/23 02/16/23 Range/Units 08:29 08:29 RBC 3.21 L (4.30-5.90) m/uL Hgb 11.5 L (13.0-17.5) gm/dL Hct 33.0 L (39.0-53.0) % MCV 102.9 H (80.0-100.0) fL MCH 35.9 H (25.0-35.0) pg Sodium 136 L (137-145) mmol/L BUN 24 H (9-20) mg/dL Creatinine 0.53 L (0.66-1.25) mg/dL Glucose 101 H (74-99) mg/dL Calcium 7.8 L (8.4-10.2) mg/dL AST 69 H (17-59) U/L ALT 60 H (4-49) U/L Total Protein 5.0 L (6.3-8.2) g/dL Albumin 2.5 L (3.5-5.0) g/dL
--- NOTE | 2023-02-16 19:21 | US ---
EXAMINATION TYPE: US venous doppler duplex UE RT DATE OF EXAM: 02/16/2023 COMPARISON: NONE CLINICAL INDICATION: Male, 83 years old with history of RIGHT ARM SWELLING; Entire right arm swelling and bruising. No hx of DVT. On blood thinners SIDE PERFORMED: Right FINDINGS: Grayscale, color doppler, spectral doppler imaging performed of the deep veins of the upper extremiti es. There is normal flow, compressibility and vascular waveforms. Right Arm: No evidence for DVT IMPRESSION: No evidence for DVT within the right upper extremity.
[2023-02-16] MEDS: TAMSULOSIN 0.4 MG CAP.ER.24H PO SCH (20:00)
[2023-02-17] MEDS: SODIUM CHLORIDE 0.9% 1,000 ML IV SCH (08:26)
--- NOTE | 2023-02-17 08:26 | P.PN ---
Subjective Principal diagnosis: Status post fall. Concussion The patient is slowly improving but balance is still somewhat off I suspect concussion elements. The family is concerned about his right upper extremity edema, I do suspect this is more related to the trauma. Ultrasound shows negative DVT. Objective - Vital Signs Vital signs: Vital Signs Temp 96.4 F L 02/17/23 07:56 Pulse 79 02/17/23 07:56 Resp 17 02/17/23 07:56 BP 156/65 02/17/23 07:56 Pulse Ox 96 02/17/23 07:56 FiO2 Intake & Output 02/16/23 02/17/23 02/17/23 18:59 06:59 18:59 Intake Total 631 Output Total 300 400 Balance 331 -400 Intake: Oral 631 Output: Urine 300 400 Other: Voiding Method Indwelling Catheter Indwelling Catheter # Bowel Movements 0 - Constitutional General appearance: Present: cooperative - EENT EENT Comment(s): Periorbital bruising - Neck Neck: Absent: lymphadenopathy - Respiratory Respiratory: bilateral: diminished - Cardiovascular Rhythm: irregularly irregular Heart sounds: normal: S1, S2 Abnormal Heart Sounds: Present: systolic murmur. Absent: S3 Gallop - Gastrointestinal General gastrointestinal: Present: soft. Absent: tenderness - Integumentary Integumentary Comment(s): Bruising on skin Integumentary: Absent: cellulitis - Psychiatric Psychiatric: Present: A&O x's 3 - Labs CBC & Chem 7: 02/16/23 08:29 02/16/23 08:29 Labs: Abnormal Lab Results - Last 24 Hours (Table) 02/16/23 02/16/23 Range/Units 08:29 08:29 RBC 3.21 L (4.30-5.90) m/uL Hgb 11.5 L (13.0-17.5) gm/dL Hct 33.0 L (39.0-53.0) % MCV 102.9 H (80.0-100.0) fL MCH 35.9 H (25.0-35.0) pg Sodium 136 L (137-145) mmol/L BUN 24 H (9-20) mg/dL Creatinine 0.53 L (0.66-1.25) mg/dL Glucose 101 H (74-99) mg/dL Calcium 7.8 L (8.4-10.2) mg/dL AST 69 H (17-59) U/L ALT 60 H (4-49) U/L Total Protein 5.0 L (6.3-8.2) g/dL Albumin 2.5 L (3.5-5.0) g/dL Assessment and Plan (1) Abrasions of multiple sites Current Visit: Yes Status: Acute Code(s): T07.XXXA - UNSPECIFIED MULTIPLE INJURIES, INITIAL ENCOUNTER SNOMED Code(s): 848656547 (2) Concussion Current Visit: Yes Status: Acute Code(s): S06.0XAA - CONCUSSION WITH LOC STATUS UNKNOWN, INITIAL ENCOUNTER SNOMED Code(s): 933453710 (3) Fall Current Visit: Yes Status: Acute Code(s): W19.XXXA - UNSPECIFIED FALL, INITIAL ENCOUNTER SNOMED Code(s): 9081813 (4) Forehead laceration Current Visit: Yes Status: Acute Code(s): S01.81XA - LACERATION W/O FOREIGN BODY OF OTH PART OF HEAD, INIT ENCNTR SNOMED Code(s): 294635800 (5) Rhabdomyolysis Current Visit: Yes Status: Acute Code(s): M62.82 - RHABDOMYOLYSIS SNOMED Code(s): 775962583 (6) Chronic atrial fibrillation Current Visit: No Status: Acute Code(s): I48.20 - CHRONIC ATRIAL FIBRILLATION, UNSPECIFIED SNOMED Code(s): 415176265 (7) Weakness Current Visit: No Status: Acute Code(s): R53.1 - WEAKNESS SNOMED Code(s): 47953160 Plan: Continue therapy and increasing mobility. Continue to follow. Check CBC and CMP in a.m. Discharge planning for rehab
[2023-02-17 08:28] LABS: ALT 62 U/L (4-49); AST 66 U/L (17-59); African American GFR (CKD) >90 (>60 ml/min/1.73 sqM); Albumin 2.7 g/dL (3.5-5.0); Alkaline Phosphatase 63 U/L (38-126); Anion Gap 4 mmol/L; Blood Urea Nitrogen 25 mg/dL (9-20); Calcium 8.1 mg/dL (8.4-10.2); Carbon Dioxide 26 mmol/L (22-30); Chloride 106 mmol/L (98-107); Creatine Kinase 546 U/L (55-170); Glucose 102 mg/dL (74-99); Non-African American GFR(CKD) >90 (>60 ml/min/1.73 sqM); Potassium 4.3 mmol/L (3.5-5.1); Sodium 136 mmol/L (137-145); Total Protein 5.2 g/dL (6.3-8.2)
[2023-02-17] MEDS: AMIODARONE 200 MG TAB PO SCH ×2 (09:11→20:40)
[2023-02-17] MEDS: methIMAzole 5 MG TAB PO SCH (09:11)
[2023-02-17] MEDS: MULTIVITAMINS, THERA 1 EACH TAB PO SCH (09:11)
[2023-02-17] MEDS: METOPROLOL SUCCINATE (ER) 25 MG TAB.ER.24H PO SCH ×2 (09:11→20:40)
[2023-02-17] MEDS: ACETAMINOPHEN TAB 325 MG TAB PO PRN (09:12)
[2023-02-17] MEDS: polyethylene glycoL 3350 17 GM POWD.PACK PO SCH (09:13)
[2023-02-17] MEDS: HEPARIN SODIUM,PORCINE/PF 5,000 UNIT/0.5 ML SYRINGE SQ SCH ×3 (09:13→23:28)
[2023-02-17] MEDS: PANTOPRAZOLE 40 MG/10 ML VIAL IVP SCH (09:13)
--- NOTE | 2023-02-17 11:07 | P.PN ---
Subjective Patient is seen in follow-up for rhabdomyolysis. CK level trending down. Renal function at baseline. Hemodynamically stable. Nonoliguric. Denies vomiting or diarrhea. Vital signs are stable. General: No acute distress. HEENT: On room air. Facial trauma noted. LUNGS: No audible rhonchi or wheezes. HEART: Rate and Rhythm are regular. ABDOMEN: Nontender. EXTREMITITES: No edema. Objective - Vital Signs Vital signs: Vital Signs Temp 96.4 F L 02/17/23 07:56 Pulse 79 02/17/23 07:56 Resp 17 02/17/23 07:56 BP 156/65 02/17/23 07:56 Pulse Ox 96 02/17/23 07:56 FiO2 Intake & Output 02/16/23 02/17/23 02/17/23 18:59 06:59 18:59 Intake Total 631 180 Output Total 300 400 Balance 331 -400 180 Intake: Oral 631 180 Output: Urine 300 400 Other: Voiding Method Indwelling Catheter Indwelling Catheter # Bowel Movements 0 - Labs CBC & Chem 7: 02/16/23 08:29 02/17/23 07:29 Labs: Abnormal Lab Results - Last 24 Hours (Table) 02/17/23 Range/Units 07:29 Sodium 136 L (137-145) mmol/L BUN 25 H (9-20) mg/dL Creatinine 0.47 L (0.66-1.25) mg/dL Glucose 102 H (74-99) mg/dL Calcium 8.1 L (8.4-10.2) mg/dL AST 66 H (17-59) U/L ALT 62 H (4-49) U/L Creatine Kinase 546 H (55-170) U/L Total Protein 5.2 L (6.3-8.2) g/dL Albumin 2.7 L (3.5-5.0) g/dL Assessment and Plan Plan: Assessment: 1. Rhabdomyolysis status post fall. Was also on statin. Improved with IV hydration. GFR at baseline. 2. Chronic A. fib maintained on amiodarone. 3. Multiple falls with bruises. Anticoagulation held per cardiology. 4. Benign hypertension. Stable. Plan: Encourage oral intake. Avoid nephrotoxins.
--- NOTE | 2023-02-17 12:13 | P.PN ---
Subjective Progress Note Date: 02/17/23 The patient is an 83-year-old gentleman with a past medical history significant for permanent atrial fibrillation was maintained on oral anticoagulation as well as permanent pacemaker and known coronary artery disease was mild on heart catheterization in 2017 as well as cardiomyopathy based on echo in 2020 showing an EF around 35% with [id number] mitral regurgitation. He was brought to the emergency department after he fell at home. The patient lives by himself and he does have a person checking on him every morning and preparing his breakfast. He does have limited functional capacity and he has been walking using a walker at home. He was in his usual state of health until yesterday when he dropped something on the floor and he did bend down to pick it up and subtotally he lost his consciousness. He stated on the floor for about 24 hours still the person who was checking on him on daily basis came in the following day and found him. He stated that he felt that something is coming and he felt some warm feeling before he lost his consciousness. No pain in the chest and no heart racing or fluttering. He has been falling recently quite often but I'm not quite sure if that was associated with loss of consciousness as this time or no. When he was brought to the emergency department he was found to have extensive bruises around the right eye. Further investigation was performed including extensive x-ray and he was found to have no fractures and also he underwent an EKG and that showed atrial fibrillation with diffuse nonspecific ST and T wave abnormalities. Oral anticoagulation currently on hold at this point. He was also diagnosed with rhabdomyolysis. The troponin is within normal limits and the patient did not have any chest pain or chest discomfort. Also he underwent further investigation including carotid duplex study and that showed no evidence of high-grade stenosis 02/15 Patient is seen today in follow-up. CK is now down to 763. Creatinine 0.54. There is interrogation report in the chart but it does not have electro grams. Nursing to contact [employer] to get an in-house interrogation done on his pacemaker including electrograms. However after nursing contacted [employer], because patient's pacemaker is on conservation mode to conserve the battery life, electrograms are not able to be obtained. Echocardiogram reveals EF 40-45%, small pericardial effusion. 02/16 Reviewed pacemaker interrogation. It appears patient had a run of V. tach and there is no documentation of bradycardia. Patient had a syncopal episode most likely due to V. tach. Unfortunately no electrograms were included in the interrogation is device is at end-of-life. Patient has had no runs of V. tach on telemetry. Patient has no new concerns today. Heart rate has been in the 70s, blood pressure 114/57, pulse ox 97% on room air. Repeat blood work reveals hemoglobin 11.5. BUN 24 creatinine 0.53. AST and ALT mildly elevated. 02/17 Patient is seen today in follow-up. His heart rate has been in the 60s and 70s, blood pressure 146/65. Patient has had no episodes of bradycardia. He has also not had any episodes of ventricular tachycardia on telemetry. Repeat blood work reveals sodium 136, potassium 4.3, BUN 25 and creatinine 1.47. On examination he does have extensive ecchymosis on the right eye with irregular rhythm and systolic murmur at the apical area. No bilateral lower extremity edema. Assessment Syncopal episode most likely due to V. tach Face injury related to the syncope Recurrent falls Permanent pacemaker Permanent atrial fibrillation Mild CAD Cardiomyopathy, nonischemic Rhabdomyolysis Plan Agree about holding anticoagulation at this point Continue the current dose of beta ludy and lisinopril Continue the addition of amiodarone 200 mg twice daily empirically for possible ventricular tachycardia. There is no clear-cut explanation for his syncopal episode. Repeat interrogation of patient's AICD Continue to monitor patient closely. Patient will require battery upgrade most likely at a later time. Follow-up with the patient Nurse practitioner note has been reviewed, I agree with the documented findings and plan of care. Patient was seen and examined. Objective - Vital Signs Vital signs: Vital Signs Temp 96.4 F L 02/17/23 07:56 Pulse 79 02/17/23 07:56 Resp 17 02/17/23 07:56 BP 156/65 02/17/23 07:56 Pulse Ox 96 02/17/23 07:56 FiO2 Intake & Output 02/16/23 02/17/23 02/17/23 18:59 06:59 18:59 Intake Total 631 180 Output Total 300 400 Balance 331 -400 180 Intake: Oral 631 180 Output: Urine 300 400 Other: Voiding Method Indwelling Catheter Indwelling Catheter # Bowel Movements 0 - Labs CBC & Chem 7: 02/16/23 08:29 02/17/23 07:29 Labs: Abnormal Lab Results - Last 24 Hours (Table) 02/16/23 02/17/23 Range/Units 08:29 07:29 Sodium 136 L 136 L (137-145) mmol/L BUN 24 H 25 H (9-20) mg/dL Creatinine 0.53 L 0.47 L (0.66-1.25) mg/dL Glucose 101 H 102 H (74-99) mg/dL Calcium 7.8 L 8.1 L (8.4-10.2) mg/dL AST 69 H 66 H (17-59) U/L ALT 60 H 62 H (4-49) U/L Creatine Kinase 546 H (55-170) U/L Total Protein 5.0 L 5.2 L (6.3-8.2) g/dL Albumin 2.5 L 2.7 L (3.5-5.0) g/dL
[2023-02-17] MEDS: CHOLECALCIFEROL 25 MCG (1000 IU) TABLET PO SCH (12:58)
[2023-02-17] MEDS: TAMSULOSIN 0.4 MG CAP.ER.24H PO SCH (20:40)
[2023-02-18] MEDS ORDERED: VANCOMYCIN 1,500 MG in SODIUM CHLORIDE 0.9% 500 ML 500 ML IVPB PRN (05:00)
[2023-02-18] MEDS: SODIUM CHLORIDE 0.9% 1,000 ML IV SCH ×3 (06:41→11:37)
[2023-02-18] MEDS ORDERED: ceFAZolin 1 GM in SODIUM CHLORIDE 0.9% IRRIG BTL 250 ML IRRIGATION PRN (07:00)
[2023-02-18] MEDS: METOPROLOL SUCCINATE (ER) 25 MG TAB.ER.24H PO SCH ×2 (08:43→20:40)
[2023-02-18] MEDS: AMIODARONE 200 MG TAB PO SCH ×2 (08:43→20:40)
[2023-02-18] MEDS: HEPARIN SODIUM,PORCINE/PF 5,000 UNIT/0.5 ML SYRINGE SQ SCH ×3 (08:43→23:28)
[2023-02-18] MEDS: MULTIVITAMINS, THERA 1 EACH TAB PO SCH (08:43)
[2023-02-18] MEDS: PANTOPRAZOLE 40 MG/10 ML VIAL IVP SCH (08:43)
[2023-02-18] MEDS: ACETAMINOPHEN TAB 325 MG TAB PO PRN (08:44)
--- NOTE | 2023-02-18 08:55 | P.PN ---
Subjective Progress Note Date: 02/18/23 Principal diagnosis: Fall This is an 83-year-old male who was admitted after a fall at home. Patient was found laying on the floor by caregiver, and had been laying on the floor for around 15 hours. Patient has a history of A. fib, hyperlipidemia, and hypertension. He's maintained on normal saline. CK level has been decreasing, yesterday it was 1313. He is seen laying in bed this morning, complains of some mild pain, but overall is feeling well. 02/16/23 Patient is seen laying in bed this morning, reports he is feeling better. CK continues to trend down. Care management discussing placement for patient when he is ready for discharge. 02/18/23 CK continues to trend down. Speech therapy has been consulted. Nursing staff reports patient having a lot of coughing with his breakfast this morning. Still anticipating placement for discharge. Objective - Vital Signs Vital signs: Vital Signs Temp 97.6 F 02/18/23 04:00 Pulse 70 02/18/23 04:00 Resp 16 02/18/23 04:00 BP 126/71 02/18/23 04:00 Pulse Ox 95 02/18/23 08:30 FiO2 Intake & Output 02/17/23 02/18/23 02/18/23 18:59 06:59 18:59 Intake Total 540 180 Output Total 475 250 Balance 65 -250 180 Intake: Oral 540 180 Output: Urine 475 250 Other: Voiding Method Indwelling Catheter Indwelling Catheter # Bowel Movements 1 - Constitutional General appearance: Present: cooperative, no acute distress - EENT Eyes: Present: PERRLA - Neck Neck: Present: normal ROM. Absent: lymphadenopathy, rigidity - Respiratory Respiratory: bilateral: CTA - Cardiovascular Rhythm: irregularly irregular - Gastrointestinal General gastrointestinal: Present: soft. Absent: tenderness - Integumentary Integumentary Comment(s): Improving ecchymosis to right eye Integumentary: Present: normal, normal turgor - Musculoskeletal Musculoskeletal: Present: generalized weakness - Psychiatric Psychiatric: Present: A&O x's 3, appropriate affect, intact judgment & insight - Labs CBC & Chem 7: 02/16/23 08:29 02/17/23 07:29 Assessment and Plan (1) Rhabdomyolysis Current Visit: Yes Status: Acute Code(s): M62.82 - RHABDOMYOLYSIS SNOMED Code(s): 708665051 (2) Fall Current Visit: Yes Status: Acute Code(s): W19.XXXA - UNSPECIFIED FALL, INITIAL ENCOUNTER SNOMED Code(s): 0387355 (3) Chronic atrial fibrillation Current Visit: No Status: Acute Code(s): I48.20 - CHRONIC ATRIAL FIBRILLATION, UNSPECIFIED SNOMED Code(s): 505890445 (4) Weakness Current Visit: No Status: Acute Code(s): R53.1 - WEAKNESS SNOMED Code(s): 71872666 Plan: Check labs in the morning. Appreciate consultants recommendations. Patient seen and evaluated by nurse practitioner, physician in agreement with plan
[2023-02-18 10:15] LABS: ALT 54 U/L (4-49); AST 58 U/L (17-59); African American GFR (CKD) >90 (>60 ml/min/1.73 sqM); Albumin 2.6 g/dL (3.5-5.0); Alkaline Phosphatase 65 U/L (38-126); Anion Gap 5 mmol/L; Blood Urea Nitrogen 24 mg/dL (9-20); Calcium 8.4 mg/dL (8.4-10.2); Carbon Dioxide 26 mmol/L (22-30); Chloride 105 mmol/L (98-107); Glucose 108 mg/dL (74-99); Non-African American GFR(CKD) >90 (>60 ml/min/1.73 sqM); Sodium 136 mmol/L (137-145); Total Bilirubin 0.9 mg/dL (0.2-1.3); Total Protein 5.2 g/dL (6.3-8.2)
--- NOTE | 2023-02-18 10:16 | P.PN ---
Subjective Patient is seen in follow-up for rhabdomyolysis. CK level improved. Renal function at baseline. Hemodynamically stable. Nonoliguric. Denies vomiting or diarrhea. Vital signs are stable. General: No acute distress. HEENT: On room air. Facial trauma noted. LUNGS: No audible rhonchi or wheezes. HEART: Rate and Rhythm are regular. ABDOMEN: Nontender. EXTREMITITES: No edema. Objective - Vital Signs Vital signs: Vital Signs Temp 98.3 F 02/18/23 08:00 Pulse 72 02/18/23 08:00 Resp 17 02/18/23 08:00 BP 105/68 02/18/23 08:00 Pulse Ox 95 02/18/23 08:30 FiO2 Intake & Output 02/17/23 02/18/23 02/18/23 18:59 06:59 18:59 Intake Total 540 180 Output Total 475 250 Balance 65 -250 180 Intake: Oral 540 180 Output: Urine 475 250 Other: Voiding Method Indwelling Catheter Indwelling Catheter # Bowel Movements 1 - Labs CBC & Chem 7: 02/16/23 08:29 02/17/23 07:29 Assessment and Plan Plan: Assessment: 1. Rhabdomyolysis status post fall. Was also on statin. Improved with IV hydration. GFR at baseline. 2. Chronic A. fib maintained on amiodarone. 3. Multiple falls with bruises. Anticoagulation held per cardiology. 4. Benign hypertension. Stable. Plan: Encourage oral intake. Avoid nephrotoxins. No changes from nephrology standpoint.
[2023-02-18 10:31] LABS: HCT 35.3 % (39.0-53.0); MCH 34.8 pg (25.0-35.0); MCHC 34.1 g/dL (31.0-37.0); MCV 102.1 fL (80.0-100.0); Macrocytosis Slight; Mean Platelet Volume 10.7; Platelet Count 207 k/uL (150-450); RBC 3.46 m/uL (4.30-5.90); RDW 12.5 % (11.5-15.5); WBC 7.9 k/uL (3.8-10.6)
[2023-02-18 10:32] LABS: Potassium 4.6 mmol/L (3.5-5.1)
[2023-02-18] MEDS: polyethylene glycoL 3350 17 GM POWD.PACK PO SCH (10:46)
--- NOTE | 2023-02-18 11:46 | P.PN ---
Subjective Progress Note Date: 02/18/23 The patient is an 83-year-old gentleman with a past medical history significant for permanent atrial fibrillation was maintained on oral anticoagulation as well as permanent pacemaker and known coronary artery disease was mild on heart catheterization in 2017 as well as cardiomyopathy based on echo in 2020 showing an EF around 35% with [id number] mitral regurgitation. He was brought to the emergency department after he fell at home. The patient lives by himself and he does have a person checking on him every morning and preparing his breakfast. He does have limited functional capacity and he has been walking using a walker at home. He was in his usual state of health until yesterday when he dropped something on the floor and he did bend down to pick it up and subtotally he lost his consciousness. He stated on the floor for about 24 hours still the person who was checking on him on daily basis came in the following day and found him. He stated that he felt that something is coming and he felt some warm feeling before he lost his consciousness. No pain in the chest and no heart racing or fluttering. He has been falling recently quite often but I'm not quite sure if that was associated with loss of consciousness as this time or no. When he was brought to the emergency department he was found to have extensive bruises around the right eye. Further investigation was performed including extensive x-ray and he was found to have no fractures and also he underwent an EKG and that showed atrial fibrillation with diffuse nonspecific ST and T wave abnormalities. Oral anticoagulation currently on hold at this point. He was also diagnosed with rhabdomyolysis. The troponin is within normal limits and the patient did not have any chest pain or chest discomfort. Also he underwent further investigation including carotid duplex study and that showed no evidence of high-grade stenosis 02/15 Patient is seen today in follow-up. CK is now down to 763. Creatinine 0.54. There is interrogation report in the chart but it does not have electro grams. Nursing to contact [employer] to get an in-house interrogation done on his pacemaker including electrograms. However after nursing contacted [employer], because patient's pacemaker is on conservation mode to conserve the battery life, electrograms are not able to be obtained. Echocardiogram reveals EF 40-45%, small pericardial effusion. 02/16 Reviewed pacemaker interrogation. It appears patient had a run of V. tach and there is no documentation of bradycardia. Patient had a syncopal episode most likely due to V. tach. Unfortunately no electrograms were included in the interrogation is device is at end-of-life. Patient has had no runs of V. tach on telemetry. Patient has no new concerns today. Heart rate has been in the 70s, blood pressure 114/57, pulse ox 97% on room air. Repeat blood work reveals hemoglobin 11.5. BUN 24 creatinine 0.53. AST and ALT mildly elevated. 02/17 Patient is seen today in follow-up. His heart rate has been in the 60s and 70s, blood pressure 146/65. Patient has had no episodes of bradycardia. He has also not had any episodes of ventricular tachycardia on telemetry. Repeat blood work reveals sodium 136, potassium 4.3, BUN 25 and creatinine 1.47. 02/18 Patient is seen today in follow-up. A repeat interrogation of his AICD was completed yesterday which revealed same findings as before with end of life battery. Discussed change of battery with the patient and his daughter was called and discussed over the phone. She is in agreement to move forward. Patient will be scheduled tomorrow for generator change 1 dose of IV vancomycin ordered for tomorrow morning. On examination he does have extensive ecchymosis on the right eye with irregular rhythm and systolic murmur at the apical area. No bilateral lower extremity edema. Assessment Syncopal episode most likely due to V. tach Face injury related to the syncope Recurrent falls Permanent pacemaker Permanent atrial fibrillation Mild CAD Cardiomyopathy, nonischemic Rhabdomyolysis Plan Agree about holding anticoagulation at this point Continue the current dose of beta ludy and lisinopril Continue the addition of amiodarone 200 mg twice daily empirically for possible ventricular tachycardia. There is no clear-cut explanation for his syncopal episode. Schedule patient for AICD generator change tomorrow with Dr. Estrada Follow-up with the patient Nurse practitioner note has been reviewed, I agree with the documented findings and plan of care. Patient was seen and examined. Objective - Vital Signs Vital signs: Vital Signs Temp 97.6 F 02/18/23 04:00 Pulse 70 02/18/23 04:00 Resp 16 02/18/23 04:00 BP 126/71 02/18/23 04:00 Pulse Ox 95 02/18/23 08:30 FiO2 Intake & Output 02/17/23 02/18/23 02/18/23 18:59 06:59 18:59 Intake Total 540 180 Output Total 475 250 Balance 65 -250 180 Intake: Oral 540 180 Output: Urine 475 250 Other: Voiding Method Indwelling Catheter Indwelling Catheter # Bowel Movements 1 - Labs CBC & Chem 7: 02/18/23 09:16 02/18/23 08:26
[2023-02-18] MEDS: CHOLECALCIFEROL 25 MCG (1000 IU) TABLET PO SCH (11:50)
[2023-02-18 15:47] VITALS: BMI 27.8
--- NOTE | 2023-02-18 15:57 | FL ---
EXAMINATION TYPE: FL barium swallow w video DATE OF EXAM: 02/18/2023 CLINICAL HISTORY: 83-year-old male with fall, previous stroke, gurgling at the bedside, rule out aspi ration TECHNIQUE: Deglutition study is performed utilizing thin liquid barium, honey and nectar thick liqui d barium, barium thick applesauce, and barium coated cracker. Total fluoroscopy time: 2 minutes 7 seconds. Total images: None. Real-time fluoroscopy support was provided to speech pathology. DOSE AREA PRODUCT (DAP) UGY*M,MGY*CM: 148.81 COMPARISON: None. FINDINGS: There is initial absent epiglottic inversion and posterior pharyngeal peristalsis. However, this impr rocky as the study progresses. We note penetration with nectar liquid consistency. No other penetratio n or aspiration is seen. Progressive vallecular and piriform sinus residuals are noted. IMPRESSION: Penetration with nectar liquid. Progressive residuals. No aspiration seen. Note findings above regard ing the gradual improvement during the course of the study. Please refer to speech therapist notes f or further details if necessary.
[2023-02-18] MEDS: TAMSULOSIN 0.4 MG CAP.ER.24H PO SCH (20:40)
[2023-02-19] MEDS: SODIUM CHLORIDE 0.9% 1,000 ML IV SCH ×3 (02:31)
[2023-02-19] MEDS ORDERED: VANCOMYCIN 1,500 MG in SODIUM CHLORIDE 0.9% 500 ML 500 ML IVPB PRN ×2 (04:00→05:00)
[2023-02-19] MEDS: AMIODARONE 200 MG TAB PO SCH ×2 (04:32→20:19)
[2023-02-19] MEDS: methIMAzole 5 MG TAB PO SCH (04:32)
[2023-02-19] MEDS: MULTIVITAMINS, THERA 1 EACH TAB PO SCH (04:32)
[2023-02-19] MEDS: METOPROLOL SUCCINATE (ER) 25 MG TAB.ER.24H PO SCH ×2 (04:32→20:19)
[2023-02-19] MEDS: polyethylene glycoL 3350 17 GM POWD.PACK PO SCH (04:32)
[2023-02-19] MEDS: PANTOPRAZOLE 40 MG/10 ML VIAL IVP SCH (04:32)
[2023-02-19] MEDS ORDERED: VANCOMYCIN 1,400 MG in SODIUM CHLORIDE 0.9% 250 ML IVPB ONE (05:00)
[2023-02-19] MEDS: HEPARIN SODIUM,PORCINE/PF 5,000 UNIT/0.5 ML SYRINGE SQ SCH ×2 (06:19→14:36)
[2023-02-19] MEDS ORDERED: IV FLUID CONTINUATION 1,000 ML IV ONE (07:27)
[2023-02-19] MEDS ORDERED: MIDAZOLAM 2 MG/2 ML VIAL IV ONE (07:36)
[2023-02-19] MEDS ORDERED: LIDOCAINE 1% INJ 10MG/ML (30 ML VIAL-PF) SQ ONE ×2 (07:37→07:48)
[2023-02-19] MEDS ORDERED: LIDOCAINE 1% INJ 10MG/ML (20 ML MDV) ONE (07:45)
--- NOTE | 2023-02-19 08:10 | P.EPPROC ---
- EP Procedure Note Electrophysiology Procedure Note: Patient underwent EP procedure under conscious sedation/moderate sedation, monitoring of the level of consciousness and physiologic parameters including but not limited to vital signs and oxygenation. Patient tolerated the procedure well without any acute complications. Start time: 736 Stop time: 800 Cinefluoroscopy Lead cinefluoroscopy was performed. Atrial lead, screw-in right atrial appendage, no fractures or breaks RV lead in the RV apex active fix no fractures or breaks Diagnosis Symptomatic bradycardia, status post dual-chamber pacemaker Pacemaker generator at [facility] Procedure Dual-chamber pacemaker generator explant followed by implantation of a new [employer] pacemaker Details Patient was brought to the EP lab in a fasting state. Written informed consent was obtained prior to the procedure. Conscious sedation provided. IV antibiotics administered. Local anesthesia administered. A 4 cm incision made in the pectoral area. Subfascial pocket made. Partial capsulectomy performed Antibiotic pouch inserted Atrial lead position the right atrial appendage. Stable impedances RV pacing threshold 1.25 also 0.5 ms, P waves 3.3 mV pacing impedance 490 ohms Device [employer] specialist [employer], [employer] 2272 pacemaker Dual-chamber pacemaker device connected to the leads and placed in the subfascial pocket Patient tolerated the procedure well without acute complications Pacemaker programming 60 PPM, VVI
--- NOTE | 2023-02-19 08:21 | P.PN ---
Subjective Principal diagnosis: Status post fall. Concussion The patient is slowly improving but balance is still somewhat off I suspect concussion elements. The family is concerned about his right upper extremity edema, I do suspect this is more related to the trauma. Ultrasound shows negative DVT. Speech and swallowing study were positive neurology is not consulted. Objective - Vital Signs Vital signs: Vital Signs Temp 97.9 F 02/19/23 04:00 Pulse 70 02/19/23 04:00 Resp 20 02/19/23 02:00 BP 160/85 02/19/23 04:00 Pulse Ox 97 02/19/23 04:00 FiO2 Intake & Output 02/18/23 02/19/23 02/19/23 18:59 06:59 18:59 Intake Total 380 150 Output Total 250 750 Balance 130 -750 150 Weight 92.986 kg 92.986 kg Intake: IV 150 Intake, IV Titration 200 Amount ceFAZolin 2 gm In Sodium 200 Chloride 0.9% 50 ml @ 100 mls/hr IVPB ONCE PRN Rx# :[id number] Oral 180 Output: Urine 250 750 Other: Voiding Method Indwelling Catheter Indwelling Catheter # Bowel Movements 1 - Constitutional General appearance: Present: cooperative - EENT Eyes: Absent: abnormal pupil - Neck Neck: Absent: lymphadenopathy - Respiratory Respiratory: bilateral: diminished - Cardiovascular Rhythm: regular Heart sounds: normal: S1, S2 Abnormal Heart Sounds: Absent: S3 Gallop - Gastrointestinal General gastrointestinal: Present: soft. Absent: tenderness - Musculoskeletal Musculoskeletal: Present: generalized weakness - Labs CBC & Chem 7: 02/18/23 09:16 02/18/23 08:26 Labs: Abnormal Lab Results - Last 24 Hours (Table) 02/18/23 02/18/23 Range/Units 08:26 09:16 RBC 3.46 L (4.30-5.90) m/uL Hgb 12.0 L (13.0-17.5) gm/dL Hct 35.3 L (39.0-53.0) % MCV 102.1 H (80.0-100.0) fL Sodium 136 L (137-145) mmol/L BUN 24 H (9-20) mg/dL Creatinine 0.53 L (0.66-1.25) mg/dL Glucose 108 H (74-99) mg/dL ALT 54 H (4-49) U/L Total Protein 5.2 L (6.3-8.2) g/dL Albumin 2.6 L (3.5-5.0) g/dL Assessment and Plan (1) Abrasions of multiple sites Current Visit: Yes Status: Acute Code(s): T07.XXXA - UNSPECIFIED MULTIPLE INJURIES, INITIAL ENCOUNTER SNOMED Code(s): 278425604 (2) Concussion Current Visit: Yes Status: Acute Code(s): S06.0XAA - CONCUSSION WITH LOC STATUS UNKNOWN, INITIAL ENCOUNTER SNOMED Code(s): 339160030 (3) Fall Current Visit: Yes Status: Acute Code(s): W19.XXXA - UNSPECIFIED FALL, INITIAL ENCOUNTER SNOMED Code(s): 5192928 (4) Forehead laceration Current Visit: Yes Status: Acute Code(s): S01.81XA - LACERATION W/O FOREIGN BODY OF OTH PART OF HEAD, INIT ENCNTR SNOMED Code(s): 510970357 (5) Rhabdomyolysis Current Visit: Yes Status: Acute Code(s): M62.82 - RHABDOMYOLYSIS SNOMED Code(s): 816238227 (6) Chronic atrial fibrillation Current Visit: No Status: Acute Code(s): I48.20 - CHRONIC ATRIAL FIBRILLATION, UNSPECIFIED SNOMED Code(s): 003505361 (7) Weakness Current Visit: No Status: Acute Code(s): R53.1 - WEAKNESS SNOMED Code(s): 01198665 (8) Dysphagia Current Visit: Yes Status: Acute Code(s): R13.10 - DYSPHAGIA, UNSPECIFIED SNOMED Code(s): 56393575 Plan: Continue therapy and increasing mobility. Continue to follow. Check CBC and CMP in a.m. Neurology. Appreciate speech input. We'll continue to follow. [facility] covering for the weekend.
[2023-02-19] MEDS ORDERED: ACETAMINOPHEN TAB 325 MG TAB PO PRN (08:40)
[2023-02-19] MEDS ORDERED: hydrALAZINE HCL 20 MG/ML 1 ML VIAL IVP PRN (10:44)
--- NOTE | 2023-02-19 10:45 | P.PN ---
Subjective Patient is seen in follow-up for rhabdomyolysis. CK level improved. Renal function at baseline. Nonoliguric. Denies vomiting or diarrhea. Vital signs are stable. General: No acute distress. HEENT: On room air. Facial trauma noted. LUNGS: No audible rhonchi or wheezes. HEART: Rate and Rhythm are regular. ABDOMEN: Nontender. EXTREMITITES: No edema. Objective - Vital Signs Vital signs: Vital Signs Temp 97.9 F 02/19/23 04:00 Pulse 70 02/19/23 04:00 Resp 20 02/19/23 02:00 BP 160/85 02/19/23 04:00 Pulse Ox 96 02/19/23 08:31 FiO2 Intake & Output 02/18/23 02/19/23 02/19/23 18:59 06:59 18:59 Intake Total 380 150 Output Total 250 750 Balance 130 -750 150 Weight 92.986 kg 92.986 kg Intake: IV 150 Intake, IV Titration 200 Amount ceFAZolin 2 gm In Sodium 200 Chloride 0.9% 50 ml @ 100 mls/hr IVPB ONCE PRN Rx# :[id number] Oral 180 Output: Urine 250 750 Other: Voiding Method Indwelling Catheter Indwelling Catheter # Bowel Movements 1 - Labs CBC & Chem 7: 02/18/23 09:16 02/18/23 08:26 Assessment and Plan Plan: Assessment: 1. Rhabdomyolysis status post fall. Was also on statin. Improved with IV hydration. GFR at baseline. 2. Chronic A. fib maintained on amiodarone. 3. Multiple falls with bruises. Anticoagulation held per cardiology. 4. Benign hypertension. Plan: Encourage oral intake. Avoid nephrotoxins. May increase dose of lisinopril if blood pressure staying consistently above 140/90. Add when necessary hydralazine for now. Okay to DC Mustafa catheter from nephrology standpoint.
--- NOTE | 2023-02-19 11:13 | P.PN ---
Subjective Progress Note Date: 02/19/23 The patient is an 83-year-old gentleman with a past medical history significant for permanent atrial fibrillation was maintained on oral anticoagulation as well as permanent pacemaker and known coronary artery disease was mild on heart catheterization in 2017 as well as cardiomyopathy based on echo in 2020 showing an EF around 35% with [id number] mitral regurgitation. He was brought to the emergency department after he fell at home. The patient lives by himself and he does have a person checking on him every morning and preparing his breakfast. He does have limited functional capacity and he has been walking using a walker at home. He was in his usual state of health until yesterday when he dropped something on the floor and he did bend down to pick it up and subtotally he lost his consciousness. He stated on the floor for about 24 hours still the person who was checking on him on daily basis came in the following day and found him. He stated that he felt that something is coming and he felt some warm feeling before he lost his consciousness. No pain in the chest and no heart racing or fluttering. He has been falling recently quite often but I'm not quite sure if that was associated with loss of consciousness as this time or no. When he was brought to the emergency department he was found to have extensive bruises around the right eye. Further investigation was performed including extensive x-ray and he was found to have no fractures and also he underwent an EKG and that showed atrial fibrillation with diffuse nonspecific ST and T wave abnormalities. Oral anticoagulation currently on hold at this point. He was also diagnosed with rhabdomyolysis. The troponin is within normal limits and the patient did not have any chest pain or chest discomfort. Also he underwent further investigation including carotid duplex study and that showed no evidence of high-grade stenosis 02/15 Patient is seen today in follow-up. CK is now down to 763. Creatinine 0.54. There is interrogation report in the chart but it does not have electro grams. Nursing to contact [employer] to get an in-house interrogation done on his pacemaker including electrograms. However after nursing contacted [employer], because patient's pacemaker is on conservation mode to conserve the battery life, electrograms are not able to be obtained. Echocardiogram reveals EF 40-45%, small pericardial effusion. 02/16 Reviewed pacemaker interrogation. It appears patient had a run of V. tach and there is no documentation of bradycardia. Patient had a syncopal episode most likely due to V. tach. Unfortunately no electrograms were included in the interrogation is device is at end-of-life. Patient has had no runs of V. tach on telemetry. Patient has no new concerns today. Heart rate has been in the 70s, blood pressure 114/57, pulse ox 97% on room air. Repeat blood work reveals hemoglobin 11.5. BUN 24 creatinine 0.53. AST and ALT mildly elevated. 02/17 Patient is seen today in follow-up. His heart rate has been in the 60s and 70s, blood pressure 146/65. Patient has had no episodes of bradycardia. He has also not had any episodes of ventricular tachycardia on telemetry. Repeat blood work reveals sodium 136, potassium 4.3, BUN 25 and creatinine 1.47. 02/18 Patient is seen today in follow-up. A repeat interrogation of his AICD was completed yesterday which revealed same findings as before with end of life battery. Discussed change of battery with the patient and his daughter was called and discussed over the phone. She is in agreement to move forward. Patient will be scheduled tomorrow for generator change 1 dose of IV vancomycin ordered for tomorrow morning. 02/19 This morning, patient underwent dual-chamber pacemaker generator change. Patient is seen on the cardiac stepdown unit. He denies having any chest pain, shortness of breath, palpitations. Patient has multiple medical issues. He has failed the modified barium swallow and neurology is on consult for possible Parkinson's. Patient's blood pressures been stable 128/80, heart rate in the 70s. IV antibiotics order for post procedure. Plan to follow-up with the patient tomorrow On examination he does have extensive ecchymosis on the right eye with irregular rhythm and systolic murmur at the apical area. No bilateral lower extremity edema. Assessment Syncopal episode most likely due to V. tach Face injury related to the syncope Recurrent falls Permanent pacemaker at end of life, status post generator change 02/19 Permanent atrial fibrillation Mild CAD Cardiomyopathy, nonischemic Rhabdomyolysis Plan Agree about holding anticoagulation at this point Continue current cardiac medications including the addition of amiodarone 200 mg twice daily empirically for possible ventricular tachycardia. There is no clear-cut explanation for his syncopal episode. Follow-up with the patient Nurse practitioner note has been reviewed, I agree with the documented findings and plan of care. Patient was seen and examined. Objective - Vital Signs Vital signs: Vital Signs Temp 97.9 F 02/19/23 04:00 Pulse 70 02/19/23 04:00 Resp 20 02/19/23 02:00 BP 160/85 02/19/23 04:00 Pulse Ox 96 02/19/23 08:31 FiO2 Intake & Output 02/18/23 02/19/23 02/19/23 18:59 06:59 18:59 Intake Total 380 150 Output Total 250 750 Balance 130 -750 150 Weight 92.986 kg 92.986 kg Intake: IV 150 Intake, IV Titration 200 Amount ceFAZolin 2 gm In Sodium 200 Chloride 0.9% 50 ml @ 100 mls/hr IVPB ONCE PRN Rx# :[id number] Oral 180 Output: Urine 250 750 Other: Voiding Method Indwelling Catheter Indwelling Catheter # Bowel Movements 1 - Labs CBC & Chem 7: 02/18/23 09:16 02/18/23 08:26 Labs: Abnormal Lab Results - Last 24 Hours (Table) 02/18/23 02/18/23 Range/Units 08:26 09:16 RBC 3.46 L (4.30-5.90) m/uL Hgb 12.0 L (13.0-17.5) gm/dL Hct 35.3 L (39.0-53.0) % MCV 102.1 H (80.0-100.0) fL Sodium 136 L (137-145) mmol/L BUN 24 H (9-20) mg/dL Creatinine 0.53 L (0.66-1.25) mg/dL Glucose 108 H (74-99) mg/dL ALT 54 H (4-49) U/L Total Protein 5.2 L (6.3-8.2) g/dL Albumin 2.6 L (3.5-5.0) g/dL
[2023-02-19 12:02] LABS: HCT 35.7 % (39.0-53.0); HGB 12.1 gm/dL (13.0-17.5); MCH 34.9 pg (25.0-35.0); MCV 102.9 fL (80.0-100.0); Macrocytosis Slight; Mean Platelet Volume 8.2; Platelet Count 183 k/uL (150-450); RBC 3.47 m/uL (4.30-5.90); RDW 12.6 % (11.5-15.5); WBC 8.1 k/uL (3.8-10.6)
--- NOTE | 2023-02-19 12:15 | P.CNNES ---
History of Present Illness Consult date: 02/19/23 Requesting physician: Gaudencio Spangler Reason for Consult: displaying ?parkinsons symptoms. Failed swallow eval History of Present Illness: This is an 83-year-old gentleman with history of stroke, atrial fibrillation on Xarelto, pacemaker, hypothyroidism, sleep apnea on BiPAP hypertension, hyperlipidemia who presented emergency department because on 02/12/2023 because of fall. Neurology is consulted for concern for ?Parkinson's feature. Some of the history was obtained from the patient nurse as well as medical record that. Patient stated that he is progressively having the worsening of his speech but not tell me the time frame. It seems at home he uses a walker and he went to the and was kneeling down to pickling drum operator something and he stated that she just passed out. Denies any history of seizures. As a result he had his head.. It seems that his music promoter last seen him at [facility] and the is seems that been happeni ng at 5:30 PM and in the morning that the music promoter next day found on the floor with little blue blood around him according to the ED note. Patient states she had remote falls in the past and has not had any recent fall until recently. He sometimes not does not use a walker at home and he resides by himself but has a music promoter. Per the nurse was notified that the some family members thought he had some mild tremors of the right upper extremity and that he failed a swallow evaluation by speech therapist and there is a concern for Parkinson's disease. Today he had his pacemaker battery change step. Some of the workup during his hospital visit assisted off: Initial CK level was 3K and currently is 546 last checked was 2 days ago. Initial plasma lactic acid the vein is 2.9 repeated is normal. Urine toxicology screen is not detected and serum alcohol was less than 10. CT of the head is reported as right frontal scalp contusion. No underlying the calvarial fracture or acute intracranial abnormality. Old infarct in the lateral posterior right frontal lobe. CT cervical spine is reported as there is a prevertebral soft tissue edema. In addition be noted that the presence of some generalized soft tissue swelling throughout the neck more on the right. While there is degenerative disc space narrowing throughout there is either maintain versus widened at the space at C4- C5. Given the soft tissue swelling and prevertebral edema, for the possibility of distraction injury of the neck. There is no malalignment or acute fracture as seen of the cervical spine. Correlate as to the if MRI is needed Carotid duplex was reported as less than 50% stenosis bilateral carotid bifurcation. 2-D echo was reported as mildly impaired left ventricular function with ejection fraction of 40-45%. Small pericardial effusion. Review of Systems Review of system: The 12 point system was reviewed and apparent positive and negative per HPI. Past Medical History Past Medical History: Atrial Fibrillation, Chest Pain / Angina, CVA/TIA, Hyperlipidemia, Hypertension, Osteoarthritis (OA), Prostate Disorder, Sleep Apnea/CPAP/BIPAP, Thyroid Disorder Additional Past Medical History / Comment(s): CVA-no residual effects, hx kidney stones, no cpap used, back pain, History of Any Multi-Drug Resistant Organisms: None Reported Past Surgical History: Cardiac Ablation, Heart Catheterization, Hernia Repair, Pacemaker, Tonsillectomy Additional Past Surgical History / Comment(s): hydrocele, lithotripsy, paola cataracts, eye lid surgery, repair torn retina left eye, Past Anesthesia/Blood Transfusion Reactions: Motion Sickness Type of Cardiac Device: Permanent Pacemaker Device Placement Date:: 10/21/2011 Past Psychological History: Anxiety, Depression Smoking Status: Never smoker Past Alcohol Use History: None Reported Past Drug Use History: None Reported - Past Family History Mother Family Medical History: Cancer, Pulmonary Embolus Medications and Allergies Home Medications Medication Instructions Recorded Confirmed Type Rivaroxaban [Xarelto] 20 mg PO DAILY@1200 02/17/17 02/12/23 History Simvastatin [Zocor] 20 mg PO HS 02/17/17 02/12/23 History Tamsulosin HCl [Flomax] 0.8 mg PO HS 02/17/17 02/12/23 History methIMAzole [Tapazole] 2.5 mg PO Q48H 02/17/17 02/12/23 History Metoprolol Succinate [Toprol XL] 25 mg PO BID 06/09/18 02/12/23 History Acetaminophen [Tylenol] 1,000 mg PO BID PRN 08/14/20 02/12/23 History polyethylene glycoL 3350 [Miralax] 17 gm PO DAILY 11/02/20 02/12/23 History Cholecalciferol [Vitamin D3 (25 50 mcg PO DAILY@1200 05/21/21 02/12/23 History Mcg = 1000 Iu)] Docusate [Colace] 100 mg PO Q3D PRN 05/21/21 02/12/23 History Furosemide [Lasix] 20 mg PO Q48H 02/12/23 02/12/23 History Multivit-Min/FA/Lycopen/Lutein 1 tab PO DAILY 02/12/23 02/12/23 History [Centrum Silver Men Tablet] Potassium Chloride ER [K-Dur 10] 20 meq PO Q48H 02/12/23 02/12/23 History lisinopriL [Zestril] 2.5 mg PO DAILY 02/12/23 02/12/23 History Allergies Allergy/AdvReac Type Severity Reaction Status Date / Time No Known Allergies Allergy Verified 02/12/23 12:14 Physical Examination - Vital Signs Vital Signs: Vital Signs Temp Pulse Pulse Resp BP Pulse Ox 02/19/23 11:45 98.0 F 68 140/85 99 02/19/23 09:00 77 128/80 98 02/19/23 08:49 97.9 F 91 125/67 96 02/19/23 08:31 96 02/19/23 04:00 97.9 F 70 160/85 97 02/19/23 02:00 66 68 20 02/18/23 23:44 98.1 F 68 20 154/90 98 02/18/23 20:00 98.3 F 72 20 155/72 95 02/18/23 15:55 98.1 F 76 16 144/79 97 02/18/23 12:00 97.8 F 76 18 127/83 97 Intake and Output 02/18/23 02/19/23 02/19/23 22:59 06:59 14:59 Intake Total 150 Output Total 750 Balance -750 150 Intake: IV 150 Output: Urine 750 Other: Voiding Method Indwelling Catheter Indwelling Catheter Weight 92.986 kg 92.986 kg GENERAL: The patient is lying in bed and is not in acute distress. HENT: Has bruise on right side of face from fall. INTEGUMENTARY: Has bruise over the right upper extremity and lowers. NEUROLOGICAL: Higher mental function: The patient is awake, alert, oriented to self, place and time. Patient is following commands. No aphasia and no neglect. Cranial nerves: The pupils are round, equal and reactive to light. Visual rai are full to confrontation throughout. Extraocular movement is intact no nystagmus is noted. Facial sensation is normal to touch throughout. The facial strength is normal throughout. Hearing is severely decreased bilaterally to hand rub. Tongue is midline and moved [id number] without any difficulty. No dysarthria is noted. Shoulder shrug is normal bilaterally. Motor: Gait is unable to assess because of diffuse pain. The strength is limited in assessment but is lifting bilateral uppers and lowers above gravity. Normal tone and bulk. No resting tremor. Cerebellum: Normal finger to nose bilaterally. Sensation: Sensation is normal to touch throughout. Reflexes (right/left): Deferred because of his pain. Plantars are mute bilaterally. Results - Laboratory Findings CBC and BMP: 02/18/23 09:16 02/18/23 08:26 Abnormal Lab Findings: Abnormal Labs 02/12/23 02/12/23 02/12/23 10:13 10:24 10:24 WBC 16.5 H RBC Hgb Hct MCV 101.3 H MCH Plt Count Neutrophils # 15.2 H Lymphocytes # 0.4 L INR 1.2 H Sodium Potassium Carbon Dioxide BUN Creatinine Glucose POC Glucose (mg/dL) 138 H Plasma Lactic Acid Tera Calcium AST ALT Creatine Kinase Total Protein Albumin 02/12/23 02/12/23 02/13/23 10:24 10:55 07:18 WBC 10.8 H RBC 3.83 L Hgb 12.8 L Hct 38.7 L MCV 101.1 H MCH Plt Count Neutrophils # 9.5 H Lymphocytes # 0.4 L INR Sodium Potassium 5.2 H Carbon Dioxide BUN 39 H Creatinine 0.60 L Glucose 144 H POC Glucose (mg/dL) Plasma Lactic Acid Tera 2.9 H* Calcium AST 78 H ALT Creatine Kinase 3022 H* Total Protein Albumin 02/13/23 02/14/23 02/14/23 07:18 07:48 07:48 WBC RBC 3.36 L Hgb 11.6 L Hct 34.7 L MCV 103.3 H MCH Plt Count 137 L Neutrophils # Lymphocytes # 0.6 L INR Sodium 134 L 133 L Potassium Carbon Dioxide 31 H BUN 33 H 29 H Creatinine 0.52 L 0.48 L Glucose 119 H 100 H POC Glucose (mg/dL) Plasma Lactic Acid Tera Calcium 8.3 L 7.9 L AST 123 H 99 H ALT Creatine Kinase 3171 H* 1313 H* Total Protein 5.3 L 5.2 L Albumin 2.9 L 2.6 L 02/15/23 02/15/23 02/16/23 07:46 07:46 08:29 WBC RBC 3.22 L 3.21 L Hgb 11.1 L 11.5 L Hct 33.6 L 33.0 L MCV 104.2 H 102.9 H MCH 35.9 H Plt Count 138 L Neutrophils # Lymphocytes # 0.5 L INR Sodium 135 L Potassium Carbon Dioxide BUN 25 H Creatinine 0.54 L Glucose 100 H POC Glucose (mg/dL) Plasma Lactic Acid Tera Calcium 7.8 L AST 79 H ALT 60 H Creatine Kinase 763 H Total Protein 5.0 L Albumin 2.6 L 02/16/23 02/17/23 02/18/23 08:29 07:29 08:26 WBC RBC Hgb Hct MCV MCH Plt Count Neutrophils # Lymphocytes # INR Sodium 136 L 136 L 136 L Potassium Carbon Dioxide BUN 24 H 25 H 24 H Creatinine 0.53 L 0.47 L 0.53 L Glucose 101 H 102 H 108 H POC Glucose (mg/dL) Plasma Lactic Acid Tera Calcium 7.8 L 8.1 L AST 69 H 66 H ALT 60 H 62 H 54 H Creatine Kinase 546 H Total Protein 5.0 L 5.2 L 5.2 L Albumin 2.5 L 2.7 L 2.6 L 02/18/23 09:16 WBC RBC 3.46 L Hgb 12.0 L Hct 35.3 L MCV 102.1 H MCH Plt Count Neutrophils # Lymphocytes # INR Sodium Potassium Carbon Dioxide BUN Creatinine Glucose POC Glucose (mg/dL) Plasma Lactic Acid Tera Calcium AST ALT Creatine Kinase Total Protein Albumin Assessment and Plan Assessment: This is an 83-year-old gentleman who presented to our facility on 02/12/2023 since he was found down on the floor by his caregiver and last normal state was on 02/11/2023. Patient stated that he went down to pickling drum operator something and he just passed out. No history of seizures. She has been having progressively worsening of dysarthria and unknown timeframe There is a concern that the patient had the right upper extremity tremor. Reported tremor of the right upper extremity with progressive dysarthria: Unk nown exact cause but one of the consideration is Parkinson's. On examination he had no tremor or increased tone. Rule out any other causes Recent fall and unknown cause: Possible due to above vs cardiac in origin Rhabdomyolysis due to a fall--resolved History of right frontal stroke History of atrial fibrillation on pacemaker and has pacemaker and he had his battery changed today. Hypertension Systolic heart failure with ejection fraction of 40-45% Hyperlipidemia Hypotelorism Sleep apnea on BiPAP Plan: I ordered MRI of the brain and cervical spine but I was notified by radiology team cannot be performed since the patient has a pacemaker. Recommend MRI as an outpatient. I ordered a repeat CT of the head as well as I'll get repeat CT cervical spine. Ordered routine EEG to rule out any underlying seizure or discharges Ordered TSH, folate, myoglobin, vitamin B12. If workup is negative consider acetylcholine receptor antibody to rule out underlying myasthenia gravis causing his dysarthria is progressive. He denies of any ptosis or any worsening weakness which seems slow on the differential. Again on examination he did not have any resting tremor that was able to appreciate. Ordered orthostatic vitals but will not be performed until the patient is more stable per the nurse. PT OT and CUT OFF SAW OPERATOR PIPE BLANKS are consulted Cardiology is on board. For Parag venus is seems the life science technician are numb on amiodarone and they held the his home on Xarelto. If he continues to have further falls the risk of a bleed with antibiotic while patient is a higher and we'll defer that decision to the primary cardiology team We'll defer the rest of the medical management to the primary team DVT prophylaxis he is on subcu heparin. The plan discussed with the patient and his nurse. Thank you for the consultation. Time with Patient: Greater than 30
[2023-02-19 12:18] LABS: ALT 46 U/L (4-49); AST 43 U/L (17-59); African American GFR (CKD) >90 (>60 ml/min/1.73 sqM); Albumin 2.7 g/dL (3.5-5.0); Alkaline Phosphatase 75 U/L (38-126); Anion Gap 5 mmol/L; Blood Urea Nitrogen 18 mg/dL (9-20); Calcium 8.2 mg/dL (8.4-10.2); Carbon Dioxide 27 mmol/L (22-30); Chloride 102 mmol/L (98-107); Creatine Kinase 300 U/L (55-170); Glucose 87 mg/dL (74-99); Non-African American GFR(CKD) >90 (>60 ml/min/1.73 sqM); Potassium 4.1 mmol/L (3.5-5.1); Sodium 134 mmol/L (137-145); Total Protein 5.3 g/dL (6.3-8.2)
--- NOTE | 2023-02-19 12:41 | CT ---
EXAMINATION TYPE: CT brain wo con DATE OF EXAM: 02/19/2023 COMPARISON: 02/12/2023, 05/21/2021 HISTORY: Dysarthria stroke. CT DLP: 1127.2 mGycm Automated exposure control for dose reduction was used. FINDINGS: There is mild generalized degenerative change with area of encephalomalacia involving the right parie dylan lobe which is stable and compatible with remote is There is no evidence of acute hemorrhage, midline shift or mass effect. Low attenuation in the posterior limb of the internal capsule and basal ganglia bilaterally is stable from recent exam of indeterminate age ischemia. Orbits are symmetric. Calvarium intact. Sinuses clear. Sella turcica is normal. Artifact does limit a ssessment of the posterior fossa. Intracranial atherosclerotic changes. IMPRESSION: DEGENERATIVE AND REMOTE ISCHEMIC CHANGE WITH NO DIAGNOSTIC EVIDENCE OF ACUTE HEMORRHAGE OR MASS EFFEC T.
[2023-02-19] MEDS: CHOLECALCIFEROL 25 MCG (1000 IU) TABLET PO SCH (14:28)
--- NOTE | 2023-02-19 15:37 | CT ---
EXAMINATION TYPE: CT cervical spine wo con DATE OF EXAM: 02/19/2023 COMPARISON: 02/12/2023 HISTORY: 83-year-old male fall, edema on initial CT. Pain. TECHNIQUE: Contiguous axial scanning of the cervical spine without IV contrast. Coronal and sagittal reconstructions performed. CT DLP: 614.40 mGycm Automated exposure control for dose reduction was used. FINDINGS: New subcutaneous emphysema at the left supraclavicular region and anterior left shoulder, left chest region. Correlate as to etiology. The previous asymmetric soft tissue swelling along the right side of the neck and prevertebral soft t issue edema have both resolved. Otherwise, moderate to advanced spondylotic change throughout the similar. Some eccentric widening of the C5-C6 disc interspace appears to have slightly improved as well and no w there is disc vacuum. No acute fracture or malalignment seen. IMPRESSION: 1. NEW SUBCUTANEOUS EMPHYSEMA LEFT SUPRACLAVICULAR REGION AND ANTERIOR LEFT UPPER CHEST. CORRELATE TO ETIOLOGY. 2. THE PREVIOUS SOFT TISSUE SWELLING ESPECIALLY ALONG THE RIGHT SIDE OF THE NECK WELL THE PREVI OUS PREVERTEBRAL SOFT TISSUE EDEMA HAVE BOTH RESOLVED. 3. ADVANCED SPONDYLOTIC CHANGE REDEMONSTRATED THROUGHOUT THE NECK. NO ACUTE FRACTURE OR MALALIGNMENT.
[2023-02-19] MEDS: TAMSULOSIN 0.4 MG CAP.ER.24H PO SCH (20:19)
[2023-02-20] MEDS: HEPARIN SODIUM,PORCINE/PF 5,000 UNIT/0.5 ML SYRINGE SQ SCH ×4 (01:06→23:48)
--- NOTE | 2023-02-20 02:01 | EEG ---
ELECTROENCEPHALOGRAM REPORT CLINICAL HISTORY: This is an 83-year-old gentleman who had suspected syncopal episode at home. The video EEG is obtained to evaluate for seizure and epileptiform discharges. The patient is not on any antiepileptic drugs. EEG TYPE: A routine 21-channel EEG is performed with video using the 10/20 electrode placement system. DESCRIPTION: Wakefulness is only obtained. During the awake state, the background consists of low to moderate voltage of 8-9 hertz activity. There is no physiological stage 2 sleep architecture. There is no focal slowing. There is moderate amount of myogenic artifact over the left hemisphere. Interictal and ictal is none. ACTIVATION PROCEDURE: Photic stimulation did not evoke a posterior driving response. There is no abnormality during the photic stimulation. Hyperventilation is not performed. CLINICAL INTERPRETATION: This is an normal routine EEG. There is no focal slowing, epileptiform discharge, or seizure on the EEG. A normal routine EEG does not rule out underlying epilepsy. Clinical correlation is recommended. TRUE / LES: [id number] / MTDD
[2023-02-20] MEDS: SODIUM CHLORIDE 0.9% 1,000 ML IV SCH ×4 (04:40→23:54)
[2023-02-20] MEDS: MULTIVITAMINS, THERA 1 EACH TAB PO SCH (08:20)
[2023-02-20] MEDS: polyethylene glycoL 3350 17 GM POWD.PACK PO SCH (08:21)
[2023-02-20] MEDS: PANTOPRAZOLE 40 MG/10 ML VIAL IVP SCH (08:49)
--- NOTE | 2023-02-20 11:18 | P.PN ---
Subjective Progress Note Date: 02/20/23 The patient is an 83-year-old male who is currently admitted to the hospital after a syncopal episode in mechanical fall. He has been treated for rhabdomyolysis during his admission. He underwent generator change yesterday with Dr. Estrada, for which she tolerated well. Nursing staff reports that the patient has failed both his bedside swallow as well as his barium swallow study. Temporarily we will use IV metoprolol for rate control. Patient was interviewed and examined resting comfortably in bed. He denies any current pain or difficulty breathing. GENERAL: Well-appearing, well-nourished and in no acute distress. Extensive bruising to the right orbit. NECK: Supple without JVD or thyromegaly. LUNGS: Breath sounds clear to auscultation bilaterally. Respiration equal and unlabored. No wheezes, rales or rhonchi. HEART: Regular rate and rhythm without murmurs, rubs or gallops. S1 and S2 he faiza. EXTREMITIES: Normal range of motion, no edema. No clubbing or cyanosis. Peripheral pulses intact and strong. TELEMETRY: Sinus rhythm IMPRESSION: Syncope and collapse History of ventricular tachycardia Recurrent falls Permanent pacemaker Persistent atrial fibrillation Mild coronary artery disease Nonischemic cardiomyopathy Rhabdomyolysis PLAN: Discontinue amiodarone Temporary IV metoprolol for rate control Further recommendations based on clinical course I am dictating on behalf of Dr Koko Estrada's history/physical and assessment/plan. Objective - Vital Signs Vital signs: Vital Signs Temp 97.8 F 02/20/23 08:51 Pulse 92 02/20/23 08:51 Resp 18 02/20/23 08:51 BP 137/73 02/20/23 08:51 Pulse Ox 96 02/20/23 09:04 FiO2 21 02/20/23 09:04 Intake & Output 02/19/23 02/20/23 02/20/23 18:59 06:59 18:59 Intake Total 150 Output Total 700 775 Balance -550 -775 Weight 92.986 kg Intake: IV 150 Output: Urine 700 775 Other: Voiding Method Indwelling Catheter Indwelling Catheter - Labs CBC & Chem 7: 02/19/23 11:20 02/19/23 11:20 Labs: Abnormal Lab Results - Last 24 Hours (Table) 06/23/23 06/23/23 Range/Units 11:20 11:20 RBC 3.47 L (4.30-5.90) m/uL Hgb 12.1 L (13.0-17.5) gm/dL Hct 35.7 L (39.0-53.0) % MCV 102.9 H (80.0-100.0) fL Sodium 134 L (137-145) mmol/L Creatinine 0.55 L (0.66-1.25) mg/dL Calcium 8.2 L (8.4-10.2) mg/dL Creatine Kinase 300 H (55-170) U/L Total Protein 5.3 L (6.3-8.2) g/dL Albumin 2.7 L (3.5-5.0) g/dL
--- NOTE | 2023-02-20 11:33 | XR ---
EXAMINATION TYPE: XR chest 1V portable DATE OF EXAM: 02/20/2023 HISTORY: Shortness of breath. COMPARISON: 02/12/2023 TECHNIQUE: Single view of the chest is submitted. FINDINGS: Demonstrated are scattered senescent parenchymal change. There is no evidence for focal infiltrate. The heart is stable. Dual-lead pacer is unchanged in position. Hilar and mediastinal structures are within normal limits. Degenerative changes are seen of the dorsal spine. IMPRESSION: 1. Chronic changes without evidence for acute pulmonary disease.
[2023-02-20] MEDS: CHOLECALCIFEROL 25 MCG (1000 IU) TABLET PO SCH (11:34)
[2023-02-20] MEDS: METOPROLOL TARTRATE 5 MG/5 ML VIAL IVP SCH ×3 (11:40→23:48)
--- NOTE | 2023-02-20 12:49 | P.PN ---
Subjective Progress Note Date: 02/20/23 Patient seen at bedside and according to the nurse somewhat drowsy but otherwise about the same. Objective - Vital Signs Vital signs: Vital Signs Temp 97.0 F L 02/20/23 11:37 Pulse 110 H 02/20/23 11:37 Resp 16 02/20/23 11:37 BP 125/77 02/20/23 11:37 Pulse Ox 97 02/20/23 11:37 FiO2 21 02/20/23 09:04 Intake & Output 02/19/23 02/20/23 02/20/23 18:59 06:59 18:59 Intake Total 150 Output Total 700 775 375 Balance -550 -775 -375 Weight 92.986 kg Intake: IV 150 Output: Urine 700 775 375 Other: Voiding Method Indwelling Catheter Indwelling Catheter - Exam GENERAL: The patient is lying in bed and is not in acute distress. HENT: Has bruise on right side of face from fall. INTEGUMENTARY: Has bruise over the right upper extremity and lowers. NEUROLOGICAL: Higher mental function: The patient is drowsy but is awakeable to voice, oriented to self, place and time. Patient is following simple commands. No aphasia and no neglect. Cranial nerves: The pupils are round, equal and reactive to light. Visual rai are full to confrontation throughout. Extraocular movement is intact no nystagmus is noted. Facial sensation is normal to touch throughout. The facial strength is normal throughout. Hearing is severely decreased bilaterally to hand rub. Tongue is midline and moved [id number] without any difficulty. No dysarthria is noted. Shoulder shrug is normal bilaterally. Motor: Gait is unable to assess because of diffuse pain. The strength is limited in assessment but is lifting bilateral uppers and lowers above gravity. Normal tone and bulk. No resting tremor. Cerebellum: Normal finger to nose bilaterally. Sensation: Sensation is normal to touch throughout. Reflexes (right/left): Deferred because of his pain. Plantars are mute bilaterally. Some of the workup during his hospital visit assisted off: Initial CK level was 3K and currently is 300. Initial plasma lactic acid the vein is 2.9 repeated is normal. Vitamin B-12 is not 42 Folate is 27.3 TSH is 3.380 Urine toxicology screen is not detected and serum alcohol was less than 10. CT of the head is reported as right frontal scalp contusion. No underlying the calvarial fracture or acute intracranial abnormality. Old infarct in the lateral posterior right frontal lobe. CT cervical spine is reported as there is a prevertebral soft tissue edema. In addition be noted that the presence of some generalized soft tissue swelling t hroughout the neck more on the right. While there is degenerative disc space narrowing throughout there is either maintain versus widened at the space at C4- C5. Given the soft tissue swelling and prevertebral edema, for the possibility of distraction injury of the neck. There is no malalignment or acute fracture as seen of the cervical spine. Correlate as to the if MRI is needed CT cervical spine was reported as new subcutaneous emphysema left supraclavicular region and anterior left upper chest. Correlate as to etiology. Previous soft tissue swelling especially along the right side of the neck as well as the previous paravertebral soft tissue edema as both resolved. Advanced spondylitic changes redemonstrated throughout the neck. No acute fracture or malalignment Carotid duplex was reported as less than 50% stenosis bilateral carotid bifurcation. Routine EEG is normal. There is no focal slowing, epileptiform discharges or seizure on the EEG 2-D echo was reported as mildly impaired left ventricular function with ejection fraction of 40-45%. Small pericardial effusion. - Labs CBC & Chem 7: 02/19/23 11:20 02/19/23 11:20 Assessment and Plan Assessment: This is an 83-year-old gentleman who presented to our facility on 02/12/2023 since he was found down on the floor by his caregiver and last normal state was on 02/11/2023. 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 No history of seizures. She has been having progressively worsening of dysarthria and unknown timeframe There is a concern that the patient had the right upper extremity tremor. Reported tremor of the right upper extremity with progressive dysarthria: Unknown exact cause but one of the differential is Parkinson's. On examination he had no tremor or increased tone. Rule out any other causes such as brainstem stroke vs autoimmune such as Myasthenia Gravis/Lambert Eaton Syndrome. Had two CT head and negative for any evidence for stroke but is not sensitive for posterior circulation in comparison to MRI. Cannot obtain MRI since has pacemaker. Recent fall and unknown cause: Possible due to above vs cardiac in origin Rhabdomyolysis due to a fall--improving New emphysema seen on CT Advanced spondylitic changes throughout the neck on CT History of right frontal stroke History of atrial fibrillation on pacemaker and has pacemaker and he had his battery changed on 02/19/23 Hypertension Systolic heart failure with ejection fraction of 40-45% Hyperlipidemia Hypotelorism Sleep apnea on BiPAP Plan: Cannot obtain MRI as an inpatient because his pacemaker per civil drafting technician. Recommend MRI as an outpatient I ordered acetylcholine receptor antibody to rule out questionable myasthenia gravis (the result will take time until it come back). She does not have any ptosis or any worsening weakness which seems unlikely. Pending myoglobin level. Ordered HbA1c. Pending orthostatic vitals once the patient is more stable to cooperate for the examination PT OT and INSURANCE SALES SPECIALIST are consulted Consider NG tube or PEG tube since patient has dysphagia For his severe cervical spondylosis consulted orthopedic surgery team. Cardiology is on board. For Parag fib is seems the research specialist a held the his home on Xarelto. If he continues to have further falls, there is increase risk of bleed with anticoagulation. Will defer use of anticoaguation to primary and cardiology team. We'll defer the rest of the medical management to the primary team For emphysema seen on the CT recommend to be addressed by primary or consideration of pulmonary team. DVT prophylaxis he is on subcu heparin. The plan discussed with the patient and his nurse. Time with Patient: Less than 30
--- NOTE | 2023-02-20 14:35 | P.PN ---
Subjective Progress Note Date: 02/20/23 patient is 83-year-old gentleman with past medical history significant for A. fib on Xarelto, CVA, hyperlipidemia, hypertension, who presented to the ER because of a fall. Patient lives alone. Patient stated that he fell yesterday around 5:30 PM. Patient was bending to filler picker something From the floor when he lost balance and hit his head and was laying on the floor ever since. Patient was found by his caregiver laying on the floor. Patient apparently was laying on the floor for about 15 hours. Patient is on Xarelto for atrial fibrillation. Initial lab work done in the ER showed WBC 16.5, hemoglobin 14.9, platelet count 209, sodium 137, potassium 5.2, BUN 39, creatinine 0.6, AST 78, ALT 44, CK 3022 CT head and cervical spine was negative for any acute intracranial hemorrhage, no cervical fracture. CT face was negative for any facial bone fractures Patient was admitted to trauma and medicine team were consulted 02/14. Patient seen and examined. Denies any acute distress. Laying comfortably in the bed. 02/20. Dr. Soto covering for Dr. Spangler. Patient failed speech evaluation, currently was nothing by mouth. Discussed with nursing staff, patient will have Dobbhoff tube placed and started on tube feeding REVIEW OF SYSTEMS: CONSTITUTIONAL: No fever, no malaise,. CARDIOVASCULAR: No chest pain, no palpitations, no syncope. PULMONARY: No shortness of breath, no cough, GASTROINTESTINAL: No diarrhea, no nausea, no vomiting, no abdominal pain. NEUROLOGICAL: No headaches, no weakness, PHYSICAL EXAMINATION: GENERAL: The patient is alert , chronically ill-looking. Well developed, well nourished. Bruising over right eye and right side of face HEENT: Pupils are round and equally reacting to light. EOMI. No scleral ic terus.No thyromegaly. CARDIOVASCULAR: S1 and S2 present. No murmurs, rubs, or gallops. PULMONARY: Chest is clear to auscultation, no wheezing or crackles. ABDOMEN: Soft, nontender, nondistended, normoactive bowel sounds. No palpable organomegaly. MUSCULOSKELETAL: No joint swelling or deformity. EXTREMITIES: Right upper extremity bandaged seen, upper extremity swollen NEUROLOGICAL: Gross neurological examination did not reveal any focal deficits. SKIN: No rashes. Assessment and plan fall Rhabdomyolysis Hyperlipidemia ssessment and plan Chronic atrial fibrillation Abrasion of multiple sites Concussion Forehead laceration Weakness Dysphagia Monitor vital signs Monitor CBC Monitor CMP Continue telemetry monitoring fall precautions Delirium precautions Aspiration precautions Dobbhoff order, we'll start tube feeding through Dobbhoff CT head without contrast done on 02/19 showed degenerative and remote ischemic change, no diagnostic evidence of acute hemorrhage or mass effect CT cervical spine showed new subcutaneous emphysema left supraclavicular region and anterior left upper chest EEG negative for any seizures Neurology following Cardiology following Objective - Vital Signs Vital signs: Vital Signs Temp 97.8 F 02/20/23 08:51 Pulse 92 02/20/23 08:51 Resp 18 02/20/23 08:51 BP 137/73 02/20/23 08:51 Pulse Ox 96 02/20/23 09:04 FiO2 21 02/20/23 09:04 Intake & Output 02/19/23 02/20/23 02/20/23 18:59 06:59 18:59 Intake Total 150 Output Total 700 775 Balance -550 -775 Weight 92.986 kg Intake: IV 150 Output: Urine 700 775 Other: Voiding Method Indwelling Catheter Indwelling Catheter - Labs CBC & Chem 7: 02/19/23 11:20 02/19/23 11:20 Labs: Abnormal Lab Results - Last 24 Hours (Table) 02/19/23 02/19/23 Range/Units 11:20 11:20 RBC 3.47 L (4.30-5.90) m/uL Hgb 12.1 L (13.0-17.5) gm/dL Hct 35.7 L (39.0-53.0) % MCV 102.9 H (80.0-100.0) fL Sodium 134 L (137-145) mmol/L Creatinine 0.55 L (0.66-1.25) mg/dL Calcium 8.2 L (8.4-10.2) mg/dL Creatine Kinase 300 H (55-170) U/L Total Protein 5.3 L (6.3-8.2) g/dL Albumin 2.7 L (3.5-5.0) g/dL
--- NOTE | 2023-02-20 16:39 | P.GSCN ---
History of Present Illness Consult date: 02/20/23 History of present illness: Patient resting comfortably. Moderate ecchymosis along the face right side. Mustafa clear urine. Consultation for PEG tube placement being assessed. Past Medical History Past Medical History: Atrial Fibrillation, Chest Pain / Angina, CVA/TIA, Hyperlipidemia, Hypertension, Osteoarthritis (OA), Prostate Disorder, Sleep Apnea/CPAP/BIPAP, Thyroid Disorder Additional Past Medical History / Comment(s): CVA-no residual effects, hx kidney stones, no cpap used, back pain, History of Any Multi-Drug Resistant Organisms: None Reported Past Surgical History: Cardiac Ablation, Heart Catheterization, Hernia Repair, Pacemaker, Tonsillectomy Additional Past Surgical History / Comment(s): hydrocele, lithotripsy, paola cataracts, eye lid surgery, repair torn retina left eye, Past Anesthesia/Blood Transfusion Reactions: Motion Sickness Type of Cardiac Device: Permanent Pacemaker Device Placement Date:: 10/21/2011 Past Psychological History: Anxiety, Depression Smoking Status: Never smoker Past Alcohol Use History: None Reported Past Drug Use History: None Reported - Past Family History Mother Family Medical History: Cancer, Pulmonary Embolus Medications and Allergies Home Medications Medication Instructions Recorded Confirmed Type Rivaroxaban [Xarelto] 20 mg PO DAILY@1200 02/17/17 02/12/23 History Simvastatin [Zocor] 20 mg PO HS 02/17/17 02/12/23 History Tamsulosin HCl [Flomax] 0.8 mg PO HS 02/17/17 02/12/23 History methIMAzole [Tapazole] 2.5 mg PO Q48H 02/17/17 02/12/23 History Metoprolol Succinate [Toprol XL] 25 mg PO BID 06/09/18 02/12/23 History Acetaminophen [Tylenol] 1,000 mg PO BID PRN 08/14/20 02/12/23 History polyethylene glycoL 3350 [Miralax] 17 gm PO DAILY 11/02/20 02/12/23 History Cholecalciferol [Vitamin D3 (25 50 mcg PO DAILY@1200 05/21/21 02/12/23 History Mcg = 1000 Iu)] Docusate [Colace] 100 mg PO Q3D PRN 05/21/21 02/12/23 History Furosemide [Lasix] 20 mg PO Q48H 02/12/23 02/12/23 History Multivit-Min/FA/Lycopen/Lutein 1 tab PO DAILY 02/12/23 02/12/23 History [Centrum Silver Men Tablet] Potassium Chloride ER [K-Dur 10] 20 meq PO Q48H 02/12/23 02/12/23 History lisinopriL [Zestril] 2.5 mg PO DAILY 02/12/23 02/12/23 History Allergies Allergy/AdvReac Type Severity Reaction Status Date / Time No Known Allergies Allergy Verified 02/12/23 12:14 Surgical - Exam Vital Signs Temp Pulse Resp BP Pulse Ox 96.7 F L 93 18 120/77 96 02/12/23 10:07 02/12/23 10:07 02/12/23 10:07 02/12/23 10:07 02/12/23 10:07 Results - Labs 02/19/23 11:20 02/19/23 11:20
[2023-02-20] MEDS: TAMSULOSIN 0.4 MG CAP.ER.24H PO SCH (19:32)
[2023-02-21] MEDS: METOPROLOL TARTRATE 5 MG/5 ML VIAL IVP SCH ×3 (06:44→17:29)
[2023-02-21] MEDS: PANTOPRAZOLE 40 MG/10 ML VIAL IVP SCH (09:25)
[2023-02-21] MEDS: HEPARIN SODIUM,PORCINE/PF 5,000 UNIT/0.5 ML SYRINGE SQ SCH ×2 (09:25→17:29)
[2023-02-21] MEDS: MULTIVITAMINS, THERA 1 EACH TAB PO SCH (09:33)
[2023-02-21] MEDS: methIMAzole 5 MG TAB PO SCH (09:33)
[2023-02-21] MEDS: polyethylene glycoL 3350 17 GM POWD.PACK PO SCH (09:33)
[2023-02-21 10:24] LABS: Basophils % (A) 0 %; Eosinophils # (A) 0.1 k/uL (0-0.7); Eosinophils % (A) 1 %; HCT 37.9 % (39.0-53.0); Lymphocytes # (A) 0.5 k/uL (1.0-4.8); Lymphocytes % (A) 6 %; MCHC 34.4 g/dL (31.0-37.0); MCV 101.9 fL (80.0-100.0); Macrocytosis Slight; Mean Platelet Volume 9.8; Monocytes # (A) 0.5 k/uL (0-1.0); Monocytes % (A) 6 %; Neutrophils # (A) 7.2 k/uL (1.3-7.7); Neutrophils % (A) 85 %; Platelet Count 208 k/uL (150-450); RBC 3.72 m/uL (4.30-5.90); RDW 12.7 % (11.5-15.5); WBC 8.4 k/uL (3.8-10.6)
[2023-02-21 10:25] LABS: ALT 26 U/L (4-49); AST 29 U/L (17-59); African American GFR (CKD) >90 (>60 ml/min/1.73 sqM); Albumin 2.7 g/dL (3.5-5.0); Alkaline Phosphatase 78 U/L (38-126); Anion Gap 10 mmol/L; Blood Urea Nitrogen 19 mg/dL (9-20); Calcium 8.4 mg/dL (8.4-10.2); Carbon Dioxide 22 mmol/L (22-30); Chloride 100 mmol/L (98-107); Glucose 65 mg/dL (74-99); Non-African American GFR(CKD) 90 (>60 ml/min/1.73 sqM); Sodium 132 mmol/L (137-145); Total Protein 5.3 g/dL (6.3-8.2)
--- NOTE | 2023-02-21 11:23 | P.PN ---
Subjective Progress Note Date: 02/21/23 This is Biju Amato NP, I'm dictating on behalf of Dr. Estrada's H&P and A&P. Patient was interviewed and examined. Patient is a pleasant 83-year-old male who presented to the hospital with a mechanical fall after a syncopal episode, and sustained rhabdomyolysis. Patient underwent pacemaker generator change 2 days ago and tolerated this well. Patient has failed a barium swallow study, and is unable to take oral medications. Patient's heart rates are controlled at this time on IV metoprolol. The patient reports that he is feeling okay today. He has no cardiac complaints at this time. GENERAL: Well-appearing, well-nourished and in no acute distress. NECK: Supple without JVD or thyromegaly. LUNGS: Breath sounds clear to auscultation bilaterally. Respiration equal and unlabored. No wheezes, rales or rhonchi. HEART: Regular rate and rhythm without murmurs, rubs or gallops. S1 and S2 he faiza. EXTREMITIES: Normal range of motion, no edema. No clubbing or cyanosis. Peripheral pulses intact and strong. VITALS: Temp 98.6, pulse 82, respirations 17, blood pressure 132/76, O2 saturation 95% on room air TELEMETRY: Normal sinus rhythm LABS: White count 8.4, hemoglobin 13, platelets 208, sodium 132, potassium 4.0, B1 19, creatinine 0.67, calcium 8.4 IMPRESSION: 1. Syncope and collapse 2. History of ventricular tachycardia 3. Recurrent falls 4. Permanent pacemaker 5. Persistent atrial fibrillation 6. Mild coronary artery disease 7. Nonischemic cardiomyopathy 8. Rhabdomyolysis PLAN: Continue IV metoprolol until patient can swallow, then transition to oral. Further recommendations based on patient's clinical course. Objective - Vital Signs Vital signs: Vital Signs Temp 98.6 F 02/21/23 08:15 Pulse 82 02/21/23 08:15 Resp 17 02/21/23 08:15 BP 132/76 02/21/23 08:15 Pulse Ox 95 02/21/23 08:15 FiO2 21 02/20/23 09:04 Intake & Output 02/20/23 02/21/23 02/21/23 18:59 06:59 18:59 Output Total 675 700 350 Balance -675 -700 -350 Weight 92.986 kg Output: Urine 576 993 325 Other: Voiding Method Indwelling Catheter Indwelling Catheter - Labs CBC & Chem 7: 02/21/23 08:08 02/21/23 08:08 Labs: Abnormal Lab Results - Last 24 Hours (Table) 02/19/23 02/21/23 02/21/23 Range/Units 09:00 08:08 08:08 RBC 3.72 L (4.30-5.90) m/uL Hct 37.9 L (39.0-53.0) % MCV 101.9 H (80.0-100.0) fL Lymphocytes # 0.5 L (1.0-4.8) k/uL Sodium 132 L (137-145) mmol/L Glucose 65 L (74-99) mg/dL Myoglobin 73 H (<=72) ng/mL Total Protein 5.3 L (6.3-8.2) g/dL Albumin 2.7 L (3.5-5.0) g/dL
--- NOTE | 2023-02-21 13:38 | P.PN ---
Subjective Progress Note Date: 02/21/23 The patient is seen at bedside and feels about the same. No new neurological issues. Per nurse, no resting tremor noted. Objective - Vital Signs Vital signs: Vital Signs Temp 98.2 F 02/21/23 12:00 Pulse 105 H 02/21/23 12:00 Resp 17 02/21/23 12:00 BP 111/65 02/21/23 12:00 Pulse Ox 96 02/21/23 12:00 FiO2 21 02/20/23 09:04 Intake & Output 02/20/23 02/21/23 02/21/23 18:59 06:59 18:59 Output Total 675 700 350 Balance -675 -700 -350 Weight 92.986 kg Output: Urine 675 700 350 Other: Voiding Method Indwelling Catheter Indwelling Catheter - Exam GENERAL: The patient is lying in bed and is not in acute distress. HENT: Has bruise on right side of face from fall. INTEGUMENTARY: Has bruise over the right upper extremity and lowers. NEUROLOGICAL: Higher mental function: The patient is drowsy but is awakeable to voice, oriented to self, place and time. Patient is following simple commands. No aphasia and no neglect. Cranial nerves: The pupils are round, equal and reactive to light. Visual rai are full to confrontation throughout. Extraocular movement is intact no nystagmus is noted. Facial sensation is normal to touch throughout. The facial strength is normal throughout. Hearing is severely decreased bilaterally to hand rub. Tongue is midline and moved [id number] without any difficulty. No dysarthria is noted. Shoulder shrug is normal bilaterally. Motor: Gait is unable to assess because of diffuse pain. The strength is limited in assessment but is lifting bilateral uppers and lowers above gravity. Normal tone and bulk. No resting tremor. Cerebellum: Normal finger to nose bilaterally. Sensation: Sensation is normal to touch throughout. Reflexes (right/left): Deferred because of his pain. Plantars are mute bilaterally. Some of the workup during his hospital visit assisted off: Initial CK level was 3K and currently is 300. Initial plasma lactic acid the vein is 2.9 repeated is normal. Vitamin B-12 is not 42 Folate is 27.3 TSH is 3.380 HbAc: 5.4 Myoglobin is 73 (normal is <)72 Urine toxicology screen is not detected and serum alcohol was less than 10. CT of the head is reported as right frontal scalp contusion. No underlying the calvarial fracture or acute intracranial abnormality. Old infarct in the lateral posterior right frontal lobe. CT cervical spine is reported as there is a prevertebral soft tissue edema. In addition be noted that the presence of some generalized soft tissue swelling throughout the neck more on the right. While there is degenerative disc space narrowing throughout there is either maintain versus widened at the space at C4- C5. Given the soft tissue swelling and prevertebral edema, for the possibility of distraction injury of the neck. There is no malalignment or acute fracture as seen of the cervical spine. Correlate as to the if MRI is needed CT cervical spine was reported as new subcutaneous emphysema left supraclavicular region and anterior left upper chest. Correlate as to etiology. Previous soft tissue swelling especially along the right side of the neck as well as the previous paravertebral soft tissue edema as both resolved. Advanced spondylitic changes redemonstrated throughout the neck. No acute fracture or malalignment Carotid duplex was reported as less than 50% stenosis bilateral carotid bifurcation. Routine EEG is normal. There is no focal slowing, epileptiform discharges or seizure on the EEG 2-D echo was reported as mildly impaired left ventricular function with ejection fraction of 40-45%. Small pericardial effusion. - Labs CBC & Chem 7: 02/21/23 08:08 02/21/23 08:08 Labs: Abnormal Lab Results - Last 24 Hours (Table) 02/19/23 02/21/23 02/21/23 Range/Units 09:00 08:08 08:08 RBC 3.72 L (4.30-5.90) m/uL Hct 37.9 L (39.0-53.0) % MCV 101.9 H (80.0-100.0) fL Lymphocytes # 0.5 L (1.0-4.8) k/uL Sodium 132 L (137-145) mmol/L Glucose 65 L (74-99) mg/dL Myoglobin 73 H (<=72) ng/mL Total Protein 5.3 L (6.3-8.2) g/dL Albumin 2.7 L (3.5-5.0) g/dL Assessment and Plan Assessment: This is an 83-year-old gentleman who presented to our facility on 02/12/2023 since he was found down on the floor by his caregiver and last normal state was on 02/11/2023. 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 No history of seizures. She has been having progressively worsening of dysarthria and unknown timeframe There is a concern that the patient had the right upper extremity tremor. Reported tremor of the right upper extremity with progressive dysarthria: Unk nown exact cause but one of the differential is Parkinson's. On examination he had no tremor or increased tone on repeated examinations. Rule out any other causes such as brainstem stroke vs autoimmune such as Myasthenia Gravis/Lambert Eaton Syndrome. Had two CT head and negative for any evidence for stroke but is not sensitive for posterior circulation in comparison to MRI. Cannot obtain MRI since has pacemaker. Recent fall and unknown cause: Possible due to above vs cardiac in origin Rhabdomyolysis due to a fall--improving New emphysema seen on CT Advanced spondylitic changes throughout the neck on CT History of right frontal stroke History of atrial fibrillation on pacemaker and has pacemaker and he had his battery changed on 02/19/23 Hypertension Systolic heart failure with ejection fraction of 40-45% Hyperlipidemia Hypotelorism Sleep apnea on BiPAP Plan: Cannot obtain MRI as an inpatient because his pacemaker per registered dietetic technician. Recommend MRI as an outpatient I ordered acetylcholine receptor antibody to rule out questionable myasthenia gravis (the result will take time until it come back). He does not have any ptosis or any worsening weakness which seems unlikely. Myoglobin is 73 (normal is <)72 Pending orthostatic vitals once the patient is more stable to cooperate for the examination Ordered aldolase level, LDH anti-jo1 abs for ?possible myopathy. PT OT and CLINICAL TRIALS ASSISTANT are consulted Consider NG tube or PEG tube since patient has dysphagia. If he does have ?Parksinson's disease cannot give medication since NPO at this time. For his severe cervical spondylosis consulted orthopedic surgery team. Cardiology is on board. For Parag venus is seems the iuss acoustic analyst a held the his home on Xarelto. If he continues to have further falls, there is increase risk of bleed with anticoagulation. Will defer use of anticoaguation to primary and cardiology team. We'll defer the rest of the medical management to the primary team For emphysema seen on the CT recommend to be addressed by primary or consideration of pulmonary team. DVT prophylaxis he is on subcu heparin. UPDATE: I spoke with his daughter (Monica) via phone and she stated that he has been baum ving resting tremor of the right upper extremity for the past two years,has shuffling gait. He did not see a neurologist regarding this. He has some difficulty clear speech for some time. But denies any swallowing issues or chocking. He has history of stroke 7-8 years ago and followed-up with Dr. Morrison and symptoms resolved. He has difficulty clearing throat which eventually subsided. 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 Will have nurse assess his swallow and if fail will have another swallow evaluation by CLINICAL TRIALS ASSISTANT. The plan discussed with the patient and his nurse. Dr. Salmeron will start neurology service tomorrow A.M. Time with Patient: Less than 30
[2023-02-21] MEDS: CHOLECALCIFEROL 25 MCG (1000 IU) TABLET PO SCH (13:39)
--- NOTE | 2023-02-21 13:44 | P.PN ---
Subjective Progress Note Date: 02/21/23 patient is 83-year-old gentleman with past medical history significant for A. fib on Xarelto, CVA, hyperlipidemia, hypertension, who presented to the ER because of a fall. Patient lives alone. Patient stated that he fell yesterday around 5:30 PM. 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 Patient was found by his caregiver laying on the floor. Patient apparently was laying on the floor for about 15 hours. Patient is on Xarelto for atrial fibrillation. Initial lab work done in the ER showed WBC 16.5, hemoglobin 14.9, platelet count 209, sodium 137, potassium 5.2, BUN 39, creatinine 0.6, AST 78, ALT 44, CK 3022 CT head and cervical spine was negative for any acute intracranial hemorrhage, no cervical fracture. CT face was negative for any facial bone fractures Patient was admitted to trauma and medicine team were consulted 02/14. Patient seen and examined. Denies any acute distress. Laying comfortably in the bed. 02/20. Dr. Soto covering for Dr. Spangler. Patient failed speech evaluation, currently was nothing by mouth. Discussed with nursing staff, patient will have Dobbhoff tube placed and started on tube feeding 02/21. Patient seen and examined. Patient has failed swallow evaluation. Lab work done this morning showed WBC 8.4, hemoglobin 13,. Family at this time are not sure about Dobbhoff tube placement, they wanted to discuss with patient's PC P before proceeding with it. REVIEW OF SYSTEMS: CONSTITUTIONAL: No fever, no malaise,. CARDIOVASCULAR: No chest pain, no palpitations, no syncope. PULMONARY: No shortness of breath, no cough, GASTROINTESTINAL: No diarrhea, , no abdominal pain. NEUROLOGICAL: No headaches, no weakness, PHYSICAL EXAMINATION: GENERAL: The patient is alert , chronically ill-looking. Well developed, well nourished. Bruising over right eye and right side of face HEENT: Pupils are round and equally reacting to light. EOMI. No scleral icterus.No thyromegaly. CARDIOVASCULAR: S1 and S2 present. No murmurs, rubs, or gallops. PULMONARY: Chest is clear to auscultation, no wheezing or crackles. ABDOMEN: Soft, nontender, nondistended, normoactive bowel sounds. No palpable organomegaly. MUSCULOSKELETAL: No joint swelling or deformity. EXTREMITIES: Right upper extremity bandaged seen, upper extremity swollen NEUROLOGICAL: Gross neurological examination did not reveal any focal deficits. SKIN: No rashes. Assessment and plan fall Rhabdomyolysis Hyperlipidemia ssessment and plan Chronic atrial fibrillation Abrasion of multiple sites Concussion Forehead laceration Weakness Dysphagia Monitor vital signs Monitor CBC Monitor CMP Continue telemetry monitoring fall precautions Delirium precautions Aspiration precautions Dobbhoff order, family not decided about Dobbhoff, wants to discuss with Dr. Spangler CT head without contrast done on 02/19 showed degenerative and remote ischemic change, no diagnostic evidence of acute hemorrhage or mass effect CT cervical spine showed new subcutaneous emphysema left supraclavicular region and anterior left upper chest EEG negative for any seizures Neurology following Cardiology following Surgery consulted for Dobbhoff placement, family at this time are not open to any alternative form of nutrition Objective - Vital Signs Vital signs: Vital Signs Temp 98.6 F 02/21/23 08:15 Pulse 82 02/21/23 08:15 Resp 17 02/21/23 08:15 BP 132/76 02/21/23 08:15 Pulse Ox 95 02/21/23 08:15 FiO2 21 02/20/23 09:04 Intake & Output 02/20/23 02/21/23 02/21/23 18:59 06:59 18:59 Output Total 675 700 350 Balance -675 -700 -350 Weight 92.986 kg Output: Urine 675 700 350 Other: Voiding Method Indwelling Catheter Indwelling Catheter - Labs CBC & Chem 7: 02/21/23 08:08 02/21/23 08:08 Labs: Abnormal Lab Results - Last 24 Hours (Table) 02/19/23 02/21/23 02/21/23 Range/Units 09:00 08:08 08:08 RBC 3.72 L (4.30-5.90) m/uL Hct 37.9 L (39.0-53.0) % MCV 101.9 H (80.0-100.0) fL Lymphocytes # 0.5 L (1.0-4.8) k/uL Sodium 132 L (137-145) mmol/L Glucose 65 L (74-99) mg/dL Myoglobin 73 H (<=72) ng/mL Total Protein 5.3 L (6.3-8.2) g/dL Albumin 2.7 L (3.5-5.0) g/dL
--- NOTE | 2023-02-21 14:22 | P.CNOR ---
History of Present Illness - [facility] Consult date: 02/21/23 Requesting physician: Marcelo Gómez Consult reason: other (Cervical stenosis, freq falls) History of present illness: History of Presenting Illness Patient is a pleasant 83-year-old male who presented to the ER via EMS on 02/12/2023 due to a fall with trauma. It is reported that patient had a fall at home when bending over to pick something up on the floor and fell hitting his head. Patient reports that he does live alone and reports he is normally up independently with walker, he states with some limitations. He has a caregiver that comes in to assist with his needs. Documentation states that patient was last seen well at 5 PM by caregiver, incident occurred at approximately 5:30 PM and patient was found the next morning lying on the floor. Patient does have a medical history of atrial fibrillation and is taking Xarelto, CVA, hyper lipidemia, hypertension, pacemaker, hypothyroidism, and sleep apnea on BiPAP. Patient denies any orthopedic history. Our services were consulted due to CT of the cervical spine demonstrating cervical spondylosis and recent falls. CT of the cervical spine on 02/19/23 shows moderate to advanced spondylotic change. Some eccentric widening of the C5-C6 disc interspace appears to have slightly improved as well and now there is disc vacuum. No acute fracture or malalignment seen. Patient seen and examined at bedside. Patient is resting in bed. Patient currently denies any cervical pain, radicular symptoms or numbness/tingling to bilateral upper extremities. Patient is able to perform bed exercises with mild difficulty due to generalized weakness. Review of Systems Pertinent positives and negatives as discussed in HPI, a complete review of sy stems was performed and all other systems are negative. Physical Examination General: The patient is awake and alert, in no acute distress Skin: Skin is warm and dry, Significant bruising around the right eye, laceration above the right eyelid, left arm swollen and there was areas of blistering on the arm elbow and right hip as well as both knees. Eye: Pupils are equal, round and reactive to light, extra-ocular movements are intact; there is normal conjunctiva bilaterally. Neck: The neck is supple, there is no tenderness and ROM intact Gastrointestinal: Soft, non-distended, non-tender abdomen. Back: There is no tenderness to palpation in the midline, paralumbar, parathoracic or buttocks region. There is no obvious deformity. Musculoskeletal: ROM limited secondary to generalized weakness and stiffness. Muscle strength in all major muscle groups of bilateral upper extremities 4/5, bilateral lower extremities 4/5. Neurological: CN 2-12 intact. There are no obvious motor or sensory deficits. Movement and coordination equal and intact. Sensory exam to light touch intact C5-T1 and intact from L2-S1. Reflexes 2/4 in bilateral upper and lower extremities. Negative Hoffmans, babinski, and clonus signs. Psychiatric: Cooperative, appropriate mood & affect, normal judgment. Assessment and Plan Fall with trauma Moderate cervical spondylosis C5-C6 vacuum disc phenomenon Rhabdomyolysis Generalized weakness Multiple complex comorbidities At this time we do not recommend any emergent/urgent orthopedic surgical intervention. Patient may follow-up with Dr. Singer office for further e valuation as needed. Orthopedics is signing off at this time. Please do not hesitate to contact us for any further questions. Patient will benefit from subacute rehab at discharge to increase strength and gait stability. Recommend further imaging with MRI of cervical spine when appropriate for further evaluation. 2. Appreciate medical management 3. Pain management - Continue with tylenol as needed. 4. GI prophylaxis - Senna, Miralax 5. DVT prophylaxis - Heparin per medicine 6. PT/OT - weightbearing as tolerated with a walker as needed. 7. Appreciate consult I reviewed and discussed this case with my attending Dr. Singer, whom has reviewed this chart and films and is in agreement with assessment and plan of care as outlined above. I have personally seen and examined the patient, performed the documentation and the assessment and plan as written. Number of minutes spent on the visit: 20m. Past Medical History Past Medical History: Atrial Fibrillation, Chest Pain / Angina, CVA/TIA, Hyperlipidemia, Hypertension, Osteoarthritis (OA), Prostate Disorder, Sleep Apnea/CPAP/BIPAP, Thyroid Disorder Additional Past Medical History / Comment(s): CVA-no residual effects, hx kidney stones, no cpap used, back pain, History of Any Multi-Drug Resistant Organisms: None Reported Past Surgical History: Cardiac Ablation, Heart Catheterization, Hernia Repair, Pacemaker, Tonsillectomy Additional Past Surgical History / Comment(s): hydrocele, lithotripsy, paola cataracts, eye lid surgery, repair torn retina left eye, Past Anesthesia/Blood Transfusion Reactions: Motion Sickness Type of Cardiac Device: Permanent Pacemaker Device Placement Date:: 10/21/2011 Past Psychological History: Anxiety, Depression Smoking Status: Never smoker Past Alcohol Use History: None Reported Past Drug Use History: None Reported - Past Family History Mother Family Medical History: Cancer, Pulmonary Embolus Medications and Allergies Home Medications Medication Instructions Recorded Confirmed Type Rivaroxaban [Xarelto] 20 mg PO DAILY@1200 02/17/17 02/12/23 History Simvastatin [Zocor] 20 mg PO HS 02/17/17 02/12/23 History Tamsulosin HCl [Flomax] 0.8 mg PO HS 02/17/17 02/12/23 History methIMAzole [Tapazole] 2.5 mg PO Q48H 02/17/17 02/12/23 History Metoprolol Succinate [Toprol XL] 25 mg PO BID 06/09/18 02/12/23 History Acetaminophen [Tylenol] 1,000 mg PO BID PRN 08/14/20 02/12/23 History polyethylene glycoL 3350 [Miralax] 17 gm PO DAILY 11/02/20 02/12/23 History Cholecalciferol [Vitamin D3 (25 50 mcg PO DAILY@1200 05/21/21 02/12/23 History Mcg = 1000 Iu)] Docusate [Colace] 100 mg PO Q3D PRN 05/21/21 02/12/23 History Furosemide [Lasix] 20 mg PO Q48H 02/12/23 02/12/23 History Multivit-Min/FA/Lycopen/Lutein 1 tab PO DAILY 02/12/23 02/12/23 History [Centrum Silver Men Tablet] Potassium Chloride ER [K-Dur 10] 20 meq PO Q48H 02/12/23 02/12/23 History lisinopriL [Zestril] 2.5 mg PO DAILY 02/12/23 02/12/23 History Allergies Allergy/AdvReac Type Severity Reaction Status Date / Time No Known Allergies Allergy Verified 02/12/23 12:14 Results - Labs Labs: Abnormal Lab Results - Last 24 Hours (Table) 02/19/23 02/21/23 02/21/23 Range/Units 09:00 08:08 08:08 RBC 3.72 L (4.30-5.90) m/uL Hct 37.9 L (39.0-53.0) % MCV 101.9 H (80.0-100.0) fL Lymphocytes # 0.5 L (1.0-4.8) k/uL Sodium 132 L (137-145) mmol/L Glucose 65 L (74-99) mg/dL Myoglobin 73 H (<=72) ng/mL Total Protein 5.3 L (6.3-8.2) g/dL Albumin 2.7 L (3.5-5.0) g/dL H & H 02/12/23 02/13/23 02/14/23 Range/Units 10:24 07:18 07:48 Hgb 14.9 12.8 L 11.6 L (13.0-17.5) gm/dL Hct 44.1 38.7 L 34.7 L (39.0-53.0) % 02/15/23 02/16/23 02/18/23 Range/Units 07:46 08:29 09:16 Hgb 11.1 L 11.5 L 12.0 L (13.0-17.5) gm/dL Hct 33.6 L 33.0 L 35.3 L (39.0-53.0) % 02/19/23 02/21/23 Range/Units 11:20 08:08 Hgb 12.1 L 13.0 (13.0-17.5) gm/dL Hct 35.7 L 37.9 L (39.0-53.0) % Coagulation 02/12/23 Range/Units 10:24 INR 1.2 H (<1.2) Result Diagrams: 02/21/23 08:08 02/21/23 08:08
[2023-02-21 14:54] LABS: Glucose,Whole Blood 67 mg/dL (70-110)
[2023-02-21] MEDS: DEXTROSE 5%-0.45% NACL 1,000 ML IV SCH (17:30)
[2023-02-21] MEDS: CARBIDOPA-LEVODOPA 25-100 MG 1 EACH TAB PO SCH ×2 (17:30→19:56)
[2023-02-21] MEDS: TAMSULOSIN 0.4 MG CAP.ER.24H PO SCH (19:56)
--- NOTE | 2023-02-21 21:15 | P.PN ---
Subjective Progress Note Date: 02/21/23 CHIEF COMPLAINT: Dysphagia HISTORY OF PRESENT ILLNESS: The patient is a 83-year-old male who had recent barium swallow with high risk of aspiration. He is NPO. No new complaints. ROS: No fevers or chills. No new chest pain. PHYSICAL EXAM: VITAL SIGNS: Reviewed CONSTITUTIONAL: Well developed and in no acute distress. EYES: Conjuctivae without sclera icterus. Extraocular movements grossly intact. HEAD, EARS, NOSE, THROAT: Moderate ecchymosis along face. RESPIRATORY: Non-labored respirations and equal bilateral excursions. CARDIOVASCULAR: Palpable 2+ radial pulses. ABDOMEN: Dressing intact. No infection. MUSCULOSKELETAL: No gross deformity of the lower extremities noted. No clubb ing. No cyanosis. SKIN: Good skin turgor. Well perfused. NEUROLOGIC: Cranial nerves II through XII grossly intact. No focal or lateralizing signs. PSYCH: Flat affect CLINICAL LABS: Reviewed. WBC normal at 8.4 ASSESSMENT: 1. Dysphagia 2. Inadequate protein intake PLAN: 1. Keep NPO 2. May benefit from tube placement. Objective - Vital Signs Vital signs: Vital Signs Temp 98.4 F 02/21/23 16:00 Pulse 85 02/21/23 16:00 Resp 17 02/21/23 16:00 BP 124/75 02/21/23 16:00 Pulse Ox 95 02/21/23 16:00 FiO2 21 02/20/23 09:04 Intake & Output 02/21/23 02/21/23 02/22/23 06:59 18:59 06:59 Intake Total 180 Output Total 700 1050 Balance -700 -870 Intake: Oral 180 Output: Urine 700 1050 Other: Voiding Method Indwelling Catheter Indwelling Catheter - Labs CBC & Chem 7: 02/21/23 08:08 02/21/23 08:08 Labs: Abnormal Lab Results - Last 24 Hours (Table) 02/19/23 02/21/23 02/21/23 Range/Units 09:00 08:08 08:08 RBC 3.72 L (4.30-5.90) m/uL Hct 37.9 L (39.0-53.0) % MCV 101.9 H (80.0-100.0) fL Lymphocytes # 0.5 L (1.0-4.8) k/uL Sodium 132 L (137-145) mmol/L Glucose 65 L (74-99) mg/dL POC Glucose (mg/dL) (70-110) mg/dL Myoglobin 73 H (<=72) ng/mL Total Protein 5.3 L (6.3-8.2) g/dL Albumin 2.7 L (3.5-5.0) g/dL 02/21/23 Range/Units 14:52 RBC (4.30-5.90) m/uL Hct (39.0-53.0) % MCV (80.0-100.0) fL Lymphocytes # (1.0-4.8) k/uL Sodium (137-145) mmol/L Glucose (74-99) mg/dL POC Glucose (mg/dL) 67 L (70-110) mg/dL Myoglobin (<=72) ng/mL Total Protein (6.3-8.2) g/dL Albumin (3.5-5.0) g/dL
[2023-02-22] MEDS: METOPROLOL TARTRATE 5 MG/5 ML VIAL IVP SCH ×2 (00:37→05:41)
[2023-02-22] MEDS: HEPARIN SODIUM,PORCINE/PF 5,000 UNIT/0.5 ML SYRINGE SQ SCH ×2 (00:38→08:49)
[2023-02-22] MEDS: SODIUM CHLORIDE 0.9% 1,000 ML IV SCH (04:47)
--- NOTE | 2023-02-22 08:37 | P.PN ---
Subjective Progress Note Date: 02/22/23 Principal diagnosis: Fall This is an 83-year-old male who was admitted after a fall at home. Patient was found laying on the floor by caregiver, and had been laying on the floor for around 15 hours. Patient has a history of A. fib, hyperlipidemia, and hypertension. He's maintained on normal saline. CK level has been decreasing, yesterday it was 1313. He is seen laying in bed this morning, complains of some mild pain, but overall is feeling well. 02/16/23 Patient is seen laying in bed this morning, reports he is feeling better. CK continues to trend down. Care management discussing placement for patient when he is ready for discharge. 02/18/23 CK continues to trend down. Speech therapy has been consulted. Nursing staff reports patient having a lot of coughing with his breakfast this morning. Still anticipating placement for discharge. 02/22/23 Patient currently nothing by mouth. Dr. Wells has seen and evaluated patient for possible feeding tube. He is seen and evaluated laying in bed this morning comfortably. Bruising on face has improved. Objective - Vital Signs Vital signs: Vital Signs Temp 98.1 F 02/21/23 20:00 Pulse 117 H 02/22/23 04:00 Resp 20 02/22/23 04:00 BP 135/84 02/22/23 04:00 Pulse Ox 96 02/22/23 04:00 FiO2 21 02/20/23 09:04 Intake & Output 02/21/23 02/22/23 02/22/23 18:59 06:59 18:59 Intake Total 180 180 Output Total 1050 250 Balance -870 -250 180 Intake: Oral 180 180 Output: Urine 1050 250 Other: Voiding Method Indwelling Catheter Indwelling Catheter - Constitutional General appearance: Present: cooperative, no acute distress - EENT Eyes: Present: PERRLA - Neck Neck: Present: normal ROM. Absent: lymphadenopathy, rigidity - Respiratory Respiratory: bilateral: CTA - Cardiovascular Rhythm: regular Heart sounds: normal: S1, S2 - Gastrointestinal General gastrointestinal: Present: soft. Absent: tenderness - Integumentary Integumentary: Present: normal, normal turgor - Musculoskeletal Musculoskeletal: Present: generalized weakness - Psychiatric Psychiatric: Present: A&O x's 3, appropriate affect, intact judgment & insight - Labs CBC & Chem 7: 02/21/23 08:08 02/21/23 08:08 Labs: Abnormal Lab Results - Last 24 Hours (Table) 02/21/23 02/21/23 02/21/23 Range/Units 08:08 08:08 14:52 RBC 3.72 L (4.30-5.90) m/uL Hct 37.9 L (39.0-53.0) % MCV 101.9 H (80.0-100.0) fL Lymphocytes # 0.5 L (1.0-4.8) k/uL Sodium 132 L (137-145) mmol/L Glucose 65 L (74-99) mg/dL POC Glucose (mg/dL) 67 L (70-110) mg/dL Total Protein 5.3 L (6.3-8.2) g/dL Albumin 2.7 L (3.5-5.0) g/dL Assessment and Plan (1) Rhabdomyolysis Current Visit: Yes Status: Acute Code(s): M62.82 - RHABDOMYOLYSIS SNOMED Code(s): 855737731 (2) Fall Current Visit: Yes Status: Acute Code(s): W19.XXXA - UNSPECIFIED FALL, INITIAL ENCOUNTER SNOMED Code(s): 8553803 (3) Chronic atrial fibrillation Current Visit: No Status: Acute Code(s): I48.20 - CHRONIC ATRIAL FIBRILLATION, UNSPECIFIED SNOMED Code(s): 971506774 (4) Weakness Current Visit: No Status: Acute Code(s): R53.1 - WEAKNESS SNOMED Code(s): 52839868 (5) Dysphagia Current Visit: Yes Status: Acute Code(s): R13.10 - DYSPHAGIA, UNSPECIFIED SNOMED Code(s): 65980247 Plan: Anticipate possible feeding tube placement. Appreciate multiple consultants recommendations. Patient seen and evaluated by nurse practitioner, physician in agreement with plan
[2023-02-22] MEDS: polyethylene glycoL 3350 17 GM POWD.PACK PO SCH (08:41)
[2023-02-22] MEDS: PANTOPRAZOLE 40 MG/10 ML VIAL IVP SCH (08:49)
[2023-02-22] MEDS: CARBIDOPA-LEVODOPA 25-100 MG 1 EACH TAB PO SCH ×3 (08:49→20:48)
[2023-02-22] MEDS: MULTIVITAMINS, THERA 1 EACH TAB PO SCH (08:49)
[2023-02-22] MEDS: DEXTROSE 5%-0.45% NACL 1,000 ML IV SCH (08:55)
[2023-02-22] MEDS ORDERED: METOPROLOL TARTRATE 25 MG TAB PO SCH (09:00)
--- NOTE | 2023-02-22 10:48 | P.PN ---
Subjective Progress Note Date: 02/22/23 HISTORY OF PRESENT ILLNESS: This is an 83-year-old male who follows in the office with Dr. Mauro. Patient has a history of persistent atrial fibrillation, mild cardiomyopathy with e jection fraction 45%, mild coronary artery disease, hypothyroidism, sick sinus syndrome with previous pacemaker implantation, hypertension, and hyperlipidemia. Patient is admitted to the hospital after a fall and syncopal episode with subsequent rhabdomyolysis. Patient underwent dual-chamber pacemaker generator change on 02/19/[address] Estrada. Patient's pacemaker site with dressing noted. Surgical site nontender. The patient apparently had failed a swallow screen and was unable to take oral medications and was receiving IV metoprolol. However, this morning the patient is able to take oral medications in applesauce per nursing. Telemetry monitoring reveals atrial fibrillation/paced rhythm. PHYSICAL EXAM: VITAL SIGNS: Reviewed. GENERAL: Well-developed in no acute distress. Bruising noted to right side of face. NECK: Supple. No JVD or thyromegaly LUNGS: Respirations even and unlabored. Lungs diminished to auscultation bilaterally. HEART: Irregular rate and rhythm. S1 and S2 heard. EXTREMITIES: Normal range of motion. No clubbing or cyanosis. Peripheral pulses intact. 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 Resume oral metoprolol Continue additional cardiac medications Resume Xarelto Further recommendations pending patient course Nurse practitioner note has been reviewed by physician. Signing provider agrees with the documented findings, assessment, and plan of care. Objective - Vital Signs Vital signs: Vital Signs Temp 98.1 F 02/22/23 08:47 Pulse 91 02/22/23 08:47 Resp 20 02/22/23 08:47 BP 110/69 02/22/23 08:47 Pulse Ox 96 02/22/23 10:12 FiO2 21 02/20/23 09:04 Intake & Output 02/21/23 02/22/23 02/22/23 18:59 06:59 18:59 Intake Total 180 180 Output Total 1050 250 200 Balance -870 -250 -20 Intake: Oral 180 180 Output: Urine 1050 250 200 Other: Voiding Method Indwelling Catheter Indwelling Catheter Indwelling Catheter - Labs CBC & Chem 7: 02/21/23 08:08 02/21/23 08:08 Labs: Abnormal Lab Results - Last 24 Hours (Table) 02/21/23 Range/Units 14:52 POC Glucose (mg/dL) 67 L (70-110) mg/dL
[2023-02-22] MEDS: CHOLECALCIFEROL 25 MCG (1000 IU) TABLET PO SCH (11:06)
[2023-02-22] MEDS: RIVAROXABAN 20 MG TAB PO SCH (13:32)
[2023-02-22 14:00] LABS: JO-1 IgG Antibody <0.2 AI
[2023-02-22 14:20] LABS: Glucose,Whole Blood 115 mg/dL (70-110)
[2023-02-22] MEDS: METOPROLOL TARTRATE 25 MG TAB PO SCH ×2 (15:55→20:48)
--- NOTE | 2023-02-22 16:24 | P.PN ---
Subjective Progress Note Date: 02/22/23 CHIEF COMPLAINT: Dysphagia HISTORY OF PRESENT ILLNESS: Patient with dysphagia and recent barium swallow w ith high-risk Of aspiration. Surgical service consulted for Dobbhoff feeding tube. Patient's family is not interested in the Dobbhoff tube or PEG tube placement. At this time they are aware that patient is high risk for aspiration and still want to proceed with feeding patient. They do not want any procedures for feeding tubes at this time. PHYSICAL EXAM: VITAL SIGNS: Reviewed. GENERAL: Well-developed in no acute distress. ABDOMEN: Soft. Nondistended. Nontender. NEUROLOGIC: awake ASSESSMENT: 1. Dysphagia 2. High risk of aspiration noted on barium swallow PLAN: -Patient's family is refusing any Dobbhoff or PEG tube placement -Surgical service will remain on standby -Continue supportive care Physician Binding Folder Machine note has been reviewed by physician. Signing provider agrees with the documented findings, assessment, and plan of care. Objective - Vital Signs Vital signs: Vital Signs Temp 98.1 F 02/22/23 08:47 Pulse 98 02/22/23 13:19 Resp 20 02/22/23 11:04 BP 112/72 02/22/23 11:04 Pulse Ox 97 02/22/23 11:04 FiO2 21 02/20/23 09:04 Intake & Output 02/21/23 02/22/23 02/22/23 18:59 06:59 18:59 Intake Total 180 360 Output Total 1050 250 200 Balance -870 -250 160 Weight 92.986 kg Intake: Oral 180 360 Output: Urine 1050 250 200 Other: Voiding Method Indwelling Catheter Indwelling Catheter Indwelling Catheter - Labs CBC & Chem 7: 02/21/23 08:08 02/21/23 08:08 Labs: Abnormal Lab Results - Last 24 Hours (Table) 02/21/23 Range/Units 14:52 POC Glucose (mg/dL) 67 L (70-110) mg/dL
--- NOTE | 2023-02-22 20:37 | P.PN ---
Subjective Progress Note Date: 02/22/23 Patient initially seen by Dr. Marcelo Gómez. Please refer to his note for details. Patient is a 83-year-old male with recent fall. Patient has resting tremor of the right upper extremity, shuffling gait. Parkinson suspected. Patient has never seen a neurologist for this concern. He also has worsening dysphagia, failed swallow study. Patient cannot have MRI because of pacemaker. However he had 2 CT scans of the head that have been negative. Patient needs repeat swallow study. Dr. Gómez has discussed with patient's daughter (Monica) via phone and she stated that he has been having resting tremor of the right upper extremity for the past two years,has shuffling gait. He did not see a neurologist regarding this. He has some difficulty clear speech for some time. But denies any swallowing is sues or chocking. He has history of stroke 7-8 years ago and followed-up with Dr. Morrison and symptoms resolved. He has difficulty clearing throat which eventually subsided. Some of the workup during his hospital visit: Initial CK level was 3K and currently is 300. Initial plasma lactic acid the vein is 2.9 repeated is normal. Vitamin B-12 is not 42 Folate is 27.3 TSH is 3.380 HbAc: 5.4 Myoglobin is 73 (normal is <)72 Urine toxicology screen is not detected and serum alcohol was less than 10. CT of the head is reported as right frontal scalp contusion. No underlying the calvarial fracture or acute intracranial abnormality. Old infarct in the lateral posterior right frontal lobe. CT cervical spine is reported as there is a prevertebral soft tissue edema. In addition be noted that the presence of some generalized soft tissue swelling throughout the neck more on the right. While there is degenerative disc space narrowing throughout there is either maintain versus widened at the space at C4- C5. Given the soft tissue swelling and prevertebral edema, for the possibility of distraction injury of the neck. There is no malalignment or acute fracture as seen of the cervical spine. Correlate as to the if MRI is needed CT cervical spine was reported as new subcutaneous emphysema left supraclavicular region and anterior left upper chest. Correlate as to etiology. Previous soft tissue swelling especially along the right side of the neck as well as the previous paravertebral soft tissue edema as both resolved. Advanced spondylitic changes redemonstrated throughout the neck. No acute fracture or malalignment Carotid duplex was reported as less than 50% stenosis bilateral carotid bifurcation. Routine EEG is normal. There is no focal slowing, epileptiform discharges or seizure on the EEG 2-D echo was reported as mildly impaired left ventricular function with ejection fraction of 40-45%. Small pericardial effusion. Objective - Vital Signs Vital signs: Vital Signs Temp 98.1 F 02/22/23 08:47 Pulse 98 02/22/23 13:19 Resp 20 02/22/23 11:04 BP 112/72 02/22/23 11:04 Pulse Ox 97 02/22/23 11:04 FiO2 21 02/20/23 09:04 Intake & Output 02/21/23 02/22/23 02/22/23 18:59 06:59 18:59 Intake Total 180 360 Output Total 1050 250 200 Balance -870 -250 160 Weight 92.986 kg Intake: Oral 180 360 Output: Urine 1050 250 200 Other: Voiding Method Indwelling Catheter Indwelling Catheter Indwelling Catheter - Exam Patient is an elderly male, in no acute distress. Patient has multiple bruises on his face. Patient's speech is slightly slurred, but no aphasia. Attention, concentration and fund of knowledge is limited. 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 Then he said that he is in the [place]. On cranial nerve exam. Pupils are equal, round and reactive to light, visual rai are full, extraocular muscles are intact. Face is symmetric and tongue protrudes to the midline. He is moderately hard of hearing. On muscle strength testing, the strength is normal in the bin packer, biceps and triceps. He is very painful in the deltoid, could not be tested. Ankles are normal. Tone is increased mild to moderately on the right, mildly on the left. Patient has resting tremor of the right hand fingers noticed intermittently. - Labs CBC & Chem 7: 02/21/23 08:08 02/21/23 08:08 Labs: Abnormal Lab Results - Last 24 Hours (Table) 02/22/23 Range/Units 14:19 POC Glucose (mg/dL) 115 H (70-110) mg/dL Assessment and Plan Assessment: This is an 83-year-old gentleman who presented to our facility on 02/12/2023 since he was found down on the floor by his caregiver and last normal state was on 02/11/2023. 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 No history of seizures. She has been having progressively worsening of dysarthria and unknown timeframe There is a concern that the patient had the right upper extremity tremor. Parkinson's disease, probable idiopathic. Recent fall and unknown cause: Possible due to above vs cardiac in origin Rhabdomyolysis due to a fall--improving New emphysema seen on CT Advanced spondylitic changes throughout the neck on CT History of right frontal stroke History of atrial fibrillation on pacemaker and has pacemaker and he had his battery changed on 02/19/23 Hypertension Systolic heart failure with ejection fraction of 40-45% Hyperlipidemia Hypotelorism Sleep apnea on BiPAP Plan: Continue Sinemet 25/100, 1 tablet 3 times a day. This was just started yesterday. He shouldn't tolerating medication well. Cannot obtain MRI as an inpatient because his pacemaker per transmission technician. Recommend MRI as an outpatient Await acetylcholine receptor antibody to rule out questionable myasthenia gravis (the result will take time until it come back). He does not have any ptosis or any worsening weakness which seems unlikely. Myoglobin is 73 (normal is <)72 Pending orthostatic vitals once the patient is more stable to cooperate for the examination Await aldolase level, LDH, anti-jo1 abs normal. B12 942, folate 27.3, TSH 3.38, all normal. Hemoglobin A1c 5.4, CK 300. PT OT and PHP LAMP DEVELOPER are consulted Consider NG tube or PEG tube since patient has dysphagia. If he does have ?Parksinson's disease cannot give medication since NPO at this time. For his severe cervical spondylosis consulted orthopedic surgery team. Cardiology is on board. Telemetry monitoring showing atrial fibrillation. V paced rhythm. Patient on Xarelto. If he continues to have further falls, there is increase risk of bleed with anticoagulation. Will defer use of anticoaguation to primary and cardiology team. We'll defer the rest of the medical management to the primary team For emphysema seen on the CT recommend to be addressed by primary or consideration of pulmonary team. DVT prophylaxis he is on subcu heparin.
[2023-02-22] MEDS: TAMSULOSIN 0.4 MG CAP.ER.24H PO SCH (20:48)
[2023-02-23] MEDS: SODIUM CHLORIDE 0.9% 1,000 ML IV SCH (03:49)
[2023-02-23] MEDS: DEXTROSE 5%-0.45% NACL 1,000 ML IV SCH (06:19)
[2023-02-23] MEDS: polyethylene glycoL 3350 17 GM POWD.PACK PO SCH (08:02)
[2023-02-23] MEDS: METOPROLOL TARTRATE 25 MG TAB PO SCH (08:10)
[2023-02-23] MEDS: CARBIDOPA-LEVODOPA 25-100 MG 1 EACH TAB PO SCH (08:10)
[2023-02-23] MEDS: methIMAzole 5 MG TAB PO SCH (08:10)
[2023-02-23] MEDS: MULTIVITAMINS, THERA 1 EACH TAB PO SCH (08:11)
[2023-02-23] MEDS: PANTOPRAZOLE 40 MG/10 ML VIAL IVP SCH (08:11)
[2023-02-23 08:15] VITALS: RESP 20; TEMP 97.7
--- NOTE | 2023-02-23 08:35 | P.DS ---
Providers Date of admission: 02/12/23 14:13 Attending physician: Maximo Victoria DO Consults: 02/12/23 14:11 Consult Physician Urgent Consulting Provider: Gaudencio Spangler Consult Reason/Comments: Medical management Do you want consulting provider notified?: Yes Consult Physician Urgent Consulting Provider: Mary Alice Ford Consult Reason/Comments: Rhabdomyolysis Do you want consulting provider notified?: Yes 02/13/23 12:25 Consult Physician Urgent Consulting Provider: Seth Sandoval Consult Reason/Comments: History of atrial fibrillation, syncopal episode Do you want consulting provider notified?: Yes 02/18/23 11:51 Consult Physician Routine Consulting Provider: Marcelo Gómez Consult Reason/Comments: pt displaying possible Parkinsons symptoms per ST failed swallow eval Do you want consulting provider notified?: Yes 02/20/23 11:06 Consult Physician Routine Consulting Provider: Cheikh Simpson Consult Reason/Comments: pt needs dobbhoff feeding tube placed, possible peg in near future Do you want consulting provider notified?: Yes 02/20/23 12:47 Consult Physician Routine Consulting Provider: Keyon Singer Consult Reason/Comments: advance spondyltic changes cervical with recurrent falls Do you want consulting provider notified?: Yes Primary care physician: Gaudencio Spangler - Discharge Diagnosis(es) (1) Rhabdomyolysis Current Visit: Yes Status: Acute (2) Fall Current Visit: Yes Status: Acute (3) Chronic atrial fibrillation Current Visit: No Status: Acute (4) Weakness Current Visit: No Status: Acute (5) Dysphagia Current Visit: Yes Status: Acute Hospital Course: This is an 83-year-old male who was admitted after a fall at home. Patient was found laying on the floor by caregiver, reportedly had been laying on the ground for around 15 hours or so. On admission patient was found to have rhabdomyolysis, labs have significantly improved. During hospital stay patient had some issues with swallowing, swallow eval failed. Patient was seen by surgeon for possible tube feeding, the family has decided against tube feedings. Dietary is recommending a level I dysphagia pureed diet with thickened liquids and supervision. Patient also seen and evaluated by neurology, has started Sinemet and will continue. Patient has a Mustafa catheter and will be discharged with catheter in place. Patient is now stable for discharge. Will go to [facility] for rehab. Patient seen and evaluated by nurse practitioner, physician in agreement with plan Patient Condition at Discharge: Fair Plan - Discharge Summary Discharge Rx Participant: Yes New Discharge Prescriptions: New Carbidopa-Levodopa 25-100 mg [Sinemet 25-100 mg] 1 each PO TID 30 Days #90 tab Continue Tamsulosin HCl [Flomax] 0.8 mg PO HS Simvastatin [Zocor] 20 mg PO HS Rivaroxaban [Xarelto] 20 mg PO DAILY@1200 methIMAzole [Tapazole] 2.5 mg PO Q48H Metoprolol Succinate [Toprol XL] 25 mg PO BID Acetaminophen [Tylenol] 1,000 mg PO BID PRN PRN Reason: Pain polyethylene glycoL 3350 [Miralax] 17 gm PO DAILY lisinopriL [Zestril] 2.5 mg PO DAILY Potassium Chloride ER [K-Dur 10] 20 meq PO Q48H Cholecalciferol [Vitamin D3 (25 Mcg = 1000 Iu)] 50 mcg PO DAILY@1200 Docusate [Colace] 100 mg PO Q3D PRN PRN Reason: Constipation Multivit-Min/FA/Lycopen/Lutein [Centrum Silver Men Tablet] 1 tab PO DAILY Furosemide [Lasix] 20 mg PO Q48H Discharge Medication List Rivaroxaban [Xarelto] 20 mg PO DAILY@1200 02/17/17 [History] Simvastatin [Zocor] 20 mg PO HS 02/17/17 [History] Tamsulosin HCl [Flomax] 0.8 mg PO HS 02/17/17 [History] methIMAzole [Tapazole] 2.5 mg PO Q48H 02/17/17 [History] Metoprolol Succinate [Toprol XL] 25 mg PO BID 06/09/18 [History] Acetaminophen [Tylenol] 1,000 mg PO BID PRN 08/14/20 [History] polyethylene glycoL 3350 [Miralax] 17 gm PO DAILY 11/02/20 [History] Cholecalciferol [Vitamin D3 (25 Mcg = 1000 Iu)] 50 mcg PO DAILY@1200 05/21/21 [History] Docusate [Colace] 100 mg PO Q3D PRN 05/21/21 [History] Furosemide [Lasix] 20 mg PO Q48H 02/12/23 [History] Multivit-Min/FA/Lycopen/Lutein [Centrum Silver Men Tablet] 1 tab PO DAILY 02/12/23 [History] Potassium Chloride ER [K-Dur 10] 20 meq PO Q48H 02/12/23 [History] lisinopriL [Zestril] 2.5 mg PO DAILY 02/12/23 [History] Carbidopa-Levodopa 25-100 mg [Sinemet 25-100 mg] 1 each PO TID 30 Days #90 tab 02/23/23 [Rx] Follow up Appointment(s)/Referral(s): Sadia Mauro MD [STAFF PHYSICIAN] - 1 Week Gaudencio Spangler MD [Primary Care Provider] - 1-2 days Activity/Diet/Wound Care/Special Instructions: Dysphagia level I pured diet with thickened liquids and one-to-one supervision Discharge Disposition: TRANSFER TO SNF/ECF
--- NOTE | 2023-02-23 11:07 | P.PN ---
Subjective Progress Note Date: 02/23/23 HISTORY OF PRESENT ILLNESS: This is an 83-year-old male who follows in the office with Dr. Mauro. Patient has a history of persistent atrial fibrillation, mild cardiomyopathy with e jection fraction 45%, mild coronary artery disease, hypothyroidism, sick sinus syndrome with previous pacemaker implantation, hypertension, and hyperlipidemia. Patient is admitted to the hospital after a fall and syncopal episode with subsequent rhabdomyolysis. Patient underwent dual-chamber pacemaker generator change on 02/19/[address] Estrada. Patient's pacemaker site with dressing noted. Surgical site nontender. The patient apparently had failed a swallow screen and was unable to take oral medications and was receiving IV metoprolol. However, this morning the patient is able to take oral medications in applesauce per nursing. Telemetry monitoring reveals atrial fibrillation/paced rhythm. 02/23/2023 Patient examined this morning. Patient without complaints of chest pain or pre ssure. Denies SOB. Telemetry monitoring reveals atrial fibrillation/paced rhythm. Blood pressure is stable. PHYSICAL EXAM: VITAL SIGNS: Reviewed. GENERAL: Well-developed in no acute distress. Bruising noted to right side of face. NECK: Supple. No JVD or thyromegaly LUNGS: Respirations even and unlabored. Lungs diminished to auscultation bilaterally. HEART: Irregular rate and rhythm. S1 and S2 heard. EXTREMITIES: Normal range of motion. No clubbing or cyanosis. Peripheral pulses intact. 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 Signing provider agrees with the documented findings, assessment, and plan of care. Objective - Vital Signs Vital signs: Vital Signs Temp 97.7 F 02/23/23 08:01 Pulse 109 H 02/23/23 08:01 Resp 20 02/23/23 08:01 BP 108/72 02/23/23 08:01 Pulse Ox 94 L 02/23/23 08:01 FiO2 21 02/20/23 09:04 Intake & Output 02/22/23 02/23/23 02/23/23 18:59 06:59 18:59 Intake Total 540 10 Output Total 450 325 150 Balance 90 -315 -150 Weight 92.986 kg Intake: IV 10 Invasive Line 5 10 Oral 540 Output: Urine 450 325 150 Other: Voiding Method Indwelling Catheter Indwelling Catheter Indwelling Catheter - Labs CBC & Chem 7: 02/21/23 08:08 02/21/23 08:08 Labs: Abnormal Lab Results - Last 24 Hours (Table) 02/22/23 Range/Units 14:19 POC Glucose (mg/dL) 115 H (70-110) mg/dL
--- NOTE | 2023-02-23 11:19 | P.PN ---
Subjective Progress Note Date: 02/23/23 CHIEF COMPLAINT: Dysphagia HISTORY OF PRESENT ILLNESS: Patient with dysphagia and recent barium swallow w ith high-risk Of aspiration. Surgical service consulted for Dobbhoff feeding tube. Patient's family is not interested in the Dobbhoff tube or PEG tube placement. Patient is scheduled for discharge to [facility] today. PHYSICAL EXAM: VITAL SIGNS: Reviewed. GENERAL: Well-developed in no acute distress. ABDOMEN: Soft. Nondistended. Nontender. NEUROLOGIC: awake ASSESSMENT: 1. Dysphagia 2. High risk of aspiration noted on barium swallow PLAN: -Patient's family is refusing any Dobbhoff or PEG tube placement -Surgical service on standby if needed -Patient scheduled for discharge to [facility] today Physician Cloth Bleaching Range Back Tender note has been reviewed by physician. Signing provider agrees with the documented findings, assessment, and plan of care. Objective - Vital Signs Vital signs: Vital Signs Temp 97.7 F 02/23/23 08:01 Pulse 109 H 02/23/23 08:01 Resp 20 02/23/23 08:01 BP 108/72 02/23/23 08:01 Pulse Ox 94 L 02/23/23 08:01 FiO2 21 02/20/23 09:04 Intake & Output 02/22/23 02/23/23 02/23/23 18:59 06:59 18:59 Intake Total 540 10 Output Total 450 325 Balance 90 -315 Weight 92.986 kg Intake: IV 10 Invasive Line 5 10 Oral 540 Output: Urine 450 325 Other: Voiding Method Indwelling Catheter Indwelling Catheter - Labs CBC & Chem 7: 02/21/23 08:08 02/21/23 08:08 Labs: Abnormal Lab Results - Last 24 Hours (Table) 02/22/23 Range/Units 14:19 POC Glucose (mg/dL) 115 H (70-110) mg/dL
[2023-02-23 11:32] VITALS: BP 95/58; PULSE 90
[2023-02-23] MEDS: CHOLECALCIFEROL 25 MCG (1000 IU) TABLET PO SCH (11:51)
[2023-02-23] MEDS: RIVAROXABAN 20 MG TAB PO SCH (11:51)
== END 2023-02-23 15:01 | DRG 988 ==
LOC: EC 10:02 → 3SCARD 14:13
PROVIDERS: ADMIT Surgery; ATTEND Surgery
PROC: 0HQ1XZZ Repair Face Skin, External Approach (ICD-10-PCS; 2023-02-12)
PROC: 0JH606Z Insertion of Pacemaker, Dual Chamber into Chest Subcutaneous Tissue and Fascia, Open Approach (ICD-10-PCS; 2023-02-19)
PROC: 3E0102A Introduction of Anti-Infective Envelope into Subcutaneous Tissue, Open Approach (ICD-10-PCS; 2023-02-19)
PROC: 0JPT0PZ Removal of Cardiac Rhythm Related Device from Trunk Subcutaneous Tissue and Fascia, Open Approach (ICD-10-PCS; principal; 2023-02-19 07:00)
DX: T79.6XXA Traumatic ischemia of muscle, initial encounter (principal); E87.20 Acidosis, unspecified; I31.39 Other pericardial effusion (noninflammatory); I50.20 Unspecified systolic (congestive) heart failure; T79.7XXA Traumatic subcutaneous emphysema, initial encounter; I47.20 Ventricular tachycardia, unspecified; I42.8 Other cardiomyopathies; I48.21 Permanent atrial fibrillation; S06.0X9A Concussion with loss of consciousness of unspecified duration, initial encounter; I49.5 Sick sinus syndrome; G72.9 Myopathy, unspecified; I11.0 Hypertensive heart disease with heart failure; G20 Parkinson's disease; E03.9 Hypothyroidism, unspecified; S01.81XA Laceration without foreign body of other part of head, initial encounter; H11.31 Conjunctival hemorrhage, right eye; I65.23 Occlusion and stenosis of bilateral carotid arteries; I25.10 Atherosclerotic heart disease of native coronary artery without angina pectoris; G47.30 Sleep apnea, unspecified; W18.30XA Fall on same level, unspecified, initial encounter; Z45.018 Encounter for adjustment and management of other part of cardiac pacemaker; Z79.01 Long term (current) use of anticoagulants; H05.89 Other disorders of orbit; R13.10 Dysphagia, unspecified; E63.9 Nutritional deficiency, unspecified; R40.2412 Glasgow coma scale score 13-15, at arrival to emergency department; S01.111A Laceration without foreign body of right eyelid and periocular area, initial encounter; M47.812 Spondylosis without myelopathy or radiculopathy, cervical region; M48.02 Spinal stenosis, cervical region; E78.5 Hyperlipidemia, unspecified; S50.01XA Contusion of right elbow, initial encounter; H91.90 Unspecified hearing loss, unspecified ear; R29.6 Repeated falls; S40.021A Contusion of right upper arm, initial encounter; Y92.000 Kitchen of unspecified non-institutional (private) residence as the place of occurrence of the external cause; Z79.899 Other long term (current) drug therapy; Z86.73 Personal history of transient ischemic attack (TIA), and cerebral infarction without residual deficits; Z91.81 History of falling
CPT/HCPCS: 12011; 33228; 36415; 70450; 70486; 71045; 72125; 72170; 73502; 74230; 80053; 80306; 80320; 82085; 82550; 82607; 82746; 83036; 83519; 83605; 83615; 83874; 84443; 84484; 85025; 85027; 85610; 85730; 86235; 86850; 86900; 86901; 90471; 90715; 93005; 93306; 93880; 94760; 95816; 96361; 96365; 96375; 99291